=== PATIENT | female | born 1970 | race Caucasian/White ===

== ENCOUNTER → 2017-09-11 09:07 | Outpatient (CLI) | payer OTHER, SELFPAY ==
[2017-09-11 12:39] LABS: AST(SGOT) 11 U/L (15-37); Alanine Aminotransfer ALT/SGPT 20 U/L (13-56); Alkaline Phosphatase 104 U/L (45-117); Anion Gap 9 (5-15); BUN 20 mg/dL (7-18); BUN/Creat Ratio 26.1 RATIO (10-20); Calcium,Total 8.7 mg/dL (8.5-10.1); Chloride 105 mmol/L (98-107); Cholesterol 203 mg/dL (200); Creatinine, Serum 0.77 mg/dL (0.55-1.02); EST Glomerular Filtration Rate 87 mL/min (>60); Est Glom Filt Rate - Afr Amer 105 mL/min (>60); Globulin 3.9 g/dL (2.2-4.2); Glucose 98 mg/dL (74-106); High Density Lipoprotein 59 mg/dL; Potassium 4.1 mmol/L (3.5-5.1); Protein, Total 7.9 g/dL (6.4-8.2); Sodium Level 139 mmol/L (136-145); Thyroid Stim Hormone (TSH) 1.21 uIU/mL (0.358-3.74); Triglycerides 130 mg/dL; Very Low Density Lipoprotein 26 mg/dL (5-40)
== END ==
PROVIDERS: Family Provider Family Medicine; PCP Family Medicine; Visit Provider Family Medicine
DX: I10 Essential (primary) hypertension (principal)
CPT/HCPCS: 36415; 80053; 80061; 84443

== ENCOUNTER 2017-10-19 08:12 | Emergency (ER) | payer OTHER, SELFPAY ==
[2017-10-19 08:13] VITALS: BP 158/93; PULSE 131; RESP 17; TEMP 36.6; O2SAT 100; BMI 36.6
--- NOTE | 2017-10-19 08:22 | CT_ITS ---
STUDY: CT ABDOMEN AND PELVIS WITH CONTRAST REASON FOR EXAM: Female, 46 years old. Dark red blood in stool with nausea and diarrhea for 2 days. RADIATION DOSAGE (If Supplied By Facility): CTDIvol = ( 16.75 ) mGy, DLP = ( 1351.69 ) mGycm TECHNIQUE: Transaxial images were obtained from the dome of the diaphragm to the symphysis pubis without oral contrast. 100 ml of Isovue 300 contrast was administered. Sagittal and coronal images were reconstructed. Individualized dose optimization techniques were used for this CT. COMPARISON: Prior comparison studies are not available for review at this time. FINDINGS: There is mild bilateral basilar dependent atelectasis. The visualized portions of the heart are within normal limits. Normal liver. There is non-visualization of the gallbladder, which may be secondary to either contraction or a prior cholecystectomy. Normal spleen. Normal pancreas. Normal bilateral adrenal glands. Normal right kidney. Normal left kidney. Normal visualized stomach. There is no evidence for dilated bowel, ascites or pneumoperitoneum. Small bowel has a grossly normal appearance. There is apparent thickening of the hager of the descending colon possibly related to acute or chronic inflammation. There is also some narrowing and possible thickening of the hager of the mid transverse colon. The appendix is visualized and appears normal. Normal abdominal aorta. Normal inferior vena cava. Normal retroperitoneum. Normal urinary bladder. Normal visualized uterus. There is a small umbilical hernia containing fat. Normal osseous structures. CT/Abdomen/Pelvis W IV Cont ONLY IMPRESSION: Nonspecific thickening of the hager of the descending colon and mid transverse colon. This may be the result of acute or chronic inflammation. Electronically Signed: Jazmin Sanchez MD at 10:26 EDT , Service support ,
--- NOTE | 2017-10-19 08:23 | ED.VISSUMM ---
- ER Visit Summary Date of Service: 10/19/17 Chief Complaint: Nausea, bloody diarrhea History of Present Illness: The patient is a 46 F presents to the emergency department with one episode of bloody diarrhea this morning. Patient states that she has had symptoms of gastroenteritis over the past 2 days. States she has had some mild nausea and minimal abdominal cramping. 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 She states that today, when she woke, she the urge that she had to move her bowels. She states she moved her bowels and there was a lot of dark blood with it. She has had some cramping, but no significant pain. She states that she got lightheaded and then she passed out. She states she has never passed out like this before. She denies any chest pain. The patient is on a baby aspirin, but takes no other anticoagulants. She has no history of Crohn's disease. She has no history of ulcerative colitis. She denies any other systemic symptoms. Physical Examination: Vital signs reviewed General: Well-nourished, well-developed Head: Normocephalic, atraumatic Eyes: Pupils equal and reactive, extraocular muscles intact Neck, supple, no lymphadenopathy Heart: Regular rate and rhythm Respiratory: No distress, clear bilaterally Abdomen: Soft, nontender, nondistended, no peritoneal signs, bowel sounds are hyperactive Back: Nontender Extremities: Nontender, no edema, no cords Skin: Normal color no rash Neuro: Alert and oriented, no focal or lateralizing deficits Test Results: [] Emergency Department Course and Treatment: The patient has symptoms that are concerning for GI bleed. She has a benign abdomen, but given the diarrhea, I did want to rule out acute intra-abdominal process. IV was established. Patient was given fluids and Zofran. She had no further pain. I did obtain a CT of the abdomen and pelvis. Her hemoglobin is 10.5 which is about 1 g less than her baseline. Her BUN is also elevated at 40. I am concerned that she may have an upper GI bleed given these. Her CT is read as questionable mild colitis, but on my review it really does not look impressive. I do not feel that this fully represents the cause of her bleeding. The patient was covered with Cipro and Flagyl due to concern for colitis on CT. She was actually evaluated by Dr. Faulkner in the emergency department. The plan was for admission and likely endoscopy in 48 hours, however the patient had another episode of bleeding. With this, I do feel that she is going require a higher level of care and likely urgent to emergent GI intervention. The patient was discussed with Dr. Sanchez at [facility] and was accepted to the intensive care unit. She is started on Protonix drip already. She will be transferred [facility] for further diagnosis and treatment of suspected upper GI bleed. Treatment Plan: [] Disposition: Transfer Impression: 1. Upper GI bleed 2. Syncope 3. Infectious colitis This note was generated with [employer] dictation software. It may contain incorrect words, spelling, and punctuation that were not noted in review of the chart prior to signing ED Disposition - Plan for ED Patient: Chief Complaint: GI Bleed Referrals: Alexey Christina MD [Primary Care Provider] -
[2017-10-19] MEDS: Ondansetron 4 MG/2 ML Vial IV (08:41)
[2017-10-19] MEDS: 0.9% Normal Saline 1,000 ML 1000 ML IV (08:41)
[2017-10-19 08:42] LABS: Absolute Lymphocyte Count 3.42 X10^3/ul (0.83-4.51); Absolute Neutrophil Count 6.2 X10^3/uL (2.0-7.7); Basophil# 0.04 X10^3/uL; Basophil% 0.4 % (0-1); Eosinophil# 0.23 X10^3/uL; Eosinophils% 2.2 % (0-5); Hematocrit 32.3 % (37-47); Hemoglobin 10.5 g/dl (12.0-15.0); Lymphocyte # 3.42 X10^3/ul (4.0); Lymphocyte % 32.3 % (19-41); Mean Corp Hgb Conc 32.5 g/gl (32-36); Mean Corpuscular Volume 95.3 fL (81-99); Mean Platelet Vol. 9.8 fl (6.2-12.0); Monocyte# 0.62 X10^3/uL; Monocyte% 5.9 % (0-10); Neutrophil # 6.24 X10^3/uL (2.7-7.7); Neutrophil % 58.9 % (47-70); POSITIVE COUNT NO; POSITIVE DIFFERENTIAL NO; POSITIVE MORPHOLOGY NO; Platelet Count 443 K/mm3 (150-450); RBC Distribution Width CV 12.9 % (11.6-14.6); RBC Distribution Width SD 42.9 fl (35.1-43.9); Red Blood Count 3.39 M/mm3 (4.2-5.4); White Blood Count 10.6 K/mm3 (4.4-11.0)
[2017-10-19 08:57] LABS: AST(SGOT) 13 U/L (15-37); Alanine Aminotransfer ALT/SGPT 18 U/L (13-56); Albumin, Serum 3.6 g/dL (3.2-5.0); Alkaline Phosphatase 88 U/L (45-117); Anion Gap 10 (5-15); BUN 40 mg/dL (7-18); BUN/Creat Ratio 47.2 RATIO (10-20); Calcium,Total 8.9 mg/dL (8.5-10.1); Chloride 109 mmol/L (98-107); Creatinine, Serum 0.85 mg/dL (0.55-1.02); EST Glomerular Filtration Rate 77 mL/min (>60); Est Glom Filt Rate - Afr Amer 93 mL/min (>60); Estimated Creatinine Clearance 88.27 ml/min; Globulin 3.5 g/dL (2.2-4.2); Glucose 152 mg/dL (74-106); Potassium 4.1 mmol/L (3.5-5.1); Protein, Total 7.1 g/dL (6.4-8.2); Sodium Level 140 mmol/L (136-145)
[2017-10-19 09:12] LABS: Pregnancy, Serum, hCG Quali. NEGATIVE Negative (0-9 Nonpreg)
--- NOTE | 2017-10-19 09:53 | ED.RN ---
[facility] 2.[address] CALLED FROM THE LAB. DR ALTAMIRANO AWARE
[2017-10-19 09:57] VITALS: BP 134/98; BP 147/100; BP 170/95; PULSE 109; PULSE 110; PULSE 124
--- NOTE | 2017-10-19 09:59 | NURSING ---
DR SERA KAY
[2017-10-19 10:03] LABS: Bacteria 0 SEEN /hpf (None Seen); Mucous, Urine 0 SEEN /hpf (<or=2+)
[2017-10-19 10:07] LABS: Color, Urine Straw (Yellow); Glucose, Dipstick Normal (Normal); Ketone-Dipstick Negative (Negative); Leukocyte Esterase-Dipstick Negative /ul (Negative); Nitrite-Dipstick Negative (Negative); Occult Blood-Urine 25 /ul (Negative); Protein-Dipstick Negative (Negative); Urine Bilirubin Dipstick Negative (Negative); Urine Clarity Sl. Cloudy (Clear); Urine Urobilinogen Normal (Normal)
[2017-10-19 10:14] LABS: Red Blood Cells-Urine 0-5 SEEN /hpf (0-5); Squamous Epithelial Cells - UA 0-5 SEEN /hpf (5-10); White Blood Cells 0-5 SEEN /hpf (0-5)
[2017-10-19 10:44] VITALS: BP 156/80; PULSE 115; RESP 16; O2SAT 100
--- NOTE | 2017-10-19 10:44 | NURSING ---
DR ZAMORA IN ER
--- NOTE | 2017-10-19 10:52 | PCM.CONS.GEN ---
Problem List (1) GI bleed Status: Acute Qualifiers: GI bleed type/associated pathology: unspecified gastrointestinal hemorrhage type Qualified Code(s): K92.2 - Gastrointestinal hemorrhage, unspecified Reason for Consult Date of Consultation: 10/19/17 Reason for Consultation: GI bleed History of Present Illness: The patient is a 46 year old F who reports that for the last few days she has been having upset stomach. She says yesterday she had a bout of diarrhea with blood. She reports today she has had 2 bouts of diarrhea that were mostly blood. She is not having any abdominal pain at this time just upset stomach. She reports has not vomited any blood. She has never had a GI bleed in the past. She also had a syncopal episode with this. 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 Medical History Past Medical History (Chronic Problems): Chronic Problems HTN (hypertension) (Chronic) Lumbar stenosis (Chronic) History of pulmonary embolism (Chronic) Allergies codeine Allergy (Verified 10/19/17 08:13) Rash Home Medications: Ambulatory Orders Medication Instructions Recorded Aspirin [Aspirin, Baby] 81 mg PO DAILY@0800 08/27/15 Gabapentin [Neurontin] 400 mg PO TIDCM 08/27/15 Metoprolol(XL)Succ [Toprol Xl 100 mg PO QHS 08/27/15 (Beta Faiza)] Olmesartan/Hydrochlorothiazide 1 tab PO DAILY 08/27/15 [Benicar Hct 40-25 MG Tablet] Meloxicam [Mobic] 15 mg PO DAILY 01/17/16 Clonazepam [Klonopin] 0.5 mg PO Q8H PRN PRN 05/07/17 Dicyclomine HCl [Bentyl] 20 mg PO TIDAC PRN 05/07/17 Escitalopram Oxalate [Lexapro] 20 mg PO DAILY 05/07/17 buPROPion XL [Wellbutrin Xl] 150 mg PO DAILY 05/07/17 Surgical History: cholecystectomy, - - 1.5 years ago cerivial fusion at [facility] Smoking Status: Never smoker - *Family History Maternal History Items: - - cervical, breast, thyroid skin cancer Paternal History Items: - - father with cabg Review of Systems Constitutional: Denies: Chills, Fever HEENT: Denies: Difficulty Swallowing Cardiovascular: Denies: Chest Pain Respiratory: Denies: Cough, Shortness of Breath Gastrointestinal: Reports: Diarrhea, Hematochezia. Denies: Abdominal Pain, Vomiting Genitourinary: Denies: Dysuria Musculoskeletal: Denies: Joint Tenderness Skin: Denies: Dryness Neurological: Denies: Blurred vision Patient Problems: Active and Suspected Problems GI bleed (Acute) - Physical Exam General: Alert, Oriented x3, Cooperative, No apparent distress HEENT: Atraumatic, PERRLA, EOMI Oral: Dry Mucosa Neck: Supple Lungs: Normal air movement Cardiovascular: Tachycardic Abdomen: Soft, Non Tender, Non-Distended Extremities: No clubbing Musculoskeletal: No Muscle Wasting Neurological: Cranial nerves II-XII grossly intact Psych/Mental Status: Normal Affect, Appropriate Vital Signs Temp Pulse Resp BP Pulse Ox 97.9 F 115 H 16 156/80 H 100 10/19/17 08:13 10/19/17 10:44 10/19/17 10:44 10/19/17 10:44 10/19/17 10:44 Oxygen Flow Rate (L/min) 4 Oxygen Delivery Method Nasal Cannula Weight: 248 lb 0.321 oz Body Mass Index (BMI) 36.6 Laboratory Tests Past 24 Hrs 10/19/17 10/19/17 10/19/17 08:30 08:30 08:30 WBC 10.6 RBC 3.39 L Hgb 10.5 L Hct 32.3 L MCV 95.3 MCH 31.0 MCHC 32.5 RDW 12.9 RDW Differential 42.9 Plt Count 443 MPV 9.8 Immature Gran % (Auto) 0.300 Neut % (Auto) 58.9 Lymph % (Auto) 32.3 [place] % (Auto) 5.9 Eos % (Auto) 2.2 Baso % (Auto) 0.4 Absolute Neuts (auto) 6.2 Absolute Lymphs (auto) 3.42 Total Counted Not Reportable Sodium 140 Potassium 4.1 Chloride 109 H Carbon Dioxide 21.0 Anion Gap 10 BUN 40 H Creatinine 0.85 Estim Creat Clear Calc 88.27 Est GFR (MDRD) Af Amer 93 Est GFR (MDRD) Non-Af 77 BUN/Creatinine Ratio 47.2 H Glucose 152 H Lactic Acid Calcium 8.9 Total Bilirubin 0.40 AST 13 L ALT 18 Alkaline Phosphatase 88 Total Protein 7.1 Albumin 3.6 Globulin 3.5 Albumin/Globulin Ratio 1.0 Serum , Qual NEGATIVE Urine Color Urine Clarity Urine pH Ur Specific [place] Urine Protein Urine Glucose (UA) Urine Ketones Urine Occult Blood Urine Nitrite Urine Bilirubin Urine Urobilinogen Ur Leukocyte Esterase Urine RBC Urine WBC Ur Squamous Epith Cells Urine Bacteria Urine Mucus Blood Type Antibody Screen 10/19/17 10/19/17 10/19/17 08:30 09:20 09:53 WBC RBC Hgb Hct MCV MCH MCHC RDW RDW Differential Plt Count MPV Immature Gran % (Auto) Neut % (Auto) Lymph % (Auto) [place] % (Auto) Eos % (Auto) Baso % (Auto) Absolute Neuts (auto) Absolute Lymphs (auto) Total Counted Sodium Potassium Chloride Carbon Dioxide Anion Gap BUN Creatinine Estim Creat Clear Calc Est GFR (MDRD) Af Amer Est GFR (MDRD) Non-Af BUN/Creatinine Ratio Glucose Lactic Acid 2.0 Calcium Total Bilirubin AST ALT Alkaline Phosphatase Total Protein Albumin Globulin Albumin/Globulin Ratio Serum , Qual Urine Color Straw Urine Clarity Sl. Cloudy Urine pH 7.0 Ur Specific [place] 1.010 Urine Protein Negative Urine Glucose (UA) Normal Urine Ketones Negative Urine Occult Blood 25 H Urine Nitrite Negative Urine Bilirubin Negative Urine Urobilinogen Normal Ur Leukocyte Esterase Negative Urine RBC 0-5 SEEN Urine WBC 0-5 SEEN Ur Squamous Epith Cells 0-5 SEEN Urine Bacteria 0 SEEN Urine Mucus 0 SEEN Blood Type O POSITIVE Antibody Screen NEGATIVE Clinical Impression(s) from Imaging Studies Abdomen/Pelvis CT 10/19/17 08:22 IMPRESSION: Nonspecific thickening of the hager of the descending colon and mid transverse colon. This may be the result of acute or chronic inflammation. Electronically Signed: Jazmin Sanchez MD at 10:26 EDT , Service support , Assessment/Plan Active and Suspected Problems GI bleed (Acute) 46-year-old female with GI bleed 1. Patient reports she has been having bloody diarrhea. She says she is having no bloody vomiting. CT scan revealed some mild thickening of the transverse and descending colon. This is suggestive of colitis as being the cause of the bleeding. However she is on Mobic and aspirin chronically with no PPI coverage. 2. I recommend admission and that the patient be kept n.p.o. with just sips and chips and started on an IV PPI. 3. I will plan for EGD/colonoscopy on Saturday with a bowel prep on Saturday. 4. I explained endoscopy in detail to the patient. I explained the risks including but not limited to stroke or heart attack with anesthesia, perforation of the GI tract, bleeding, infection. I explained that any of these could necessitate further emergency surgery. The patient understands and all questions were answered sufficiently. The patient wishes to proceed with procedure. Pablo Faulkner MD Pager: [facility] [address] [place] [address], [address] [place] [address] Office:
--- NOTE | 2017-10-19 10:56 | CON.PCM_ITS ---
Problem List (1) GI bleed Status: Acute Qualifiers: GI bleed type/associated pathology: unspecified gastrointestinal hemorrhage type Qualified Code(s): K92.2 - Gastrointestinal hemorrhage, unspecified Reason for Consult Date of Consultation: 10/19/17 Reason for Consultation: GI bleed History of Present Illness: The patient is a 46 year old F who reports that for the last few days she has been having upset stomach. She says yesterday she had a bout of diarrhea with blood. She reports today she has had 2 bouts of diarrhea that were mostly blood. She is not having any abdominal pain at this time just upset stomach. She reports has not vomited any blood. She has never had a GI bleed in the past. She also had a syncopal episode with this. 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 Medical History Past Medical History (Chronic Problems): Chronic Problems HTN (hypertension) (Chronic) Lumbar stenosis (Chronic) History of pulmonary embolism (Chronic) Allergies codeine Allergy (Verified 10/19/17 08:13) Rash Home Medications: Ambulatory Orders Medication Instructions Recorded Aspirin [Aspirin, Baby] 81 mg PO DAILY@0800 08/27/15 Gabapentin [Neurontin] 400 mg PO TIDCM 08/27/15 Metoprolol(XL)Succ [Toprol Xl 100 mg PO QHS 08/27/15 (Beta Faiza)] Olmesartan/Hydrochlorothiazide 1 tab PO DAILY 08/27/15 [Benicar Hct 40-25 MG Tablet] Meloxicam [Mobic] 15 mg PO DAILY 01/17/16 Clonazepam [Klonopin] 0.5 mg PO Q8H PRN PRN 05/07/17 Dicyclomine HCl [Bentyl] 20 mg PO TIDAC PRN 05/07/17 Escitalopram Oxalate [Lexapro] 20 mg PO DAILY 05/07/17 buPROPion XL [Wellbutrin Xl] 150 mg PO DAILY 05/07/17 Surgical History: cholecystectomy, - - 1.5 years ago cerivial fusion at [facility] Smoking Status: Never smoker - *Family History Maternal History Items: - - cervical, breast, thyroid skin cancer Paternal History Items: - - father with cabg Review of Systems Constitutional: Denies: Chills, Fever HEENT: Denies: Difficulty Swallowing Cardiovascular: Denies: Chest Pain Respiratory: Denies: Cough, Shortness of Breath Gastrointestinal: Reports: Diarrhea, Hematochezia. Denies: Abdominal Pain, Vomiting Genitourinary: Denies: Dysuria Musculoskeletal: Denies: Joint Tenderness Skin: Denies: Dryness Neurological: Denies: Blurred vision Patient Problems: Active and Suspected Problems GI bleed (Acute) - Physical Exam General: Alert, Oriented x3, Cooperative, No apparent distress HEENT: Atraumatic, PERRLA, EOMI Oral: Dry Mucosa Neck: Supple Lungs: Normal air movement Cardiovascular: Tachycardic Abdomen: Soft, Non Tender, Non-Distended Extremities: No clubbing Musculoskeletal: No Muscle Wasting Neurological: Cranial nerves II-XII grossly intact Psych/Mental Status: Normal Affect, Appropriate Vital Signs Temp Pulse Resp BP Pulse Ox 97.9 F 115 H 16 156/80 H 100 10/19/17 08:13 10/19/17 10:44 10/19/17 10:44 10/19/17 10:44 10/19/17 10:44 Oxygen Flow Rate (L/min) 4 Oxygen Delivery Method Nasal Cannula Weight: 248 lb 0.321 oz Body Mass Index (BMI) 36.6 Laboratory Tests Past 24 Hrs 10/19/17 10/19/17 10/19/17 08:30 08:30 08:30 WBC 10.6 RBC 3.39 L Hgb 10.5 L Hct 32.3 L MCV 95.3 MCH 31.0 MCHC 32.5 RDW 12.9 RDW Differential 42.9 Plt Count 443 MPV 9.8 Immature Gran % (Auto) 0.300 Neut % (Auto) 58.9 Lymph % (Auto) 32.3 [place] % (Auto) 5.9 Eos % (Auto) 2.2 Baso % (Auto) 0.4 Absolute Neuts (auto) 6.2 Absolute Lymphs (auto) 3.42 Total Counted Not Reportable Sodium 140 Potassium 4.1 Chloride 109 H Carbon Dioxide 21.0 Anion Gap 10 BUN 40 H Creatinine 0.85 Estim Creat Clear Calc 88.27 Est GFR (MDRD) Af Amer 93 Est GFR (MDRD) Non-Af 77 BUN/Creatinine Ratio 47.2 H Glucose 152 H Lactic Acid Calcium 8.9 Total Bilirubin 0.40 AST 13 L ALT 18 Alkaline Phosphatase 88 Total Protein 7.1 Albumin 3.6 Globulin 3.5 Albumin/Globulin Ratio 1.0 Serum , Qual NEGATIVE Urine Color Urine Clarity Urine pH Ur Specific [place] Urine Protein Urine Glucose (UA) Urine Ketones Urine Occult Blood Urine Nitrite Urine Bilirubin Urine Urobilinogen Ur Leukocyte Esterase Urine RBC Urine WBC Ur Squamous Epith Cells Urine Bacteria Urine Mucus Blood Type Antibody Screen 10/19/17 10/19/17 10/19/17 08:30 09:20 09:53 WBC RBC Hgb Hct MCV MCH MCHC RDW RDW Differential Plt Count MPV Immature Gran % (Auto) Neut % (Auto) Lymph % (Auto) [place] % (Auto) Eos % (Auto) Baso % (Auto) Absolute Neuts (auto) Absolute Lymphs (auto) Total Counted Sodium Potassium Chloride Carbon Dioxide Anion Gap BUN Creatinine Estim Creat Clear Calc Est GFR (MDRD) Af Amer Est GFR (MDRD) Non-Af BUN/Creatinine Ratio Glucose Lactic Acid 2.0 Calcium Total Bilirubin AST ALT Alkaline Phosphatase Total Protein Albumin Globulin Albumin/Globulin Ratio Serum , Qual Urine Color Straw Urine Clarity Sl. Cloudy Urine pH 7.0 Ur Specific [place] 1.010 Urine Protein Negative Urine Glucose (UA) Normal Urine Ketones Negative Urine Occult Blood 25 H Urine Nitrite Negative Urine Bilirubin Negative Urine Urobilinogen Normal Ur Leukocyte Esterase Negative Urine RBC 0-5 SEEN Urine WBC 0-5 SEEN Ur Squamous Epith Cells 0-5 SEEN Urine Bacteria 0 SEEN Urine Mucus 0 SEEN Blood Type O POSITIVE Antibody Screen NEGATIVE Clinical Impression(s) from Imaging Studies Abdomen/Pelvis CT 10/19/17 08:22 IMPRESSION: Nonspecific thickening of the hager of the descending colon and mid transverse colon. This may be the result of acute or chronic inflammation. Electronically Signed: Jazmin Sanchez MD at 10:26 EDT , Service support , Assessment/Plan Active and Suspected Problems GI bleed (Acute) 46-year-old female with GI bleed 1. Patient reports she has been having bloody diarrhea. She says she is having no bloody vomiting. CT scan revealed some mild thickening of the transverse and descending colon. This is suggestive of colitis as being the cause of the bleeding. However she is on Mobic and aspirin chronically with no PPI coverage. 2. I recommend admission and that the patient be kept n.p.o. with just sips and chips and started on an IV PPI. 3. I will plan for EGD/colonoscopy on Saturday with a bowel prep on Saturday. 4. I explained endoscopy in detail to the patient. I explained the risks including but not limited to stroke or heart attack with anesthesia, perforation of the GI tract, bleeding, infection. I explained that any of these could necessitate further emergency surgery. The patient understands and all questions were answered sufficiently. The patient wishes to proceed with procedure. Pablo Faulkner MD Pager: [facility] [address] [place] [address], [address] [place] [address] Office:
[2017-10-19] MEDS: Ciprofloxacin 400 MG/200 ML BAG 200 MG IV (11:13)
--- NOTE | 2017-10-19 11:23 | NURSING ---
CALLED [facility] FOR TRANSFER.
--- NOTE | 2017-10-19 11:28 | NURSING ---
CALLING [facility] FOR DR ALTAMIRANO
--- NOTE | 2017-10-19 11:33 | NURSING ---
CALLED [facility] , TALKED TO UMESH
[2017-10-19] MEDS: Lactated Ringers 1,000 ML 999 ML IV (11:52)
[2017-10-19 12:04] LABS: International Normalized Ratio 1.1; Prothrombin Time (Protime)PT. 13.8 SECONDS (11.7-14.9)
[2017-10-19 12:05] LABS: Partial Thromboplast Time 31.4 Seconds (24.1-36.2)
[2017-10-19 13:14] VITALS: BP 156/103; BP 156/106; PULSE 111; RESP 16; O2SAT 100
[2017-10-19 13:23] LABS: Reflex Lactate? Y
== END 2017-10-19 13:36 | disposition short-term general hospital (02) ==
PROVIDERS: Emergency Provider Emergency Medicine; Family Provider Family Medicine; PCP Family Medicine
DX: K92.2 Gastrointestinal hemorrhage, unspecified (principal); R55 Syncope and collapse; A09 Infectious gastroenteritis and colitis, unspecified; I10 Essential (primary) hypertension; Z90.49 Acquired absence of other specified parts of digestive tract; Z79.82 Long term (current) use of aspirin; Z79.899 Other long term (current) drug therapy
CPT/HCPCS: 74177; 80053; 81001; 83605; 84703; 85025; 85610; 85730; 86850; 86900; 87506; 96361; 96365; 96366; 96368; 96374; 99285; J7030; J7120; Q9967; A4216; J0744; J2405

== ENCOUNTER → 2017-10-28 08:44 | Outpatient (CLI) | payer OTHER, SELFPAY ==
[2017-10-28 09:13] LABS: Absolute Lymphocyte Count 2.79 X10^3/ul (0.83-4.51); Absolute Neutrophil Count 7.1 X10^3/uL (2.0-7.7); Basophil# 0.03 X10^3/uL; Basophil% 0.3 % (0-1); Eosinophil# 0.22 X10^3/uL; Hematocrit 28.1 % (37-47); Hemoglobin 8.8 g/dl (12.0-15.0); Lymphocyte # 2.79 X10^3/ul (4.0); Lymphocyte % 25.2 % (19-41); Mean Corp Hgb Conc 31.3 g/gl (32-36); Mean Corpuscular Hgb 29.6 pg (27.0-32.0); Mean Corpuscular Volume 94.6 fL (81-99); Mean Platelet Vol. 9.5 fl (6.2-12.0); Monocyte# 0.92 X10^3/uL; Monocyte% 8.3 % (0-10); Neutrophil # 7.05 X10^3/uL (2.7-7.7); Neutrophil % 63.7 % (47-70); Platelet Count 455 K/mm3 (150-450); RBC Distribution Width CV 14.4 % (11.6-14.6); RBC Distribution Width SD 47.2 fl (35.1-43.9); Red Blood Count 2.97 M/mm3 (4.2-5.4); White Blood Count 11.1 K/mm3 (4.4-11.0)
[2017-10-28 09:14] LABS: POSITIVE COUNT NO; POSITIVE DIFFERENTIAL NO; POSITIVE MORPHOLOGY NO
== END ==
PROVIDERS: Family Provider Family Medicine; PCP Family Medicine
DX: K29.71 Gastritis, unspecified, with bleeding (principal); K26.4 Chronic or unspecified duodenal ulcer with hemorrhage
CPT/HCPCS: 36415; 85025

== ENCOUNTER → 2017-11-11 13:01 | Outpatient (CLI) | payer OTHER, SELFPAY ==
[2017-11-11 13:49] LABS: Hematocrit 31.6 % (37-47); Hemoglobin 9.6 g/dl (12.0-15.0); Mean Corp Hgb Conc 30.4 g/gl (32-36); Mean Corpuscular Hgb 26.4 pg (27.0-32.0); Mean Corpuscular Volume 86.8 fL (81-99); Mean Platelet Vol. 9.6 fl (6.2-12.0); Platelet Count 495 K/mm3 (150-450); RBC Distribution Width CV 14.8 % (11.6-14.6); Red Blood Count 3.64 M/mm3 (4.2-5.4)
[2017-11-11 13:53] LABS: Scan Indicated on CBC? Y/N NO
== END ==
PROVIDERS: Family Provider Family Medicine; PCP Family Medicine; Visit Provider Family Medicine
DX: K92.2 Gastrointestinal hemorrhage, unspecified (principal)
CPT/HCPCS: 36415; 85027

== ENCOUNTER → 2017-12-26 09:57 | Outpatient (CLI) | payer OTHER, SELFPAY ==
[2017-12-26 12:00] LABS: Hematocrit 32.3 % (37-47); Hemoglobin 9.4 g/dl (12.0-15.0); Mean Corp Hgb Conc 29.1 g/gl (32-36); Mean Corpuscular Volume 75.6 fL (81-99); Mean Platelet Vol. 10.1 fl (6.2-12.0); Platelet Count 483 K/mm3 (150-450); RBC Distribution Width CV 17.3 % (11.6-14.6); Red Blood Count 4.27 M/mm3 (4.2-5.4); White Blood Count 10.2 K/mm3 (4.4-11.0)
[2017-12-26 12:06] LABS: Scan Indicated on CBC? Y/N NO
[2017-12-26 12:22] LABS: Ferritin 4 ng/mL (8-252); Iron 22 ug/dL (50-170)
== END ==
PROVIDERS: Family Provider Family Medicine; PCP Family Medicine; Visit Provider Family Medicine
DX: D64.9 Anemia, unspecified (principal)
CPT/HCPCS: 36415; 82728; 83540; 85027

== ENCOUNTER → 2018-02-03 11:33 | Outpatient (CLI) | payer OTHER, SELFPAY ==
[2018-02-03 14:04] LABS: Hematocrit 33.4 % (37-47); Hemoglobin 9.5 g/dl (12.0-15.0); Immature Platelet Fraction 2.4 % (1.0-7.9); Mean Corp Hgb Conc 28.4 g/gl (32-36); Mean Corpuscular Hgb 20.3 pg (27.0-32.0); Mean Corpuscular Volume 71.5 fL (81-99); Mean Platelet Vol. 10.3 fl (6.2-12.0); Platelet Count 500 K/mm3 (150-450); RBC Distribution Width CV 17.4 % (11.6-14.6); RBC Distribution Width SD 44.9 fl (35.1-43.9); RET-HE 19.4 pg (30-35); Red Blood Count 4.67 M/mm3 (4.2-5.4); Reticulocyte Count 1.03 % (0.5-1.5); White Blood Count 10.4 K/mm3 (4.4-11.0)
[2018-02-03 14:08] LABS: Ferritin 5 ng/mL (8-252); Iron 25 ug/dL (50-170)
[2018-02-03 14:11] LABS: Scan Indicated on CBC? Y/N YES- FLAGS NOTED
== END ==
PROVIDERS: Family Provider Family Medicine; PCP Family Medicine; Visit Provider Family Medicine
DX: K92.2 Gastrointestinal hemorrhage, unspecified (principal)
CPT/HCPCS: 36415; 82728; 83540; 85027; 85045

== ENCOUNTER → 2018-03-13 16:33 | Outpatient (CLI) | payer OTHER, SELFPAY ==
[2018-03-13 17:59] LABS: Absolute Lymphocyte Count 4.07 X10^3/ul (0.83-4.51); Absolute Neutrophil Count 7.3 X10^3/uL (2.0-7.7); Basophil# 0.04 X10^3/uL; Basophil% 0.3 % (0-1); Differential Indicated SCAN CRITERIA MET; Eosinophil# 0.32 X10^3/uL; Eosinophils% 2.5 % (0-5); Hematocrit 31.4 % (37-47); Hemoglobin 9.2 g/dl (12.0-15.0); Immature Platelet Fraction 2.1 % (1.0-7.9); Lymphocyte # 4.07 X10^3/ul (4.0); Lymphocyte % 31.7 % (19-41); Mean Corp Hgb Conc 29.3 g/gl (32-36); Mean Corpuscular Hgb 20.5 pg (27.0-32.0); Mean Corpuscular Volume 69.9 fL (81-99); Mean Platelet Vol. 9.8 fl (6.2-12.0); Monocyte# 1.11 X10^3/uL; Monocyte% 8.7 % (0-10); Neutrophil # 7.25 X10^3/uL (2.7-7.7); Neutrophil % 56.6 % (47-70); POSITIVE COUNT NO; POSITIVE DIFFERENTIAL NO; POSITIVE MORPHOLOGY YES; Platelet Count 472 K/mm3 (150-450); RBC Distribution Width CV 18.5 % (11.6-14.6); RBC Distribution Width SD 47.2 fl (35.1-43.9); RET-HE 21.7 pg (30-35); Red Blood Count 4.49 M/mm3 (4.2-5.4); Reticulocyte Count 1.54 % (0.5-1.5); White Blood Count 12.8 K/mm3 (4.4-11.0)
[2018-03-13 18:10] LABS: Ferritin 6 ng/mL (8-252); Iron 19 ug/dL (50-170)
[2018-03-13 18:20] LABS: Differential Comment SCANNED; Microcytosis 1+
[2018-03-13 18:21] LABS: Crenated RBC RARE
== END ==
PROVIDERS: Family Provider Family Medicine; PCP Family Medicine; Visit Provider Family Medicine
DX: K92.2 Gastrointestinal hemorrhage, unspecified (principal)
CPT/HCPCS: 36415; 82728; 83540; 85025; 85045

== ENCOUNTER → 2018-04-15 14:22 | Outpatient (CLI) | payer OTHER, SELFPAY ==
[2018-04-15 14:40] VITALS: BP 131/81; PULSE 65; RESP 14; TEMP 37.3; O2SAT 96; BMI 33.5
== END ==
PROVIDERS: Family Provider Family Medicine; PCP Family Medicine; Referring Provider Family Medicine
DX: D50.9 Iron deficiency anemia, unspecified (principal); K92.2 Gastrointestinal hemorrhage, unspecified
CPT/HCPCS: 96365; J1756; J7050

== ENCOUNTER → 2018-04-17 14:54 | Outpatient (CLI) | payer OTHER, SELFPAY ==
[2018-04-17 15:24] VITALS: BP 124/69; PULSE 65; RESP 16; TEMP 36.7; BMI 34.0
== END ==
PROVIDERS: Family Provider Family Medicine; PCP Family Medicine; Referring Provider Family Medicine; Visit Provider Family Medicine
DX: D50.9 Iron deficiency anemia, unspecified (principal); K92.2 Gastrointestinal hemorrhage, unspecified
CPT/HCPCS: 96365; J1756; J7050; A4216

== ENCOUNTER → 2018-04-21 14:31 | Outpatient (CLI) | payer OTHER, SELFPAY ==
[2018-04-21 14:43] VITALS: BP 138/70; PULSE 64; RESP 16; TEMP 36.8; O2SAT 97; BMI 34.0
== END ==
PROVIDERS: Family Provider Family Medicine; PCP Family Medicine; Referring Provider Family Medicine; Visit Provider Family Medicine
DX: D50.9 Iron deficiency anemia, unspecified (principal); K92.2 Gastrointestinal hemorrhage, unspecified
CPT/HCPCS: 96365; J1756; J7050; A4216

== ENCOUNTER → 2018-04-23 14:30 | Outpatient (CLI) | payer OTHER, SELFPAY ==
[2018-04-23 14:45] VITALS: BP 130/67; PULSE 56; RESP 18; TEMP 36.3; O2SAT 95; BMI 34.0
== END ==
PROVIDERS: Family Provider Family Medicine; PCP Family Medicine; Referring Provider Family Medicine; Visit Provider Family Medicine
DX: D50.9 Iron deficiency anemia, unspecified (principal); K92.2 Gastrointestinal hemorrhage, unspecified
CPT/HCPCS: 96365; J1756; J7050; A4216

== ENCOUNTER → 2018-04-25 07:57 | Outpatient (CLI) | payer OTHER, SELFPAY ==
[2018-04-25 08:26] VITALS: BP 139/79; PULSE 72; RESP 16; TEMP 36.2; O2SAT 99
== END ==
PROVIDERS: Family Provider Family Medicine; PCP Family Medicine; Referring Provider Family Medicine; Visit Provider Family Medicine
DX: D50.9 Iron deficiency anemia, unspecified (principal); K92.2 Gastrointestinal hemorrhage, unspecified
CPT/HCPCS: 96365; J1756; J7040; A4216

== ENCOUNTER → 2018-07-03 10:21 | Outpatient (CLI) | payer OTHER, SELFPAY ==
[2018-04-23 14:45] VITALS: BMI 34.0
[2018-07-03 12:15] LABS: Hematocrit 41.8 % (37-47); Hemoglobin 12.9 g/dl (12.0-15.0); Immature Platelet Fraction 2.5 % (1.0-7.9); Mean Corp Hgb Conc 30.9 g/gl (32-36); Mean Corpuscular Hgb 25.3 pg (27.0-32.0); Mean Corpuscular Volume 82.1 fL (81-99); Mean Platelet Vol. 9.4 fl (6.2-12.0); Platelet Count 379 K/mm3 (150-450); RBC Distribution Width CV 19.2 % (11.6-14.6); RET-HE 29.1 pg (30-35); Red Blood Count 5.09 M/mm3 (4.2-5.4); Reticulocyte Count 0.68 % (0.5-1.5); White Blood Count 11.4 K/mm3 (4.4-11.0)
[2018-07-03 12:21] LABS: Scan Indicated on CBC? Y/N NO
[2018-07-03 12:32] LABS: BUN 15 mg/dL (7-18); Creatinine, Serum 0.81 mg/dL (0.55-1.02); Glucose 96 mg/dL (74-106)
[2018-07-03 12:33] LABS: ALB/GLOB Ratio 0.9 RATIO (0.9-2.4); AST(SGOT) 11 U/L (15-37); Alanine Aminotransfer ALT/SGPT 23 U/L (13-56); Albumin, Serum 3.8 g/dL (3.2-5.0); Alkaline Phosphatase 110 U/L (45-117); Anion Gap 11 (5-15); BUN/Creat Ratio 18.6 RATIO (10-20); Calcium,Total 8.9 mg/dL (8.5-10.1); Chloride 104 mmol/L (98-107); Cholesterol 170 mg/dL (200); EST Glomerular Filtration Rate 81 mL/min (>60); Est Glom Filt Rate - Afr Amer 99 mL/min (>60); Ferritin 45 ng/mL (8-252); Globulin 4.2 g/dL (2.2-4.2); High Density Lipoprotein 69 mg/dL; Iron 56 ug/dL (50-170); Potassium 4.7 mmol/L (3.5-5.1); Sodium Level 141 mmol/L (136-145); Triglycerides 87 mg/dL; Very Low Density Lipoprotein 17 mg/dL (5-40)
== END ==
PROVIDERS: Family Provider Family Medicine; PCP Family Medicine; Referring Provider Family Medicine; Visit Provider Family Medicine
DX: D64.9 Anemia, unspecified (principal); I10 Essential (primary) hypertension
CPT/HCPCS: 36415; 80053; 80061; 82728; 83540; 85027; 85045

== ENCOUNTER 2018-08-20 17:30 | Outpatient (RCR) | payer OTHER, SELFPAY ==
--- NOTE | 2018-06-25 17:10 | HP.PTEVAL_ITS ---
Patient's Visit Information JAYLEN FOSTER is a 47 year old F referred to Physical Therapy by Alexey Christina MD with a diagnosis of CERVCIAL DDD. Date of Evaluation: 06/25/18 Physical Therapist: Carlee Cisse PT, Cert MDT - Visit Plan Frequency: 2-3x /Week Duration: 4-6 Weeks Plan: POSTURE CORRECTION/STRENGTHENING, INSTRUCTION IN APPROPRIATE BODY MECHANICS AND ACTIVITY MODIFICATIONS. ROSE UE ROM, STRETCHING AND STRENGTHENING. HEP INSTRUCTION. CERVICAL TX. 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 Disability: NO. Present symptoms: ORSE NECK, UPPER BACK, LOW BACK AND HIP PAIN. ROSE UE SX'S. RIGHT SHOULDER BLADE PAIN RADIATING DOWN TO ELBOW. RIGHT FOREARM, HAND AND FINGER NUMBNESS. LEFT STABBING PAIN FROM SHOULDER BLADE INTO SHOULDER AND UPPER ARM. GENERAL NASTY ACHE THE REST OF THE WAY DOWN HER ARM TO HER HAND. Present since: ABOUT 6 OR 7 YEARS AGO TO SOME DEGREE WITH WORSENING OVER THE LAST YEAR. Pain Scale: Worst - 7/10 Least - 2/10. Currently: 09/07. PATIENT REPORTS SHE FEELS LIKE SHE IS GETTING WORSE BECAUSE SHE CAN'T TAKE ANY ANTI-INLAMMATORIES. Commenced as a result of: 4 BULGING DISCS IN NECK FOR NO APPARENT REASON. Symptoms at onset: NECK PAIN. Worse: STANDING, LIFTING, PUSHING, PULLIING. WALKING, SITTING, CERTAIN SHOES, DOING THE DISHES, FOLDING THE CLOTHERS, BENDING OVER A TOBY DESK FOR PROLONGED TIME. Better: LYING DOWN FLAT, HEATING PAD, TYLONOL, GABAPENTIN. Disturbed sleep: YES. Previous history/Previous treatment: NECK SURGERY 2013 A[address] - DR. LISA DÍAZ. PHYSICAL THERAPY BEFORE AND AFTER SURGERY. PATIENT REPORTS SHE DID AWSOME AFTER REHABING FROM SURGERY UNTIL ABOUT MID 2015. NO PAIN MGMT OR INJECTIONS. Dizziness: NO. Tinnitis: NO. Nausea: NO. Shortness of Breath: NO. Difficulty Swollowing: NO. Gait: NORMAL BUT HURTS FROM LOW BACK INTO HIPS WHEN SHE WALKS. Accidents: NO. NO FALLS. Unexplained weight loss: NO. Imaging: NONE RECENT. PMH/Recent major surgery: RECENT HISTORY OF 3 BLEEDING ULCERS SEPTEMBER 2017 BELIEVED TO BE FROM ADVIL AND MALOXACAM. UNSUCCESSFUL RIGHT CTR ABOUT 2 YEARS AGO. ALSO HAD LEFT CTR - NE. PLOF (Prior Level of Function): PATIENT REPORTS SHE WAS ABLE TO MANAGE HER PAIN BETTER ABOUT 6 MONTHS AGO AND DO THINGS AT HER JOB LIKE BENDING OVER A STUDENTS DESK. SHE ALSO WAS ABLE TO TOLERATE STANDING BETTER TO ACCOMPLISH MORE ADL'S AT HOME 6 MONTHS AGO. - Objective Sitting Posture/Standing Posture: POOR. FORWARD HEAD AND ROUNDED SHOULDERS. NO TORTICOLLIS. Active Correction of posture: NE. Other Observations: INDEP GAIT INTO PT. Motor deficit: ROSE UE'S AND LE'S 5/5. PATIENT DENIES INCREASED PAIN WITH TESTING. RIGHT HANDED WITH RIGHT PLASTIC WELDER OF 65 LBS AND LEFT 35 LBS. Sensory deficit: ROSE UE LIGHT TOUCH SENSATION IS INTACT AND SYMMETRICAL. RIGHT INDEX AND THUMB FEELS NUMB AND TINGLY THOUGH. ROM deficit: Reflexes: 2/3 ROSE UE'S. Dural Signs: POSITIVE ROSE UE'S. Cervical Mvmt Loss: Flex: MIN. Pro: NIL. Ext: MOD. Ret: MOD - INCREASES LEFT SHOULDER AND UPPER THORACIC PAIN. RSB: MOD. LSB: MOD. R Rot: MOD. L Rot: MOD. Postural strength: POOR. Palpation: NO ACUTE PAIN WITH LIGHT PALPATION OF CERVICAL OR THORACIC REGIONS. OTHER: PATIENT WITH DECREASED RIGHT HAND NUMBNESS AND LEFT FORARM SX'S WITH MANUAL SUPINE TRACTION TESTING TODAY. - Goals Goal 1:: DECREASE C/O NECK AND HEAD PAIN. Goal Time Frame: 4-6 Weeks Goal 2:: IMPROVE LIFTING, READING, SLEEP, DRIVING AND RECREATIONAL FUNCTION. Goal Time Frame: 4-6 Weeks Goal 3:: INSTRUCT IN PROPHYLAXIS Goal Time Frame: 4-6 Weeks - Rehabilitation Potential Rehabilitation Potential: Fair - Anticipated Interventions Patient/Client Instruction: Educate patient on: Condition, Plan of Care, Risk Factors, Benefits of Fitness Program For the Purpose of:: To improve self management Therapeutic Exercise to Include: Strength training, Body mechanics, Postural training, Flexibilty training, Active ROM, Scapular Strength/Stabilization For the Purpose of:: To decrease pain, To increase ROM, To improve muscle performance and motor function, To increase tolerance to activity/condition/position, To improve ability of physical actions for home/community/work/leisure TENS: Yes Thermo therapy (hot pack): Yes Intermittent cervical traction: Yes - START MANUALLY For the Purpose of:: To decrease pain, To decrease swelling/inflammation, To increase ROM, To improve nutrient delivery to tissue Thank you for the opportunity to evaluate your patient. For Medicare and Medicare HMO plans, please review the plan of care and approve it. It will need to be FAXED BACK to us at [phone] for Medicare purposes. For Medicare only, by signing this I certify the plan of care. Please let me know if there are questions or concerns regarding this plan of care. Physician Signature: Date:
--- NOTE | 2018-08-20 17:53 | HP.PTDCSUM ---
HP - PT D/C Summary It has been my pleasure to treat JAYLEN FOSTER under orders from Alexey Astudillo MD, for the diagnosis of CERVCIAL DDD for a total of 12 visit(s). Discharge Date: Please see the following information for a summary of their discharge status. - Subjective Subjective: PATIENT REPORTS INCREASED SYMPTOMS SINCE STOPPING PT TX. SAW DR. LISA JOHANSEN PA SATURDAY. X-RAY SHOWED INCREASED C3 C4 DEGENERATIONG. MRI PENDING SEPTEMBER 01 2018. FOLLOW UP WITH DR. ASTUDILLO PENDING IN 3 WEEKS. DID NOT FEEL MUCH BENEFIT FROM HOME TRACTION UNIT PT UNIT BUT HOME UNIT DEFINATELY HELPED. PATIENT REPORTS HER SX'S HAVE BEEN RETURNING SINCE STOPPING PT BUT NOT BAD SHE WAS BEFORE STARTING THIS EPISODE OF CARE. - Pain BILAT NECK Pain Intensity (Out of 10): 2 - Objective Objective/Function: OVER-ALL PATIENT REPORTS LESS PAIN THAN BEFORE THIS EPISODE OF CARE BUT SHE STILL HAS SIGNIFICANT SYMPTOMS AND THERE IS NO SIGNIFICANT CHANGE WITH TESTING COMPARED TO INITIAL EVAL. Motor deficit: ROSE UE'S AND LE'S 5/5. PATIENT DENIES INCREASED PAIN WITH TESTING. 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 Sensory deficit: ROSE UE LIGHT TOUCH SENSATION IS INTACT AND SYMMETRICAL. RIGHT RADIAL HAND, INDEX AND THUMB FEELS NUMB AND TINGLY THOUGH. ROM deficit: ROSE UE'S WFL. Dural Signs: POSITIVE ROSE UE'S. Cervical Mvmt Loss: Flex: MIN. Pro: NIL. Ext: MOD. Ret: MOD. RSB: MOD. LSB: MOD. R Rot: MOD. L Rot: MOD. Postural strength: POOR. Palpation: NO ACUTE PAIN WITH LIGHT PALPATION OF CERVICAL OR THORACIC REGIONS. - Goals Goal 1:: DECREASE C/O NECK AND HEAD PAIN. Goal Progress: Not Progressing Goal 2:: IMPROVE LIFTING, READING, SLEEP, DRIVING AND RECREATIONAL FUNCTION. Goal Progress: Not Progressing Goal 3:: INSTRUCT IN PROPHYLAXIS Goal Progress: Not Progressing - Plan Plan: D/C TO FOLLOW UP WITH DR. ASTUDILLO AND DR. LISA DÍAZ. - D/C Information If there are questions or concerns regarding this patient's physical therapy, please feel free to call me at [phone]. Thank you for the referral of this patient. Sincerely, Carlee Cisse, PT, Cert MDT
== END 2018-08-20 19:00 | disposition home or self-care (01) ==
LOC: PT 17:30
PROVIDERS: Family Provider Family Medicine; PCP Family Medicine; Referring Provider Family Medicine; Visit Provider Family Medicine
DX: M50.30 Other cervical disc degeneration, unspecified cervical region (principal)
CPT/HCPCS: 97012; 97014; 97110; 97140; 97162; 97530; G0283

== ENCOUNTER → 2018-09-11 16:47 | Outpatient (CLI) | payer OTHER, SELFPAY ==
[2018-04-23 14:45] VITALS: BMI 34.0
[2018-09-11 17:47] LABS: Absolute Lymphocyte Count 4.03 X10^3/ul (0.83-4.51); Absolute Neutrophil Count 6.3 X10^3/uL (2.0-7.7); Basophil# 0.04 X10^3/uL; Basophil% 0.3 % (0-1); Eosinophil# 0.37 X10^3/uL; Eosinophils% 3.1 % (0-5); Hematocrit 39.4 % (37-47); Hemoglobin 12.4 g/dl (12.0-15.0); Lymphocyte # 4.03 X10^3/ul (4.0); Lymphocyte % 34.2 % (19-41); Mean Corp Hgb Conc 31.5 g/gl (32-36); Mean Corpuscular Hgb 27.8 pg (27.0-32.0); Mean Corpuscular Volume 88.3 fL (81-99); Mean Platelet Vol. 9.9 fl (6.2-12.0); Monocyte# 1.01 X10^3/uL; Monocyte% 8.6 % (0-10); Neutrophil % 53.5 % (47-70); Platelet Count 408 K/mm3 (150-450); RBC Distribution Width CV 14.1 % (11.6-14.6); RBC Distribution Width SD 45.4 fl (35.1-43.9); Red Blood Count 4.46 M/mm3 (4.2-5.4); White Blood Count 11.8 K/mm3 (4.4-11.0)
[2018-09-11 18:01] LABS: POSITIVE COUNT NO; POSITIVE DIFFERENTIAL NO; POSITIVE MORPHOLOGY NO
[2018-09-11 18:24] LABS: Ferritin 38 ng/mL (8-252); Iron 46 ug/dL (50-170)
== END ==
PROVIDERS: Family Provider Family Medicine; PCP Family Medicine; Referring Provider Family Medicine; Visit Provider Family Medicine
DX: D64.9 Anemia, unspecified (principal)
CPT/HCPCS: 36415; 82728; 83540; 85025

== ENCOUNTER 2019-03-20 16:00 | Outpatient (RCR) | payer OTHER, SELFPAY ==
--- NOTE | 2018-12-16 11:02 | HP.PTEVAL_ITS ---
Patient's Visit Information JAYLEN FOSTER is a 47 year old F referred to Physical Therapy by CHEN Hillman with a diagnosis of S/P CERV SPINE FUSION. Date of Evaluation: 12/16/18 Physical Therapist: Carlee Cisse PT, Cert MDT - Visit Plan Frequency: 2-3x /Week Duration: 4-6 Weeks Plan: *S/P CERVICAL FUSION C34 NOV 10 2018*. HARD NECK COLLAR FULL UNTIL 11/23/18 THEN SOFT COLLAR WELL TREATMENT OFFSIDER. POSTURE CORRECTION/STRENGTHENING, INSTRUCTION IN APPROPRIATE BODY MECHANICS AND ACTIVITY MODIFICATIONS. START WITH CERVICAL ISOMETRICS X 2-3 WEEKS THEN PROGRESS ROM SLOWLY TOLERATED. ROSE UE ROM, STRETCHING AND STRENGTHENING. HEP INSTRUCTION. - Subjective Findings: *S/P CERVICAL FUSION C3-C4 NOV 10 2018* (HISTORY OF ACDF C456 DECEMBER 2014). 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 Disability: NO. Present symptoms: ROSE NECK MU SCLE SORENESS. NO ROSE UE NUMBNESS OR TINGLING. Present since: NEAR 100% RECOVERY AFTER FIRST ACDF IN 2014 THEN IN APPRX NOVEMBER OF 2017 (ONE YEAR AGO) THE NECK ACHING, BURNING, LEFT UE NUMBNESS STARTED TO OCCUR/RE-OCCUR. Pain Scale: Worst - 3/10 Least - 0/10. Currently: 0/10. Commenced as a result of: NO APPARENT REASON. Symptoms at onset: THIS EPISODE NECK AND LEFT UE. Worse: PROLONGED STANDING AND SITTING. Better: LYING DOWN OR RECLINING. Disturbed sleep: NO. Previous history/Previous treatment: ACDF 2014 AND PHYSICAL THERAPY. NO INJECTIONS. VERY REMOTE CHIROPRACTIC. Dizziness: NO. Tinnitis: NO. Nausea: NO. Shortness of Breath: NO. Difficulty Swollowing: NO. Gait: NORMAL. Accidents: NO. Unexplained weight loss: NO. Imaging: X-RAY POST SURGERY October AND EVERYTHING LOOKED GOOD PER PATIENT REPORT. PMH/Recent major surgery: UNREMARKABLE EXCEPT LOW BACK PAIN FOR YEARS. PLOF (Prior Level of Function): WELL TREATMENT OFFSIDER TEACHING. UNLIMITED ACTIVTIY. OTHER: CURRENTLY 5 WKS POST OP. NO LIFTING > 10 LBS. WELL TREATMENT OFFSIDER IN DAY NECK BRACE UNTIL MIDDLE OF NEXT WEEK THEN SOFT CALLAR WELL TREATMENT OFFSIDER FOR ANOTHER 10 DAYS. SOFT COLLAR AT NIGHT UNTIL SECOND WEEK IN DECEMBER THEN CAN WEAN OUT. *NOT ALLOWED TO START THERAPY UNTIL CANDICE 26TH BECAUSE IN HARD COLLAR WELL TREATMENT OFFSIDER UNTIL THEN* - Objective *MODIFIED EVALUATION WITH COLLAR ON*. Sitting Posture/Standing Posture: POOR. SLOUCHED. ROUNDED SHOULDERS. Active Correction of posture: BETTER. Other Observations: INDEP GAIT AND TRANSFERS. IN HARD NECK BRACE WELL TREATMENT OFFSIDER. 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 ROSE ELBOW, FOREARM, WRIST AND HAND FULL ACTIVE ROM. Sensory deficit: NO. ROSE UE LIGHT TOUCH SENSATION IS INTACT AND SYMMETRICAL. ROM deficit: RIGHT SHOULDER ELEVATION 125 DEG. LEFT SHOULDER ELEVATION 135 DEG. Reflexes: RIGHT UE DTR'S 1/2, LEFT 2/2. Dural Signs: NEGATIVE. Cervical Mvmt Loss: NT. Postural strength: POOR. Palpation: NO ACUTE TENDERNESS WITH LIGHT PALPATION OF ROSE SHOULDERS OR SHOULDER BLADE REGIONS. VERY TIGHT TRAP MUSCLES. - Goals Goal 1:: DECREASE C/O NECK PAIN Goal Time Frame: 4-6 Weeks Goal 2:: IMPROVE PERSONAL CARE, LIFTING, WORK, DRIVING AND RECREATIONAL FUNCTION Goal Time Frame: 4-6 Weeks Goal 3:: INSTRUCT IN PROPHYLAXIS Goal Time Frame: 4-6 Weeks - Rehabilitation Potential Rehabilitation Potential: Fair - Anticipated Interventions Patient/Client Instruction: Educate patient on: Condition, Plan of Care, Risk Factors, Benefits of Fitness Program For the Purpose of:: To improve self management Therapeutic Exercise to Include: Strength training, Body mechanics, Postural training, Flexibilty training, Active ROM, Scapular Strength/Stabilization For the Purpose of:: To decrease pain, To increase ROM, To improve muscle performance and motor function, To increase tolerance to activity/condition/position, To improve ability of physical actions for home/community/work/leisure Manual Therapy Techniques to Include: Soft tissue mobilization For the Purpose of:: To decrease pain, To increase ROM, To improve nutrient delivery to tissue Cryotherapy (ice pack, ice massage): Yes Thermo therapy (hot pack): Yes For the Purpose of:: To decrease pain, To decrease swelling/inflammation, To improve nutrient delivery to tissue Thank you for the opportunity to evaluate your patient. For Medicare and Medicare HMO plans, please review the plan of care and approve it. It will need to be FAXED BACK to us at [phone] for Medicare purposes. For Medicare only, by signing this I certify the plan of care. Please let me know if there are questions or concerns regarding this plan of care. Physician Signature: Date:
--- NOTE | 2019-01-30 10:53 | HP.PTREVAL ---
Jessica Patel, ENVELOPE CUTTER-C, It has been my pleasure to treat JAYLEN FOSTER over the last 11 visits for S/P CERV SPINE FUSION. Please see the progress note below for an update on the physical therapy plan of care! Subjective: PATIENT REPORTS SHE IS BETTER. THE PAIN AND NUMBESS ARE BETTER. THE BURNING TOO. PATIENT REPORTS SHE CAN LIVE A NORMAL LIFE WITHOUT BEING IN PAIN NOW. PLANS TO GO BACK TO WORK 02/16/19. FEELS READY TO GO BACK TO WORK IN TERMS OF HER NECK AND UE SX'S. NECK STILL FEELS SOMEWHAT WEAK AND TIGHT. PATIENT REPORTS THE SURGEON SAW HER LAST WEEK AND X-RAYS LOOKED GOOD. FOLLOW UP END OF MAR 2019 FOR ANOTHER X-RAY. STILL ON 10 LB LIFTING LIMIT UNTIL FEB 09 2019 (3 MONTH PO). NO OTHER RESTRICTIONS. Objective/Function: PATIENT IS MAKING GOOD PROGRESS TOWARD ALL PT GOALS BUT SHE STILL HAS NECK AND POSTURAL WEAKNESS AND TIGHTNESS. PATIENT WOULD BENEFIT FROM [facility]UTHER PT FOR MANUAL THERAPY TO HELP INCREASE ROM AND EXERCISE PROGRESSION TO HELP INCREASE FLEXABILITY AND STRENGTH. 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 ROSE UE'S 5/5 EXCEPT SHOULDERS 4/5. ROM deficit: RIGHT SHOULDER ELEVATION 160 DEG. LEFT SHOULDER ELEVATION 170 DEG. Dural Signs: NEGATIVE. Cervical Mvmt Loss: FLEX - MIN. PRO - NIL. EXT - MOD. RET - MOD. RIGHT SB - MOD. LEFT SB - CONY. RIGHT ROT - MOD. LEFT ROT - MOD. Postural strength: POOR TO FAIR. Palpation: VERY TIGHT TRAP MUSCLES RIGHT > LEFT. Plan Plan: CONTINUE PT DECREASING TO 2 TIMES A WEEK AND DISCHARGING INDEP EX'S TO HEP WHILE SEEING PATIENT FOR MANUAL THERAPY AND HEP PROGRESSION. SHE STILL HAS A 10 LB LIFTING LIMIT UNTIL 02/16/19. *S/P CERVICAL FUSION C34 NOV 10 2018*. POSTURE CORRECTION/STRENGTHENING, INSTRUCTION IN APPROPRIATE BODY MECHANICS AND ACTIVITY MODIFICATIONS. START WITH CERVICAL ISOMETRICS X 2-3 WEEKS THEN PROGRESS ROM SLOWLY TOLERATED. ROSE UE ROM, STRETCHING AND STRENGTHENING. HEP INSTRUCTION. Goals Goal 1:: DECREASE C/O NECK PAIN Goal Time Frame: 4-6 Weeks Goal Progress: Progressing Goal 2:: IMPROVE PERSONAL CARE, LIFTING, WORK, DRIVING AND RECREATIONAL FUNCTION Goal Time Frame: 4-6 Weeks Goal Progress: Progressing Goal 3:: INSTRUCT IN PROPHYLAXIS Goal Time Frame: 4-6 Weeks Goal Progress: Progressing Anticipated Interventions Patient/Client Instruction: Educate patient on: Condition, Plan of Care, Risk Factors, Benefits of Fitness Program For the Purpose of:: To improve self management Therapeutic Exercise to Include: Strength training, Body mechanics, Postural training, Flexibilty training, Active ROM, Scapular Strength/Stabilization For the Purpose of:: To decrease pain, To increase ROM, To improve muscle performance and motor function, To increase tolerance to activity/condition/position, To improve ability of physical actions for home/community/work/leisure Manual Therapy Techniques to Include: Soft tissue mobilization For the Purpose of:: To decrease pain, To increase ROM, To improve nutrient delivery to tissue Cryotherapy (ice pack, ice massage): Yes Thermo therapy (hot pack): Yes For the Purpose of:: To decrease pain, To decrease swelling/inflammation, To improve nutrient delivery to tissue Please do not hesitate to contact me at [phone] by phone or if you have questions or concerns regarding this new plan of care! Sincerely, Carlee Cisse, PT, Cert MDT
--- NOTE | 2019-03-20 16:29 | HP.PTDCSUM_ITS ---
HP - PT D/C Summary It has been my pleasure to treat JAYLEN FOSTER under orders from Jessica Patel, ALICEC, for the diagnosis of S/P CERV SPINE FUSION for a total of 20 visit(s). Discharge Date: Please see the following information for a summary of their discharge status. - Subjective Subjective: PATIENT REPORTS SHE IS DOING GOOD. GETS STIFF WITH STRESS BUT OTHERWISE PRETTY SYMPTOM FREE. ONLY HAVING STIFFNESS IN NECK OR BURNING BETWEEN SHOULDER BLADES BUT DOESN'T USUALLY LAST MORE THAN A DAY. HAS BEEN ON NEUROTIN 4.5 YEARS AND IS STILL ON IT. - Overall Improvement % Improvement: 99 - Objective Objective/Function: ALL GOALS MET. PATIENT IS INDEP WITH A HEP. 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 ROSE UE'S 5/5. ROM deficit: NO. FULL ROSE SHOULDER ELEVATION NOW. Dural Signs: NEGATIVE. Cervical Mvmt Loss: FLEX - VERY MINIMAL. PRO - NIL. EXT - MOD. RET - MOD. RIGHT SB - MOD. LEFT SB - CONY. RIGHT ROT - MOD. LEFT ROT - MOD. Postural strength: FAIR. Palpation: VERY TIGHT TRAP MUSCLES RIGHT > LEFT. - Goals Goal 1:: DECREASE C/O NECK PAIN Goal Progress: Goal Met Goal 2:: IMPROVE PERSONAL CARE, LIFTING, WORK, DRIVING AND RECREATIONAL FUNCTION Goal Progress: Goal Met Goal 3:: INSTRUCT IN PROPHYLAXIS Goal Progress: Goal Met - Plan Plan: D/C. PATIENT AGREEABLE. - D/C Information If there are questions or concerns regarding this patient's physical therapy, please feel free to call me at [phone]. Thank you for the referral of this patient. Sincerely, Carlee Cisse, PT, Cert MDT
== END 2019-03-20 19:00 | disposition home or self-care (01) ==
LOC: PT 16:00
PROVIDERS: Family Provider Family Medicine; PCP Family Medicine; Referring Provider Nurse Practitioner; Visit Provider Nurse Practitioner
DX: Z98.1 Arthrodesis status (principal)
CPT/HCPCS: 97110; 97140; 97162; 97530

== ENCOUNTER 2021-03-29 09:22 | Day surgery (SDC) | payer OTHER, SELFPAY ==
[2021-03-29] VITALS (7 sets, daily range): BP systolic 113–147; BP diastolic 81–93; PULSE 73–84; RESP 16–18; TEMP 36.4–37; O2SAT 96–100; BMI 38.6
[2021-03-29] MEDS: Lactated Ringers 1,000 ML 100 ML IV (09:55)
[2021-03-29 09:56] LABS: Internal QC Validated? YES +Cl - CLEAR BKGD; Pregnancy, Urine Negative Negative
--- NOTE | 2021-03-29 10:30 | EGD_PTH ---
PATIENT: JAYLEN FOSTER LOC: EN U#:[id number] AGE/SX: 50/F ROOM: RE03/29/[address]: Dr. Stanislav Sanders DO : 1970 BED: DIS: 03/29/2021 SPEC #: [id number] RECD: 03/29/21 11:32 STATUS: BHARTI JEANNE #: [id number] TYLER: 03/29/21 10:[address]: Stanislav Sanders DEPT: SURGICAL PATHOLOGY RECD BY: Keith Adams ENTERED: 03/29/21 12:24 SP TYPE: EGD BIOPSY SANDHYA DR: Dr. Ike Christina MD Tissues: A - Duodenum, NOS B - Esophagus, NOS Procedures: Special Stain Group II Surgery Specimen Level IV Alcian Blue/PAS (control) HEADER [place] [place] DIAGNOSIS: GERD, abdominal pain, anemia, GI bleed TISSUE SUBMITTED: A ? Duodenum biopsy, B ? Distal esophagus biopsy MICROSCOPIC DIAGNOSIS A. Duodenum, biopsy: Fragments of small intestinal mucosa with focal mild congestion and hemorrhage. B. Distal esophagus, biopsy: Fragments of gastroesophageal mucosa with moderate chronic inflammation and mild acute inflammation. Intestinal metaplasia (goblet cell metaplasia) not identified. See comment. SJ:janie 03/30/2021 COMMENT B. Alcian blue/PAS stain with matched control is used in the evaluation of the specimen. MICROSCOPIC DESCRIPTION Slides are reviewed. GROSS DESCRIPTION A - Received in fixative is one container labeled with the patient's name and designated duodenal biopsy. The specimen consists of multiple irregular fragments of light cooper soft tissue that in aggregate measure 0.5 x 0.5 x 0.1 cm. The specimen is totally submitted in one cassette. B - Received in fixative is one container labeled with the patient's name and designated distal esophagus. The specimen consists of two irregular fragments of light cooper soft tissue that in aggregate measure 0.5 x 0.5 x 0.1 cm. The specimen is totally submitted in one cassette. / AM:janie 03/29/21 TC:3 CPT: 52810 x2, 34344
--- NOTE | 2021-03-29 10:55 | PCM.HP.BLA ---
History and Physical Date of Admission: 03/29/21 [facility] Chief Complaint: venofer Details: JAYLEN FOSTER, is a 50 F who presents to the office today for the evaluation of abdominal pain despite being on 40 mg of omeprazole twice a day. She has a history of a severe upper GI bleed due to peptic ulcer disease thought to be from NSAIDs. She underwent emergent endoscopy requiring intervention. At that time she was taken off of NSAIDs and placed on Tylenol. She was taken a lot of NSAIDs secondary to cervical spine stenosis. She has had 2 neck surgeries. She still suffers from a lot of neck pain and headaches. She also has a history of a spontaneous pulmonary embolism which was treated with anticoagulation and is currently on aspirin therapy. She does not know her H. pylori status. Her hemoglobin has improved since being off of NSAIDs , receiving iron transfusions and being treated with antisecretory therapy. She does have some mild fatigue. She says she was worked up for rheumatoid arthritis because of her cervical spine disease. She says that work-up was negative. She also had a work-up to see if she had a hypercoagulable disorder and that was negative. Now that she is on twice a day PPI therapy she does not have any reflux disease. She did have some heartburn before but that has resolved. However she still gets abdominal pain. ROS ENT ENT: Positive for nasal congestion Gastro GI: Positive for nausea/dyspepsia Musc Musculoskeletal: Positive for joint pain, back pain, stiffness, tingling and Arthritis Neuro Neurology: Positive for tingling Psych Psychiatric: Positive for anxiety, Positive for depression and Positive for obsessions/compulsions Endo Endocrine: Positive for increased thirst/drinking Quality Reporting Tobacco Screening ([facility] 138) Smoking Status: Never smoker Assessment and Plan Assessment and Plan (1) Gastroesophageal reflux disease: Plan - Dr. [place] Friend, DO: Continue omeprazole 40 mg twice daily for now until she gets an upper endoscopy. (2) Abdominal pain: Status: Acute Plan - Dr. [place] Friend, DO: I will evaluate her upper GI tract to see if there is any acute or chronic abnormalities that would lead to her having abdominal pain. I explained to her the goal would be to get her off of PPI therapy twice a day (3) Anemia: Status: Acute Plan - Dr. [place] Friend, DO: She should get an ESR, CRP, LDH, celiac profile and we will evaluate her small bowel when she undergoes upper endoscopy (4) GI bleed: Status: Acute Qualifiers: GI bleed type/associated pathology: unspecified gastrointestinal hemorrhage type Qualified Code(s): K92.2 - Gastrointestinal hemorrhage, unspecified Plan - Dr. [place] Friend, DO: She is not having any signs of GI bleeding at this time Coding Level of Care Code Off vis,new,level 4 Diagnoses Gastroesophageal reflux disease K21.9 Abdominal pain R10.9 Anemia D64.9 GI bleed K92.2 GI bleed type/associated pathology: unspecified gastrointestinal hemorrhage type This is an updated H&P from a previous consultation. Nothing is changed since the patient was seen in the office.
--- NOTE | 2021-03-29 11:20 | OP.EGD_ITS ---
Patient Name: Quentin Elizalde Procedure Date: 03/29/2021 10:39 AM Date of : 1970 Age: 50 Procedure: Upper GI endoscopy Indications: Epigastric abdominal pain Providers: Stanislav Sanders DO Medicines: Propofol per Anesthesia Patient Profile: This is a 50 year old female. Refer to note in patient chart for documentation of history and physical. Patient has symptoms of acute epigastric abdominal pain. Complications: No immediate complications. Procedure: Pre-Anesthesia Assessment: - Prior to the procedure, a History and Physical was performed, and patient medications and allergies were reviewed. The patient is competent. The risks and benefits of the procedure and the sedation options and risks were discussed with the patient. All questions were answered and informed consent was obtained. Patient identification and proposed procedure were verified by the physician in the pre-procedure area. Mental Status Examination: alert and oriented. Airway Examination: normal oropharyngeal airway and neck mobility. Respiratory Examination: clear to auscultation. CV Examination: normal. Prophylactic Antibiotics: The patient does not require prophylactic antibiotics. Prior Anticoagulants: The patient has taken no previous anticoagulant or antiplatelet agents. ASA Grade Assessment: II - A patient with mild systemic disease. After reviewing the risks and benefits, the patient was deemed in satisfactory condition to undergo the procedure. The anesthesia plan was to use moderate sedation / analgesia (conscious sedation). Immediately prior to administration of medications, the patient was re-assessed for adequacy to receive sedatives. The heart rate, respiratory rate, oxygen saturations, blood pressure, adequacy of pulmonary ventilation, and response to care were monitored throughout the procedure. The physical status of the patient was re-assessed after the procedure. After obtaining informed consent, the endoscope was passed under direct vision. Throughout the procedure, the patient's blood pressure, pulse, and oxygen saturations were monitored continuously. The gastroscope was introduced through the mouth, and advanced to the second part of duodenum. The upper GI endoscopy was accomplished without difficulty. The patient tolerated the procedure well. Scope In: 11:02:22 AM Scope Out: 11:08:05 AM Total Procedure Duration Time 0 hours 5 minutes 43 seconds Findings: LA Grade A (one or more mucosal breaks less than 5 mm, not extending between tops of 2 mucosal folds) esophagitis with no bleeding was found. Biopsies were taken with a cold forceps for histology. Verification of patient identification for the specimen was done. Estimated blood loss was minimal. A small hiatal hernia was present. The exam was otherwise without abnormality. Patchy mild inflammation characterized by congestion (edema) was found in the first portion of the duodenum. Biopsies were taken with a cold forceps for histology. Verification of patient identification for the specimen was done. Estimated blood loss was minimal. One non-bleeding cratered duodenal ulcer with no stigmata of bleeding was found in the first portion of the duodenum. This was biopsied with a cold forceps for histology. Impression: - LA Grade A reflux esophagitis. Biopsied. - Small hiatal hernia. - The examination was otherwise normal. - Duodenitis. Biopsied. - One non-bleeding duodenal ulcer with no stigmata of bleeding. Biopsied. - LA Grade A reflux esophagitis. Biopsied. - Small sliding hiatal hernia. - Normal stomach. - High likelihood of duodenitis. Biopsy is contraindicated. - One non-obstructing non-bleeding duodenal ulcer with no stigmata of bleeding. Stress induced etiology. There is no evidence of perforation. Biopsied. Recommendation: - Await pathology results. - Repeat upper endoscopy in 1 year for surveillance based on pathology results. - Return to GI office in 2 weeks. - Continue present medications. Procedure Code(s): --- Professional --- 94783, Esophagogastroduodenoscopy, flexible, transoral; with biopsy, single or multiple CPT copyright 2017 [employer]. All rights reserved. The codes documented in this report are preliminary and upon mail truck driver review may be revised to meet current compliance requirements. Stanislav Sanders DO 03/29/2021 11:19:30 AM This report has been signed electronically. Number of Addenda: 1 Note Initiated On: 03/29/2021 10:39 AM Addendum Number: 1 Addendum Date: 03/01/2022 4:12:07 PM MAC was used instead of moderate sedation for this patient. Stanislav Sanders DO 03/01/2022 4:12:17 PM This report has been signed electronically.
--- NOTE | 2021-03-29 11:20 | OP.CCLET_ITS ---
03/01/2022 Alexey Christina [address] [place] [address] Re : Upper GI endoscopy procedure for Quentin Samuelaidan Dear Dr. Christina This procedure was performed on Monday, March 29, 2021. My impressions and recommendations are as follows: Impressions : - LA Grade A reflux esophagitis. Biopsied. - Small hiatal hernia. - The examination was otherwise normal. - Duodenitis. Biopsied. - One non-bleeding duodenal ulcer with no stigmata of bleeding. Biopsied. - LA Grade A reflux esophagitis. Biopsied. - Small sliding hiatal hernia. - Normal stomach. - High likelihood of duodenitis. Biopsy is contraindicated. - One non-obstructing non-bleeding duodenal ulcer with no stigmata of bleeding. Stress induced etiology. There is no evidence of perforation. Biopsied. Recommendations : - Await pathology results. - Repeat upper endoscopy in 1 year for surveillance based on pathology results. - Return to GI office in 2 weeks. - Continue present medications. My findings are described in the full procedure note, which is enclosed. If I can be of further assistance, please feel free to contact me at . Sincerely, Stanislav Sanders, 03/29/2021 11:19:30 AM This report has been signed electronically.
== END 2021-03-29 12:06 | disposition home or self-care (01) ==
LOC: EN 09:23 → AC 09:24
PROVIDERS: Anesthesiology; PCP Family Medicine; Referring Provider Family Medicine; Visit Provider Internal Medicine Gastroenterology
PROC: 0DJ08ZZ Inspection of Upper Intestinal Tract, Via Natural or Artificial Opening Endoscopic (ICD-10-PCS; CPT 43235; principal; 2021-03-29 10:25)
DX: K26.9 Duodenal ulcer, unspecified as acute or chronic, without hemorrhage or perforation (principal); K21.00 Gastro-esophageal reflux disease with esophagitis, without bleeding; K29.80 Duodenitis without bleeding; K44.9 Diaphragmatic hernia without obstruction or gangrene; D64.9 Anemia, unspecified; I10 Essential (primary) hypertension; F32.9 Major depressive disorder, single episode, unspecified; F41.9 Anxiety disorder, unspecified; G89.29 Other chronic pain; M19.90 Unspecified osteoarthritis, unspecified site; Z87.11 Personal history of peptic ulcer disease; Z87.19 Personal history of other diseases of the digestive system; Z86.718 Personal history of other venous thrombosis and embolism; Z86.711 Personal history of pulmonary embolism; Z79.82 Long term (current) use of aspirin
CPT/HCPCS: 43239; 81025; 88305; 88313; J7120; J2405

== ENCOUNTER → 2021-04-19 | Outpatient (CLI) | payer OTHER, SELFPAY | END | disposition home or self-care (01) | LOC: LABSPEC 04-20 06:32 | PROVIDERS: PCP Family Medicine; Referring Provider Family Medicine; Visit Provider Family Medicine | DX: N39.0 Urinary tract infection, site not specified (principal) | CPT/HCPCS: 87077; 87086; 87088; 87186 ==

== ENCOUNTER 2021-09-14 07:32 | Outpatient (CLI) | payer OTHER, SELFPAY ==
[2021-09-14 10:11] LABS: ALB/GLOB Ratio 0.9 RATIO (0.9-2.4); AST(SGOT) 14 U/L (15-37); Alanine Aminotransfer ALT/SGPT 21 U/L (13-56); Albumin, Serum 3.6 g/dL (3.2-5.0); Alkaline Phosphatase 114 U/L (45-117); Anion Gap 5 (5-15); BUN 18 mg/dL (7-18); BUN/Creat Ratio 21.7 RATIO (10-20); Calcium,Total 9.1 mg/dL (8.5-10.1); Chloride 107 mmol/L (98-107); Creatinine, Serum 0.83 mg/dL (0.55-1.02); EST Glomerular Filtration Rate 78 mL/min (>60); Est Glom Filt Rate - Afr Amer 94 mL/min (>60); Globulin 3.8 g/dL (2.2-4.2); Glucose 122 mg/dL (74-106); Potassium 4.1 mmol/L (3.5-5.1); Protein, Total 7.4 g/dL (6.4-8.2); Sodium Level 138 mmol/L (136-145)
[2021-09-14 10:36] LABS: D-Dimer Quantitative (DVT/PE) < 0.27 FEU/ug/m (0.27-0.49); Fibrinogen 387 mg/dl (203-444)
== END 2021-09-14 23:59 | disposition home or self-care (01) ==
LOC: MTLAB 07:33
PROVIDERS: PCP Family Medicine; Referring Provider Nurse Practitioner Family; Visit Provider Nurse Practitioner Family
DX: R60.0 Localized edema (principal)
CPT/HCPCS: 36415; 80053; 85379; 85384

== ENCOUNTER 2022-12-24 12:00 | Outpatient (RCR) | payer OTHER, SELFPAY ==
--- NOTE | 2022-11-09 16:00 | HP.PTEVAL_ITS ---
Patient's Visit Information JAYLEN FOSTER is a 51 year old F referred to Physical Therapy by Dr. Alexey Christina MD with a diagnosis of CERVICAL DDD AND CHRONIC NECK PAIN. Date of Evaluation: 11/09/22 Physical Therapist: Carlee Cisse PT, Cert MDT - Visit Plan Frequency: 2x /Week Duration: 4-6 Weeks Plan: CONSIDER TRACTION IF OK'D BY SURGEON. TRACTION HAS HELPED SHIMON IN THE PAST BUT NONE SINCE 2ND SURGERY. POSTURE CORRECTION/STRENGTHENING, INSTRUCTION IN APPROPRIATE BODY MECHANICS AND ACTIVITY MODIFICATIONS. GENTLE NECK STRETCHING. ROSE SHLD STRENGTHENING WITH HEP INSTRUCTION. 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 DAUGHTER LIVES WITH HER AND WILL BE HELPING WITH CHILDCARE (1 YEAR OLD) THIS SUMMER WHILE NOT TEACHING. ALSO HELPS WITH CHILDCARE NOW. Disability: NO. Present symptoms: SHARP NECK PAIN FROM TOP OF NECK TO BETWEEN SHLD BLADES. PAIN SPREADS ACROSS SHOULDER BLADES AND DOWN RIGHT ARM TO ELBOW. INTERMITTENT R HAND NUMBNESS AND TINGLING. INTERMITTENT R SHLD CRAMPING WITH THINGS LIKE IRONING HAIR AND PULLING HAIR UP IN A ponytail. Present since: STARTED TO FLARE UP FORM NORMAL SX'S THAT SHE LIVES WITH ABOUT 7 MONTHS AGO. Pain Scale: Worst - 10/10 Least - 2-3/10. Currently: 2-3/10. Commenced as a result of: NO APPARENT REASON. Worse: STRESS, BENDING DOWN WITH KIDS AT SCHOOL, WORKING OUTSIDE. Better: HEATING PADS, ICY HOT PADS. Disturbed sleep: SOMETIMES. Previous history/Previous treatment: PHYSICAL THERAPY, THEN SURGERY 8 YEARS AGO. PHYSICAL THERPAY AGAIN AND THEN NEXT SURGERY 4 YEARS AGO. PT AFTER SX FOR A MONTH OR SO AND HAS BEEN MANAGING SX'S INDEP'LY SINCE WITH NEUROTIN FOR THE TINGLING. Dizziness: NO. Tinnitis: NO. Nausea: NO. Shortness of Breath: NO. Difficulty Swollowing: NO. Gait: NORMAL. Accidents: NO. Unexplained weight loss: NO. Imaging: NONE RECENT. PMH/Recent major surgery: ANXIETY, DEPRESSION, STOMACH ULCERS. - Objective Sitting Posture/Standing Posture: POOR. FH. RSH'S. Active Correction of posture: BETTER. Other Observations: INDEP GAIT AND TRANSFERS. MOST PLEASANT AND COOPERATIVE TO WORK WITH. Sensory deficit: ROSE UE LIGHT TOUCH SENSATION GROSSLY INTACT AND SYMMETRICAL. ROM deficit: ROSE UE'S WFL. 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 ROSE UE STRENGTH GROSSLY 5/5 WITH MMT'ING EXCEPT SHLDS: R 4-/5, L 4/5. Dural Signs: POSITIVE RIGHT UE. Cervical Mvmt Loss: Flex: MIN. Pro: NIL. Ext: MOD. Ret: CONY. RSB: MOD. LSB: CONY. R Rot: MOD. L Rot: MOD. PATIENT C/O INCRASED NECK PAIN WITH L SB AND L ROTATION TESTING. STATES TESTING MAKES HER REALIZE HOW TIGHT HER NECK IS. Postural strength: POOR. Palpation: NO ACUTE UPPER THORACIC OR CERVICAL TENDERNESS BUT INCREASED M. TONE ROSE PARASPINALS AND UT'S. TREATMENT: NEUROMUSCULAR REEDUCATION - RETRAINING OF MVMT AND POSTURE FOR SITTING AND STANDING ACTIVITIES (WORK, CHILDCARE AND HOUSEWORK). - Balance/Special Test Scores Oswestry Neck Score: 10 - Goals Goal 1:: DECREASE C/O NECK PAIN AND R UE SX'S. Goal Time Frame: 4-6 Weeks Goal 2:: IMPROVE LIFTING, READING, SLEEP, WORK, AND RECREATIONAL FUNCTION Goal Time Frame: 4-6 Weeks Goal 3:: INSTRUCT IN PROPHYLAXIS. Goal Time Frame: 4-6 Weeks - Anticipated Interventions Patient/Client Instruction: Educate patient on: Condition, Plan of Care, Risk Factors For the Purpose of:: To improve self management Therapeutic Exercise to Include: Strength training, Body mechanics, Postural training, Flexibilty training, Neuromotor development, Scapular Strength/Stabilization For the Purpose of:: To decrease pain, To increase ROM, To improve muscle performance and motor function, To increase tolerance to activity/condition/position, To improve ability of physical actions for home/community/work/leisure Comment: CONSIDER TRACTION IF OK'D BY SURGEON. For the Purpose of:: To decrease pain, To increase ROM Thank you for the opportunity to evaluate your patient. For Medicare and Medicare HMO plans, please review the plan of care and approve it. It will need to be FAXED BACK to us at [phone] for Medicare purposes. For Medicare only, by signing this I certify the plan of care. Please let me know if there are questions or concerns regarding this plan of care. Physician Signature: Date:
--- NOTE | 2022-12-24 12:17 | HP.PTDCSUM_ITS ---
It has been my pleasure to treat JAYLEN FOSTER referred by Dr. Alexey Christina MD, with the diagnosis of CERVICAL DDD AND CHRONIC NECK PAIN for a total of 9 visit(s). Discharge Date: 12/24/22 Please see the following information for a summary of their discharge status. Subjective: THE SHARP PAINS ARE GONE AND I AM BACK TO MY NORMAL ACHE. NO LONGER HAVING UE SX'S. Neck Pain Intensity (Out of 10): 1 % Improvement: 100 Objective/Function: PATIENT WAS SEEN TODAY FOR RE-ASSESSMENT OF PROGRESS TOWARD THE SET PT GOALS AND THE NEED FOR FURTHER PHYSICAL THERAPY VS READINESS FOR DISCHARGE. ALL GOALS HAVE BEEN MET AND PATIENT IS APPROPRIATE FOR DISCHARGE. SHE IS INDEP WITH A HEP AND SHE IS AGREEABLE TO D/C. 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 ROSE UE STRENGTH GROSSLY 5/5 WITH MMT'ING. Dural Signs: NEGATIVE ROSE UES'. Cervical Mvmt Loss: Flex: NIL. Pro: NIL. Ext: MOD. Ret: MOD. RSB: MIN. LSB: MOD. R Rot: MIN. L Rot: MIN. PATIENT DENIES PAIN WITH CERVICAL ROM TESTING ALL PLANES TODAY. Goal 1:: DECREASE C/O NECK PAIN AND R UE SX'S. Goal Progress: Goal Met Goal 2:: IMPROVE LIFTING, READING, SLEEP, WORK, AND RECREATIONAL FUNCTION Goal Progress: Goal Met Goal 3:: INSTRUCT IN PROPHYLAXIS. Goal Progress: Goal Met Plan: D/C If there are questions or concerns regarding this patient's physical therapy, please feel free to call me at [phone]. Thank you for the referral of this patient. Sincerely, Carlee Cisse, PT, Cert MDT Balance/Gait/Functional tests - Balance/Special Test Scores Oswestry Neck Score: 3
== END 2022-12-24 14:19 | disposition home or self-care (01) ==
LOC: PT 12:00
PROVIDERS: PCP Family Medicine; Referring Provider Family Medicine; Visit Provider Family Medicine
DX: M50.30 Other cervical disc degeneration, unspecified cervical region (principal)
CPT/HCPCS: 97110; 97112; 97140; 97162; 97164

== ENCOUNTER 2022-12-27 10:31 | Day surgery (SDC) | payer OTHER, SELFPAY ==
[2022-12-27] MEDS: Lactated Ringers 1,000 ML 15 ML IV (10:55)
[2022-12-27 10:56] VITALS: BP 153/91; PULSE 79; RESP 17; TEMP 36.1; O2SAT 94; BMI 38.4
--- NOTE | 2022-12-27 10:56 | PCM.HP.STD ---
[facility] - General General Date of Admission: 12/27/22 Date of Service: 01/02/23 Chief Complaint: Screening colonoscopy [facility] Narrative JAYLEN FOSTER, is a 52 F who presents today for screening colonoscopy. She does not have any abdominal pain. She denies any cramping. She does not have any chest pain or shortness of breath. She does have a pulmonary embolism, peptic ulcer disease, anemia, GI bleed. At this time she denies any problems. [facility] Medical History Alcohol use Anemia Anxiety Arthritis Back pain Chronic headaches Depression Gallstones Gastric reflux History of blood transfusion History of edema History of pulmonary embolism History of stomach ulcers History of stress test History of ulceration Hx of blood clots Hypertension Non-smoker Seasonal allergies Wears contact lenses Home Medications gabapentin 400 mg capsule 400 mg PO TIDCM 08/27/15 [History Last Taken 08/27/15 08:00 400 mg] metoprolol succinate 100 mg tablet,extended release 24 hr 100 mg PO QHS 08/27/15 [History Last Taken 12/26/22] bupropion HCl 150 mg 24 hr tablet, extended release 150 mg PO DAILY 05/07/17 [History Last Taken Unknown] escitalopram oxalate 20 mg tablet 20 mg PO DAILY 05/07/17 [History Last Taken Unknown] acetaminophen 500 mg tablet (Tylenol Extra Strength) 500 mg PO Q6H PRN Pain 03/20/21 [History Last Taken Unknown] amlodipine 10 mg tablet 10 mg PO DAILY 03/20/21 [History Last Taken 12/26/22] aspirin 81 mg chewable tablet 81 mg PO DAILY 03/20/21 [History Last Taken 12/25/22] omeprazole 40 mg capsule,delayed release 40 mg PO DAILY #30 caps 05/24/21 [Rx Last Taken Unknown] Allergy/AdvReac Type Severity Reaction Status Date / Time morphine Allergy Severe emesis/hive Verified 12/27/22 10:40 s codeine Allergy Rash Verified 12/27/22 10:40 Surgical History H/O spinal fusion History of cholecystectomy History of esophagogastroduodenoscopy (EGD) History of hysteroscopy Hx of tonsillectomy Social History (Updated 03/20/21 @ 14:20 by Maria G Alarcon) Smoking Status: Never smoker alcohol intake: current alcohol intake frequency: holidays/special occasions only ROS Review of Systems ROS Unobtainable: other Constitutional Constitutional: Denies fatigue, fever(s), poor appetite, weight gain or weight loss ENT HEENT: Denies mouth lesions Cardiovascular Cardiovascular: Denies abdominal bloating, abdominal edema or abdominal pain Respiratory/Chest Respiratory/Chest: Denies change in mental status, change in phlegm color, chest congestion or chest tightness Gastrointestinal Gastrointestinal: Denies belching, bloating, change in bowel habits, change in stool character, chewing difficulty, coffee ground emesis, constipation, cramping, diarrhea, dyspepsia, dysphagia, early satiety, excessive flatus, fecal incontinence, heartburn, hematemesis, hematochezia, hemorrhoids, loose stools, melena, nausea, odynophagia, rectal bleeding, tenesmus, vomiting or weight changes Genitourinary Genitourinary: Denies abdominal discomfort, burning urination or itching Musculoskeletal Musculoskeletal: Reports as per HPI; Denies muscle weakness or myalgias Integumentary Integumentary: Denies jaundice Neurologic Neurologic: Denies lack of coordination or weakness Psychiatric Psychiatric: Denies confusion, depression, memory loss, mood swings, paranoia or suicidal ideation Endocrine Endocrinology: Denies systems reviewed and no addt'l complaints, except as documented Hematologic/Lymphatic Hematologic/Lymphatic: Denies anemia, easy bleeding, easy bruising or lymphadenopathy Allergic/Immunologic Allergic/Immunologic: Denies systems reviewed and no addt'l complaints, except as documented Physical Exam Const alert General Appearance: cooperative Orientation / Consciousness: oriented to person HEENT hearing grossly normal bilaterally Head and Scalp: normal to inspection Face and Sinus: face symmetric Nose: external nose normal Mouth: oral and palatal mucosa normal Eyes conjunctivae normal General Eye: normal appearance of both eyes Neck full ROM General: normal visual inspection Lymph Lymphatic: no lymphadenopathy noted Chest inspection of chest normal and palpation of chest normal Chest: symmetrical chest wall rise Resp normal respiratory effort Effort and Inspection: able to speak in complete sentences Cardio regular rate GI non-distended Percussion: normal to percussion Rectal Exam: deferred Neuro Speech: speech normal Gait (Neuro): normal gait Assessment & Plan Assessment/Plan (1) Screen for colon cancer: PLAN: She was explained alternatives, risk, benefits including not withstanding bleeding, infection, sepsis, perforation, need for emergent or . She will have an ASA of 2.
--- NOTE | 2022-12-27 11:30 | COL_PTH ---
PATIENT: JAYLEN FOSTER LOC: EN U#:[id number] AGE/SX: 52/F ROOM: RE12/27/[address]: Dr. Stanislav Sanders DO : 1970 BED: DIS: 12/27/2022 SPEC #: [id number] RECD: 12/27/22 12:09 STATUS: BHARTI RENicolás #: [id number] TYLER: 12/27/22 11:[address]: Stanislav Sanders DEPT: SURGICAL PATHOLOGY RECD BY: Little Bagley ENTERED: 12/27/22 12:39 SP TYPE: COLON OTHR DR: Dr. Ike Christina MD Tissues: Colon, NOS Procedures: Surgery Specimen Level IV HEADER OPERATION: Colonoscopy (MAC), biopsy PRE-OP DIAGNOSIS: Screening TISSUE SUBMITTED: Biopsy polyp ascending colon MICROSCOPIC DIAGNOSIS Ascending colon polyp, biopsy: Tubular adenoma. AM:janie 12/28/2022 MICROSCOPIC DESCRIPTION Slides are reviewed. GROSS DESCRIPTION Received in fixative is one container labeled with the patient's name and designated polyp ascending colon biopsy. The specimen consists of one irregular fragment of light cooper soft tissue that measures 0.4 x 0.4 x 0.1 cm. The specimen is totally submitted in one cassette. / SJ:janie 12/27/2022 TC:5 CPT: 45981
[2022-12-27 12:00] VITALS: BP 111/72; BP 153/91; PULSE 72; RESP 16; TEMP 36.6; O2SAT 96
--- NOTE | 2022-12-27 12:03 | OP.COLON_ITS ---
Patient Name: Quentin Elizalde Procedure Date: 12/27/2022 11:33 AM Date of : 1970 Age: 52 Procedure: Colonoscopy Indications: Screening for colorectal malignant neoplasm Providers: Stanislav Sanders DO Medicines: Monitored Anesthesia Care Patient Profile: This is a 52 year old female. Refer to note in patient chart for documentation of history and physical. Last Colonoscopy: date unknown. Unable to locate last colonoscopy report. Complications: No immediate complications. Procedure: Pre-Anesthesia Assessment: - Prior to the procedure, a History and Physical was performed, and patient medications and allergies were reviewed. The patient is competent. The risks and benefits of the procedure and the sedation options and risks were discussed with the patient. All questions were answered and informed consent was obtained. Patient identification and proposed procedure were verified by the physician in the pre-procedure area. Mental Status Examination: alert and oriented. Airway Examination: normal oropharyngeal airway and neck mobility. Respiratory Examination: clear to auscultation. CV Examination: normal. Prophylactic Antibiotics: The patient does not require prophylactic antibiotics. Prior Anticoagulants: The patient has taken no previous anticoagulant or antiplatelet agents. ASA Grade Assessment: II - A patient with mild systemic disease. After reviewing the risks and benefits, the patient was deemed in satisfactory condition to undergo the procedure. The anesthesia plan was to use monitored anesthesia care (MAC). Immediately prior to administration of medications, the patient was re-assessed for adequacy to receive sedatives. The heart rate, respiratory rate, oxygen saturations, blood pressure, adequacy of pulmonary ventilation, and response to care were monitored throughout the procedure. The physical status of the patient was re-assessed after the procedure. After I obtained informed consent, the scope was passed under direct vision. Throughout the procedure, the patient's blood pressure, pulse, and oxygen saturations were monitored continuously. The was introduced through the anus and advanced to the cecum, identified by appendiceal orifice and ileocecal valve. The colonoscopy was performed without difficulty. The patient tolerated the procedure well. The quality of the bowel preparation was adequate. Scope In: 11:42:53 AM Scope Withdrawal Time 0 hours 11 minutes 43 seconds Scope Out: 11:56:12 AM Total Procedure Duration Time 0 hours 13 minutes 19 seconds Findings: The perianal and digital rectal examinations were normal. Non-bleeding internal hemorrhoids were found during retroflexion. The hemorrhoids were Grade II (internal hemorrhoids that prolapse but reduce spontaneously). A 5 mm polyp was found in the ascending colon. The polyp was sessile. The polyp was removed with a cold snare. Resection and retrieval were complete. Verification of patient identification for the specimen was done. Estimated blood loss was minimal. A few small-mouthed diverticula were found in the sigmoid colon. The exam was otherwise without abnormality on direct and retroflexion views. Impression: - Non-bleeding internal hemorrhoids. - One 5 mm polyp in the ascending colon, removed with a cold snare. Resected and retrieved. - Diverticulosis in the sigmoid colon. - The examination was otherwise normal on direct and retroflexion views. Recommendation: - Discharge patient to home. - Resume previous diet. - Continue present medications. - Await pathology results. - Repeat colonoscopy in 5 years for surveillance. Procedure Code(s): --- Professional --- 79379, Colonoscopy, flexible; with removal of tumor(s), polyp(s), or other lesion(s) by snare technique CPT copyright 2017 [employer]. All rights reserved. The codes documented in this report are preliminary and upon mobile designer review may be revised to meet current compliance requirements. Stanislav Sanders DO 12/27/2022 12:03:08 PM This report has been signed electronically. Number of Addenda: 0 Note Initiated On: 12/27/2022 11:33 AM
--- NOTE | 2022-12-27 12:04 | OP.CCLET_ITS ---
12/27/2022 Alexey Christina [address] [place] [address] Re : Colonoscopy procedure for Quentin Elizalde Dear Dr. Christina This procedure was performed on November. My impressions and recommendations are as follows: Impressions : - Non-bleeding internal hemorrhoids. - One 5 mm polyp in the ascending colon, removed with a cold snare. Resected and retrieved. - Diverticulosis in the sigmoid colon. - The examination was otherwise normal on direct and retroflexion views. Recommendations : - Discharge patient to home. - Resume previous diet. - Continue present medications. - Await pathology results. - Repeat colonoscopy in 5 years for surveillance. My findings are described in the full procedure note, which is enclosed. If I can be of further assistance, please feel free to contact me at . Sincerely, Stanislav Sanders, 12/27/2022 12:03:08 PM This report has been signed electronically.
[2022-12-27 12:05] VITALS: BP 113/67; BP 153/91; PULSE 70; RESP 16; O2SAT 97
[2022-12-27 12:10] VITALS: BP 115/70; BP 153/91; PULSE 71; RESP 16; O2SAT 96
[2022-12-27 12:15] VITALS: BP 122/71; BP 153/91; PULSE 65; RESP 16; TEMP 36.2; O2SAT 97
[2022-12-27 12:29] VITALS: BP 153/91
== END 2022-12-27 12:31 | disposition home or self-care (01) ==
LOC: EN 10:37 → AC 10:37
PROVIDERS: PCP Family Medicine; Referring Provider Family Medicine; Visit Provider Internal Medicine Gastroenterology
PROC: 0DJD8ZZ Inspection of Lower Intestinal Tract, Via Natural or Artificial Opening Endoscopic (ICD-10-PCS; CPT 45378; principal; 2022-12-27 11:25)
DX: Z12.11 Encounter for screening for malignant neoplasm of colon (principal); Z79.82 Long term (current) use of aspirin; I10 Essential (primary) hypertension; K64.1 Second degree hemorrhoids; K57.30 Diverticulosis of large intestine without perforation or abscess without bleeding; D64.9 Anemia, unspecified; D12.2 Benign neoplasm of ascending colon; Z86.711 Personal history of pulmonary embolism
CPT/HCPCS: 45385; 88305; 88307; J7120; J2405

== ENCOUNTER 2023-03-17 00:56 | Emergency (ER) | payer OTHER, SELFPAY ==
[2023-03-17 00:57] VITALS: PULSE 102; RESP 18; TEMP 36.1; O2SAT 100; BMI 38.6
[2023-03-17 01:00] VITALS: BP 156/103
[2023-03-17] MEDS: HYDROmorphone 1 MG/ML Syringe IV (02:20)
[2023-03-17] MEDS: Ondansetron 4 MG/2 ML Vial IV (02:20)
[2023-03-17 02:22] LABS: Absolute Lymphocyte Count 2.71 X10^3/uL (0.83-4.51); Absolute Neutrophil Count 9.9 X10^3/uL (2.0-7.7); Basophil# 0.05 X10^3/uL; Basophil% 0.4 % (0-1); Eosinophils% 0.7 % (0-5); Hematocrit 41.5 % (37-47); Hemoglobin 13.8 g/dL (12.0-15.0); Lymphocyte # 2.71 X10^3/ul (0.83-4.51); Lymphocyte % 19.4 % (19-41); Mean Corp Hgb Conc 33.3 g/dL (32-36); Mean Corpuscular Hgb 29.7 pg (27.0-32.0); Mean Corpuscular Volume 89.4 fL (81-99); Monocyte# 1.19 X10^3/uL; Monocyte% 8.5 % (0-10); NRBC Flagged by Analyzer 0 % (0-5); Neutrophil # 9.85 X10^3/uL (2.7-7.7); Neutrophil % 70.5 % (47-70); Platelet Count 449 K/mm3 (150-450); RBC Distribution Width SD 42.8 fl (35.1-43.9); Red Blood Count 4.64 M/mm3 (4.2-5.4)
[2023-03-17 02:39] LABS: AST(SGOT) 17 U/L (15-37); Alanine Aminotransfer ALT/SGPT 22 U/L (13-56); Alkaline Phosphatase 109 U/L (45-117); Anion Gap 11 (5-15); BUN 17 mg/dL (7-18); BUN/Creat Ratio 19.7 RATIO (10-20); Bilirubin, Direct 0.16 mg/dL (0.00-0.30); Calcium,Total 9.7 mg/dL (8.5-10.1); Chloride 107 mmol/L (98-107); Creatinine, Serum 0.86 mg/dL (0.55-1.02); EST Glomerular Filtration Rate 74 mL/min (>60); Est Glom Filt Rate - Afr Amer 89 mL/min (>60); Estimated Creatinine Clearance 81.79 ml/min; Globulin 4.2 g/dL (2.2-4.2); Glucose 127 mg/dL (74-106); Lipase 17 U/L (13-75); Potassium 3.7 mmol/L (3.5-5.1); Protein, Total 8.2 g/dL (6.4-8.2); Sodium Level 137 mmol/L (136-145)
[2023-03-17] MEDS: 0.9% Normal Saline (1000mL) 1,000 ML 999 ML IV (02:47)
--- NOTE | 2023-03-17 03:10 | EX.ED.DYSGE1 ---
HPI History of Present Illness Chief Complaint: Nausea/Vomiting/Diarrhea Informant: patient Narrative Narrative: Patient is a 52-year-old female medical history of hypertension and lumbar stenosis. She states she has had 2 days of generalized abdominal discomfort with bouts of nausea vomiting diarrhea. 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 She denies any history of ulcer colitis Crohn's disease or IBS. She states that over the last 2 days symptoms seem to be progressing and secondary to this she comes in for evaluation. [facility] Medical History (Updated 03/18/23 @ 02:[address] Geoff Frank, ) Alcohol use Anemia Anxiety Arthritis Back pain Chronic headaches Depression Gallstones Gastric reflux History of blood transfusion History of edema History of pulmonary embolism History of stomach ulcers History of stress test History of ulceration Hx of blood clots Hypertension Non-smoker Seasonal allergies Wears contact lenses Home Medications gabapentin 400 mg capsule 400 mg PO TIDCM 08/27/15 [History Last Taken 08/27/15 08:00 400 mg] metoprolol succinate 100 mg tablet,extended release 24 hr 100 mg PO QHS 08/27/15 [History Last Taken 12/26/22] bupropion HCl 150 mg 24 hr tablet, extended release 150 mg PO DAILY 05/07/17 [History Last Taken Unknown] escitalopram oxalate 20 mg tablet 20 mg PO DAILY 05/07/17 [History Last Taken Unknown] acetaminophen 500 mg tablet (Tylenol Extra Strength) 500 mg PO Q6H PRN Pain 03/20/21 [History Last Taken Unknown] amlodipine 10 mg tablet 10 mg PO DAILY 03/20/21 [History Last Taken 12/26/22] aspirin 81 mg chewable tablet 81 mg PO DAILY 03/20/21 [History Last Taken 12/25/22] omeprazole 40 mg capsule,delayed release 40 mg PO DAILY #30 caps 05/24/21 [Rx Last Taken Unknown] diphenoxylate-atropine 2.5 mg-0.025 mg tablet (Lomotil) 1 tab PO 4X/DAY PRN PRN diarrhea 5 days #20 tabs 03/17/23 [Rx Last Taken Unknown] ondansetron 4 mg disintegrating tablet 4 mg PO TID PRN nausea and vomiting #21 tabs 03/17/23 [Rx Last Taken Unknown] oxycodone-acetaminophen 5 mg-325 mg tablet (Percocet) 1 tab PO Q6H PRN pain 3 days #12 tabs 03/17/23 [Rx Last Taken Unknown] Allergy/AdvReac Type Severity Reaction Status Date / Time morphine Allergy Severe emesis/hive Verified 03/17/23 00:59 s codeine Allergy Rash Verified 03/17/23 00:59 Surgical History H/O spinal fusion History of cholecystectomy History of esophagogastroduodenoscopy (EGD) History of hysteroscopy Hx of tonsillectomy Social History (Updated 03/20/21 @ 14:20 by Maria G Alarcon) Smoking Status: Never smoker alcohol intake: current alcohol intake frequency: holidays/special occasions only ROS ROS ED Constitutional Constitutional ED: Denies chills or fever(s) ENT ENT ED: Denies sore throat Cardiovascular Cardiovascular: Denies chest pain Respiratory/Chest Respiratory/Chest: Denies cough or dyspnea Gastrointestinal Gastrointestinal: Reports abdominal pain, diarrhea, nausea and vomiting Genitourinary Genitourinary ED: Denies dysuria Musculoskeletal Musculoskeletal: Reports myalgias Integumentary Denies rash Neurologic Neurologic: Denies headache(s) Hematologic/Lymphatic Hematologic/Lymphatic: Denies easy bleeding or easy bruising EXAM Physical Exam Const Vital Signs: 03/17/23 03:54 Pulse Rate 90 Pulse Ox 93 Positive well nourished, well developed and obese General Appearance ED: well developed Nutritional Appearance: obese HEENT Reports moist mucous membranes HEENT Narrative: No signs of infection noted in the posterior pharynx Eyes PERRL and EOMs intact bilaterally General Eye ED: Negative for scleral icterus Neck supple Neck Narrative: No nuchal rigidity or meningeal signs Resp normal respiratory effort and clear to auscultation bilaterally Cardio regular rate and regular rhythm Rate: other Other Details: Radial and carotid pulses are equal and symmetric GI non-distended GI Narrative: Abdomen is soft and nondistended with hyperactive bowel sounds. There is mild diffuse pain with palpation without voluntary guarding or rigidity. No pulsatile mass Auscultation: hyperactive bowel sounds Palpation: soft Back/Spine no CVA tenderness Extremity normal to inspection Neuro oriented x3 and CN's II-XII intact bilaterally Sensorium / Orientation: alert Motor Exam: strength 5/5 throughout Psych mental status grossly normal Skin no rashes or lesions noted General Skin Exam: Negative for jaundice MDM MDM MDM Narrative Medical decision making narrative: Patient presented to the ER hypertensive but otherwise with stable vitals. She reported 1 to 2 days of worsening abdominal symptoms of nausea vomiting diarrhea and generalized pain. Differential diagnosis is for biliary colic versus pancreatitis versus gastroenteritis versus intestinal obstruction versus colitis or diverticulitis. Basic blood work was obtained secondary to the patient's symptoms and differential. White count is elevated but chart review reveals that the white count is typically elevated for this patient. Otherwise there is no signs of acute kidney injury or pancreatitis or electrolyte derangement. After treatment in the ER the patient had resolution of her abdominal pain and no further bouts of vomiting. As she denied any recent antibiotic use travel outside the country or livestock exposure my concern for an infectious diarrhea is low and do not feel need for a stool sample at this time. Therefore as patient's work-up is negative and her symptoms have improved with treatment she can be discharged home with symptomatic care History & Record Review Discussion w/independent historian: Patient Lab Data Attestation: I reviewed the patient's lab results. Labs: Laboratory Results - last 24 hr 03/17/23 01:05 Sodium 137 Potassium 3.7 Chloride 107 Carbon Dioxide 19.0 L Anion Gap 11 BUN 17 Creatinine 0.86 Estim Creat Clear Calc 81.79 Est GFR (MDRD) Af Amer 89 Est GFR (MDRD) Non-Af 74 BUN/Creatinine Ratio 19.7 Glucose 127 H Calcium 9.7 Total Bilirubin 0.50 Direct Bilirubin 0.16 AST 17 ALT 22 Alkaline Phosphatase 109 Total Protein 8.2 Albumin 4.0 Globulin 4.2 Lipase 17 Discharge Plan Triage Chief Complaint: Nausea/Vomiting/Diarrhea ED Provider: Geoff Frank Dx/Rx/DC Orders Clinical Impression: Nausea vomiting and diarrhea, HTN (hypertension) Instructions: ED Gastroenteritis, Viral (Adult) Prescriptions: New ondansetron 4 mg tablet,disintegrating 4 mg PO TID PRN (Reason: nausea and vomiting) Qty: 21 0RF diphenoxylate-atropine [Lomotil] 2.5-0.025 mg tablet 1 tab PO 4X/DAY PRN PRN (Reason: diarrhea) 5 Days Qty: 20 0RF oxycodone-acetaminophen [Percocet] 5-325 mg tablet 1 tab PO Q6H PRN (Reason: pain) 3 Days Qty: 12 0RF No Action acetaminophen [Tylenol Extra Strength] 500 mg tablet 500 mg PO Q6H PRN (Reason: Pain) aspirin 81 mg tablet,chewable 81 mg PO DAILY amlodipine 10 mg tablet 10 mg PO DAILY metoprolol succinate 100 MG tablet 100 mg PO QHS gabapentin 400 MG capsule 400 mg PO TIDCM escitalopram oxalate 20 MG tablet 20 mg PO DAILY bupropion HCl 150 MG tablet extended release 24 hr 150 mg PO DAILY omeprazole 40 mg capsule,delayed release(DR/EC) 40 mg PO DAILY Qty: 30 1RF Primary Care Provider: Alexey Christina Referrals: Alexey Christina MD [Primary Care Provider] - Activity Restrictions/Additional Instructions: Your symptoms and exam is most consistent with a viral stomach infection which will typically last 3 to 7 days. Keep yourself well-hydrated and use the medications as directed to control symptoms. If you have any further concerns please return for repeat evaluation Disposition Disposition: Home, Self Care Discharge Date/Time: 03/17/23 03:55
[2023-03-17 03:54] VITALS: PULSE 90; O2SAT 93
== END 2023-03-17 03:55 | disposition home or self-care (01) ==
PROVIDERS: Emergency Provider Emergency Medicine; PCP Family Medicine; Visit Provider Emergency Medicine
DX: R11.2 Nausea with vomiting, unspecified (principal); R19.7 Diarrhea, unspecified; I10 Essential (primary) hypertension; Z79.899 Other long term (current) drug therapy; F41.9 Anxiety disorder, unspecified; F32.A Depression, unspecified; K21.9 Gastro-esophageal reflux disease without esophagitis; Z79.82 Long term (current) use of aspirin; Z90.49 Acquired absence of other specified parts of digestive tract
CPT/HCPCS: 80048; 80076; 83690; 85025; 96361; 96374; 96375; 99282; J7030; A4216; J2405

== ENCOUNTER 2023-04-05 19:41 | Emergency (ER) | payer OTHER, SELFPAY ==
[2023-04-05 19:43] VITALS: BP 160/103; PULSE 87; RESP 16; TEMP 36.9; O2SAT 97; BMI 37.5
--- NOTE | 2023-04-05 20:07 | EDS_ITS ---
HPI History of Present Illness Chief Complaint: Constipation Detail of Chief Complaint: Constipation and rash on right buttock Informant: patient Narrative Narrative: Patient presents with a rash on her right bottom that she states started yesterday. She thinks it might be shingles because her dad had shingles. Patient also has had been constipated for about 4 days. She did have some bowel movement yesterday and small amount the day. She states that a week ago she had some diarrhea and was taken medications to decrease her diarrhea. She denies abdominal pain. She has had no fever or vomiting. She took a stool softener yesterday. She is less concerned about the constipation and more concerned about the rash. [facility] Medical History (Updated 04/05/23 @ 20:[address] Blair Mckeon, ) Alcohol use Anemia Anxiety Arthritis Back pain Chronic headaches Depression Gallstones Gastric reflux History of blood transfusion History of edema History of pulmonary embolism History of stomach ulcers History of stress test History of ulceration Hx of blood clots Hypertension Non-smoker Seasonal allergies Wears contact lenses Home Medications gabapentin 400 mg capsule 400 mg PO TIDCM 08/27/15 [History Last Taken 08/27/15 08:00 400 mg] metoprolol succinate 100 mg tablet,extended release 24 hr 100 mg PO QHS 08/27/15 [History Last Taken 12/26/22] bupropion HCl 150 mg 24 hr tablet, extended release 150 mg PO DAILY 05/07/17 [History Last Taken Unknown] escitalopram oxalate 20 mg tablet 20 mg PO DAILY 05/07/17 [History Last Taken Unknown] acetaminophen 500 mg tablet (Tylenol Extra Strength) 500 mg PO Q6H PRN Pain 03/20/21 [History Last Taken Unknown] amlodipine 10 mg tablet 10 mg PO DAILY 03/20/21 [History Last Taken 12/26/22] aspirin 81 mg chewable tablet 81 mg PO DAILY 03/20/21 [History Last Taken 12/25/22] omeprazole 40 mg capsule,delayed release 40 mg PO DAILY #30 caps 05/24/21 [Rx Last Taken Unknown] diphenoxylate-atropine 2.5 mg-0.025 mg tablet (Lomotil) 1 tab PO 4X/DAY PRN PRN diarrhea 5 days #20 tabs 03/17/23 [Rx Last Taken Unknown] ondansetron 4 mg disintegrating tablet 4 mg PO TID PRN nausea and vomiting #21 tabs 03/17/23 [Rx Last Taken Unknown] oxycodone-acetaminophen 5 mg-325 mg tablet (Percocet) 1 tab PO Q6H PRN pain 3 days #12 tabs 03/17/23 [Rx Last Taken Unknown] famciclovir 500 mg tablet 500 mg PO Q8H 7 days #21 tabs 04/05/23 [Rx Last Taken Unknown] nystatin 100,000 unit/gram topical cream 1 applic topical BID #30 grams 04/05/23 [Rx Last Taken Unknown] prednisone 20 mg tablet 20 mg PO BID #10 tabs 04/05/23 [Rx Last Taken Unknown] Allergy/AdvReac Type Severity Reaction Status Date / Time morphine Allergy Severe emesis/hive Verified 04/05/23 19:42 s codeine Allergy Rash Verified 04/05/23 19:42 Surgical History H/O spinal fusion History of cholecystectomy History of esophagogastroduodenoscopy (EGD) History of hysteroscopy Hx of tonsillectomy Social History (Updated 03/20/21 @ 14:20 by Maria G Alarcon) Smoking Status: Never smoker alcohol intake: current alcohol intake frequency: holidays/special occasions only ROS ROS ED Review of Systems ROS Unobtainable: other Constitutional Constitutional ED: Reports lethargy; Denies chills, fever(s), sweats or weight loss Eyes Eyes: Denies blurry vision, change in vision or diplopia ENT ENT ED: Denies rhinorrhea or sore throat Cardiovascular Cardiovascular: Reports chest pain; Denies orthopnea or racing heartbeat Respiratory/Chest Respiratory/Chest: Denies cough, dyspnea, dyspnea on exertion, orthopnea or sputum Gastrointestinal Gastrointestinal: Reports constipation; Denies abdominal pain, diarrhea, nausea or vomiting Genitourinary Genitourinary ED: Denies dysuria, hematuria or urinary frequency Musculoskeletal Musculoskeletal: Denies arthralgias, back pain, myalgias or neck pain Integumentary Reports rash; Denies abscess or Abrasions Neurologic Neurologic: Denies headache(s) or weakness Psychiatric Psychiatric: Denies anxiety, depression or suicidal thoughts Endocrine Endocrinology: Denies polydipsia, polyphagia or polyuria Hematologic/Lymphatic Hematologic/Lymphatic: Denies easy bleeding, easy bruising or lymphadenopathy Allergic/Immunologic Allergic/Immunologic ED: Denies mouth swelling, tongue swelling or urticaria EXAM Physical Exam Const Vital Signs: 04/05/23 19:43 Temperature 98.5 F Temperature Source Temporal Pulse Rate 87 Respiratory Rate 16 Blood Pressure 160/103 H Blood Pressure Mean 122 Pulse Ox 97 Positive well nourished and well developed General Appearance ED: well developed and NAD HEENT Reports TM's clear and moist mucous membranes normocephalic and atraumatic; Negative for trauma or tenderness Tympanic Membrane ED: Yes TM's clear Eyes PERRL and EOMs intact bilaterally General Eye ED: Negative for pale conjunctiva or scleral icterus Neck no lymphadenopathy, supple and no JVD General: Negative for tenderness Chest Wall inspection of chest normal and palpation of chest normal Chest: Negative for tenderness Resp normal respiratory effort and clear to auscultation bilaterally Effort and Inspection: Negative for respiratory distress or pain with movement Auscultation: Negative for rhonchi, wheezes or diminished lung sounds Cardio regular rate, regular rhythm, S1 normal heart sound, S2 normal heart sound and no murmurs Peripheral Pulses: pulses 2+ throughout GI normal to inspection, nondistended, normoactive bowel sounds, soft to palpation, non-tender, non-distended and no masses GI Narrative: Digital rectal exam was performed and there was no evidence of impaction. Back/Spine no CVA tenderness and no thoracic nor lumbar tenderness Extremity normal to inspection General Extremety ED: Negative for edema General Extremity: Negative for edema Neuro oriented x3, CN's II-XII intact bilaterally, no sensory deficits noted and gait normal Sensorium / Orientation: awake, alert, oriented to person, oriented to place and oriented to time Motor Exam: strength 5/5 throughout and strength abnormal Psych mental status grossly normal Skin no wounds Skin Narrative: Rash noted to right buttock that appears to be somewhat vesicular starting at the anus and radiating towards the lateral aspect of the right buttock with small satellite lesions. Some small vesicles noted. It does appear to just slightly cross the midline to the left side of the anus. MDM MDM MDM Narrative Medical decision making narrative: Patient does not want any treatment for constipation as she states she will take some MiraLAX at home and this was a secondary complaint. Regarding her rash I suspect likely shingles although cannot rule out possibility of a yeast type infection neck and looks similar with satellite lesions. I will treat her with antiviral as well as prednisone and nystatin cream to the area. Patient advised to follow-up with her primary care physician within next 5 to 7 days. Discharge Plan Triage Chief Complaint: Constipation Other Complaint: Rash ED Provider: Blair Mckeon Dx/Rx/DC Orders Clinical Impression: Shingles, Constipation Instructions: ED Constipation (Adult), ED Shingles (Herpes Zoster) Prescriptions: New nystatin 100,000 unit/gram cream 1 applic topical BID Qty: 30 0RF prednisone 20 mg tablet 20 mg PO BID Qty: 10 0RF famciclovir 500 mg tablet 500 mg PO Q8H 7 Days Qty: 21 0RF No Action acetaminophen [Tylenol Extra Strength] 500 mg tablet 500 mg PO Q6H PRN (Reason: Pain) aspirin 81 mg tablet,chewable 81 mg PO DAILY amlodipine 10 mg tablet 10 mg PO DAILY metoprolol succinate 100 MG tablet 100 mg PO QHS gabapentin 400 MG capsule 400 mg PO TIDCM escitalopram oxalate 20 MG tablet 20 mg PO DAILY bupropion HCl 150 MG tablet extended release 24 hr 150 mg PO DAILY ondansetron 4 mg tablet,disintegrating 4 mg PO TID PRN (Reason: nausea and vomiting) Qty: 21 0RF diphenoxylate-atropine [Lomotil] 2.5-0.025 mg tablet 1 tab PO 4X/DAY PRN PRN (Reason: diarrhea) 5 Days Qty: 20 0RF oxycodone-acetaminophen [Percocet] 5-325 mg tablet 1 tab PO Q6H PRN (Reason: pain) 3 Days Qty: 12 0RF omeprazole 40 mg capsule,delayed release(DR/EC) 40 mg PO DAILY Qty: 30 1RF Primary Care Provider: Alexey Christina Referrals: Alexey Christina MD [Primary Care Provider] - 5-7 Days Disposition Disposition: Home, Self Care Discharge Date/Time: 04/05/23 20:34
== END 2023-04-05 20:34 | disposition home or self-care (01) ==
LOC: ED 20:19
PROVIDERS: Emergency Provider Emergency Medicine; PCP Family Medicine; Visit Provider Emergency Medicine
DX: B02.9 Zoster without complications (principal); I10 Essential (primary) hypertension; K59.00 Constipation, unspecified; F32.A Depression, unspecified; Z79.899 Other long term (current) drug therapy; F41.9 Anxiety disorder, unspecified; Z79.82 Long term (current) use of aspirin; Z90.49 Acquired absence of other specified parts of digestive tract
CPT/HCPCS: 99283

== ENCOUNTER 2023-09-02 12:07 | Emergency (ER) | payer OTHER, SELFPAY ==
[2023-09-02 12:09] VITALS: BP 146/90; PULSE 117; RESP 34; TEMP 36.4; O2SAT 98; BMI 39.9
[2023-09-02 13:00] LABS: Squamous Epithelial Cells - UA 0 SEEN /hpf (5-10)
[2023-09-02 13:02] LABS: Color, Urine Yellow (Yellow); Glucose, Dipstick Normal (Normal); Ketone-Dipstick 5 mg/dl (Negative); Leukocyte Esterase-Dipstick 25 /ul (Negative); Nitrite-Dipstick Positive (Negative); Occult Blood-Urine 10 /ul (Negative); Protein-Dipstick 30 mg/dl (Negative); Urine Bilirubin Dipstick Negative (Negative); Urine Clarity Sl. Cloudy (Clear); Urine Urobilinogen Normal (Normal)
[2023-09-02 13:10] LABS: Bacteria 3+ /hpf (None Seen); Mucous, Urine 1+ /hpf (<or=2+); Red Blood Cells-Urine 0-5 SEEN /hpf (0-5); White Blood Cells 0-5 SEEN /hpf (0-5)
[2023-09-02 13:13] LABS: Absolute Lymphocyte Count 1.62 X10^3/uL (0.83-4.51); Absolute Neutrophil Count 17.8 X10^3/uL (2.0-7.7); Basophil# 0.07 X10^3/uL; Basophil% 0.3 % (0-1); Eosinophil# 0.19 X10^3/uL; Eosinophils% 0.9 % (0-5); Hematocrit 47.2 % (37-47); Hemoglobin 15.2 g/dL (12.0-15.0); Lymphocyte # 1.62 X10^3/ul (0.83-4.51); Lymphocyte % 7.8 % (19-41); Mean Corp Hgb Conc 32.2 g/dL (32-36); Mean Corpuscular Hgb 28.5 pg (27.0-32.0); Mean Corpuscular Volume 88.6 fL (81-99); Mean Platelet Vol. 9.3 fl (6.2-12.0); Monocyte# 0.92 X10^3/uL; Monocyte% 4.4 % (0-10); NRBC Flagged by Analyzer 0 % (0-5); Neutrophil # 17.84 X10^3/uL (2.7-7.7); Platelet Count 524 K/mm3 (150-450); RBC Distribution Width CV 13.1 % (11.6-14.6); RBC Distribution Width SD 42.4 fl (35.1-43.9); Red Blood Count 5.33 M/mm3 (4.2-5.4); White Blood Count 20.8 K/mm3 (4.4-11.0)
[2023-09-02 13:27] LABS: AST(SGOT) 16 U/L (15-37); Alanine Aminotransfer ALT/SGPT 17 U/L (13-56); Albumin, Serum 4.4 g/dL (3.2-5.0); Alkaline Phosphatase 109 U/L (45-117); Anion Gap 8 (5-15); BUN 20 mg/dL (7-18); BUN/Creat Ratio 22.7 RATIO (10-20); Chloride 107 mmol/L (98-107); Creatinine, Serum 0.88 mg/dL (0.55-1.02); EST Glomerular Filtration Rate 72 mL/min (>60); Est Glom Filt Rate - Afr Amer 87 mL/min (>60); Globulin 4.4 g/dL (2.2-4.2); Glucose 146 mg/dL (74-106); Potassium 4.6 mmol/L (3.5-5.1); Protein, Total 8.8 g/dL (6.4-8.2); Sodium Level 134 mmol/L (136-145)
[2023-09-02] MEDS: 0.9% Normal Saline (1000mL) 1,000 ML 999 ML IV ×2 (13:33→14:57)
[2023-09-02] MEDS: Ondansetron 4 MG/2 ML Vial IV ×2 (13:33→14:57)
--- NOTE | 2023-09-02 13:41 | EX.ED.DYSGE1 ---
HPI <CINDY Blackman - Last Filed: 09/02/23 16:15> History of Present Illness Chief Complaint: Nausea/Vomiting Narrative Narrative: Patient presenting today due to nausea, vomiting, and diarrhea that started around 4 AM this morning. She reports that her daughter is currently sick with similar symptoms and she had to bring her in yesterday for IV fluids due to concerns for dehydration. She reports that her stomach feels sore from vomiting but is not necessarily painful. Previous abdominal surgeries include cholecystectomy. She denies any fevers, chills, hematemesis, melena, hematochezia, and urinary symptoms. [facility] <CINDY Blackman - Last Filed: 09/02/23 16:15> [facility] Medical History Alcohol use Anemia Anxiety Arthritis Back pain Chronic headaches Depression Gallstones Gastric reflux History of blood transfusion History of edema History of pulmonary embolism History of stomach ulcers History of stress test History of ulceration Hx of blood clots Hypertension Non-smoker Seasonal allergies Wears contact lenses Home Medications gabapentin 400 mg capsule 400 mg PO TIDCM 08/27/15 [History Last Taken 08/27/15 08:00 400 mg] metoprolol succinate 100 mg tablet,extended release 24 hr 100 mg PO QHS 08/27/15 [History Last Taken 12/26/22] bupropion HCl 150 mg 24 hr tablet, extended release 150 mg PO DAILY 05/07/17 [History Last Taken Unknown] escitalopram oxalate 20 mg tablet 20 mg PO DAILY 05/07/17 [History Last Taken Unknown] acetaminophen 500 mg tablet (Tylenol Extra Strength) 500 mg PO Q6H PRN Pain 03/20/21 [History Last Taken Unknown] amlodipine 10 mg tablet 10 mg PO DAILY 03/20/21 [History Last Taken 12/26/22] aspirin 81 mg chewable tablet 81 mg PO DAILY 03/20/21 [History Last Taken 12/25/22] omeprazole 40 mg capsule,delayed release 40 mg PO DAILY #30 caps 05/24/21 [Rx Last Taken Unknown] diphenoxylate-atropine 2.5 mg-0.025 mg tablet (Lomotil) 1 tab PO 4X/DAY PRN PRN diarrhea 5 days #20 tabs 03/17/23 [Rx Last Taken Unknown] ondansetron 4 mg disintegrating tablet 4 mg PO TID PRN nausea and vomiting #21 tabs 03/17/23 [Rx Last Taken Unknown] oxycodone-acetaminophen 5 mg-325 mg tablet (Percocet) 1 tab PO Q6H PRN pain 3 days #12 tabs 03/17/23 [Rx Last Taken Unknown] famciclovir 500 mg tablet 500 mg PO Q8H 7 days #21 tabs 04/05/23 [Rx Last Taken Unknown] nystatin 100,000 unit/gram topical cream 1 applic topical BID #30 grams 04/05/23 [Rx Last Taken Unknown] prednisone 20 mg tablet 20 mg PO BID #10 tabs 04/05/23 [Rx Last Taken Unknown] cephalexin 500 mg capsule 500 mg PO Q12 #14 CAPSULES 09/02/23 [Rx Last Taken Unknown] loperamide 2 mg capsule (Imodium A-D) 2 mg PO Q6H PRN loose stool 3 days #12 caps 09/02/23 [Rx Last Taken Unknown] ondansetron 4 mg disintegrating tablet 4 mg PO Q8H PRN PRN Nausea #10 tabs 09/02/23 [Rx Last Taken Unknown] Allergy/AdvReac Type Severity Reaction Status Date / Time morphine Allergy Severe emesis/hive Verified 09/02/23 12:09 s codeine Allergy Rash Verified 09/02/23 12:09 Surgical History H/O spinal fusion History of cholecystectomy History of esophagogastroduodenoscopy (EGD) History of hysteroscopy Hx of tonsillectomy Social History Smoking Status: Never smoker alcohol intake: current alcohol intake frequency: holidays/special occasions only ROS <CINDY Blackman - Last Filed: 09/02/23 16:15> ROS ED Constitutional Constitutional ED: Denies chills or fever(s) Cardiovascular Cardiovascular: Denies chest pain Respiratory/Chest Respiratory/Chest: Denies cough or dyspnea Gastrointestinal Gastrointestinal: Reports diarrhea, nausea and vomiting; Denies abdominal pain or constipation Genitourinary Genitourinary ED: Denies dysuria, hematuria or urinary urgency Musculoskeletal Musculoskeletal: Denies arthralgias or myalgias Integumentary Denies rash Neurologic Neurologic: Denies weakness EXAM <CINDY Blackman - Last Filed: 09/02/23 16:15> Physical Exam Const Vital Signs: 09/02/23 12:09 09/02/23 14:25 09/02/23 14:59 Temperature 97.6 F L Temperature Source Temporal Pulse Rate 117 H 105 H 96 Respiratory Rate 34 H 12 14 Blood Pressure 146/90 H 163/107 H 177/88 H Blood Pressure Mean 108 125 117 Pulse Ox 98 99 96 Oxygen Delivery Method Room Air Room Air Room Air 09/02/23 15:39 Temperature 98.7 F Temperature Source Pulse Rate 97 Respiratory Rate 14 Blood Pressure 177/88 H Blood Pressure Mean 117 Pulse Ox 99 Oxygen Delivery Method Positive well nourished, well developed and no apparent distress General Appearance ED: well developed HEENT Reports normocephalic and head/scalp atraumatic Mouth ED: Yes moist mucous membranes normal Eyes PERRL and EOMs intact bilaterally Neck full ROM and supple Chest Wall inspection of chest normal Resp normal respiratory effort and clear to auscultation bilaterally Cardio regular rate and regular rhythm GI soft to palpation, non-tender, non-distended and no masses Back/Spine normal ROM and normal to inspection Extremity normal to inspection and full ROM Neuro oriented x3, CN's II-XII intact bilaterally, moves all extremities, no focal motor deficits and no sensory deficits noted Sensorium / Orientation: awake and alert Psych mental status grossly normal and thought process normal Skin no rashes or lesions noted and no wounds <Dr. Hossein Bray DO - Last Filed: 09/02/23 15:33> Physical Exam Const Vital Signs: 09/02/23 12:09 09/02/23 14:25 09/02/23 14:59 Temperature 97.6 F L Temperature Source Temporal Pulse Rate 117 H 105 H 96 Respiratory Rate 34 H 12 14 Blood Pressure 146/90 H 163/107 H 177/88 H Blood Pressure Mean 108 125 117 Pulse Ox 98 99 96 Oxygen Delivery Method Room Air Room Air Room Air 09/02/23 15:39 Temperature 98.7 F Temperature Source Pulse Rate 97 Respiratory Rate 14 Blood Pressure 177/88 H Blood Pressure Mean 117 Pulse Ox 99 Oxygen Delivery Method MDM <CINDY Blackman - Last Filed: 09/02/23 16:15> MDM MDM Narrative Medical decision making narrative: Patient presenting due to nausea, vomiting, and diarrhea that started around 4 AM. Initially while in triage she was hyperventilating, therefore her vitals showed her to be tachycardic and tachypneic. On my examination patient is resting comfortably and is no longer hyperventilating, she is not short of breath or experiencing chest pain. She denies having abdominal pain, she reports that her abdomen just feels sore, she does not have any tenderness on examination. Daughter is currently sick with similar symptoms. I suspect that this is a gastroenteritis. Abdominal labs will be obtained and she will be given IV fluids and Zofran. UA shows possible UTI, culture will be obtained and she will be started on Keflex with first dose here. She will be given prescription for Zofran and Imodium and will be discharged home in stable condition. She tolerated p.o. fluids. She is comfortable with plan. I have personally performed a face to face assessment of the patient and have reviewed the NELIDA Note. I performed a substantive portion of the visit including all aspects of the following. My rg findings include: History is patient notes that her daughter started to have vomiting and diarrhea as well as another family member and then she developed vomiting during the night last night. She notes that she developed diarrhea here in the department. She notes no significant abdominal pain. No fevers. She believes that this is a viral illness. No blood in the stool. Triage is concerned the patient may have been hyperventilating Exam is patient has good skin turgor capillary refill. Heart rate is down to 96 and she is resting comfortably in the bed. The abdominal exam is very benign. Medical Decison Making blood work was obtained which shows a white count of 20.8. While this is significantly elevated her exam is otherwise benign. She is not having blood in her stool. Hemoglobin is 15.2. Otherwise the rest of her labs look pretty good with a lipase of 18 glucose 146 CO2 is 19. She received a total of 2 L of normal saline as well as Zofran. Urine concerning for possible infection we will send a culture. She has been tolerating ice chips. I think the patient most likely has a viral illness. She understands return instructions. I will write for Zofran and encourage oral hydration Lab Data Attestation: I reviewed the patient's lab results. Lab results narrative: WBC 20.8, H&H 15.2 and 47.2, platelet count 524, sodium 134, BUN 20 Labs: Laboratory Results - last 24 hr 09/02/23 09/02/23 12:55 13:00 WBC 20.8 H RBC 5.33 Hgb 15.2 H Hct 47.2 H MCV 88.6 MCH 28.5 MCHC 32.2 RDW Std Deviation 42.4 RDW Coeff of Rivas 13.1 Plt Count 524 H MPV 9.3 Immature Gran % (Auto) 0.600 Neut % (Auto) 86.0 H Lymph % (Auto) 7.8 L [place] % (Auto) 4.4 Eos % (Auto) 0.9 Baso % (Auto) 0.3 Absolute Neuts (auto) 17.8 H Absolute Lymphs (auto) 1.62 Nucleated RBC % 0 Sodium 134 L Potassium 4.6 Chloride 107 Carbon Dioxide 19.0 L Anion Gap 8 BUN 20 H Creatinine 0.88 Estim Creat Clear Calc 107.10 Est GFR (MDRD) Af Amer 87 Est GFR (MDRD) Non-Af 72 BUN/Creatinine Ratio 22.7 H Glucose 146 H Calcium 10.0 Total Bilirubin 0.50 AST 16 ALT 17 Alkaline Phosphatase 109 Total Protein 8.8 H Albumin 4.4 Globulin 4.4 H Albumin/Globulin Ratio 1.0 Lipase 18 Urine Color Yellow Urine Clarity Sl. Cloudy Urine pH 6.0 Ur Specific [place] 1.020 Urine Protein 30 H Urine Glucose (UA) Normal Urine Ketones 5 H Urine Occult Blood 10 H Urine Nitrite Positive H Urine Bilirubin Negative Urine Urobilinogen Normal Ur Leukocyte Esterase 25 H Urine RBC 0-5 SEEN Urine WBC 0-5 SEEN Ur Squamous Epith Cells 0 SEEN Urine Bacteria 3+ Urine Mucus 1+ <Dr. Hossein Bray, DO - Last Filed: 09/02/23 15:33> [facility] Narrative Medical decision making narrative: Patient presenting due to nausea, vomiting, and diarrhea that started around 4 AM. Initially while in triage she was hyperventilating, therefore her vitals showed her to be tachycardic and tachypneic. On my examination patient is resting comfortably and is no longer hyperventilating, she is not short of breath or experiencing chest pain. She denies having abdominal pain, she reports that her abdomen just feels sore, she does not have any tenderness on examination. Daughter is currently sick with similar symptoms. Abdominal labs will be obtained and she will be given IV fluids and Zofran. I have personally performed a face to face assessment of the patient and have reviewed the NELIDA Note. I performed a substantive portion of the visit including all aspects of the following. My rg findings include: History is patient notes that her daughter started to have vomiting and diarrhea as well as another family member and then she developed vomiting during the night last night. She notes that she developed diarrhea here in the department. She notes no significant abdominal pain. No fevers. She believes that this is a viral illness. No blood in the stool. Triage is concerned the patient may have been hyperventilating Exam is patient has good skin turgor capillary refill. Heart rate is down to 96 and she is resting comfortably in the bed. The abdominal exam is very benign. Medical Decison Making blood work was obtained which shows a white count of 20.8. While this is significantly elevated her exam is otherwise benign. She is not having blood in her stool. Hemoglobin is 15.2. Otherwise the rest of her labs look pretty good with a lipase of 18 glucose 146 CO2 is 19. She received a total of 2 L of normal saline as well as Zofran. Urine concerning for possible infection we will send a culture. She has been tolerating ice chips. I think the patient most likely has a viral illness. She understands return instructions. I will write for Zofran and encourage oral hydration Lab Data Labs: Laboratory Results - last 24 hr 09/02/23 09/02/23 12:55 13:00 WBC 20.8 H RBC 5.33 Hgb 15.2 H Hct 47.2 H MCV 88.6 MCH 28.5 MCHC 32.2 RDW Std Deviation 42.4 RDW Coeff of Rivas 13.1 Plt Count 524 H MPV 9.3 Immature Gran % (Auto) 0.600 Neut % (Auto) 86.0 H Lymph % (Auto) 7.8 L [place] % (Auto) 4.4 Eos % (Auto) 0.9 Baso % (Auto) 0.3 Absolute Neuts (auto) 17.8 H Absolute Lymphs (auto) 1.62 Nucleated RBC % 0 Sodium 134 L Potassium 4.6 Chloride 107 Carbon Dioxide 19.0 L Anion Gap 8 BUN 20 H Creatinine 0.88 Estim Creat Clear Calc 107.10 Est GFR (MDRD) Af Amer 87 Est GFR (MDRD) Non-Af 72 BUN/Creatinine Ratio 22.7 H Glucose 146 H Calcium 10.0 Total Bilirubin 0.50 AST 16 ALT 17 Alkaline Phosphatase 109 Total Protein 8.8 H Albumin 4.4 Globulin 4.4 H Albumin/Globulin Ratio 1.0 Lipase 18 Urine Color Yellow Urine Clarity Sl. Cloudy Urine pH 6.0 Ur Specific [place] 1.020 Urine Protein 30 H Urine Glucose (UA) Normal Urine Ketones 5 H Urine Occult Blood 10 H Urine Nitrite Positive H Urine Bilirubin Negative Urine Urobilinogen Normal Ur Leukocyte Esterase 25 H Urine RBC 0-5 SEEN Urine WBC 0-5 SEEN Ur Squamous Epith Cells 0 SEEN Urine Bacteria 3+ Urine Mucus 1+ Discharge Plan Triage Chief Complaint: Nausea/Vomiting ED Midlevel Provider: Pamela Gonzales ED Provider: Hossein Bray Dx/Rx/DC Orders Clinical Impression: Gastroenteritis, Leukocytosis, UTI (urinary tract infection) Instructions: Urinary Tract Infections in Women, ED Gastroenteritis, Noninfectious Prescriptions: New ondansetron 4 mg tablet,disintegrating 4 mg PO Q8H PRN PRN (Reason: Nausea) Qty: 10 0RF loperamide [Imodium A-D] 2 mg capsule 2 mg PO Q6H PRN (Reason: loose stool) 3 Days Qty: 12 0RF cephalexin 500 mg capsule 500 mg PO Q12 Qty: 14 0RF No Action acetaminophen [Tylenol Extra Strength] 500 mg tablet 500 mg PO Q6H PRN (Reason: Pain) aspirin 81 mg tablet,chewable 81 mg PO DAILY amlodipine 10 mg tablet 10 mg PO DAILY metoprolol succinate 100 MG tablet 100 mg PO QHS gabapentin 400 MG capsule 400 mg PO TIDCM escitalopram oxalate 20 MG tablet 20 mg PO DAILY bupropion HCl 150 MG tablet extended release 24 hr 150 mg PO DAILY ondansetron 4 mg tablet,disintegrating 4 mg PO TID PRN (Reason: nausea and vomiting) Qty: 21 0RF diphenoxylate-atropine [Lomotil] 2.5-0.025 mg tablet 1 tab PO 4X/DAY PRN PRN (Reason: diarrhea) 5 Days Qty: 20 0RF oxycodone-acetaminophen [Percocet] 5-325 mg tablet 1 tab PO Q6H PRN (Reason: pain) 3 Days Qty: 12 0RF nystatin 100,000 unit/gram cream 1 applic topical BID Qty: 30 0RF prednisone 20 mg tablet 20 mg PO BID Qty: 10 0RF famciclovir 500 mg tablet 500 mg PO Q8H 7 Days Qty: 21 0RF omeprazole 40 mg capsule,delayed release(DR/EC) 40 mg PO DAILY Qty: 30 1RF Primary Care Provider: Alexey Christina Referrals: Alexey Christina MD [Primary Care Provider] - 3-5 Days Activity Restrictions/Additional Instructions: Stay well-hydrated, return for any worsening of your symptoms. Follow-up with your PCP. Disposition Disposition: Home, Self Care Discharge Date/Time: 09/02/23 15:49
[2023-09-02 13:51] LABS: Lipase 18 U/L (13-75)
[2023-09-02 14:25] VITALS: BP 163/107; PULSE 105; RESP 12; O2SAT 99
[2023-09-02 14:59] VITALS: BP 177/88; PULSE 96; RESP 14; O2SAT 96
[2023-09-02 15:39] VITALS: BP 177/88; PULSE 97; RESP 14; TEMP 37.1; O2SAT 99
[2023-09-02] MEDS: Loperamide 2 MG Capsule 4 MG PO (15:43)
[2023-09-02] MEDS: Cephalexin 250 MG Capsule 500 MG PO (15:43)
--- OUTSIDE RECORDS SUMMARY | 2023-09-02 15:46 | XMS RPT_ITS | CCD ---
Author Name Unknown Address [id number] [place] [address] Organization [facility] Care Team Providers Care Ring Stamper Name Role Phone SAVANNAH SMITH Unavailable Unavailable ISIDRO BATRES Unavailable Unavailable JAYLYN JOHNSON Unavailable Unavailable SARAH NUÑEZ Unavailable Unavailable VILMA ASTUDILLO Unavailable Unavailabl e HLIVJAYLYN NAILS T Unavailable Unavailable ISIDRO BATRES Unavailable Unavailable AHMED, SHAMEEM MOHAMMED Unavailable Unavaila ble AHMED, SHAMEEM MOHAMMED Unavailable Unavaila ble AHMED, SHAMEEM MOHAMMED Unavailable Unavaila ble Allergies Allergy Classification Reported Allergen(s) Allergy Type Date of Onset Reaction(s) Facility (3 sources) codeine; Translations: [CODEINE] Drug Allergy 06-18-2005 [facility] Repository (3 sources) morphine; Translations: [MORPHINE] Drug Allergy 04-23-2011 [facility] Repository Problems Active Problems Problem Classification Problem Date Documented Date Episodic/Chronic Gastritis and duodenitis (1 source) Gastritis, unspecified, with bleeding; Translations: [Gastritis, unspecified, with bleeding] Onset: 10-19-2017 Episodic Noninfectious gastroenteritis (1 source) Noninfective gastroenteritis and colitis, unspecified; Translations: [Noninfective gastroenteritis and colitis, unspecified] Onset: 10-23-2017 Episodic Other circulatory disease (1 source) Orthostatic hypotension; Translations: [Orthostatic hypotension] Onset: 10-19-2017 Episodic Unclassified (1 source) Unknown / UNK(Unknown) Onset: 10-23-2017 Past or Other Problems Problem Classification Problem Date Documented Da te Episodic/Chronic Gastrointestinal hemorrhage (4 sources) Chronic or unspecified duodenal ulcer with hemorrhage; Translations: [Melena] Onset: 04-21-2018 Episodic Results Test Name Value Interpretation Reference Range Facil ity Encounters Encounter Date Encounter Type Care Provider Facility Start: 02-06-2018 Patient encounter SHAILESH DELUCA LIO [facility] Start: 12-26-2017 End: 12-26-2017 Patient encounter SHAILESH ORDAZ [facility] Start: 10-19-2017 End: 10-25-2017 Evaluation and management of inpatient SAVANNAH SMITH [facility] Payers Date Payer Category Payer Policy ID Unknown [id number] Summary Purpose Family History No Family History Records FoundNo Family History Records FoundNo Family History Records Found Advance Directives No Advanced Directives Records FoundNo Advanced Directives Records FoundNo Advanced Directives Records Found Additional Source Comments INFORMATION SOURCE (unrecogn ized section and content) DATE CREATED AUTHOR AUTHOR'S ORGANIZ ATION 12/19/2017 [facility] DATE CREATED AUTHOR AUTHOR'S ORGANIZ ATION 02/12/2018 [facility] FOR RECORDS PERTAINING TO PATIENTS WHO ARE OR HAVE BEEN ENROLLED IN A CHEMICAL DEPENDENCY/SUBSTANCEABUSE PROGRAM, SOME INFORMATION MAY BE OMITTED. This clinical summary was aggregated from multiple sources. Caution should be exercised in using it in the provision of clinical care. This summary normalizes information from multiple sources, and as a consequence, information in this document may materially change the coding, format and clinical context of patient data. In addition, data may be omitted in some cases. CLINICAL DECISIONS SHOULD BE BASED ON THE PRIMARY CLINICAL RECORDS. [facility]. provides no warranty or guarantee of the accuracy or completeness of information in this document.
== END 2023-09-02 15:49 | disposition home or self-care (01) ==
PROVIDERS: Physician Assistant; Emergency Provider Emergency Medicine; PCP Family Medicine; Visit Provider Emergency Medicine
DX: K52.9 Noninfective gastroenteritis and colitis, unspecified (principal); N39.0 Urinary tract infection, site not specified; D72.829 Elevated white blood cell count, unspecified; Z90.49 Acquired absence of other specified parts of digestive tract; I10 Essential (primary) hypertension; F32.A Depression, unspecified; Z79.899 Other long term (current) drug therapy; F41.9 Anxiety disorder, unspecified; Z79.82 Long term (current) use of aspirin; K21.9 Gastro-esophageal reflux disease without esophagitis
CPT/HCPCS: 80053; 81001; 83690; 85025; 87086; 96361; 96374; 96376; 99284; J7030; A4216; J2405

== ENCOUNTER 2024-09-06 14:06 | Emergency (ER) | payer OTHER, SELFPAY ==
[2024-09-06 14:06] VITALS: BP 171/110; BP 179/113; PULSE 106; RESP 14; RESP 16; TEMP 36.6; O2SAT 100; O2SAT 97; BMI 37.6
--- NOTE | 2024-09-06 14:31 | EX.ED.VIS.UR ---
HPI HPI - URI History of Present Illness Chief Complaint: Ear Problem Detail of Chief Complaint: Bleeding from right ear. Informant: patient Onset/Context/Timing Onset: Today Context: Gradual Onset Current Severity: Mild Maximum Severity: Mild Narrative Narrative: 53-year-old female using Q-tip in her right ear no asthma bleeding. She is on aspirin only. History of prior DVT and PE but no blood thinners otherwise. Denies any other ear trauma. Has not recently had ear pain or drainage. No sore throat or fever. Left ear is unremarkable. Prior similar symptoms: No Recent Illness/Hospitalization: No ROS ROS ED ROS Narrative Denies recent illness. Constitutional Constitutional ED: Denies chills or fever(s) Eyes Eyes: Denies blurry vision ENT ENT ED: Denies ear pain, rhinorrhea or sore throat Cardiovascular Cardiovascular: Denies chest pain Respiratory/Chest Respiratory/Chest: Denies cough Gastrointestinal Gastrointestinal: Denies abdominal pain Genitourinary Genitourinary ED: Denies dysuria Musculoskeletal Musculoskeletal: Denies arthralgias Integumentary Denies abscess Neurologic Neurologic: Denies headache(s) Psychiatric Psychiatric: Denies anxiety Endocrine Endocrinology: Denies cold intolerance Hematologic/Lymphatic Hematologic/Lymphatic: Denies easy bleeding, easy bruising or lymphadenopathy Allergic/Immunologic Allergic/Immunologic ED: Denies mouth swelling, tongue swelling or urticaria [facility] Medical History Cataract (lens) fragments in eye following cataract surgery History of pulmonary embolism Wears contact lenses Alcohol use Back pain History of ulceration Gastric reflux Non-smoker History of edema History of stress test Hypertension Depression Anxiety History of stomach ulcers Chronic headaches Gallstones Hx of blood clots Arthritis History of blood transfusion Anemia Seasonal allergies Home Medications ?Medication ?Instructions ?Recorded ?Last Taken ?Type metoprolol succinate 100 mg 100 mg PO QHS 08/27/15 12/26/22 History tablet,extended release 24 hr bupropion HCl 150 mg 24 hr tablet, 150 mg PO DAILY 05/07/17 Unknown History extended release escitalopram oxalate 20 mg tablet 20 mg PO DAILY 05/07/17 Unknown History acetaminophen 500 mg tablet 500 mg PO Q6H PRN Pain 03/20/21 Unknown History (Tylenol Extra Strength) amlodipine 10 mg tablet 10 mg PO DAILY 03/20/21 12/26/22 History aspirin 81 mg chewable tablet 81 mg PO DAILY 03/20/21 12/25/22 History omeprazole 40 mg capsule,delayed 40 mg PO DAILY #30 caps 05/24/21 Unknown Rx release diphenoxylate-atropine 2.5 1 tab PO 4X/DAY PRN PRN diarrhea 5 03/17/23 Unknown Rx mg-0.025 mg tablet (Lomotil) days #20 tabs loperamide 2 mg capsule (Imodium 2 mg PO Q6H PRN loose stool 3 days 09/02/23 Unknown Rx A-D) #12 caps gabapentin 600 mg tablet 600 mg PO TID 10/18/23 Unknown History Allergy/AdvReac Type Severity Reaction Status Date / Time morphine Allergy Severe emesis/hive Verified 09/06/24 14:07 s codeine Allergy Rash Verified 09/06/24 14:07 Surgical History History of hysteroscopy History of esophagogastroduodenoscopy (EGD) Hx of tonsillectomy History of cholecystectomy H/O spinal fusion Social History Smoking Status: Never smoker alcohol intake: current alcohol intake frequency: holidays/special occasions only substance use type: does not use caffeine: Yes Type: tea Number of servings: 2 EXAM Physical Exam Narrative Exam Narrative: Well-appearing 53-year-old female. Vital signs are stable afebrile. H EENT exam pupils round reactive light. Posterior pharynx normal. No erythema or exudate. No bleeding. Left TM and canal normal. Right TM is normal. Clear. No erythema. No perforation. About the middle of her right ear canal about 6:00 there is an abrasion with bright red blood. Currently no active bleeding. No otitis media nor externa. Neck nontender. No lymphadenopathy. No eustachian tube tenderness. Lungs clear. Heart regular rhythm no murmur. Abdomen soft. Otherwise exam normal. Const Vital Signs: 09/06/24 14:06 09/06/24 14:06 Temperature 98 F Temperature Source Temporal Pulse Rate 106 H 106 H Respiratory Rate 14 16 Blood Pressure 179/113 H 171/110 H Blood Pressure Mean 135 130 Pulse Ox 100 97 Oxygen Delivery Method Room Air Room Air Positive well nourished and well developed; Negative for cachectic or contractures General Appearance ED: well developed and NAD; Negative for cachectic, contractures, cyanotic, diaphoretic or pallor Nutritional Appearance: Negative for cachectic HEENT Reports moist mucous membranes HEENT Narrative: Right ear canal abrasion with bright red blood. No active bleeding. No clots. No otitis externa or media. normocephalic and atraumatic Throat: posterior oropharynx normal Eyes PERRL and EOMs intact bilaterally Neck no lymphadenopathy, supple and no meningeal signs General: Negative for anterior neck swelling or lymphadenopathy Resp normal respiratory effort and clear to auscultation bilaterally Effort and Inspection: Negative for retractions Auscultation: Negative for rales, rhonchi, wheezes or diminished lung sounds Cardio S1 normal heart sound, S2 normal heart sound and no murmurs Rate: regular rate Rhythm: regular rhythm GI non-tender, non-distended and no masses Inspection: Negative for abdominal distention Auscultation: normoactive bowel sounds Palpation: soft; Negative for tender or guarding Back/Spine no CVA tenderness and normal ROM General Back: Negative for CVA tenderness Cervical Spine: Negative for cervical spine tenderness Thoracic Spine / Upper Back: Negative for thoracic spinal tenderness Lumbar Spine / Lower Back: Negative for lumbar spinal tenderness Sacrum: Negative for tenderness Extremity normal to inspection and full ROM General Extremety ED: Negative for cyanosis or tenderness General Extremity: Negative for cyanosis Neuro oriented x3 and CN's II-XII intact bilaterally Sensorium / Orientation: alert, oriented to person and oriented to place; Negative for oriented to time, orientation impaired, lethargic or stuporous Motor Exam: strength 5/5 throughout Psych mental status grossly normal Attitude: No agitated Mood & Affect: Negative for depressed, anxious or tearful Skin General Skin Exam: Negative for jaundice or pallor Lesions: no lesions Rashes: no rashes MDM MDM MDM Narrative Medical decision making narrative: 53-year-old female has a small abrasion right ear canal. Small amount of blood. No infection. No otitis media nor externa. Should be discharged to home. Discharge Plan Triage Chief Complaint: Ear Problem ED Provider: Miguel A Jovel Dx/Rx/DC Orders Clinical Impression: Abrasion of right ear canal Instructions: ED Abrasion Prescriptions: No Action acetaminophen [Tylenol Extra Strength] 500 mg tablet 500 mg PO Q6H PRN (Reason: Pain) aspirin 81 mg tablet,chewable 81 mg PO DAILY amlodipine 10 mg tablet 10 mg PO DAILY gabapentin 600 mg tablet 600 mg PO TID metoprolol succinate 100 MG tablet 100 mg PO QHS escitalopram oxalate 20 MG tablet 20 mg PO DAILY bupropion HCl 150 MG tablet extended release 24 hr 150 mg PO DAILY diphenoxylate-atropine [Lomotil] 2.5-0.025 mg tablet 1 tab PO 4X/DAY PRN PRN (Reason: diarrhea) 5 Days Qty: 20 0RF loperamide [Imodium A-D] 2 mg capsule 2 mg PO Q6H PRN (Reason: loose stool) 3 Days Qty: 12 0RF omeprazole 40 mg capsule,delayed release(DR/EC) 40 mg PO DAILY Qty: 30 1RF Primary Care Provider: Ike Christina Referrals: Ike Christina MD [Primary Care Provider] - As Needed Activity Restrictions/Additional Instructions: It was small abrasion in your right ear canal. He may have intermittent bleeding. I would not use Q-tips right now because you want to scab deformed and stop the bleeding. Currently there is no signs of infection. Both the eardrum and ear canal look good. You could develop an ear canal infection if you do you will start having a lot of pain and swelling and we would need to put you on eardrops. Print Language: [place] Disposition Disposition: Home, Self Care
== END 2024-09-06 14:46 | disposition home or self-care (01) ==
LOC: ED 14:44
PROVIDERS: Emergency Provider Emergency Medicine; PCP Family Medicine; Visit Provider Emergency Medicine
DX: S00.411A Abrasion of right ear, initial encounter (principal); Z79.82 Long term (current) use of aspirin; I10 Essential (primary) hypertension; Z86.718 Personal history of other venous thrombosis and embolism; K21.9 Gastro-esophageal reflux disease without esophagitis; Z79.899 Other long term (current) drug therapy; F41.9 Anxiety disorder, unspecified; F32.A Depression, unspecified; Z90.49 Acquired absence of other specified parts of digestive tract
CPT/HCPCS: 99282

== ENCOUNTER → 2024-12-29 | Outpatient (CLI) | payer OTHER, SELFPAY ==
[2024-12-29 13:14] LABS: Color, Urine Yellow (Yellow); Glucose, Dipstick Normal (Normal); Ketone-Dipstick Negative (Negative); Leukocyte Esterase-Dipstick 500 /ul (Negative); Nitrite-Dipstick Negative (Negative); Occult Blood-Urine Negative /ul (Negative); Protein-Dipstick 15 mg/dl (Negative); Specific Gravity, Urine 1.010 (1.002-1.030); Urine Bilirubin Dipstick Negative (Negative)
[2024-12-29 13:24] LABS: Creatinine, Urine (random) 99.60 mg/dL (28.00-217.00); Microalbumin,Random Urine < 12.0 mg/L (NO RANGE EST.)
[2024-12-29 13:40] LABS: AST(SGOT) 15 U/L (<=31); Alanine Aminotransfer ALT/SGPT 12 U/L (<=34); Albumin, Serum 4.3 g/dL (3.5-5.0); Alkaline Phosphatase 100 U/L (35-104); Anion Gap 12 (5-15); BUN 20 mg/dL (4-19); BUN/Creat Ratio 25.7 RATIO (10-20); Calcium,Total 9.4 mg/dL (7.6-11.0); Carbon Dioxide 24.5 mmol/L (21.0-32.0); Chloride 103 mmol/L (98-108); Cholesterol 208 mg/dL (<=200); Globulin 3.2 g/dL (2.2-4.2); Glucose 105 mg/dL (70-99); Low Density Lipoprotein Calc. 120 mg/dL; Potassium 4.9 mmol/L (3.3-5.1); Triglycerides 86 mg/dL; Very Low Density Lipoprotein 17 mg/dL (5-40); cholesterol:hdl ratio screen 2.94
== END | disposition home or self-care (01) ==
LOC: MFPLAB 10:30
PROVIDERS: PCP Family Medicine; Referring Provider Family Medicine; Visit Provider Family Medicine
DX: Z00.00 Encounter for general adult medical examination without abnormal findings (principal); F41.9 Anxiety disorder, unspecified; I10 Essential (primary) hypertension
CPT/HCPCS: 36415; 80053; 80061; 81002; 82043; 82570

== ENCOUNTER → 2025-02-22 | Outpatient (CLI) | payer OTHER, SELFPAY ==
--- NOTE | 2025-02-22 15:18 | RAD_ITS ---
PROCEDURE: FOOT MIN 3 VIEWS 02/22/2025 REASON FOR EXAM: R 4TH MT AND TOE PAIN TECHNIQUE: FOOT MIN 3 VIEWS Laterality: Right COMPARISON: None. RAD/Foot min 3 Views IMPRESSION: A mildly displaced oblique intra-articular FRACTURE of the base of the right 4t h proximal phalanx is seen. No radiopaque foreign body is seen. Mild degenerative changes are seen of the 1st ray; no hallux valgus deformity i s noted. Mild degenerative changes are seen of the midfoot. Moderate inferior and posterior calcaneal spurring is seen. Normal contour of the Achilles tendon is seen in the lateral view. Reading Location: [place] [id number]
== END | disposition home or self-care (01) ==
LOC: MTRAD 15:15
PROVIDERS: PCP Family Medicine; Referring Provider Family Medicine; Visit Provider Family Medicine
DX: M79.671 Pain in right foot (principal)
CPT/HCPCS: 73630

== ENCOUNTER 2025-06-21 23:38 | Emergency (ER) | payer OTHER, SELFPAY ==
[2025-06-21 23:38] VITALS: BP 196/115; PULSE 93; RESP 19; TEMP 36.6; O2SAT 100; BMI 37.5
[2025-06-22] MEDS: 0.9% Normal Saline (1000mL) 1,000 ML 999 ML IV (00:30)
[2025-06-22 00:31] LABS: Hematocrit 41.9 % (37-47); Hemoglobin 13.3 g/dL (12.0-15.0); Immature Granulocytes Count 0.070 X10^3/uL (0.0-0.0); Mean Corp Hgb Conc 31.7 g/dL (32-36); Mean Corpuscular Volume 87.3 fL (81-99); Mean Platelet Vol. 9.6 fl (6.2-12.0); NRBC Flagged by Analyzer 0 % (0-5); Platelet Count 424 K/mm3 (150-450); RBC Distribution Width CV 13.1 % (11.6-14.6); RBC Distribution Width SD 41.6 fl (35.1-43.9); Red Blood Count 4.80 M/mm3 (4.2-5.4); White Blood Count 14.1 K/mm3 (4.4-11.0)
--- OUTSIDE RECORDS SUMMARY | 2025-06-22 00:38 | XMS RPT_ITS | CCD ---
Author Organization [facility] CliniSyvt Care Team Providers Care Research Archaeologist Name Role Phone SAVANNAH SANCHEZ Unavailable Unavailable ISIDRO CABALLERO Unavailable Unavailable JAYLYN JOHNSON Unavailable Unavailable SARAH NUÑEZ Unavailable Unavailable VILMA CHRISTINA Unavailable Unavailleigh e JAYLYN JOHNSON Unavailable Unavailable ISIDRO CABALLERO Unavailable Unavailable Dr. Alexey Christina Primary Care Provider Dr. Alexey Christina Referring Provider FriendDr. [place] Attending Provider FriendDr. [place] Other Provider Vilma Christina MD Primary Care Provider Carri MEZA, Dr. Ramires Primary Care Provider Med MEZA, Dr. Grady Emergency Provider Med MEZA, Dr. Grady Attending Provider [phone] Dr. Vilma Christina MD Attending Provider [phone] Carri MEZA, Dr. Ramires Referring Provider [phone] ISIDRO BOJORQUEZ Referring Unavailable VILMA CHRISTINA Primary Care UnavailPABLO Lopez Attending Unavailable PABLO KINGSLEY Referring Unavailable VILMA CHRISTINA Primary Care UnavailPABLO Lopez Referring Unavailable VILMA CHRISTINA Primary Care UnavailISIDRO Zendejas Referring Unavailable VILMA CHRISTINA Primary Care Unavailleigh Christina MD, Dr. Ramires Primary Care Provider Vilma Christina Referring Unavailable Vilma Christina Attending Unavailable Vilma Christina Primary Care Unavailable Vilma Christina Referring Unavailable Vilma Christina Attending Unavailable Vilma Christina Primary Care Unavailable Vilma Christina Primary Care Unavailable Miguel A Jovel Attending Unavailable Vilma Christina Primary Care Unavailable Wandy Walter Attending Unavailable Vilma Christina Referring Unavailable Hardik Cortes MD Unavailable NONE, NONE Unavailable Unavailable Vilma Christina MD Unavailable Allergies Allergy Classification Reported Allergen(s) Allergy Type Date of Onset Reaction(s) Facility (20 sources) codeine; Translations: [CODEINE] Drug Allergy 06-18-2005 Vomiting [facility] Repository (20 sources) morphine; Translations: [MORPHINE] Drug Allergy 04-23-2011 Vomiting [facility] Repository (2 sources) Codeine Drug Allergy 11-04-2013 [facility] (2 sources) PLANT POLLENS Allergy to substance (disorder) 11-09-2019 [facility] Medications Current Medications Medication Drug Class(es) Dates Sig (Normalized) Sig (Original) acetaminophen 500 mg oral tablet (20 sources) Start: 03-20-2021 take 1 tablet by mouth every six hours as needed for pain Acetaminophen (Tylenol Extra Strength) 500 mg tablet Active 500 mg PO EVERY 6 HOURS as needed for Pain March 20, 2021 12:00am Start: 04-27-2014 take 2 tablets by mo uth once daily Tylenol (acetaminophen) 325 mg tablet 2 tablet by mouth once a day active Ro Carl LPN [facility] acetaminophen (T YLENOL EX STR ARTHRITIS PAIN ORAL) Take by mouth. Active acetaminophen (T YLENOL EX STR ARTHRITIS PAIN ORAL) Take by mouth. 0 Active [id number] 200 actuat albuterol 0.09 mg/actuat metered dose inhaler (2 sources) beta2-Adrenergic Agonist albuter ol sulfate 90 mcg/actuation HFA aerosol inhaler Inhale 1 once a day active Toshia Parsons [facility] amLODIPine 10 mg oral tablet (20 sources) Dihydropyridine Calcium Channel Jamshid Start: 03-20-2021 amLODIPine (NORVASC) 10 mg tablet 10/29/2023 Active Start: 08-28-2015 End: 01-17-2016 take 1 tablet by mouth once daily in the morning Amlodipine 5 MG tablet Discontinued 5 mg PO DAILY 30 0 August 28, 2015 1:00am January 17, 2016 5:20pm Take this medication in the morning. aspirin 81 mg chewable tablet (19 sources) Platelet Aggregation Inhibitor, Nonsteroidal Anti-inflammatory Drug Start: 08-27-2015 aspirin 81 mg chewable tablet DAILY@0800 08/27/2015 Active ASPIRIN LOW DOSE (ASPIRIN) 81 MG TBEC (2 sources) Start: 08-18-2018 take 1 tablet by mouth once daily aspirin 81 mg tablet,delayed release (DR/EC) 1 tablet by mouth once a day active [facility] atropine sulfate 0.025 mg / diphenoxylate hydrochloride 2.5 mg oral tablet (4 sources) Anticholinergic, Cholinergic Muscarinic Antagonist, Antidiarrheal Start: 03-17-2023 Diphenoxylate-At ropine (Lomotil) 2.5-0.025 mg tablet Active 1 {tbl} PO 4 TIMES DAILY NEEDED as needed for diarrhea 5 March 17, 2023 3:11am Nausea, vomiting, and diarrhea Nausea with vomiting, unspecified Diarrhea, unspecified 24 hr buPROPion hydrochloride 300 mg extended release oral tablet (20 sources) Aminoketone Start: 05-07-2017 take 1 tablet by mouth once daily Bupropion Hcl 150 MG tablet extended release 24 hr Active 150 mg PO DAILY May 07, 2017 1:00am Start: 06-08-2011 take 1 tablet by brenda once daily Wellbutrin XL (bupropion hcl) 300 mg tablet extended release 24 hr 1 tablet by mouth once a day active [facility] celecoxib 200 mg oral capsule (11 sources) Nonsteroidal Anti-inflammatory Drug Start: 10-29-2023 celecoxib (CELEBREX) 200 mg capsule 10/29/2023 Active clonazePAM 0.5 mg oral tablet (11 sources) Benzodiazepine take 1 tablet by mouth every eight hours as needed clonazePAM (KLONOPIN) 0.5 mg tablet Take 0.5 mg by mouth three times a day as needed for anxiety. Active escitalopram 20 mg oral tablet (20 sources) Serotonin Reuptake Inhibitor Start: 05-07-2017 take 1 tablet by mouth once daily Lexapro (escitalopram oxalate) 20 mg tablet 1 tablet by mouth once a day active Ro Carl LINA [facility] ferrous sulfate 324 mg delayed release oral tablet (11 sources) Start: 12-30-2017 take 324 mg by mouth three times daily ferrous sulfate EC 324 mg (65 mg iron) TbEC Take 324 mg by mouth three times daily. 0 12/30/2017 Active gabapentin 600 mg oral tablet (20 sources) Anti-epileptic Agent Start: 10-18-2023 take 1 tablet by mouth three times daily Gabapentin 600 mg tablet Active 600 mg PO THREE TIMES A DAY October 18, 2023 12:00am Start: 08-27-2015 End: 10-18-2023 gabapentin (NEURONTIN) 400 m g capsule 3 TIMES DAILY WITH MEALS 08/27/2015 Active loperamide hydrochloride 2 mg oral capsule (4 sources) Opioid Agonist Start: 09-02-2023 take 1 capsule by mouth every six hours as needed Loperamide (Imodium A-D) 2 mg capsule Active 2 mg PO EVERY 6 HOURS as needed for loose stool 12 3 0 September 02, 2023 1:00am 24 hr metoprolol succinate 100 mg extended release oral tablet (20 sources) beta-Adrenergic Jamshid Start: 11-04-2013 take 1 tablet by mouth at bedtime Metoprolol Succinate 100 MG tablet Active 100 mg PO AT BEDTIME August 27, 2015 1:00am omeprazole 40 mg delayed release oral capsule (20 sources) Proton Pump Inhibitor Start: 05-24-2021 take 1 capsule by mouth once daily Omeprazole 40 mg capsule,delayed release(DR/EC) Active 40 mg PO DAILY 30 07May 24, 2021 1:00am Start: 03-20-2021 End: 05-24-2021 take 1 capsule by mouth twice daily Omeprazole 40 mg capsule,delayed release(DR/EC) Discontinued 40 mg PO TWICE A DAY March 20, 2021 12:00am May 24, 2021 10:15am omeprazole 40 mg 40 mg 1 as needed active Toshia Parsons [facility] [facility] Completed/Discontinued Medications Medication Drug Class(es) Dates Sig (Normalized) Sig (Original) acetaminophen 325 mg / oxyCODONE hydrochloride 5 mg oral tablet (4 sources) Opioid Agonist Start: 03-17-2023 End: 10-18-2023 Oxycodone-Acetamin ophen (Percocet) 5-325 mg tablet Discontinued 1 {tbl} PO EVERY 6 HOURS as needed for pain 12 3 0 March 17, 2023 October 18, 2023 3:42pm Nonspecific abdominal pain Unspecified abdominal pain amoxicillin 875 mg / clavulanate 125 mg oral tablet (7 sources) Penicillin-class Antibacterial Start: 11-27-2021 End: 12-07-2021 Amoxicillin-Pot Clavulanate 875-125 mg tablet Discontinued 1 {tbl} PO Q12H 20 10 0 November 27, 2021 12:00am December 06, 2021 12:00am December 07, 2021 12:03am Acute sinusitis, unspecified Start: 11-27-2021 End: 12-07-2021 take 1 tablet by mouth every twelve hours Amoxicillin-Pot Clavulanate Discontinued 1 TABLET PO Q12H 20 10 November 26, 2021 11:00pm December 06, 2021 11:03pm cephalexin 500 mg oral capsule (4 sources) Cephalosporin Antibacterial Start: 09-02-2023 End: 10-18-2023 take 1 capsule by mouth every twelve hours Cephalexin 500 mg capsule Discontinued 500 mg PO EVERY 12 HOURS 14 September 02, 2023 1:00am October 18, 2023 3:40pm dicyclomine hydrochloride 10 mg oral capsule (8 sources) Anticholinergic Start: 01-17-2016 End: 05-07-2017 take 2 capsules by mouth three times daily before mealtime Dicyclomine 10 MG capsule Discontinued 20 mg PO THREE TIMES DAILY BEFORE MEALS January 17, 2016 12:00am May 07, 2017 4:34am Start: 01-17-2016 End: 05-07-2017 take 20 mg by mouth three times daily before mealtime Dicyclomine Discontinued 20 MG PO THREE TIMES DAILY BEFORE MEALS January 16, 2016 11:00pm May 07, 2017 3:34am famciclovir 500 mg oral tablet (4 sources) Herpes Simplex Virus Nucleoside Analog DNA Polymerase Inhibitor Start: 04-05-2023 End: 10-18-2023 take 1 tablet by mouth every eight hours Famciclovir 500 mg tablet Discontinued 500 mg PO Q8H 21 7 0 April 05, 2023 12:00am October 18, 2023 3:41pm nystatin [id number] unt/ml topical cream (4 sources) Polyene Antifungal Start: 04-05-2023 End: 10-18-2023 Nystatin 100,000 unit/gram cream Discontinued 1 NMA TOPICAL TWICE A DAY April 05, 2023 12:00am October 18, 2023 3:41pm Start: 04-05-2023 Nystatin Activ e 1 APPLIC TOPICAL TWICE A DAY April 04, 2023 11:00pm ondansetron 4 mg disintegrating oral tablet (8 sources) Serotonin-3 Receptor Antagonist Start: 09-02-2023 End: 10-18-2023 take 1 tablet by mouth every eight hours as needed for nausea Ondansetron 4 mg tablet,disintegrating Discontinued 4 mg PO EVERY 8 HOURS NEEDED as needed for Nausea September 02, 2023 1:00am October 18, 2023 3:42pm Start: 03-17-2023 End: 10-18-2023 take 1 tablet by mouth three times daily as needed for nausea and vomiting Ondansetron 4 mg tablet,disintegrating Discontinued 4 mg PO THREE TIMES A DAY as needed for nausea and vomiting March 17, 2023 3:11am October 18, 2023 3:41pm pantoprazole 40 mg delayed release oral tablet (19 sources) Proton Pump Inhibitor Start: 04-15-2018 End: 03-20-2021 take 1 tablet by mouth once daily Pantoprazole 40 MG tablet Discontinued 40 mg PO DAILY April 15, 2018 12:00am March 20, 2021 2:23pm Start: 10-25-2017 take 1 tablet by brenda twice daily before mealtime pantoprazole DR (PROTONIX) 40 mg tablet Take 1 tablet by mouth twice daily before meals (0600/1600). 60 tablet 10/25/2017 Active predniSONE 20 mg oral tablet (4 sources) Start: 04-05-2023 End: 10-18-2023 take 1 tablet by mouth twice daily Prednisone 20 mg tablet Discontinued 20 mg PO TWICE A DAY April 05, 2023 12:00am October 18, 2023 3:42pm sucralfate 100 mg/ml oral suspension (20 sources) Aluminum Complex Start: 05-24-2021 End: 06-23-2021 take 1 mL by mouth three times daily Sucralfate 100 mg/mL suspension Discontinued 10 mL PO THREE TIMES A DAY 900 30 0 May 24, 2021 10:15am June 22, 2021 1:00am June 23, 2021 1:01am Start: 03-29-2021 End: 05-24-2021 take 1 mL by mouth twice daily Sucralfate 100 mg/mL ledesma spension Discontinued 10 mL PO TWICE A DAY 420 0 March 29, 2021 12:00am May 24, 2021 10:16am Start: 12-30-2017 take 1 tablet by brenda th four times daily sucralfate (CARAFATE) 1 gram tablet Take 1 g by mouth four times daily. 0 12/30/2017 Active Problems Active Problems Problem Classification Problem Date Documented Da te Episodic/Chronic Abdominal pain (8 sources) Abdominal pain; Translations: [Unspecified abdominal pain] 03-20-2021 Episodic Deficiency and other anemia (8 sources) Anemia; Translations: [Anemia, unspecified] 03-20-2021 Episodic Diseases of white blood cells (4 sources) Leukocytosis; Translations: [Elevated white blood cell count, unspecified] 09-02-2023 Chronic Essential hypertension (8 sources) Hypertensive disorder; Translations: [Essential (primary) hypertension] 10-19-2017 Chronic Gastritis and duodenitis (1 source) Gastritis, unspecified, with bleeding; Translations: [Gastritis, unspecified, with bleeding] Onset: 10-19-2017 Episodic Joint disorders and dislocations; trauma-related (3 sources) Chondromalacia patellae, right knee; Translations: [Chondromalacia of patella] Onset: 03-09-2025 03-09-2025 Chronic Nausea and vomiting (4 sources) Nausea, vomiting and diarrhea; Translations: [Nausea with vomiting, unspecified] 03-25-2023 Episodic Nonspecific chest pain (16 sources) Chest pain; Translations: [Chest pain, unspecified] 10-19-2017 Episodic Osteoarthritis (3 sources) Osteoarthritis of right knee joint; Translations: [Unilateral primary osteoarthritis, right knee] Onset: 03-09-2025 03-09-2025 Chronic Other circulatory disease (1 source) Orthostatic hypotension; Translations: [Orthostatic hypotension] Onset: 10-19-2017 Episodic Other congenital anomalies (2 sources) Spinal stenosis of lumbar region; Translations: [Other congenital malformations of spine, not associated with scoliosis] Onset: 03-31-2015 03-31-2015 Chronic Other connective tissue disease (1 source) Pain in right foot; Translations: [Pain in right foot] Onset: 02-25-2025 Episodic Other gastrointestinal disorders (4 sources) Constipation; Translations: [Constipation, unspecified] 04-13-2023 Episodic Other gastrointestinal disorders (3 sources) H/O: gastric ulcer; Translations: [Personal history of other diseases of the digestive system] Onset: 03-09-2025 03-09-2025 Episodic Other nutritional; endocrine; and metabolic disorders (11 sources) Obese class II; Translations: [Obesity, unspecified] Onset: 10-25-2017 10-25-2017 Chronic Other screening for suspected conditions (not mental disorders or infectious disease) (20 sources) Patient encounter status; Translations: [Encounter for screening for malignant neoplasm of colon] Onset: 01-13-2025 10-23-2022 Episodic Other upper respiratory infections (7 sources) Acute sinusitis; Translations: [Acute sinusitis, unspecified] 11-27-2021 Episodic Pulmonary heart disease (8 sources) H/O: pulmonary embolus; Translations: [Personal history of pulmonary embolism] 10-19-2017 Episodic Spondylosis; intervertebral disc disorders; other back problems (2 sources) Displacement of cervical intervertebral disc without myelopathy; Translations: [Other cervical disc displacement, high cervical region] Onset: 09-23-2018 09-23-2018 Chronic Unclassified (1 source) Unknown / UNK(Unknown) Onset: 10-23-2017 Unclassified (1 source) Patient encounter status 12-02-2024 Urinary tract infections (4 sources) Urinary tract infectious disease; Translations: [Urinary tract infection, site not specified] 09-02-2023 Episodic Viral infection (4 sources) Herpes zoster; Translations: [Zoster without complications] 04-13-2023 Episodic Past or Other Problems Problem Classification Problem Date Documented Da te Episodic/Chronic Gastrointestinal hemorrhage (20 sources) Chronic or unspecified duodenal ulcer with hemorrhage; Translations: [Melena] Onset: 10-19-2017 10-19-2017 Episodic Noninfectious gastroenteritis (16 sources) Noninfective gastroenteritis and colitis, unspecified; Translations: [Gastroenteritis] Onset: 10-19-2017 09-02-2023 Episodic Other connective tissue disease (2 sources) Muscle weakness of upper limb; Translations: [Other symptoms and signs involving the musculoskeletal system] Onset: 08-18-2018 08-18-2018 Episodic Other connective tissue disease (2 sources) H/O: arthrodesis; Translations: [Arthrodesis status] Onset: 03-31-2015 03-31-2015 Episodic Spondylosis; intervertebral disc disorders; other back problems (20 sources) Spinal stenosis of lumbar region; Translations: [Spinal stenosis, lumbar region without neurogenic claudication] Onset: 03-31-2015 10-19-2017 Episodic Superficial injury; contusion (4 sources) Abrasion of right ear, initial encounter; Translations: [Abrasion of right ear canal] Onset: 09-17-2024 09-06-2024 Episodic Results Test Name Value Interpretation Reference Range Facility Relevant diagnostic tests/la boratory data Narrativeon 03-25-2025 Fall risk assessment no [facility] [facility] Work Phone: MEDS REVIEW Documentation of cur rent medications (procedure) [employer] Work Phone: MEDS REVIEWD Medications reviewed without changes [employer] [facility] Work Phone: Relevant diagnostic tests/la boratory data Narrativeon 03-09-2025 Fall risk assessment no [facility] Work Phone: MEDS REVIEW Done [employer] Work Phone: MEDS REVIEWD Medications reviewed without changes [employer] [facility] Work Phone: Foot min 3 Viewson 5 Foot min 3 Views [facility] Imaging Services [address] [place] [id number] Foot min 3 Views MR#: [id number] Acct: [id number] Name: JAYLEN ELIZALDE Rep #: [id number] : 1970 F 54 From: Markell Leung PCP: Dr. Vilma Christina MD Status: REG CLI Study: Foot min 3 Views Date of Exam: 02/22/25 Exam# [id number] Ordering Dr: Vilma Christina PROCEDURE: FOOT MIN 3 VIEWS 02/22/2025 REASON FOR EXAM: R 4TH MT AND TOE PAIN TECHNIQUE: FOOT MIN 3 VIEWS Laterality: Right COMPARISON: None. RAD/Foot min 3 Views IMPRESSION: A mildly displaced oblique intra-articular FRACTURE of the base of the right 4th proximal phalanx is seen. No radiopaque foreign body is seen. Mild degenerative changes are seen of the 1st ray; no hallux valgus deformity is noted. Mild degenerative changes are seen of the midfoot. Moderate inferior and posterior calcaneal spurring is seen. Normal contour of the Achilles tendon is seen in the lateral view. Reading Location: [place] [address] CC: Dr. Vilma Christina MD Sheet Cutting Operator: Signed Normal [facility] DBT Breast - bilateral diagn ostic for implanton 01-13-2025 IMPRESSION: Finding 1: Cyst in the left breast is benign. Return to annual screening mammogram is recommended. Annual mammogram will be due in 11 months. Finding 2: The 1 cm asymmetry in the inferior right breast is probably benign. Follow-up with diagnostic mammogram is recommended in 6 months. The asymmetry on the right is just deep to the skin and is possibly a cluster of blood vessels. BI-RADS Category 3: Probably Benign RISK: Based on the [facility] risk assessment model, this patient has a 21.6% lifetime risk of developing breast cancer. However, this is only an estimate based on available history provided on the patient's questionnaire. Because patients with a lifetime risk of 20% or greater may benefit from additional supplemental screening, we encourage a full breast clinical evaluation and comprehensive breast cancer risk assessment to guide further decision making. For more information regarding the management of patients at high risk for developing breast cancer, providers should refer to the following [facility] Care Path: Increased Risk for Breast Cancer Care Path v.5. Additionally, a referral to the [facility] is also appropriate. Interpreting Radiologist: Gurmeet Beltran M.D. Electronically signed on: 01/13/2025 Sheet Cutting Operator: JAYDA Transcribe Date/Time: Jan 13 2025 2:32P Dictated by: GURMEET BELTRAN MD This examination was interpreted and the report reviewed and electronically signed by: GURMEET BELTRAN MD on Jan 13 2025 3:46PM [facility] DIVISION OF RADIOLOGY * * *Final Report* * * DATE OF EXAM: Jan 13 2025 3:20PM [facility] 0627 - [facility] ESTRELLA ROSE / PROCEDURE REASON: Abnormal mammogram * * * * Physician Interpretation * * * * RESULT: [facility] [address] [place] [address] #[id number] - [facility] ESTRELLA ROSE #[id number] - [facility] #[id number] - [facility] RT HISTORY: 54 year-old patient presents for diagnostic evaluation. Patient is asymptomatic in both breasts. Patient states no personal history of breast cancer. The patient has a family history of breast and ovarian cancer. COMPARISON STUDIES: The present examination has been compared to prior imaging studies dated 01/03/2015 (mammogram), 12/05/2023 (mammogram) and 12/09/2024 (mammogram). MAMMOGRAM TECHNIQUE: The study was acquired using full field digital technology and interpreted from soft copy. Digital Breast Tomosynthesis (DBT) images were obtained and used to assist in the interpretation of this examination. MAMMOGRAM FINDINGS: The breasts are heterogeneously dense, which may obscure small masses. Finding 1: There is an equal dense focal asymmetry measuring 0.4 cm with circumscribed margins in the left breast. Finding 2: There is an asymmetry measuring 1 cm in the inferior right breast. ULTRASOUND TECHNIQUE: Targeted ultrasound of the indicated area was performed. Wang scale images were saved. ULTRASOUND FINDINGS: Finding 1: Ultrasound demonstrates an oval cyst measuring 0.5 cm in the left breast. Internal echotexture is anechoic. Color flow imaging demonstrates vascularity is not present. Finding 2: There are a few prominent blood vessels but no definite mass. DIVISION OF RADIOLOGY Provider, [facility] - 01/13/2025 * * *Final Report* * * DATE OF EXAM: Jan 13 2025 3:20PM [facility] 0627 - [facility] ESTRELLA ROSE / PROCEDURE REASON: Abnormal mammogram * * * * Physician Interpretation * * * * RESULT: [facility] [address] [place] [address] #[id number] - [facility] CAROLYN ROSE #[id number] - [facility] #[id number] - [facility] RT HISTORY: 54 year-old patient presents for diagnostic evaluation. Patient is asymptomatic in both breasts. Patient states no personal history of breast cancer. The patient has a family history of breast and ovarian cancer. COMPARISON STUDIES: The present examination has been compared to prior imaging studies dated 01/03/2015 (mammogram), 12/05/2023 (mammogram) and 12/09/2024 (mammogram). MAMMOGRAM TECHNIQUE: The study was acquired using full field digital technology and interpreted from soft copy. Digital Breast Tomosynthesis (DBT) images were obtained and used to assist in the interpretation of this examination. MAMMOGRAM FINDINGS: The breasts are heterogeneously dense, which may obscure small masses. Finding 1: There is an equal dense focal asymmetry measuring 0.4 cm with circumscribed margins in the left breast. Finding 2: There is an asymmetry measuring 1 cm in the inferior right breast. ULTRASOUND TECHNIQUE: Targeted ultrasound of the indicated area was performed. Wang scale images were saved. ULTRASOUND FINDINGS: Finding 1: Ultrasound demonstrates an oval cyst measuring 0.5 cm in the left breast. Internal echotexture is anechoic. Color flow imaging demonstrates vascularity is not present. Finding 2: There are a few prominent blood vessels but no definite mass. IMPRESSION IMPRESSION: Finding 1: Cyst in the left breast is benign. Return to annual screening mammogram is recommended. Annual mammogram will be due in 11 months. Finding 2: The 1 cm asymmetry in the inferior right breast is probably benign. Follow-up with diagnostic mammogram is recommended in 6 months. The asymmetry on the right is just deep to the skin and is possibly a cluster of blood vessels. BI-RADS Category 3: Probably Benign RISK: Based on the [facility] risk assessment model, this patient has a 21.6% lifetime risk of developing breast cancer. However, this is only an estimate based on available history provided on the patient's questionnaire. Because patients with a lifetime risk of 20% or greater may benefit from additional supplemental screening, we encourage a full breast clinical evaluation and comprehensive breast cancer risk assessment to guide further decision making. For more information regarding the management of patients at high risk for developing breast cancer, providers should refer to the following [facility] Care Path: Increased Risk for Breast Cancer Care Path v.5. Additionally, a referral to the [facility] is also appropriate. Interpreting Radiologist: Gurmeet Beltran M.D. Electronically signed on: 01/13/2025 Sheet Cutting Operator: JAYDA Transcrimiriam Date/Time: Jan 13 2025 2:32P Dictated by: GURMEET BELTRAN MD This examination was interpreted and the report reviewed and electronically signed by: GURMEET BELTRAN MD on Jan 13 2025 3:46PM EST [facility] CHERELLE DIAG W ESTRELLA BILon 2024 [facility] DIAG W ESTRELLA ROSE * * *Final Report* * * DATE OF EXAM: Jan 13 2025 3:20PM [id number] - [facility] DIAG W ESTRELLA ROSE / PROCEDURE REASON: Abnormal mammogram * * * * Physician Interpretation * * * * RESULT: [place] [address] #[id number] - [facility] DIAG W ESTRELLA ROSE #[id number] - [facility] US BREAST LTD LT #[id number] - [facility] US BREAST LTD RT HISTORY: 54 year-old patient presents for diagnostic evaluation. Patient is asymptomatic in both breasts. Patient states no personal history of breast cancer. The patient has a family history of breast and ovarian cancer. COMPARISON STUDIES: The present examination has been compared to prior imaging studies dated 01/03/2015 (mammogram), 12/05/2023 (mammogram) and 12/09/2024 (mammogram). MAMMOGRAM TECHNIQUE: The study was acquired using full field digital technology and interpreted from soft copy. Digital Breast Tomosynthesis (DBT) images were obtained and used to assist in the interpretation of this examination. MAMMOGRAM FINDINGS: The breasts are heterogeneously dense, which may obscure small masses. Finding 1: There is an equal dense focal asymmetry measuring 0.4 cm with circumscribed margins in the left breast. Finding 2: There is an asymmetry measuring 1 cm in the inferior right breast. ULTRASOUND TECHNIQUE: Targeted ultrasound of the indicated area was performed. Wang scale images were saved. ULTRASOUND FINDINGS: Finding 1: Ultrasound demonstrates an oval cyst measuring 0.5 cm in the left breast. Internal echotexture is anechoic. Color flow imaging demonstrates vascularity is not present. Finding 2: There are a few prominent blood vessels but no definite mass. IMPRESSION: Finding 1: Cyst in the left breast is benign. Return to annual screening mammogram is recommended. Annual mammogram will be due in 11 months. Finding 2: The 1 cm asymmetry in the inferior right breast is probably benign. Follow-up with diagnostic mammogram is recommended in 6 months. The asymmetry on the right is just deep to the skin and is possibly a cluster of blood vessels. BI-RADS Category 3: Probably Benign RISK: Based on the [facility] risk assessment model, this patient has a 21.6% lifetime risk of developing breast cancer. However, this is only an estimate based on available history provided on the patient's questionnaire. Because patients with a lifetime risk of 20% or greater may benefit from additional supplemental screening, we encourage a full breast clinical evaluation and comprehensive breast cancer risk assessment to guide further decision making. For more information regarding the management of patients at high risk for developing breast cancer, providers should refer to the following [facility] Care Path: Increased Risk for Breast Cancer Care Path v.5. Additionally, a referral to the [facility] is also appropriate. Interpreting Radiologist: Gurmeet Beltran M.D. Electronically signed on: 01/13/2025 Sheet Cutting Operator: JAYDA Transcrimiriam Date/Time: Jan 13 2025 2:32P Dictated by: GURMEET BELTRAN MD This examination was interpreted and the report reviewed and electronically signed by: GURMEET BELTRAN MD on Jan 13 2025 3:46PM EST [id number] Normal [facility] US BREAST LTD LTon 01-13 [facility] US BREAST LTD LT * * *Final Report* * * DATE OF EXAM: Jan 13 2025 3:39PM [facility]U 0593 - [facility] US BREAST LTD LT / PROCEDURE REASON: Abnormal mammogram * * * * Physician Interpretation * * * * [place] [address] #[id number] - [facility] DIAG W ESTRELLA ROSE #[id number] - [facility] US BREAST LTD LT #[id number] - [facility] US BREAST LTD RT HISTORY: 54 year-old patient presents for diagnostic evaluation. Patient is asymptomatic in both breasts. Patient states no personal history of breast cancer. The patient has a family history of breast and ovarian cancer. COMPARISON STUDIES: The present examination has been compared to prior imaging studies dated 01/03/2015 (mammogram), 12/05/2023 (mammogram) and 12/09/2024 (mammogram). MAMMOGRAM TECHNIQUE: The study was acquired using full field digital technology and interpreted from soft copy. Digital Breast Tomosynthesis (DBT) images were obtained and used to assist in the interpretation of this examination. MAMMOGRAM FINDINGS: The breasts are heterogeneously dense, which may obscure small masses. Finding 1: There is an equal dense focal asymmetry measuring 0.4 cm with circumscribed margins in the left breast. Finding 2: There is an asymmetry measuring 1 cm in the inferior right breast. ULTRASOUND TECHNIQUE: Targeted ultrasound of the indicated area was performed. Wang scale images were saved. ULTRASOUND FINDINGS: Finding 1: Ultrasound demonstrates an oval cyst measuring 0.5 cm in the left breast. Internal echotexture is anechoic. Color flow imaging demonstrates vascularity is not present. Finding 2: There are a few prominent blood vessels but no definite mass. IMPRESSION: Finding 1: Cyst in the left breast is benign. Return to annual screening mammogram is recommended. Annual mammogram will be due in 11 months. Finding 2: The 1 cm asymmetry in the inferior right breast is probably benign. Follow-up with diagnostic mammogram is recommended in 6 months. The asymmetry on the right is just deep to the skin and is possibly a cluster of blood vessels. BI-RADS Category 3: Probably Benign RISK: Based on the [facility] risk assessment model, this patient has a 21.6% lifetime risk of developing breast cancer. However, this is only an estimate based on available history provided on the patient's questionnaire. Because patients with a lifetime risk of 20% or greater may benefit from additional supplemental screening, we encourage a full breast clinical evaluation and comprehensive breast cancer risk assessment to guide further decision making. For more information regarding the management of patients at high risk for developing breast cancer, providers should refer to the following [facility] Care Path: Increased Risk for Breast Cancer Care Path v.5. Additionally, a referral to the [facility] is also appropriate. Interpreting Radiologist: Gurmeet Beltran M.D. Electronically signed on: 01/13/2025 Sheet Cutting Operator: JAYDA Transcribe Date/Time: Jan 13 2025 3:34P Dictated by : GURMEET BELTRAN MD This examination was interpreted and the report reviewed and electronically signed by: GURMEET BELTRAN MD on Jan 13 2025 3:46PM EST [id number] Normal [facility] US BREAST LTD RTon 01-13 [facility] US BREAST LTD RT * * *Final Report* * * DATE OF EXAM: Jan 13 2025 3:34PM [facility]U 0594 - [facility] US BREAST LTD RT / PROCEDURE REASON: Abnormal mammogram * * * * Physician Interpretation * * * * [place] [address] #[id number] - [facility] DIAG W ESTRELLA ROSE #[id number] - [facility] US BREAST LTD LT #[id number] - [facility] US BREAST LTD RT HISTORY: 54 year-old patient presents for diagnostic evaluation. Patient is asymptomatic in both breasts. Patient states no personal history of breast cancer. The patient has a family history of breast and ovarian cancer. COMPARISON STUDIES: The present examination has been compared to prior imaging studies dated 01/03/2015 (mammogram), 12/05/2023 (mammogram) and 12/09/2024 (mammogram). MAMMOGRAM TECHNIQUE: The study was acquired using full field digital technology and interpreted from soft copy. Digital Breast Tomosynthesis (DBT) images were obtained and used to assist in the interpretation of this examination. MAMMOGRAM FINDINGS: The breasts are heterogeneously dense, which may obscure small masses. Finding 1: There is an equal dense focal asymmetry measuring 0.4 cm with circumscribed margins in the left breast. Finding 2: There is an asymmetry measuring 1 cm in the inferior right breast. ULTRASOUND TECHNIQUE: Targeted ultrasound of the indicated area was performed. Wang scale images were saved. ULTRASOUND FINDINGS: Finding 1: Ultrasound demonstrates an oval cyst measuring 0.5 cm in the left breast. Internal echotexture is anechoic. Color flow imaging demonstrates vascularity is not present. Finding 2: There are a few prominent blood vessels but no definite mass. IMPRESSION: Finding 1: Cyst in the left breast is benign. Return to annual screening mammogram is recommended. Annual mammogram will be due in 11 months. Finding 2: The 1 cm asymmetry in the inferior right breast is probably benign. Follow-up with diagnostic mammogram is recommended in 6 months. The asymmetry on the right is just deep to the skin and is possibly a cluster of blood vessels. BI-RADS Category 3: Probably Benign RISK: Based on the [facility] risk assessment model, this patient has a 21.6% lifetime risk of developing breast cancer. However, this is only an estimate based on available history provided on the patient's questionnaire. Because patients with a lifetime risk of 20% or greater may benefit from additional supplemental screening, we encourage a full breast clinical evaluation and comprehensive breast cancer risk assessment to guide further decision making. For more information regarding the management of patients at high risk for developing breast cancer, providers should refer to the following [facility] Care Path: Increased Risk for Breast Cancer Care Path v.5. Additionally, a referral to the [facility] is also appropriate. Interpreting Radiologist: Gurmeet Beltran M.D. Electronically signed on: 01/13/2025 Sheet Cutting Operator: JAYDA Transcribe Date/Time: Jan 13 2025 3:23P Dictated by : GURMEET BELTRAN MD This examination was interpreted and the report reviewed and electronically signed by: GURMEET BELTRAN MD on Jan 13 2025 3:46PM EST [id number] Normal [facility] No Panel InformationOrdered By: [facility] Provider on 01-13-2025 [facility] No Panel Informationon 01-13 Radiology Study observation (narrative) [facility] US Breast - left limitedon 0 01-13-2025 IMPRESSION: Finding 1: Cyst in the left breast is benign. Return to annual screening mammogram is recommended. Annual mammogram will be due in 11 months. Finding 2: The 1 cm asymmetry in the inferior right breast is probably benign. Follow-up with diagnostic mammogram is recommended in 6 months. The asymmetry on the right is just deep to the skin and is possibly a cluster of blood vessels. BI-RADS Category 3: Probably Benign RISK: Based on the [facility] risk assessment model, this patient has a 21.6% lifetime risk of developing breast cancer. However, this is only an estimate based on available history provided on the patient's questionnaire. Because patients with a lifetime risk of 20% or greater may benefit from additional supplemental screening, we encourage a full breast clinical evaluation and comprehensive breast cancer risk assessment to guide further decision making. For more information regarding the management of patients at high risk for developing breast cancer, providers should refer to the following [facility] Care Path: Increased Risk for Breast Cancer Care Path v.5. Additionally, a referral to the [facility] is also appropriate. Interpreting Radiologist: Gurmeet Beltran M.D. Electronically signed on: 01/13/2025 Sheet Cutting Operator: JAYDA Transcrimiriam Date/Time: Jan 13 2025 3:34P Dictated by : GURMEET BELTRAN MD This examination was interpreted and the report reviewed and electronically signed by: GURMEET BELTRAN MD on Jan 13 2025 3:46PM [facility] DIVISION OF RADIOLOGY * * *Final Report* * * DATE OF EXAM: Jan 13 2025 3:39PM [facility] 0593 - [facility] [employer] BREAST LTD LT / PROCEDURE REASON: Abnormal mammogram * * * * Physician Interpretation * * * * [place] [address] #[id number] - [facility] ROSE #[id number] - [facility] [employer] BREAST LTD LT #[id number] - [facility] [employer] BREAST LTD RT HISTORY: 54 year-old patient presents for diagnostic evaluation. Patient is asymptomatic in both breasts. Patient states no personal history of breast cancer. The patient has a family history of breast and ovarian cancer. COMPARISON STUDIES: The present examination has been compared to prior imaging studies dated 01/03/2015 (mammogram), 12/05/2023 (mammogram) and 12/09/2024 (mammogram). MAMMOGRAM TECHNIQUE: The study was acquired using full field digital technology and interpreted from soft copy. Digital Breast Tomosynthesis (DBT) images were obtained and used to assist in the interpretation of this examination. MAMMOGRAM FINDINGS: The breasts are heterogeneously dense, which may obscure small masses. Finding 1: There is an equal dense focal asymmetry measuring 0.4 cm with circumscribed margins in the left breast. Finding 2: There is an asymmetry measuring 1 cm in the inferior right breast. ULTRASOUND TECHNIQUE: Targeted ultrasound of the indicated area was performed. Wang scale images were saved. ULTRASOUND FINDINGS: Finding 1: Ultrasound demonstrates an oval cyst measuring 0.5 cm in the left breast. Internal echotexture is anechoic. Color flow imaging demonstrates vascularity is not present. Finding 2: There are a few prominent blood vessels but no definite mass. DIVISION OF RADIOLOGY Provider, Liat Turner - 01/13/2025 * * *Final Report* * * DATE OF EXAM: Jan 13 2025 3:39PM [facility] 0593 - [facility] [employer] BREAST LTD LT / PROCEDURE REASON: Abnormal mammogram * * * * Physician Interpretation * * * * [place] [address] #[id number] - [facility] #[id number] - [facility] [employer] BREAST LTD LT #[id number] - [facility] [employer] BREAST LTD RT HISTORY: 54 year-old patient presents for diagnostic evaluation. Patient is asymptomatic in both breasts. Patient states no personal history of breast cancer. The patient has a family history of breast and ovarian cancer. COMPARISON STUDIES: The present examination has been compared to prior imaging studies dated 01/03/2015 (mammogram), 12/05/2023 (mammogram) and 12/09/2024 (mammogram). MAMMOGRAM TECHNIQUE: The study was acquired using full field digital technology and interpreted from soft copy. Digital Breast Tomosynthesis (DBT) images were obtained and used to assist in the interpretation of this examination. MAMMOGRAM FINDINGS: The breasts are heterogeneously dense, which may obscure small masses. Finding 1: There is an equal dense focal asymmetry measuring 0.4 cm with circumscribed margins in the left breast. Finding 2: There is an asymmetry measuring 1 cm in the inferior right breast. ULTRASOUND TECHNIQUE: Targeted ultrasound of the indicated area was performed. Wang scale images were saved. ULTRASOUND FINDINGS: Finding 1: Ultrasound demonstrates an oval cyst measuring 0.5 cm in the left breast. Internal echotexture is anechoic. Color flow imaging demonstrates vascularity is not present. Finding 2: There are a few prominent blood vessels but no definite mass. IMPRESSION IMPRESSION: Finding 1: Cyst in the left breast is benign. Return to annual screening mammogram is recommended. Annual mammogram will be due in 11 months. Finding 2: The 1 cm asymmetry in the inferior right breast is probably benign. Follow-up with diagnostic mammogram is recommended in 6 months. The asymmetry on the right is just deep to the skin and is possibly a cluster of blood vessels. BI-RADS Category 3: Probably Benign RISK: Based on the [employer] [facility] risk assessment model, this patient has a 21.6% lifetime risk of developing breast cancer. However, this is only an estimate based on available history provided on the patient's questionnaire. Because patients with a lifetime risk of 20% or greater may benefit from additional supplemental screening, we encourage a full breast clinical evaluation and comprehensive breast cancer risk assessment to guide further decision making. For more information regarding the management of patients at high risk for developing breast cancer, providers should refer to the following [facility] Care Path: Increased Risk for Breast Cancer Care Path v.5. Additionally, a referral to the [facility] is also appropriate. Interpreting Radiologist: Gurmeet Beltran M.D. Electronically signed on: 01/13/2025 Sheet Cutting Operator: JAYDA Transcribe Date/Time: Jan 13 2025 3:34P Dictated by : GURMEET BELTRAN MD This examination was interpreted and the report reviewed and electronically signed by: GURMEET BELTRAN MD on Jan 13 2025 3:46PM EST [facility] US Breast - right limitedon 01-13-2025 IMPRESSION: Finding 1: Cyst in the left breast is benign. Return to annual screening mammogram is recommended. Annual mammogram will be due in 11 months. Finding 2: The 1 cm asymmetry in the inferior right breast is probably benign. Follow-up with diagnostic mammogram is recommended in 6 months. The asymmetry on the right is just deep to the skin and is possibly a cluster of blood vessels. BI-RADS Category 3: Probably Benign RISK: Based on the [employer] risk assessment model, this patient has a 21.6% lifetime risk of developing breast cancer. However, this is only an estimate based on available history provided on the patient's questionnaire. Because patients with a lifetime risk of 20% or greater may benefit from additional supplemental screening, we encourage a full breast clinical evaluation and comprehensive breast cancer risk assessment to guide further decision making. For more information regarding the management of patients at high risk for developing breast cancer, providers should refer to the following [facility] Care Path: Increased Risk for Breast Cancer Care Path v.5. Additionally, a referral to the [facility] is also appropriate. Interpreting Radiologist: Gurmeet Beltran M.D. Electronically signed on: 01/13/2025 Sheet Cutting Operator: JAYDA Transcribe Date/Time: Jan 13 2025 3:23P Dictated by : GURMEET BELTRAN MD This examination was interpreted and the report reviewed and electronically signed by: GURMEET BELTRAN MD on Jan 13 2025 3:46PM [facility] DIVISION OF RADIOLOGY * * *Final Report* * * DATE OF EXAM: Jan 13 2025 3:34PM [facility] 0594 - [facility] [employer] BREAST LTD RT / PROCEDURE REASON: Abnormal mammogram * * * * Physician Interpretation * * * * [place] [address] #[id number] - [facility] DIAG W ESTRELLA ROSE #[id number] - [facility] [employer] BREAST LTD LT #[id number] - [facility] [employer] BREAST LTD RT HISTORY: 54 year-old patient presents for diagnostic evaluation. Patient is asymptomatic in both breasts. Patient states no personal history of breast cancer. The patient has a family history of breast and ovarian cancer. COMPARISON STUDIES: The present examination has been compared to prior imaging studies dated 01/03/2015 (mammogram), 12/05/2023 (mammogram) and 12/09/2024 (mammogram). MAMMOGRAM TECHNIQUE: The study was acquired using full field digital technology and interpreted from soft copy. Digital Breast Tomosynthesis (DBT) images were obtained and used to assist in the interpretation of this examination. MAMMOGRAM FINDINGS: The breasts are heterogeneously dense, which may obscure small masses. Finding 1: There is an equal dense focal asymmetry measuring 0.4 cm with circumscribed margins in the left breast. Finding 2: There is an asymmetry measuring 1 cm in the inferior right breast. ULTRASOUND TECHNIQUE: Targeted ultrasound of the indicated area was performed. Wang scale images were saved. ULTRASOUND FINDINGS: Finding 1: Ultrasound demonstrates an oval cyst measuring 0.5 cm in the left breast. Internal echotexture is anechoic. Color flow imaging demonstrates vascularity is not present. Finding 2: There are a few prominent blood vessels but no definite mass. DIVISION OF RADIOLOGY Provider, Liat Chen [facility] - 01/13/2025 * * *Final Report* * * DATE OF EXAM: Jan 13 2025 3:34PM [facility] 0594 - [facility] US BREAST LTD RT / PROCEDURE REASON: Abnormal mammogram * * * * Physician Interpretation * * * * [place] [address] #[id number] - [facility] #[id number] - [facility] US BREAST LTD LT #[id number] - [facility] [employer] BREAST LTD RT HISTORY: 54 year-old patient presents for diagnostic evaluation. Patient is asymptomatic in both breasts. Patient states no personal history of breast cancer. The patient has a family history of breast and ovarian cancer. COMPARISON STUDIES: The present examination has been compared to prior imaging studies dated 01/03/2015 (mammogram), 12/05/2023 (mammogram) and 12/09/2024 (mammogram). MAMMOGRAM TECHNIQUE: The study was acquired using full field digital technology and interpreted from soft copy. Digital Breast Tomosynthesis (DBT) images were obtained and used to assist in the interpretation of this examination. MAMMOGRAM FINDINGS: The breasts are heterogeneously dense, which may obscure small masses. Finding 1: There is an equal dense focal asymmetry measuring 0.4 cm with circumscribed margins in the left breast. Finding 2: There is an asymmetry measuring 1 cm in the inferior right breast. ULTRASOUND TECHNIQUE: Targeted ultrasound of the indicated area was performed. Wang scale images were saved. ULTRASOUND FINDINGS: Finding 1: Ultrasound demonstrates an oval cyst measuring 0.5 cm in the left breast. Internal echotexture is anechoic. Color flow imaging demonstrates vascularity is not present. Finding 2: There are a few prominent blood vessels but no definite mass. IMPRESSION IMPRESSION: Finding 1: Cyst in the left breast is benign. Return to annual screening mammogram is recommended. Annual mammogram will be due in 11 months. Finding 2: The 1 cm asymmetry in the inferior right breast is probably benign. Follow-up with diagnostic mammogram is recommended in 6 months. The asymmetry on the right is just deep to the skin and is possibly a cluster of blood vessels. BI-RADS Category 3: Probably Benign RISK: Based on the [facility] risk assessment model, this patient has a 21.6% lifetime risk of developing breast cancer. However, this is only an estimate based on available history provided on the patient's questionnaire. Because patients with a lifetime risk of 20% or greater may benefit from additional supplemental screening, we encourage a full breast clinical evaluation and comprehensive breast cancer risk assessment to guide further decision making. For more information regarding the management of patients at high risk for developing breast cancer, providers should refer to the following [facility] Care Path: Increased Risk for Breast Cancer Care Path v.5. Additionally, a referral to the [facility] [facility] is also appropriate. Interpreting Radiologist: Gurmeet Beltran M.D. Electronically signed on: 01/13/2025 Sheet Cutting Operator: JAYDA Transcribe Date/Time: Jan 13 2025 3:23P Dictated by : GURMEET BELTRAN MD This examination was interpreted and the report reviewed and electronically signed by: GURMEET BELTRAN MD on Jan 13 2025 3:46PM [facility] Anion gap in Serum or Plasma Ordered By: Vilma Christina on 12-29-2024 Anion gap [Moles/Vol] 12 mmol/L 5-15 [facility] BUN/creatinine ratioOrdered By: Vilma Christina on 12-29-2024 Urea nitrogen/Creatinine [Mass ratio] 25.7 mg/mg High 10-20 [facility] Bilirubin Test strip Ql (U)O rdered By: Vilma Christina on 12-29-2024 Bilirubin Ql (U) Negative Negative [facility] Bilirubin, totalOrdered By: Vilma Christina on 12-29-2024 Bilirubin [Mass/Vol] 0.30 mg/dL 0.00-1.30 [facility] Calculated very low density lipoprotein (VLDL) cholesterol measurementOrdered By: Vilma Christina on 12-29-2024 Calculated very low density lipoprotein (VLDL) cholesterol measurement 17 mg/dL 5-40 [facility] Carbon dioxide, total [Moles /volume] in Central venous bloodOrdered By: Vilma Christina on 12-29-2024 CO2 [Moles/Vol] 24.5 mmol/L 21.0-32.0 [facility] Chloride assayOrdered By: Pierre Christina on 12-29-2024 Chloride [Moles/Vol] 103 mmol/L 98-108 [facility] Comprehensive Metabolic Prof ilon 12-29-2024 Albumin [Mass/Vol] 4.3 g/dL Normal 3.5-5.0 [facility] Comment on above: Performed By: #### L 500.4100, L4, L500.4050, L502.0250 #### [facility] [address] [place], [address] Albumin/Globulin [Mass ratio] 1.3 {ratio} Normal 0.9-2.4 [facility] Comment on above: Performed By: #### L 500.4100, L4, L500.4050, L502.0250 #### [facility] [address] [place], [address] ALK PHOS 100 U/L Normal 35-104 [facility] Comment on above: Performed By: #### L 500.4100, L4, L500.4050, L502.0250 #### [facility] [address] [place], [address] ALT [Catalytic activity/Vol] 12 U/L Normal <=34 [facility] Comment on above: Performed By: #### L 500.4100, L4, L500.4050, L502.0250 #### [facility] [address] [place], [address] AST [Catalytic activity/Vol] 15 U/L Normal <=31 [facility] Comment on above: Performed By: #### L 500.4100, L4, L500.4050, L502.0250 #### [facility] [address] [place], [address] Bilirubin [Mass/Vol] 0.30 mg/dL Normal 0.00-1.30 [facility] Comment on above: Performed By: #### L 500.4100, L4, L500.4050, L502.0250 #### [facility] [address] [place], [address] BUN/CRE 25.7 RATIO High 10-20 [facility] Comment on above: Performed By: #### L 500.4100, L4, L500.4050, L502.0250 #### [facility] [address] [place], [address] Calcium [Mass/Vol] 9.4 mg/dL Normal 7.6-11.0 [facility] Comment on above: Performed By: #### L 500.4100, L4, L500.4050, L502.0250 #### [facility] [address] [place], [address] Chloride [Moles/Vol] 103 mmol/L Normal 98-108 [facility] Comment on above: Performed By: #### L 500.4100, L4, L500.4050, L502.0250 #### [facility] [address] [place], [address] CO2 [Moles/Vol] 24.5 mmol/L Normal 21.0-32.0 [facility] Comment on above: Performed By: #### L 500.410, , L500.4050, L502.0250 #### [facility] [address] [place], [address] Creatinine [Mass/Vol] 0.76 mg/dL Normal 0.70-1.20 [facility] Comment on above: Performed By: #### L 500.4100, L400, L500.4050, L502.0250 #### [facility] [address] [place], [address] GAP 12 Normal 5-15 [facility] Comment on above: Performed By: #### L 500.4100, L4, L500.4050, L502.0250 #### [facility] [address] [place], [address] GFR/1.73 sq M.predicted among non-blacks MDRD (S/P/Bld) [Vol rate/Area] 94 mL/min/{1.73_m2} Normal >60 [facility] Comment on above: Result Comment: mL/m in/1.73m2 CKD-EPI Creatinine Equation (2020) Performed By: #### L 500.4100, L4, L500.4050, L502.0250 #### [facility] [address] [place], [address] Globulin (S) [Mass/Vol] 3.2 g/dL Normal 2.2-4.2 [facility] Comment on above: Performed By: #### L 500.410, , L500.4050, L502.0250 #### [facility] [address] [place], [address] Glucose [Mass/Vol] 105 mg/dL High 70-99 [facility] Comment on above: Performed By: #### L 500.4100, L4, L500.4050, L502.0250 #### [facility] [address] [place], [address] Potassium [Moles/Vol] 4.9 mmol/L Normal 3.3-5.1 [facility] Comment on above: Performed By: #### L 500.4100, L4, L500.4050, L502.0250 #### [facility] [address] [place], [address] Sodium [Moles/Vol] 140 mmol/L Normal 133-145 [facility] Comment on above: Performed By: #### L 500.4100, L4, L500.4050, L502.0250 #### [facility] [address] [place], [address] T PROT 7.6 g/dL Normal 5.9-8.4 [facility] Comment on above: Performed By: #### L 500.4100, L4, L500.4050, L502.0250 #### [facility] [address] [place], [address] Urea nitrogen [Mass/Vol] 20 mg/dL High 4-19 [facility] Comment on above: Performed By: #### L 500.4100, L4, L500.4050, L502.0250 #### [facility] [address] [place], [address] Glomerular filtration rate ( GFR) estimation/1.73 sq m using serum, plasma, or whole bOrdered By: Vilma Christina on 12-29-2024 GFR/1.73 sq M.predicted among non-blacks MDRD (S/P/Bld) [Vol rate/Area] 94 mL/min/{1.73_m2} >60 [facility] Comment on above: mL/min/1.73m2 CKD-EP I Creatinine Equation (2020) Ketones Test strip Ql (U)Ord ered By: Vilma Christina on 12-29-2024 Ketones Ql (U) Negative Negative [facility] LDL calc ser/plasOrdered By: Vilma Christina on 12-29-2024 Cholesterol in LDL [Mass/Vol] 120 mg/dL [facility] Comment on above: Mwilhzfgrs=207-215 m g/dL & Higher Gokj=318 mg/dL or greater Laboratory - Chemistry and C hemistry - challengeOrdered By: Vilma Christina on 12-29-2024 AST [Catalytic activity/Vol] 15 U/L <32 [facility] Lipid Profileon 12-29-2024 CHOL:HDL 2.94 Normal [facility] Comment on above: Performed By: #### L 500.4100, L4, L500.4050, L502.0250 #### [facility] [address] [place], [address] Cholesterol [Mass/Vol] 208 mg/dL High <=200 [facility] Comment on above: Result Comment: Chol esterol level, Desirable <200 mg/dL Borderline high cholesterol 200-239 mg/dL High cholesterol >=240 mg/dL Recommendations of the NCEP Adult Treatment Panel for the following risk-cutoff thresholds for the [place] population. Performed By: #### L 500.410, , L500.4050, L502.0250 #### [facility] [address] [place], [address] Cholesterol in HDL [Mass/Vol] 71 mg/dL Normal [facility] Comment on above: Result Comment: Desiree onal Cholesterol Education Program (NCEP) guidelines: <40 mg/dL: Low HDL-cholesterol (major risk factor for CHD) >= 60 mg/dL: High HDL-cholesterol (negative risk factor for CHD) HDL-cholesterol is affected by a number of factors, e.g. smoking, exercise, hormones, sex and age. Performed By: #### L 500.4099, , L500.4050, L502.0250 #### [facility] [address] [place], [address] Cholesterol in LDL [Mass/Vol] 120 mg/dL Normal [facility] Comment on above: Result Comment: Bord rfsflg=345-507 mg/dL Higher Shnk=802 mg/dL or greater Performed By: #### L 500.4100, L4, L500.4050, L502.0250 #### [facility] [address] [place], [address] Cholesterol in VLDL [Mass/Vol] 17 mg/dL Normal 5-40 [facility] Comment on above: Performed By: #### L 500.4100, L4, L500.4050, L502.0250 #### [facility] [address] [place], [address] Triglyceride [Mass/Vol] 86 mg/dL Normal [facility] Comment on above: Result Comment: The drugs N-Acetylcysteine and Metamizole may falsely depress this assay. Normal range: <150 mg/dL Borderline High: 150-199 mg/dL High: 200-499 mg/dL Very High: >500 mg/dL Performed By: #### L 500.4100, L400.2010, L500.4050, L502.0250 #### [facility] [address] [place], [address] Microalb:Creat Ratio,Random URon 12-29-2024 Creatinine [Mass/Vol] 99.60 mg/dL Normal 28.00- 217. 00 [facility] Comment on above: Performed By: #### L 500.4100, L400.2010, L500.4050, L502.0250 #### [facility] [address] [place], [address] MALB:CREAT UNABLE TO CALCULATE Normal [facility] Comment on above: Performed By: #### L 500.4100, L400.2010, L500.4050, L502.0250 #### [facility] [address] [place], [address] MICROALBUMIN,UR < 12.0 Normal NO RANGE EST. [facility] Comment on above: Performed By: #### L 500.4100, L400.2010, L500.4050, L502.0250 #### [facility] [address] [place], [address] Microalbumin/creat ratio urO rdered By: Vilma Christina on 12-29-2024 Urine microalbumin/creatini ne ratio measurement UNABLE TO CALCULATE mg/g CRE [facility] Nitrite Test strip Ql (U)Ord ered By: Vilma Christina on 12-29-2024 Nitrite Ql (U) Negative Negative [facility] Potassium measurement (mass/ volume)Ordered By: Vilma Christina on 12-29-2024 Potassium (Unsp spec) [Mass/Vol] 4.9 mmol/L 3.3-5.1 [facility] Protein Test strip Ql (U)Ord ered By: Vilma Christina on 12-29-2024 Protein Ql (U) 15 mg/dl High Negative [facility] Random urine creatinine philip urement (mass/volume)Ordered By: Vilma Christina on 12-29-2024 Creatinine Unsp time (U) [Mass/Vol] 99.60 mg/dL 28.00-217. 00 [facility] Screening total cholesterol/ high density lipoprotein (HDL) cholesterol ratioOrdered By: Vilma Christina on 12-29-2024 Cholesterol.total/Cho lesterol in HDL [Mass ratio] 2.94 {ratio} [facility] Serum creatinine measurement (mass/volume)Ordered By: Vilma Christina on 12-29-2024 Creatinine [Mass/Vol] 0.76 mg/dL 0.70-1.20 [facility] Serum globulin measurementOr dered By: Vilma Christina on 12-29-2024 Globulin (S) [Mass/Vol] 3.2 g/dL 2.2-4.2 [facility] Serum glucose measurement (m ass/volume)Ordered By: Vilma Christina on 12-29-2024 Glucose [Mass/Vol] 105 mg/dL High 70-99 [facility] Serum or plasma alanine jones otransferase (ALT) measurementOrdered By: Vilma Christina on 12-29-2024 ALT [Catalytic activity/Vol] 12 U/L <35 [facility] Serum or plasma albumin philip urement (mass/volume)Ordered By: Vilma Christina on 12-29-2024 Albumin [Mass/Vol] 4.3 g/dL 3.5-5.0 [facility] Serum or plasma albumin/glob ulin mass ratioOrdered By: Vilma Christina on 12-29-2024 Albumin/Globulin [Mass ratio] 1.3 {ratio} 0.9-2.4 [facility] Serum or plasma alkaline lis sphatase measurementOrdered By: Vilma Christina on 12-29-2024 ALP [Catalytic activity/Vol] 100 U/L 35-104 [facility] Serum or plasma calcium philip urement (mass/volume)Ordered By: Vilma Christina on 12-29-2024 Calcium [Mass/Vol] 9.4 mg/dL 7.6-11.0 [facility] Serum or plasma cholesterol in HDL measurement (mass/volume)Ordered By: Vilma Christina on 12-29-2024 Cholesterol in HDL [Mass/Vol] 71 mg/dL >40 [facility] Comment on above: National Cholesterol Education Program (NCEP) guidelines:<40 mg/dL: Low HDL-cholesterol (major risk factor for CHD)>= 60 mg/dL: High HDL-cholesterol (negative risk factor for CHD)HDL-cholesterol is affected by a number of factors, e.g. smoking, exercise, hormones, sex and age. Serum or plasma cholesterol measurement (mass/volume)Ordered By: Vilma Christina on 12-29-2024 Cholesterol [Mass/Vol] 208 mg/dL High <201 [facility] Comment on above: Cholesterol level, D esirable <200 mg/dLBorderline high cholesterol 200-239 mg/dLHigh cholesterol >=240 mg/dLRecommendations of the NCEP Adult Treatment Panel for the following risk-cutoff thresholds for the [place] population. Serum or plasma urea nitroge n measurement (mass/volume)Ordered By: Vilma Christina on 12-29-2024 Urea nitrogen [Mass/Vol] 20 mg/dL High 4-19 [facility] Sodium levelOrdered By: Myles Christina on 12-29-2024 Sodium [Moles/Vol] 140 mmol/L 133-145 [facility] Total proteinOrdered By: Di Christina on 12-29-2024 Protein [Mass/Vol] 7.6 g/dL 5.9-8.4 [facility] Triglycerides measurementOrd ered By: Vilma Christina on 12-29-2024 Triglyceride [Mass/Vol] 86 mg/dL <199 [facility] Comment on above: The drugs N-Acetylcy steine and Metamizole may falsely depress this assay. Normal range: <150 mg/dLBorderline High: 150-199 mg/dLHigh: 200-499 mg/dLVery High: >500 mg/dL Urinalysis, Routine (Dipstic k)on 12-29-2024 BILIRUBIN URINE Negative Normal Negative [facility] Comment on above: Order Comment: Urine , Random Performed By: #### L 500.4100, L400.2010, L500.4050, L502.0250 #### [facility] [address] [place], [address] Clarity (U) Sl. Cloudy Normal Clear [facility] Comment on above: Order Comment: Urine , Random Performed By: #### L 500.4100, L400.2010, L500.4050, L502.0250 #### [facility] [address] [place], [address] Color (U) Yellow Normal Yellow [facility] Comment on above: Order Comment: Urine , Random Performed By: #### L 500.4100, L400.2010, L500.4050, L502.0250 #### [facility] [address] [place], [address] GLUCOSE, UR Normal Normal Normal [facility] Comment on above: Order Comment: Urine , Random Performed By: #### L 500.4100, L400.2010, L500.4050, L502.0250 #### [facility] [address] [place], [address] KETONE UR Negative Normal Negative [facility] Comment on above: Order Comment: Urine , Random Performed By: #### L 500.4100, L400.2010, L500.4050, L502.0250 #### [facility] [address] [place], [address] LEUK ESTERASE 500 /ul Abnormal Negative [facility] Comment on above: Order Comment: Urine , Random Performed By: #### L 500.4100, L400.2010, L500.4050, L502.0250 #### [facility] [address] [place], [address] Nitrite Ql (U) Negative Normal Negative [facility] Comment on above: Order Comment: Urine , Random Performed By: #### L 500.4100, L4.2010, L500.4050, L502.0250 #### [facility] [address] [place], [address] OCCULT BLOOD-UR Negative Normal Negative [facility] Comment on above: Order Comment: Urine , Random Performed By: #### L 500.4100, L4.2010, L500.4050, L502.0250 #### [facility] [address] [place], [address] pH UR 7.0 Normal 5.0 - 8.0 [facility] Comment on above: Order Comment: Urine , Random Performed By: #### L 500.4100, L4, L500.4050, L502.0250 #### [facility] [address] [place], [address] PROT DIPSTX 15 mg/dl Abnormal Negative [facility] Comment on above: Order Comment: Urine , Random Performed By: #### L 500.4100, L4, L500.4050, L502.0250 #### [facility] [address] [place], [address] SP.GR. DIPSTX 1.010 Normal 1.002-1.03 0 [facility] Comment on above: Order Comment: Urine , Random Performed By: #### L 500.4100, L400.2010, L500.4050, L502.0250 #### [facility] [address] [place], [address] UROBILI Normal Normal Normal [facility] Comment on above: Order Comment: Urine , Random Performed By: #### L 500.4100, L400, L500.4050, L502.0250 #### [facility] [address] [place], [address] Urine albumin measurement [employer] detection limit of 20 mg/L or less (mass/volume)Ordered By: Vilma Christina on 12-29-2024 Albumin DL <= 20 mg/L (U) [Mass/Vol] < 12.0 mg/L NO RANGE EST. [facility] Urine clarityOrdered By: Di Christina on 12-29-2024 Clarity (U) Sl. Cloudy Clear [facility] Urine color determinationOrd ered By: Vilma Christina on 12-29-2024 Color (U) Yellow Yellow [facility] Urine glucose detectionOrder ed By: Vilma Christina on 12-29-2024 Glucose Ql (U) Normal mg/dl Normal [facility] Urine leukocyte esterase det ection by dipstickOrdered By: Vilma Christina on 12-29-2024 Leukocyte esterase Test strip Ql (U) 500 /ul High Negative [facility] Urine pHOrdered By: Mariangel Christina on 12-29-2024 pH (U) 7.0 [pH] 5.0 - 8.0 [facility] Urine specific gravity measu rementOrdered By: Vilma Christina on 12-29-2024 Specific gravity (U) [Rel density] 1.010 1.002-1.03 0 [facility] Urine urobilinogen measureme ntOrdered By: Vilma Christina on 12-29-2024 Urobilinogen Ql (U) Normal mg/dl Normal [facility] Telephone (RADMN) JAYLEN ELIZALDE ([id number]) 1970 F Date Time Provider Department 12/25/24 CHAPIS STEPHEN During your visit today, we recorded the following information about you: Allergies As of Date: 12/25/2024 Noted Allergy Reaction CODEINE 06/18/2005 11 - Vomiting MORPHINE 04/23/2011 11 - Vomiting Date Reviewed: 12/02/2024 Reviewed by: Candy Medellin LPN - Fully Assessed Reason for Visit: Mammogram Result Call Back [[id number]] Prescriptions as of 12/25/2024 - celecoxib (CELEBREX) 200 mg capsule - amLODIPine (NORVASC) 10 mg tablet - acetaminophen (TYLENOL EX STR ARTHRITIS PAIN ORAL) Take by mouth. - omeprazole (PRILOSEC) 40 mg capsule Take 40 mg by mouth once daily. - sucralfate (CARAFATE) 1 gram tablet Take 1 g by mouth four times daily. - gabapentin (NEURONTIN) 400 mg capsule 3 TIMES DAILY WITH MEALS - ferrous sulfate EC 324 mg (65 mg iron) TbEC Take 324 mg by mouth three times daily. - escitalopram oxalate (LEXAPRO) 20 mg tablet DAILY - aspirin 81 mg chewable tablet DAILY@0800 - pantoprazole DR (PROTONIX) 40 mg tablet Take 1 tablet by mouth twice daily before meals (0600/1600). - metoprolol succinate ER (TOPROL XL) 100 mg Tb24 Take 100 mg by mouth once daily. - clonazePAM (KLONOPIN) 0.5 mg tablet Take 0.5 mg by mouth three times a day as needed for anxiety. - buPROPion XL (WELLBUTRIN XL) 300 mg ORAL 24 hr tablet Take 300 mg by mouth once daily. Meds Comments as of 06/07/2011: Bupropion has been increased to 300mg daily. Problem List As Of Date 12/25/2024 Noted Resolved GI bleed [K92.2] 10/19/2017 Melena [K92.1] 10/19/2017 Colitis [K52.9] 10/19/2017 Hematochezia [K92.1] 10/19/2017 Obesity, Class II, BMI 35-39.9 E66.9 [E66.812] 10/25/2017 Encounter Status:Closed by YON GILLILAND on 12/25/24 [facility] Stacie 12-23-2024 [facility] Telephone (RADMN) JOSEPHJAYLEN Arauz ([id number]) 1970 F Date Time Provider Department 12/23/24 CHAPIS STEPHEN During your visit today, we recorded the following information about you: Allergies As of Date: 12/23/2024 Noted Allergy Reaction CODEINE 06/18/2005 11 - Vomiting MORPHINE 04/23/2011 11 - Vomiting Date Reviewed: 12/02/2024 Reviewed by: Candy Medellin LPN - Fully Assessed Reason for Visit: Mammogram Result Call Back [[id number]] Prescriptions as of 12/23/2024 - celecoxib (CELEBREX) 200 mg capsule - amLODIPine (NORVASC) 10 mg tablet - acetaminophen (TYLENOL EX STR ARTHRITIS PAIN ORAL) Take by mouth. - omeprazole (PRILOSEC) 40 mg capsule Take 40 mg by mouth once daily. - sucralfate (CARAFATE) 1 gram tablet Take 1 g by mouth four times daily. - gabapentin (NEURONTIN) 400 mg capsule 3 TIMES DAILY WITH MEALS - ferrous sulfate EC 324 mg (65 mg iron) TbEC Take 324 mg by mouth three times daily. - escitalopram oxalate (LEXAPRO) 20 mg tablet DAILY - aspirin 81 mg chewable tablet DAILY@0800 - pantoprazole DR (PROTONIX) 40 mg tablet Take 1 tablet by mouth twice daily before meals (0600/1600). - metoprolol succinate ER (TOPROL XL) 100 mg Tb24 Take 100 mg by mouth once daily. - clonazePAM (KLONOPIN) 0.5 mg tablet Take 0.5 mg by mouth three times a day as needed for anxiety. - buPROPion XL (WELLBUTRIN XL) 300 mg ORAL 24 hr tablet Take 300 mg by mouth once daily. Meds Comments as of 06/07/2011: Bupropion has been increased to 300mg daily. Problem List As Of Date 12/23/2024 Noted Resolved GI bleed [K92.2] 10/19/2017 Melena [K92.1] 10/19/2017 Colitis [K52.9] 10/19/2017 Hematochezia [K92.1] 10/19/2017 Obesity, Class II, BMI 35-39.9 E66.9 [E66.812] 10/25/2017 Encounter Status:Closed by YOMAIRA CIFUENTESYON on 12/23/24 Normal [facility] CHERELLE SCREENING W TOMOon 12-09 CHERELLE SCREENING W ESTRELLA * * *Final Report* * * DATE OF EXAM: Dec 09 2024 2:33PM [id number] - CHERELLE SCREENING W ESTRELLA / PROCEDURE REASON: Encounter for gynecological examination (general) (routine) without abnormal fin * * * * Physician Interpretation * * * * RESULT: [place] [address] #[id number] - CHERELLE SCREENING W ESTRELLA HISTORY: 53 year-old patient presents for screening. Patient is asymptomatic in both breasts. Patient states no personal history of breast cancer. The patient has a family history of breast and ovarian cancer. COMPARISON STUDIES: The present examination has been compared to prior imaging studies dated 01/03/2015 (mammogram) and 12/05/2023 (mammogram). MAMMOGRAM TECHNIQUE: The study was acquired using full field digital technology and interpreted from soft copy. Digital Breast Tomosynthesis (DBT) images were obtained and used to assist in the interpretation of this examination. MAMMOGRAM FINDINGS: The breasts are heterogeneously dense, which may obscure small masses. Finding 1: There is an asymmetry in the medial right breast, middle depth. This is best visualized on tomosynthesis CC view slice # 5. Finding 2: There is a focal asymmetry in the lower outer quadrant of the left breast, posterior depth. This is best visualized on tomosynthesis CC view slice # 6 and MLO view slice # 9. IMPRESSION: Finding 1: The asymmetry in the medial right breast, middle depth requires additional evaluation. Diagnostic mammogram with possible ultrasound is recommended. Finding 2: The focal asymmetry in the lower outer quadrant of the left breast, posterior depth requires additional evaluation. Diagnostic mammogram with possible ultrasound is recommended. BI-RADS Category 0: Incomplete: Needs Additional Imaging Evaluation RISK: [facility] model, this patient has a 22.0% lifetime risk of developing breast cancer. However, this is only an estimate based on available history provided on the patient's questionnaire. Because patients with a lifetime risk of 20% or greater may benefit from additional supplemental screening, we encourage a full breast clinical evaluation and comprehensive breast cancer risk assessment to guide further decision making. For more information regarding the management of patients at high risk for developing breast cancer, providers should refer to the following [facility] Care Path: Increased Risk for Breast Cancer Care Path v.5. Additionally, a referral to the [facility] is also appropriate. REF#[id number]. Interpreting Radiologist: Chapis Stephen M.D. Electronically signed on: 12/10/2024 Sheet Cutting Operator: JAYDA Transcribe Date/Time: Dec 09 2024 2:11P Dictated by: CHAPIS STEPHEN MD This examination was interpreted and the report reviewed and electronically signed by: CHAPIS STEPHEN MD on Dec 10 2024 9:42AM EST [id number] Normal [facility] CNOVon 12-02-2024 CNOV Office Visit (OBGYWM ) JAYLEN ELIZALDE ([id number]) 1970 F Date Time Provider Department 12/02/24 10:50 AM PABLO KINGSLEY OBGYWM During your visit today, we recorded the following information about you: Blood pressure Weight Height 148/92 114.3 kg 1.746 m Pablo Kingsley MD 12/02/2024 12:06 PM Signed Jaylen is a 53 year old who presents for an annual gynecologic exam without complaints. Postmenopausal: had ablation HRT use: No. OB History Gravida2 Para2 Term0 Preterm0 AB0 Living2 SAB0 IAB0 Ectopic0 Multiple0 Live Births0 Mail Manager History LMP: 04/26/2011, Ablation Age at Menarche: Age at First : Age at Menopause: Mail Manager History Comments: Sexual Activity: Yes; Male Contraception: No contraception data on record PAST MEDICAL HISTORY Diagnosis Date Essential hypertension, benign GI bleed H/O degenerative disc disease Hematochezia Peptic ulcer disease Pulmonary embolism (HCC) 07/2009 pt reports 3 emboli Pulmonary embolism (HCC) S/P endometrial ablation PAST SURGICAL HISTORY Procedure Laterality Date ADENOIDECTOMY PRIMARY Adenoidectomy CARPAL TUNNEL 11/29/2014 CERVICAL/THORACIC ORTHOSIS/OANDP 01/25/2014 cervical fusion 4,5,6 EGD 10/21/2017 EXTRACTION, ERUPTED TOOTH OR EXPOSED ROOT (ELEVATION AND/OR FORCEPS REMOVAL) WISDOM TEETH LAPAROSCOPY SURG CHOLECYSTOENETEROSTOMY 2004 POST-CATARACT LASER SURGERY Bilateral TONSILLECTOMY PRIMARY/SECONDARY Tonsillectomy FAMILY HISTORY Problem Relation Age of Onset Cancer Mother THYROID AND BREAST Hypertension Father Diabetes Father Coronary Artery Disease Maternal Grandfather Stroke Maternal Grandfather SOCIAL HISTORY Social History Tobacco Use Smoking status: Never Passive exposure: Never Smokeless tobacco: Never Vaping Use Vaping status: Never Used Substance Use Topics Alcohol use: Yes Comment: SOCIALLY- once per month Drug use: No REVIEW OF SYSTEMS Abdomen: No abdominal pain, nausea, vomiting, diarrhea, or constipation. No bloating, early satiety, indigestion, or increased flatulence. Bladder: No dysuria, gross hematuria, urinary frequency, urinary urgency, or incontinence Breast: No breast lumps, nipple d/c, overlying skin changes, redness or skin retraction Allergies and current medication updated:Yes SENSITIVE EXAM: The sensitive examination was discussed with the Patient or Patient's Authorized Movie Producer. As applicable, any other physician, advance practice provider, medical student, or other health professional student that will be observing or involved in the sensitive examination for educational or training purposes was discussed with the Patient or Authorized Movie Producer. The Patient or Authorized Movie Producer has agreed to proceed with the sensitive examination. (Sensitive examination includes inspection and/or palpation of the breasts, pelvis, prostate and anorectal regions). EXAM: BP 148/92 Ht 5' 8.75 (1.75m) Wt 252 lb (114.3kg) LMP 04/26/2011 BMI 37.50 kg/(m2). GENERAL: pleasant, female in no apparent distress HEENT: Normocephalic, atraumatic, mucus membranes moist, and no lesions NECK: Supple, full range of motion, no adenopathy, and thyroid normal DERMATOLOGY: Normal, without lesions, non-icteric, and non-hirsute BREAST: soft, non-tender, symmetric, no dominant mass, normal nipple-areolar complex, no lymphadenopathy, no nipple discharge, and rightside slightly larger as always CHEST: Normal inspiratory effort ABDOMEN: soft, non-tender, and no masses PELVIC: external genitalia normal, normal Bartholin's glands, urethra, Ester's glands, no vulvar lesions, no cervical lesions, good vaginal support, physiologic discharge present, normal appearing perineal body and perianal region BIMANUAL: uterus normal size, shape and consistency, no adnexal masses, and non-tender RECTOVAGINAL: rectovaginal exam negative for any masses or nodularity. NEURO: alert and oriented x3,exam grossly non-focal EXTREMITIES: normal ASSESSMENT/PLAN: 1) Health maintenance: Mammogram due December 2024 2) Follow up one year or sooner as needed Pablo Kingsley MD Referring Provider: PABLO KINGSLEY [[id number]] Allergies As of Date: 12/02/2024 Noted Allergy Reaction CODEINE 06/18/2005 11 - Vomiting MORPHINE 04/23/2011 11 - Vomiting Date Reviewed: 12/02/2024 Reviewed by: Candy Medellin LPN - Fully Assessed Reason for Visit: Well Woman [[id number]] Primary Visit Diagnosis:Encounter for gynecological examination (general) (routine) without abnormal findings [Z01.419] Order(s):CHERELLE SCREENING W ESTRELLA [[id number]] Order #: [id number] FUTURE Prescriptions as of 12/02/2024 - celecoxib (CELEBREX) 200 mg capsule - amLODIPine (NORVASC) 10 mg tablet - acetaminophen (TYLENOL EX STR ARTHRITIS PAIN ORAL) Take by mouth. - omeprazole (GIORGIO (more content not included)... Normal [facility] Emergency Department Summary on 09-06-2024 Emergency Department Summary [facility] Medical Records Department [address] [place] [address] Emergency Department Summary 09/06/24 MR#: [id number] Acct: [id number] Name: JAYLEN ELIZALDE Rep #: [id number] : 1970 53 From: Miguel A Jovel MD PCP: Dr. Vilma Christina MD Status:PRE ER Location: ED HPI HPI - URI History of Present Illness Chief Complaint: Ear Problem Detail of Chief Complaint: Bleeding from right ear. Informant: patient Onset/Context/Timing Onset: Today Context: Gradual Onset Current Severity: Mild Maximum Severity: Mild Narrative Narrative: 53-year-old female using Q-tip in her right ear no asthma bleeding. She is on aspirin only. History of prior DVT and PE but no blood thinners otherwise. Denies any other ear trauma. Has not recently had ear pain or drainage. No sore throat or fever. Left ear is unremarkable. Prior similar symptoms: No Recent Illness/Hospitalization: No ROS ROS ED ROS Narrative Denies recent illness. Constitutional Constitutional ED: Denies chills or fever(s) Eyes Eyes: Denies blurry vision ENT ENT ED: Denies ear pain, rhinorrhea or sore throat Cardiovascular Cardiovascular: Denies chest pain Respiratory/Chest Respiratory/Chest: Denies cough Gastrointestinal Gastrointestinal: Denies abdominal pain Genitourinary Genitourinary ED: Denies dysuria Musculoskeletal Musculoskeletal: Denies arthralgias Integumentary Denies abscess Neurologic Neurologic: Denies headache(s) Psychiatric Psychiatric: Denies anxiety Endocrine Endocrinology: Denies cold intolerance Hematologic/Lymphatic Hematologic/Lymphatic: Denies easy bleeding, easy bruising or lymphadenopathy Allergic/Immunologic Allergic/Immunologic ED: Denies mouth swelling, tongue swelling or urticaria [facility] Medical History Cataract (lens) fragments in eye following cataract surgery History of pulmonary embolism Wears contact lenses Alcohol use Back pain History of ulceration Gastric reflux Non-smoker History of edema History of stress test Hypertension Depression Anxiety History of stomach ulcers Chronic headaches Gallstones Hx of blood clots Arthritis History of blood transfusion Anemia Seasonal allergies Home Medications ???Medication ???Instructions ???Recorded ???Last Taken ???Type metoprolol succinate 100 mg 100 mg PO QHS 08/27/15 12/26/22 Hi story tablet,extended release 24 hr bupropion HCl 150 mg 24 hr tablet, 150 mg PO DAILY 05/07/17 Unknown History extended release escitalopram oxalate 20 mg tablet 20 mg PO DAILY 05/07/17 Unknown H istory acetaminophen 500 mg tablet 500 mg PO Q6H PRN Pain 03/20/21 Un known History (Tylenol Extra Strength) amlodipine 10 mg tablet 10 mg PO DAILY 03/20/21 12/26/22 H istory aspirin 81 mg chewable tablet 81 mg PO DAILY 03/20/21 12/25/22 H istory omeprazole 40 mg capsule,delayed 40 mg PO DAILY #30 caps 05/24/21 U nknown Rx release diphenoxylate-atropine 2.5 1 tab PO 4X/DAY PRN PRN diarrhea 5 03/17/23 Unknown Rx mg-0.025 mg tablet (Lomotil) days #20 tabs loperamide 2 mg capsule (Imodium 2 mg PO Q6H PRN loose stool 3 days 09/02/23 Unknown Rx A-D) #12 caps gabapentin 600 mg tablet 600 mg PO TID 10/18/23 Unknown His tory Allergy/AdvReac Type Severity Reaction Status Date / Time morphine Allergy Severe emesis/hive Verified 09/06/24 14:07 s codeine Allergy Rash Verified 09/06/24 14:07 Surgical History History of hysteroscopy History of esophagogastroduodenoscopy (EGD) Hx of tonsillectomy History of cholecystectomy H/O spinal fusion Social History Smoking Status: Never smoker alcohol intake: current alcohol intake frequency: holidays/special occasions only substance use type: does not use caffeine: Yes Type: tea Number of servings: 2 EXAM Physical Exam Narrative Exam Narrative: Well-appearing 53-year-old female. Vital signs are stable afebrile. H EENT exam pupils round reactive light. Posterior pharynx normal. No erythema or exudate. No bleeding. Left TM and canal normal. Right TM is normal. Clear. No erythema. No perforation. About the middle of her right ear canal about 6:00 there is an abrasion with bright red blood. Currently no active bleeding. No otitis media nor externa. Neck nontender. No lymphadenopathy. No eustachian tube tenderness. Lungs clear. Heart regular rhythm no murmur. Abdomen soft. Otherwise exam normal. Const Vital Signs: 09/06/24 14:06 09/06/24 14:06 Temperature 98 F Temperature Source Temporal Pulse Rate 106 H 106 H Respiratory Rate 14 16 Blood Pressure 179/113 H 171/110 H Blood Pressure Mean 135 1 (more content not included)... Normal [facility] Absolute lymphocyte countOrd ered By: ED PROVIDER on 09-02-2023 Lymphocytes Auto (Unsp spec) [#/Vol] 1.62 10*3/uL 0.83-4.51 [facility] Automated lymphocyte count a s percentage of total leukocytesOrdered By: ED PROVIDER on 09-02-2023 Lymphocytes/100 WBC Auto (Unsp spec) 7.8 % 19-41 [facility] Basophil percentageOrdered B y: ED PROVIDER on 09-02-2023 Basophils/100 WBC (Bld) 0.3 % 0-1 [facility] Bilirubin [Mass/Vol] 0.50 mg/dL 0.20-1.00 [facility] Comment on above: For patients on eltr ombopag therapy, use of Dimension Wrens TBIL is not recommended. Chloride [Moles/Vol] 107 mmol/L 98-107 [facility] Eosinophils/100 WBC (Bld) 0.9 % 0-5 [facility] Glucose [Mass/Vol] 146 mg/dL 74-106 [facility] Comment on above: Fasting Glucose resu lt greater than or equal to 126 mg/dL suggests DIABETES MELLITUS per A.D.A. criteria. Hemoglobin (Bld) [Mass/Vol] 15.2 g/dL 12.0-15.0 [facility] Monocytes/100 WBC (Bld) 4.4 % 0-10 [facility] Neutrophils (Bld) [#/Vol] 17.8 10*3/uL 2.0-7.7 [facility] Neutrophils/100 WBC (Bld) 86.0 % 47-70 [facility] Potassium [Moles/Vol] 4.6 mmol/L 3.5-5.1 [facility] Comment on above: Slight Hemolysis, Re sult may be falsely increased. Protein [Mass/Vol] 8.8 g/dL 6.4-8.2 [facility] Sodium [Moles/Vol] 134 mmol/L 136-145 [facility] WBC (Bld) [#/Vol] 20.8 10*3/uL 4.4-11.[address] [facility] Basophil percentage 0-5 SEEN /hpf 0-5 [facility] Bilirubin Test strip Ql (U)O rdered By: ED PROVIDER on 09-02-2023 Bilirubin Ql (U) Negative Negative [facility] Determination of erythrocyte mean corpuscular volume (MCV)Ordered By: ED PROVIDER on 09-02-2023 MCV (RBC) [Entitic vol] 88.6 fL 81-99 [facility] Erythrocyte distribution wid th ratioOrdered By: ED PROVIDER on 09-02-2023 Erythrocyte distribution width (RBC) [Ratio] 13.1 % 11.6-14.6 [facility] Erythrocyte distribution wid th standard deviationOrdered By: ED PROVIDER on 09-02-2023 Erythrocyte distribution width (RBC) [Entitic vol] 42.4 fL 35.1-43.9 [facility] Hematocrit Auto (Bld) [Volum e fraction]Ordered By: ED PROVIDER on 09-02-2023 Hematocrit (Bld) [Volume fraction] 47.2 % 37-47 [facility] Immature granulocytes/100 WB C Auto (Bld)Ordered By: ED PROVIDER on 09-02-2023 Immature granulocytes/100 WBC (Bld) 0.600 % 0.0-0.9 [facility] Comment on above: IG% - Immature Granu locytes (promyelocytes, myelocytes and metamyelocytes) > 1% indicates that a LEFT SHIFT is Present. Ketones Test strip Ql (U)Ord ered By: ED PROVIDER on 09-02-2023 Ketones Ql (U) 5 mg/dl Negative [facility] Laboratory - Chemistry and C hemistry - challengeOrdered By: ED PROVIDER on 09-02-2023 Albumin/Globulin [Mass ratio] 1.0 {ratio} 0.9-2.4 [facility] ALP [Catalytic activity/Vol] 109 U/L 45-117 [facility] ALT [Catalytic activity/Vol] 17 U/L 13-56 [facility] CO2 [Moles/Vol] 19.0 mmol/L 21.0-32.0 [facility] Globulin (S) [Mass/Vol] 4.4 g/dL 2.2-4.2 [facility] Urea nitrogen/Creatinine [Mass ratio] 22.7 mg/mg 10-20 [facility] Laboratory - Chemistry and C hemistry - challengeOrdered By: Pamela Gonzales on 09-02-2023 Lipase [Catalytic activity/Vol] 18 U/L 13-75 [facility] Comment on above: Please note:LIPASE r evised reference range effective 22. New Lipase methodology. Expected to produce lower values than the previous assay method. NEW Reference Range: 13 - 75 U/L Laboratory - Hematology and Cell countsOrdered By: ED PROVIDER on 09-02-2023 MCH (RBC) [Entitic mass] 28.5 pg 27.0-32.0 [facility] MCHC (RBC) [Mass/Vol] 32.2 g/dL 32-36 [facility] Nucleated RBC/100 WBC (Bld) [Ratio] 0 % 0-5 [facility] Platelet mean volume (Bld) [Entitic vol] 9.3 fL 6.2-12.0 [facility] Platelets (Bld) [#/Vol] 524 10*3/uL 150-450 [facility] Mucus LM Ql (Urine sed)Order ed By: ED PROVIDER on 09-02-2023 Mucus Ql (Urine sed) 1+ /hpf [facility] Nitrite Test strip Ql (U)Ord ered By: ED PROVIDER on 09-02-2023 Nitrite Ql (U) Positive Negative [facility] No Panel InformationOrdered By: ED PROVIDER on 09-02-2023 Estimated Creatinine Clearance Calc 107.10 ml/min [facility] Estimated GFR (MDRD) Amer 87 mL/min >60 [facility] Comment on above: GFR Calc Estimated GFR (MDRD) Non-Af Amer 72 mL/min >60 [facility] Comment on above: Non- GFR Calc Urine RBC 0-5 SEEN /hpf 0-5 [facility] Protein Test strip Ql (U)Ord ered By: ED PROVIDER on 09-02-2023 Protein Ql (U) 30 mg/dl Negative [facility] RBC Auto (Bld) [#/Vol]Ordere d By: ED PROVIDER on 09-02-2023 RBC (Bld) [#/Vol] 5.33 10*6/uL 4.2-5.4 [facility] Serum or plasma calcium philip urement (mass/volume)Ordered By: ED PROVIDER on 09-02-2023 Calcium [Mass/Vol] 10.0 mg/dL 8.5-10.1 [facility] Serum or plasma creatinine m easurement (mass/volume)Ordered By: ED PROVIDER on 09-02-2023 Creatinine [Mass/Vol] 0.88 mg/dL 0.55-1.02 [facility] Comment on above: The validity of the calculated GFR & GFRAA in patients over 70 years has not been determined. Clinical correlation is essential. Serum or plasma urea nitroge n measurement (mass/volume)Ordered By: ED PROVIDER on 09-02-2023 Urea nitrogen [Mass/Vol] 20 mg/dL 7-18 [facility] Squamous epithelial cells de tection in urine sediment by light microscopyOrdered By: ED PROVIDER on 09-02-2023 Epithelial cells.squamous LM Ql (Urine sed) 0 SEEN /hpf 5-10 [facility] Thin prep Papanicolaou smear with manual screeningOrdered By: ED PROVIDER on 09-02-2023 Thin prep Papanicolaou smear with manual screening 4.4 g/dL 3.2-5.0 [facility] Thin prep Papanicolaou smear with manual screening 16 U/L 15-37 [facility] Comment on above: Slight Hemolysis, Re sult may be falsely increased. Thin prep Papanicolaou smear with manual screening 8 5-15 [facility] Urine blood detectionOrdered By: ED PROVIDER on 09-02-2023 RBC Ql (U) 10 /ul Negative [facility] Urine clarityOrdered By: ED PROVIDER on 09-02-2023 Clarity (U) Sl. Cloudy Clear [facility] Urine color determinationOrd ered By: ED PROVIDER on 09-02-2023 Color (U) Yellow Yellow [facility] Urine glucose detectionOrder ed By: ED PROVIDER on 09-02-2023 Glucose Ql (U) Normal mg/dl Normal [facility] Urine leukocyte esterase det ection by dipstickOrdered By: ED PROVIDER on 09-02-2023 Leukocyte esterase Test strip Ql (U) 25 /ul Negative [facility] Urine pHOrdered By: ED PROVI CHRISTINA on 09-02-2023 pH (U) 6.0 [pH] 5.0 - 8.0 [facility] Urine sediment bacteria coun t by microscopy (number/high power field)Ordered By: ED PROVIDER on 09-02-2023 Bacteria LM.HPF (Urine sed) [#/Area] 3 /[HPF] None Seen [facility] Urine specific gravity measu rementOrdered By: ED PROVIDER on 09-02-2023 Specific gravity (U) [Rel density] 1.020 1.002-1.03 0 [facility] Urine urobilinogen measureme ntOrdered By: ED PROVIDER on 09-02-2023 Urobilinogen Ql (U) Normal mg/dl Normal [facility] Basophil percentageon 2021 Bilirubin [Mass/Vol] 0.40 mg/dL 0.20-1.00 [facility] Work Phone: Comment on above: For patients on eltr ombopag therapy, use of Dimension Wrens TBIL is not recommended. Chloride [Moles/Vol] 107 mmol/L 98-107 [facility] Work Phone: Glucose [Mass/Vol] 122 mg/dL 74-106 [facility] Work Phone: Comment on above: Fasting Glucose resu lt from 100 to 125 mg/dL suggests IMPAIRED HOMEOSTASIS per A.D.A. criteria. Potassium [Moles/Vol] 4.1 mmol/L 3.5-5.1 [facility] Work Phone: Protein [Mass/Vol] 7.4 g/dL 6.4-8.2 [facility] Work Phone: Sodium [Moles/Vol] 138 mmol/L 136-145 [facility] Work Phone: Laboratory - Chemistry and C hemistry - challengeon 09-14-2021 ALP [Catalytic activity/Vol] 114 U/L 45-117 [facility] Work Phone: ALT [Catalytic activity/Vol] 21 U/L 13-56 [facility] Work Phone: CO2 [Moles/Vol] 26.0 mmol/L 21.0-32.0 [facility] Work Phone: Globulin (S) [Mass/Vol] 3.8 g/dL 2.2-4.2 [facility] Work Phone: Urea nitrogen/Creatinine [Mass ratio] 21.7 mg/mg 10-20 [facility] Work Phone: No Panel Informationon 09-14 D-Dimer Quantitative (PE/DVT) < 0.27 FEU/ug/m 0.27-0.49 [facility] Work Phone: Comment on above: NORMAL D-Dimer level (<0.50) indicates no DVT or PE. Estimated GFR (MDRD) Amer 94 mL/min >60 [facility] Work Phone: Comment on above: GFR Calc Estimated GFR (MDRD) Non-Af Amer 78 mL/min >60 [facility] Work Phone: Comment on above: Non- GFR Calc Fibrinogen 387 mg/dl 203-444 [facility] Work Phone: Serum or plasma albumin philip urement (mass/volume)on 09-14-2021 Albumin [Mass/Vol] 3.6 g/dL 3.2-5.0 [facility] Work Phone: Serum or plasma albumin/glob ulin mass ratioon 09-14-2021 Albumin/Globulin [Mass ratio] 0.9 {ratio} 0.9-2.4 [facility] Work Phone: Serum or plasma calcium philip urement (mass/volume)on 09-14-2021 Calcium [Mass/Vol] 9.1 mg/dL 8.5-10.1 [facility] Work Phone: Serum or plasma creatinine m easurement (mass/volume)on 09-14-2021 Creatinine [Mass/Vol] 0.83 mg/dL 0.55-1.02 [facility] Work Phone: Comment on above: The validity of the calculated GFR & GFRAA in patients over 70 years has not been determined. Clinical correlation is essential. Serum or plasma urea nitroge n measurement (mass/volume)on 09-14-2021 Urea nitrogen [Mass/Vol] 18 mg/dL 7- [facility] Work Phone: Thin prep Papanicolaou smear with manual screeningon 09-14-2021 Thin prep Papanicolaou smear with manual screening 14 U/L 15-37 [facility] Work Phone: Thin prep Papanicolaou smear with manual screening 5 5-15 [facility] Work Phone: H. pylori IgG Abon 8 H. pylori IgG Ab SEE BELOW Normal [facility] Comment on above: Result Comment: H. p ylori IgG, Qual Negative NEGATH. pylori IgG antibodies were not detected in the sample. Negativeresults by this test do not preclude recent primary infection.H pylori Ab, IgG 0.4 U/mLU/mL are interpreted as follows:Negative specimens <0.9Indeterminate specimens >=0.9 to <1.1Positive specimens >=1.1Results were obtained with the IMMULITE 2000 H.pylori IgG EIA. Resultsobtained from other manufacturers' assay methods may not be usedinterchangeably.Performing Laboratory:[facility] [id number] [place] [address] Performed By: #### G FR ####[address] [address] Basic Panelon 10-25-2017 Creatinine 0.73 mg/dL Normal 0.51-0.95 [facility] Comment on above: Performed By: #### G FR ####[facility] [place], [place] [address] Urea nitrogen 15 mg/dL Normal 01-15 [facility] Comment on above: Performed By: #### G FR ####[facility] [place], [place] [address] Glucose mass conc 104 mg/dL High 70-99 [facility] Comment on above: Performed By: #### G FR ####[facility] [place], [place] [address] Anion gap 10 mmol/L Normal 8-16 [facility] Comment on above: Performed By: #### G FR ####[facility] [place] [address] Calcium 8.5 mg/dL Normal 8.5-10.1 [facility] Comment on above: Performed By: #### G FR ####[facility] [place] [address] CO2 26 mmol/L Normal 21-32 [facility] Comment on above: Performed By: #### G FR ####[facility] [place] [address] Chloride 107 mmol/L Normal 98-107 [facility] Comment on above: Performed By: #### G FR ####[facility] [place] [address] Potassium molar conc 3.5 mmol/L Normal 3.5-5.1 [facility] Comment on above: Performed By: #### G FR ####[facility] [place] [address] Sodium 139 mmol/L Normal 136-145 [facility] Comment on above: Performed By: #### G FR ####[place] [address] Tracey 10-25-2017 CNDS HNO ID: [id number] thor: Amara (Scientific Photographer) Juan Diegoervice: Critical CareAuthor Type: Nurse SpecialistType: Discharge SummariesFiled: 10/29/2017 2:37 PMNote Text: At testation signed by Cruzito Anton at 10/30/2017 8:14 AMDischarge summary to be done by Dania Torrez CNP. Thank you. DIS CHARGE SUMMARYPATIENT NAME: Jaylen Elizalde ADMISSION DATE: 10/19/2017MRN: [id number] DISCHARGE DATE: 10/25/17ATTENDING PHYSICIAN: Cruzito CULPEASON FOR HOSPITALIZATION: GI BleedDIAGNOSIS: Active Problems: GI bleed Melena Colitis Hematochezia Obesity, Class II, BMI 35-39.9 E66.9Resolved Problems: * No resolved hospital problems. * Duodenal UlcerOPERATIONS DURING HOSPITALIZATION: NonePROCEDURES DURING HOSPITALIZATION: EGDHOSPITAL COURSE: Found to have bleeding duodenal cgczs-udveoqbkxYQD-crxxdx treated. Received IV PPI then transitioned to po BID. Hgbstabilized. No further bleeding. Discharged to home in stable condition.No notes on filePHYSICAL EXAM PERFORMED:HEENT:Oral Mucosa: Moist mucous membranes Feeding Tube: NoEyes: PERRLA Neck: Unremarkable; No adenopathy or JVDCardiovascular: Regular rhythmRespiratory: Clear to auscultationNo Data RecordedAbdomen: Soft, Nontender and Positive bowel soundsExtremities: Edema- No Peripheral Pulses- Present all extremitiesCapillary Refill- less than 3 secondsSkin: Abnormalities- NoNeurologic: Awake, oriented, Alert, Follows commands and Moving allextremitiesTransitions of Care Critical Issues:LAB MONITORING NEEDED: Hgb 4-5 days post dischargeLABS AND PROCEDURES PENDING AT DISCHARGE: HgbCONSULTING TEAMS DURING HOSPITALIZATION: GastroenterologyPATIENT CONDITION AT DISCHARGE: StableDISCHARGE DISPOSITION: Home/Self CareINFORMATION PROVIDED TO PATIENT: (To pull info documented from the Experticity Orderset Complete O/S First): Return to ED if further bleedingnausea or abdominal painDISCHARGE MEDICATION:Discharge Medication List as of 10/25/2017 10:46 AMSTART taking these medicationspantoprazole DR (PROTONIX) 40 mg tabletTake 1 tablet by mouth twice daily before meals (0600/1600).Print RX, Disp-60 tablet, R-0, Long-termCONTINUE these medications which have NOT CHANGEDmetoprolol succinate ER (TOPROL XL) 100 mg Fg58Nxlm 100 mg by mouth once daily.Historical MedclonazePAM (KLONOPIN) 0.5 mg tabletTake 0.5 mg by mouth three times daily as needed for Anxiety.Historical Med, Long-termbuPROPion XL (WELLBUTRIN XL) 300 mg ORAL 24 hr tabletTake 300 mg by mouth once daily.Med Update, R-0STOP taking these medicationsibuprofen (ADVIL) 200 mg tabletComments:Reason for Stopping:aspirin/acetaminophe n/caffeine (EXCEDRIN MIGRAINE ORAL)Comments:Reason for Stopping:aspirin 81 mg chewable tabletComments:Reason for Stopping:gabapentin (NEURONTIN) 400 mg capsuleComments:Reason for Stopping:Olmesartan-Hydrochlo rothiazide (BENICAR HCT) 40-25 mg per tabletComments:Reason for Stopping:meloxicam (MOBIC) 15 mg tabletComments:Reason for Stopping:FUTURE APPOINTMENTS:Follow Up with PCP: Vilma Christina minTIME OF CARE (Use first blank if not applicable): TIME OF CARE: DischargeManagement: I personally spent greater than 30 minutes involved in thedischarge management of this patient.SIGNATURE: Amara Torrez APRN.TITLE I PARAPROFESSIONAL PATIENT NAME: Jaylen MoralesTE: October 29, 2017 : 1:57 PM PAGER/CONTACT #: [phone] Normal [facility] Hcton 10-25-2017 Hematocrit (HCT) 27.1 % Low 34.1-44.9 [facility] Comment on above: Performed By: #### G FR ####[place] [address] Hemogram/Diffon 10-25-2017 Abs Immature Grans 0.19 thou/cmm High 0.00-0.05 [facility] Comment on above: Performed By: #### G FR ####[place] [address] Abs. Baso 0.03 thou/cmm Normal 0.01-0.08 [facility] Comment on above: Performed By: #### G FR ####[place] [address] Abs. [place] 1.17 thou/cmm High 0.27-0.70 [facility] Comment on above: Performed By: #### G FR ####[facility] [place] [address] Abs. Neut 9.06 thou/cmm High 1.56-6.13 [facility] Comment on above: Performed By: #### G FR ####[facility] [place], [place] [address] Basophils/100 WBC Auto (Bld) 0.2 % Normal [facility] Comment on above: Performed By: #### G FR ####[address] [address] Eosinophils 0.28 thou/cmm Normal 0.00-0.31 [facility] Comment on above: Performed By: #### G FR ####[place] [address] Eosinophils/100 leukocytes 2.1 % Normal [facility] Comment on above: Performed By: #### G FR ####[place] [address] Erythrocyte distribution width Auto Ratio (RBC) 15.0 % High 11.7-14.4 [facility] Comment on above: Performed By: #### G FR ####[place] [address] Erythrocytes (RBC) 2.76 mil/cmm Low 3.93-5.22 [facility] Comment on above: Performed By: #### G FR ####[place] [address] Hematocrit (HCT) 25.8 % Low 34.1-44.9 [facility] Comment on above: Performed By: #### G FR ####[place] [address] Hemoglobin mass conc (Bld) 8.3 g/dL Low 11.2-15.7 [facility] Comment on above: Performed By: #### G FR ####[place] [address] Immature Grans 1.40 % Normal [facility] Comment on above: Performed By: #### G FR ####[facility] [place], [place] [address] Lymphocytes 2.58 thou/cmm Normal 1.18-3.74 [facility] Comment on above: Performed By: #### G FR ####[facility] [place], [place] [address] Lymphocytes/100 leukocytes 19.4 % Normal [facility] Comment on above: Performed By: #### G FR ####[facility] [place], [place] [address] MCH 30.1 pg Normal 25.6-32.2 [facility] Comment on above: Performed By: #### G FR ####[address] [address] MCHC mass conc (RBC) 32.2 % Normal 31.6-34.8 [facility] Comment on above: Performed By: #### G FR ####[address] [address] MCV 93.5 fL Normal 79.4-94.8 [facility] Comment on above: Performed By: #### G FR ####[address] [address] Monocytes/100 leukocytes 8.8 % Normal [facility] Comment on above: Performed By: #### G FR ####[address] [address] Nucleated erythrocytes 0.07 thou/cmm High 0.00-0.01 [facility] Comment on above: Performed By: #### G FR ####[address] [address] Nucleated RBC % 0.5 % High 0.0-0.2 [facility] Comment on above: Performed By: #### G FR ####[address] [address] Platelet mean volume (PMV) 9.8 fL Normal 9.4-12.3 [facility] Comment on above: Performed By: #### G FR ####[address], [place] [address] Platelets 322 thou/cmm Normal 182-369 [facility] Comment on above: Performed By: #### G FR ####[facility] [place], [place] [address] RDW SD 50.1 fl High 36.4-46.3 [facility] Comment on above: Performed By: #### G FR ####[facility] [place], [place] [address] Seg Neutrophil 68.1 % Normal [facility] Comment on above: Performed By: #### G FR ####[address] [address] WBC (Leukocytes) 13.31 thou/cmm High 3.98-10.04 [facility] Comment on above: Performed By: #### G FR ####[address] [address] Hgbon 10-25-2017 Hemoglobin mass conc (Bld) 8.9 g/dL Low 11.2-15.7 [facility] Comment on above: Performed By: #### G FR ####[address] [address] MDRD GFRon 10-25-2017 eGFR (non-black) mL/min/{1.73_m2} Normal >60mL/m in/ 1.73m2 [facility] Comment on above: Result Comment: If t he patient is , multiply the result by 1.210. Performed By: #### G FR ####[address] [address] PROGRESSon 10-25-2017 PROGRESS HNO ID: [id number] thor: Cruzito Selby DecoyService: Critical CareAuthor Type: PhysicianType: Progress NotesFiled: 10/25/2017 10:01 AMNote Text:MICU - PROGRESS NOTESERVICE DATE: 10/25/2017SERVICE TIME: 9:54 AMAdmission Date: 10/19/2017AGE: 46 year oldLOS: 6 daysSubjective Feels well. No stools this AM. No N/V. Tolerating PO diet.REASON FOR ICU ADMISSION: GI Bleeding and Hemorrhagic ShockObjectiveVITAL SIGNS (last 24hrs min/max):Temp Av.7 ?C (98 ?F) Min: 36.4 ?C (97.5 ?F) Max: 37.1 ?C (98.8 ?F)Pulse Av.7 Min: 67 Max: 97No Data RecordedCuff BP Min: 105/55 Max: 141/79Pain Score: 0/10Vital signs reviewed.BP 130/74 Pulse 76 Temp (Src) 97.7 (Temporal Artery) Resp 20 Ht 5'9 (1.75m) Wt 267 lb 3.2 oz (121.2kg) SpO2 100% BMI 39.44 kg/(m2).Temp (24hrs), Av.7 ?C (98 ?F), Min:36.4 ?C (97.5 ?F), Max:37.1 ?C(98.8 ?F)NET FLUID BALANCEIntake/Output Summary (Last 24 hours) at 10/25/17 0954Last data filed at 10/25/17 0900 Gross per 24 hourIntake 698 mlOutput 2250 mlNet -1552 mlMEDICATIONSCurrent Facility-Administered Medications:pantoprazole DR 40 mg tab(s) (PROTONIX) 40 mg ORAL BID AC (0600/1600)metoprolol succinate ER 100 mg tab(s) (TOPROL XL) 100 mg ORAL DAILYbuPROPion XL 300 mg tab(s) (WELLBUTRIN XL) 300 mg ORAL DAILYclonazePAM 0.5 mg tab(s) (KlonoPIN) 0.5 mg ORAL BID PRNpotassium chloride 80-120 mEq oral liquid 80-120 mEq ORAL/FEEDING TUBE PRNLines, Drains, and Airways Line Peripheral 10/23/17 1713 Short Right Wrist 20 Gauge 1 dayPHYSICAL EXAM PERFORMED:HEENT:Oral Mucosa: Moist mucous membranes Feeding Tube: NoEyes: PERRLA Neck: Unremarkable; No adenopathy or JVDCardiovascular: Regular rhythmRespiratory: Clear to auscultationNo Data RecordedAbdomen: Soft, Nontender and Positive bowel soundsExtremities: Edema- No Peripheral Pulses- Present all extremitiesCapillary Refill- less than 3 secondsSkin: Abnormalities- NoNeurologic: Awake, oriented, Alert, Follows commands and Moving allextremitiesRespiratory/Sara sing Documentation:O2 Therapy: Room Air (10/25/17 0900)HEMODYNAMIC DATA:NUTRITION:Enteral Feeds: YesRegular dietDATA:Diagnostic tests reviewed for today's visit:Most recent labs and imaging results.LABS:Recent Labs 515WBC 13.31*RBC 2.76*HB 8.3*HCT 25.8*MCV 93.5PLT 322GLUC 104*BUN 15CREAT 0.73NA 139K 3.5CHLOR 107CO2 26CA 8.5ABG:Invalid input(s): [id number]: N/ACXR FINDINGS: N/AAssessment/PlanPROBLEMS: ACTIVE PROBLEM LISTGI BleedMelenaColitisHematochezi aObesity, Class II, BMI 35-39.9 E66.91. Severe blood loss anemia with Hgb 8.1-8.9 since transfusion PM of10/23.2. HTN--controlled.PLANS FOR TODAY:CRITICAL CARE PLAN:Will go ahead and plan discharge to home today and told her to call usback if problems over the weekend. She will call her Family MD on 10/28 toschedule Hgb recheck for Sat or . Told to avoid NSAIDS andsalicylates or any blood thinners for now. All questions answered.Resume anti-hypertensive meds as before.Protonix 40mg BID for next two weeks and then q day thereafter.This patient has a high probability of sudden, clinically significantdeterioration, which requires the highest level of physician preparednessto intervene urgently. I managed/supervised life or organ supportinginterventions that required frequent physician assessment. I devoted myfull attention to the direct care of this patient for the amount of timeindicated below. Time I spent with family or surrogate(s) is includedonly if the patient was incapable of providing the necessary informationor participating in medical decision making. Time devoted to teaching isnot included.Patient Updated YesFamily Updated NoDiscussed with Staff YesTime spent providing critical care services: 30 minutes excludingprocedures.SIGNATURE : Cruzito Anton MD PATIENT NAME: Jaylen Tolbert: October 25, 2017 : 9:54 AM PAGER/CONTACT #: [phone] Normal [facility] PROGRESS HNO ID: [id number] thor: Isidro Caseervice: [facility] MedicineAuthor Type: PhysicianType: Progress NotesFiled: 10/25/2017 9:52 AMNote Text:[facility] MEDICINEPROGRESS NOTESERVICE DATE: 10/25/2017SERVICE TIME: 9:49 AMHospital Medicine/Primary Attending: WANDA ValdiviaIGHT AND WEEKEND COVERAGE:After 7pm please page [phone] COMPLAINT: I feel goodSUBJECTIVE: Pt seen and examined. Feels good today. Had normal BMyesterday. Pt denies chest pain, shortness of breath, nausea, vomiting,or diarrhea.OBJECTIVE:PHYSICAL EXAM: BP 130/74 Pulse 76 Temp (Src) 97.7 (Temporal Artery) Resp 20 Ht 5' 9 (1.75m) Wt 267 lb 3.2 oz (121.2kg) SpO2 100% BMI39.44 kg/(m2).General - AANDOx3, NAD, CalmCV - RRR S1 S2, No M/R/GRESP - CTA B/L No wheezes, ronchi, ralesABD - soft, NT, ND +BSEXT - no gross joint deformity, no clubbing, cyanosis, edemaNEURO - CN II-XII grossly intact, no focal deficitsMEDICATIONS:Current hospital medications:pantoprazole DR 40 mg tab(s) (PROTONIX) 40 mg ORAL BID AC (0600/1600)metoprolol succinate ER 100 mg tab(s) (TOPROL XL) 100 mg ORAL DAILYbuPROPion XL 300 mg tab(s) (WELLBUTRIN XL) 300 mg ORAL DAILYclonazePAM 0.5 mg tab(s) (KlonoPIN) 0.5 mg ORAL BID PRNpotassium chloride 80-120 mEq oral liquid 80-120 mEq ORAL/FEEDING TUBE PRNDATA:Diagnostic tests reviewed for today's visit:CBC:Recent Labs [id number] 13.31*RBC 2.76*HB 8.3*HCT 25.8*PLT 322MCV 93.5MCH 30.1MPV 9.8RDW 15.0*Coags: No results for input(s): INR, APTT in the last 24 hours.Invalid input(s): PTBMP:Recent Labs 515NA 139K 3.5CHLOR 107CO2 26BUN 15CREAT 0.73GLUC 104*CMP:Recent Labs [id number] 139K 3.5CHLOR 107CO2 26BUN 15CREAT 0.73GLUC 104*CA 8.5ANION 10Cardiac Enzymes: No results for input(s): CK, MB, CKMB, TROPT in the last24 hours.Liver Function, Amylase, Lipase: No results for input(s): TPROT, ALB, ALT,AST, ALKPHOS, TBILI, AMYLASE, LIPASE, LACTATE in the last 24 hours.MG/PHOS: No results for input(s): MG, P in the last 24 hours.Renal Panel:Recent Labs [id number] 0.73BUN 15GLUC 104*CA 8.5CHLOR 107K 3.5CO2 26NA 139Heme: No results for input(s): RETICP, ABSRETIC, LD, BLANCA, FE, TIBC,TRANSFERSAT in the last 24 hours.No results found for: UALBCRAssessment/Plan1. UGI bleed - due to duodenal ulcers - no nsaids at discharge. Finishout PPI. Follow up with GI2. Acute blood loss anemia - s/p transfusions. Follow up with PCP in 1week3. HTN -stableSpoke with Dr. Anton. He will dictate discharge summary.VTE Prophylaxis: Pneumatic Compression DeviceDisposition: HomePlan of care discussed with: PatientSIGNATURE: Isidro Caballero DO PATIENT NAME: Jaylen Tolbert: October 25, 2017 : 9:49 AM PAGER/CONTACT #: [phone] Normal [facility] CONSULT PROGon 10-24-2017 CONSULT PROG HNO ID: [id number] thor: Hardik Bedoya: GastroenterologyAuthor Type: PhysicianType: Consult Progress NoteFiled: 10/24/2017 4:25 PMNote Text:GI CONSULT PROGRESS NOTESERVICE DATE: 10/24/2017SERVICE TIME: 4:19 PMCONSULTING SERVICE: GastroenterologySubjectiveINT ERVAL HISTORY: Pt is doing well as she had a brown stool today. Toladvancement of diet.MEDICATIONS:Current hospital medications:pantoprazole DR 40 mg tab(s) (PROTONIX) 40 mg ORAL BID AC (0600/1600)metoprolol succinate ER 100 mg tab(s) (TOPROL XL) 100 mg ORAL DAILYbuPROPion XL 300 mg tab(s) (WELLBUTRIN XL) 300 mg ORAL DAILYclonazePAM 0.5 mg tab(s) (KlonoPIN) 0.5 mg ORAL BID PRNmetoprolol 5 mg injection (LOPRESSOR) 5 mg INTRAVENOUS q 6 H PRNpotassium chloride 80-120 mEq oral liquid 80-120 mEq ORAL/FEEDING TUBE PRNpotassium chloride iv piggyback 20 mEq in sterile water 100 mL 20 mEqINTRAVENOUS PRNmagnesium sulfate in water 2 g in sterile water 50 ml 2 g INTRAVENOUS PRNsodium phosphate 45 mmol in NaCl 0.9% 250 mL 45 mmol INTRAVENOUS PRNcalcium gluconate 4 g in NaCl 0.9% 250 mL 4 g INTRAVENOUS PRNObjectivePHYSICAL EXAM:VITALS:BP 123/69 Pulse 75 Temp 37.1 ?C (98.8 ?F) Resp 22 Ht 175.3cm (5' 9) Wt 121.2 kg (267 lb 3.2 oz) SpO2 100% BMI 39.46 kg/t5SKUJVBO:DATA:Diagnostic tests reviewed for today's visit:Most recent labsImpression/Recommendation s1) UGI bleed 2ndary to duod ulcer s/p endo Tx. Hgb stable since Txyesterday. PPI changed to po bid.Pt was taking NSAIDS several ds of the week. Check H P serology. Ok toDC tomorrow if stable.SIGNATURE: Hardik Cao MD PATIENT NAME: Jaylen MoralesTE: October 24, 2017 : 4:19 PM PAGER/CONTACT #: Normal [facility] Hcton 10-24-2017 Hematocrit (HCT) 25.9 % Low 34.1-44.9 [facility] Comment on above: Performed By: #### T ROP ####[address] [address] Hematocrit (HCT) 23.3 % Low 34.1-44.9 [facility] Comment on above: Performed By: #### T ROP ####[facility] [place], [place] [address] Hgbon 10-24-2017 Hemoglobin mass conc (Bld) 8.1 g/dL Low 11.2-15.7 [facility] Comment on above: Performed By: #### T ROP ####[facility] [place], [place] [address] Hemoglobin mass conc (Bld) 7.7 g/dL Low 11.2-15.7 [facility] Comment on above: Performed By: #### T ROP ####[address] [address] PROGRESSon 10-24-2017 PROGRESS HNO ID: [id number] thor: Cruzito Selby DecoyService: Critical CareAuthor Type: PhysicianType: Progress NotesFiled: 10/24/2017 12:13 PMNote Text:MICU - PROGRESS NOTESERVICE DATE: 10/24/2017SERVICE TIME: 12:06 PMAdmission Date: 10/19/2017AGE: 46 year oldLOS: 5 daysSubjective Feels better. Had one brown BM this AM. No pain. Receivedone unit PRBCs last HS. Hgb 8.0>>>7.7 this AM.REASON FOR ICU ADMISSION: GI Bleeding, Hemorrhagic Shock and Blood lossanemia.ObjectiveVITAL SIGNS (last 24hrs min/max):Temp Av.8 ?C (98.2 ?F) Min: 36.4 ?C (97.5 ?F) Max: 37.1 ?C (98.8?F)Pulse Av.7 Min: 70 Max: 104No Data RecordedCuff BP Min: 104/61 Max: 158/106Pain Score: 0/10Vital signs reviewed.BP 133/80 Pulse 73 Temp (Src) 97.5 (Temporal Artery) Resp 21 Ht 5'9 (1.75m) Wt 267 lb 3.2 oz (121.2kg) SpO2 100% BMI 39.44 kg/(m2).Temp (24hrs), Av.8 ?C (98.2 ?F), Min:36.4 ?C (97.5 ?F), Max:37.1 ?C(98.8 ?F)NET FLUID BALANCEIntake/Output Summary (Last 24 hours) at 10/24/17 1206Last data filed at 10/24/17 1100 Gross per 24 hourIntake 2278 mlOutput 3400 mlNet -1122 mlMEDICATIONSCurrent Facility-Administered Medications:metoprolol succinate ER 100 mg tab(s) (TOPROL XL) 100 mg ORAL DAILYbuPROPion XL 300 mg tab(s) (WELLBUTRIN XL) 300 mg ORAL DAILYlactated ringers infusion 10 mL/hr INTRAVENOUS CONTINUOUSpantoprazole 40 mg injection (PROTONIX) 40 mg INTRAVENOUS q 12 HclonazePAM 0.5 mg tab(s) (KlonoPIN) 0.5 mg ORAL BID PRNmetoprolol 5 mg injection (LOPRESSOR) 5 mg INTRAVENOUS q 6 H PRNpotassium chloride 80-120 mEq oral liquid 80-120 mEq ORAL/FEEDING TUBE PRNpotassium chloride iv piggyback 20 mEq in sterile water 100 mL 20 mEqINTRAVENOUS PRNmagnesium sulfate in water 2 g in sterile water 50 ml 2 g INTRAVENOUS PRNsodium phosphate 45 mmol in NaCl 0.9% 250 mL 45 mmol INTRAVENOUS PRNcalcium gluconate 4 g in NaCl 0.9% 250 mL 4 g INTRAVENOUS PRNLines, Drains, and Airways Line Peripheral 10/23/17 1713 Short Right Wrist 20 Gauge less than 1 dayPHYSICAL EXAM PERFORMED:HEENT:Oral Mucosa: Moist mucous membranes Feeding Tube: NoEyes: PERRLA Neck: Unremarkable; No adenopathy or JVDCardiovascular: Regular rhythmRespiratory: Clear to auscultationNo Data RecordedAbdomen: Soft, Nontender and Positive bowel soundsExtremities: Edema- No Peripheral Pulses- Present all extremitiesCapillary Refill- less than 3 secondsSkin: Abnormalities- NoNeurologic: Awake, oriented, Alert, Follows commands and Moving allextremitiesRespiratory/Sara sing Documentation:O2 Therapy: Room Air (10/24/17 0800)HEMODYNAMIC DATA:NUTRITION:Enteral Feeds: YesFull LiquidDATA:Diagnostic tests reviewed for today's visit:Most recent labs and imaging results.LABS:Recent Labs 10/23/1803HB 7.7* < > 6.7* < > 7.5*HCT 23.3* < > 20.0* < > 22.9*K -- -- 3.9 -- 3.4*MG -- -- -- -- 1.9< > = values in this interval not displayed.ABG:Invalid input(s): [id number]: N/ACXR FINDINGS: None today.Assessment/PlanPROBLEMS : ACTIVE PROBLEM LISTGI BleedMelenaColitisHematochezi a1. UGI bleeding secondary to multiple duodenal ulcers with visiblebleeding vessel identified at time of EGD2. Severe blood loss anemia s/p PRBCs last HS--slight drop aftertransfusion.3. HTN--better control with restarting Lopressor4. Tachycardia resolved.PLANS FOR TODAY:CRITICAL CARE PLAN:Transfusions as needed and continue BID ProtonixAwait further recs from GI service.Would like to transfer from ICU or discharge home when OK with GI service.This patient has a high probability of sudden, clinically significantdeterioration, which requires the highest level of physician preparednessto intervene urgently. I managed/supervised life or organ supportinginterventions that required frequent physician assessment. I devoted myfull attention to the direct care of this patient for the amount of timeindicated below. Time I spent with family or surrogate(s) is includedonly if the patient was incapable of providing the necessary informationor participating in medical decision making. Time devoted to teaching isnot included.Patient Updated YesFamily Updated NoDiscussed with Staff YesTime spent providing critical care services: 35 minutes excludingprocedures.SIGNATURE : Cruzito Anton MD PATIENT NAME: Jaylen Tolbert: October 24, 2017 : 12:06 PM PAGER/CONTACT #: [phone] [facility] CASE MANAGEMon 10-23-2017 CASE MANAGEM HNO ID: [id number] thor: Marko (Rn) Kevyn, RNService: Care ManagementAuthor Type: Registered NurseType: Care Mgt Progress NoteFiled: 10/23/2017 2:02 PMNote Text:Pt continues to have dark stools, now with hgb 6.8, await GIrecommendations. Pt is from home with spouse, no d/c needs identified.Will follow. Normal [facility] CONSULT PROGon 10-23-2017 CONSULT PROG HNO ID: [id number] thor: Hardik Bedoya: GastroenterologyAuthor Type: PhysicianType: Consult Progress NoteFiled: 10/23/2017 2:45 PMNote Text:GI CONSULT PROGRESS NOTESERVICE DATE: 10/23/2017SERVICE TIME: 2:40 PMCONSULTING SERVICE: GastroenterologySubjectiveINT ERVAL HISTORY: Pt had small dark green stool today, was maroonpreviously. No other complaints.MEDICATIONS:[facility] medications:metoprolol succinate ER 100 mg tab(s) (TOPROL XL) 100 mg ORAL DAILYbuPROPion XL 300 mg tab(s) (WELLBUTRIN XL) 300 mg ORAL DAILYlactated ringers infusion 10 mL/hr INTRAVENOUS CONTINUOUSpantoprazole 40 mg injection (PROTONIX) 40 mg INTRAVENOUS q 12 HclonazePAM 0.5 mg tab(s) (KlonoPIN) 0.5 mg ORAL BID PRNmetoprolol 5 mg injection (LOPRESSOR) 5 mg INTRAVENOUS q 6 H PRNpotassium chloride 80-120 mEq oral liquid 80-120 mEq ORAL/FEEDING TUBE PRNpotassium chloride iv piggyback 20 mEq in sterile water 100 mL 20 mEqINTRAVENOUS PRNmagnesium sulfate in water 2 g in sterile water 50 ml 2 g INTRAVENOUS PRNsodium phosphate 45 mmol in NaCl 0.9% 250 mL 45 mmol INTRAVENOUS PRNcalcium gluconate 4 g in NaCl 0.9% 250 mL 4 g INTRAVENOUS PRNObjectivePHYSICAL EXAM:VITALS:BP 150/95 Pulse 102 Temp 36.9 ?C (98.4 ?F) Resp 19 Ht 175.3cm (5' 9) Wt 121.2 kg (267 lb 3.2 oz) SpO2 100% BMI 39.46 kg/g4QPFVPBW: soft, NT, NDDATA:Diagnostic tests reviewed for today's visit:Most recent labsImpression/Recommendation s1) UGI bleed, doubt active again. Cont IV Protonix q12 hrs. Clears.Change H/H q8 hrs. Transfuse 1 unitWill follow, inc diet if stable overnightwill continue to f/u the patientSIGNATURE: Hardik Cao MD PATIENT NAME: Jaylen MoralesTE: October 23, 2017 : 2:40 PM PAGER/CONTACT #: Normal [facility] Hcton 10-23-2017 Hematocrit (HCT) 24.6 % Low 34.1-44.9 [facility] Comment on above: Performed By: #### T ROP ####[facility] [place] [address] Hematocrit (HCT) 20.7 % Low 34.1-44.9 [facility] Comment on above: Performed By: #### T ROP ####[address] [address] Hematocrit (HCT) 21.9 % Low 34.1-44.9 [facility] Comment on above: Performed By: #### P 14 ####[place] [address] Hematocrit (HCT) 21.3 % Low 34.1-44.9 [facility] Comment on above: Performed By: #### P 14 ####[address] [address] Hgbon 10-23-2017 Hemoglobin mass conc (Bld) 8.0 g/dL Low 11.2-15.7 [facility] Comment on above: Performed By: #### T ROP ####[place] [address] Hemoglobin mass conc (Bld) 6.8 g/dL Critically low 11.2-15.7 [facility] Comment on above: Performed By: #### T ROP ####[place] [address] Hemoglobin mass conc (Bld) 7.4 g/dL Low 11.2-15.7 [facility] Comment on above: Performed By: #### P 14 ####[place] [address] Hemoglobin mass conc (Bld) 6.8 g/dL Critically low 11.2-15.7 [facility] Comment on above: Performed By: #### P 14 ####[address], [place] [address] NUTRITIONon 10-23-2017 NUTRITION HNO ID: [id number] thor: Juan A (Student) Jacob StudentService: Nutrition TherapyAuthor Type: StudentType: NutritionFiled: 10/23/2017 3:13 PMNote Text: At testation signed by Deanne Booker) BEATRIZ Lilly at 10/23/2017 3:33 PMNUTRITION THERAPY: TEACHING DIETITIAN NOTE OF PERSONAL INVOLVEMENT OF CARE.I have reviewed and agree with the assessment as documented by the dieteticintern. I have discussed the case and management of the patient?s nutritiontherapy with the application development intern.SIGNATURE: Deanne Lilly RD, LDDATE: October 23, 2017TIME: 3:33 PM NUTRI TION THERAPY INITIAL ASSESSMENTSERVICE DATE: 10/23/2017SERVICE TIME: 13:45RECOMMENDED MALNUTRITION DIAGNOSIS: MILD PROTEIN-CALORIE MALNUTRITIONIn the context of Acute Illness or Injury based on:Insufficient Energy Intake: less than or equal to 50% for greater than orequal to 5 daysNUTRITION CARE PLAN:Problem, Etiology and Signs/Symptoms:Mild Protein-Calorie malnutrition related to sub-optimal energy intake asevidenced by patient reports eating less than 50% of estimated nutrientrequirements for > 7 daysIntervention:Recommend Soft GI-Diet initially, assess tolerance to whole foods.Ensure Clear TID to provide an additional 720 kcals AND 24 grams of proteindailyCoordination of Care:RNMonitor and Evaluation:Goal: Meet >75% of estimated needsMonitor fluid/electrolyte balanceMonitor labs, I/Os, vital signs, weightMonitor transition from liquid diet to whole foods to evaluate toleranceIf unable to meet nutrient needs through food alone, consider supplement.Discharge Nutrition Recommendations:To be determined Reaso n For Visit: NPO/Clear liquid for >3 daysPer HPI: Ms. Elizalde is a 46 year old female with PMH of PE in 2010 (notcurrently on AC), anxiety, spinal surgery with the placement of a eric forherniatead discs, spinal stenosis and DDD and HTN who presents as atransfer from [place] with the complaint of melena and maroon coloredstool since yesterday (10/19) AM. Pt is HDS with mild tachycardia. +NSAIDuse daily. CT AP at outlying facility shows nonspecific thickening ofwalls of descending colon and mid transverse colon which may be the resultof ?chronic inflammation. hgb 9.3-->7.7.Interval History: Multiple duodenal ulcers with visible bleeding vessel atEGD on 10/21. S/p epi injection, gold probe cautery and clips x 4 +Melenareported. Severe blood loss anemia--Hgb trending down again. Restingtachycardia. Generalized edema Subsided. Continue Clear liquids for now.Will advance if Hgb remains stable with no further signs of GI bleeding.Present Diet Order: Clear LiquidNutritional Intake Prior to Admission: <50% estimated energy need over thepast 1 week(s) Pt reports having a well balanced diet up until 10/16. Atthat point pt reports consuming less than 50% of estimated nutritionneeds, until she eventually was admitted.GI symptoms: anorexia and diarrhea pt reports melena, and maroon coloredstool. Last formed stool was 2 days ago. Pt reports blood dissipating, butstill present.Abdominal Exam: abdomen is nondistended and bowel sounds are hyperactiveIs the patient having any pain that is interfering with oral/enteralintake? NoACTIVE PROBLEM LISTGI BleedMelenaColitisHematochezi aPAST MEDICAL HISTORYDiagnosis Date- Essential hypertension, benign- NONE- Pulmonary embolism (HCC) 07/10 pt reports 3 emboliPAST SURGICAL HISTORYProcedure Laterality Date- CARPAL TUNNEL 11/29/2014- CERVICAL/THORACIC ORTHOSIS/OANDP 01/25/2014 cervical fusion 4,5,6- EXTRACTION ERUPTED TOOTH/EXR WISDOM TEETH- LAP CHOLECYSTOENTEROSTOMY 2004- 2010- REMOVAL ADENOIDS,PRIMARY,<12 Y/O Adenoidectomy- REMOVAL OF TONSILS,<12 Y/O TonsillectomyANTHROPOMETRICSH eight: 175.3 cm (5' 9)Admission Weight: 121.2 kg (267 lb 3.2 oz)Current Weight: 121.2 kg (267 lb 3.2 oz)Body mass index is 39.46 kg/(m2). class 2 obesityWeight has increased by 6.9 kg representing a 6.0% increase in 4 monthsLast Wt10/19/17 : 121.2 kg (267 lb 3.2 oz)06/12/11 : 114.3 kg (252 lb 0.1 oz)05/21/11 : 114.3 kg (252 lb)04/23/11 : 112.5 kg (248 lb)01/11/09 : 111 kg (244 lb 12.8 oz)08/04/07 : 111.1 kg (244 lb 14.4 oz)06/21/06 : 107.8 kg (237 lb 11.2 oz)06/19/05 : 110.6 kg (243 lb 14.4 oz)[place] Body Weight: 66kgResting Metabolic Rate: 1928Estimated kilocalorie needs: 1665-8470 kilocalories determined by 25-30kcal/kg IBWEstimated protein needs: 66-79 grams determined by 1.0-1.2 [place] weightEstimated fluid needs: 1700+ milliliters based on 1 mL/kgNUTRITION FOCUSED PHYSICAL EXAM:Subcutaneous Fat LossOrbital No fat lossTriceps No fat lossMid-axillary at the iliac crest No fat lossMuscle Loss Locations:Temporalis No muscle lossPectoralis No muscle lossDeltoids No muscle lossInterosseous No muscle lossLatissimus dorsi, trapezius No muscle lossQuadriceps Unable to determine due to habitusGastrocnemius Unable to determine due to habitusPotential micronutrient deficiency revealed in: No deficiency identifiedEdema: No, Generalized edema has subsided, consistent with pt report andnursing records.Ascites: NoAssessment of Functional Status: Functional capacity is unrelated tonutrition statusTemperature Max in 24 hours: Temp (24hrs), Av.8 ?C (98.2 ?F), Min:36.2?C (97.2 ?F), Max:37.2 ?C (99 ?F) BP 157/88 Pulse 102 Temp 36.9 ?C (98.4 ?F) Resp 19 Ht 175.3 cm(5' 9) Wt 121.2 kg (267 lb 3.2 oz) SpO2 100% BMI 39.46 kg/b7Aranmo Labs 10/23/1803GLUC -- -- -- -- -- -- 111*BUN -- -- -- -- -- -- 15CREAT -- -- -- -- -- -- 0.53NA -- -- -- -- -- -- 138K -- -- 3.9 -- 3.4* -- 3.3*CHLOR -- -- -- -- -- -- 109*CO2 -- -- -- -- -- -- 23HB 6.8* < > 6.7* < > 7.5* < > 7.9*HCT 20.7* < > 20.0* < > 22.9* < > 23.3*MG -- -- -- -- 1.9 -- --< > = values in this interval not displayed.Potential Signs of Inflammation: hyperglycemia and tachycardiaCurrent Facility-Administered Medications:metoprolol succinate ER 100 mg tab(s) (TOPROL XL) 100 mg ORAL DAILYbuPROPion XL 300 mg tab(s) (WELLBUTRIN XL) 300 mg ORAL DAILYlactated ringers infusion 10 mL/hr INTRAVENOUS CONTINUOUSpantoprazole 40 mg injection (PROTONIX) 40 mg INTRAVENOUS q 12 HclonazePAM 0.5 mg tab(s) (KlonoPIN) 0.5 mg ORAL BID PRNmetoprolol 5 mg injection (LOPRESSOR) 5 mg INTRAVENOUS q 6 H PRNpotassium chloride 80-120 mEq oral liquid 80-120 mEq ORAL/FEEDING TUBE PRNpotassium chloride iv piggyback 20 mEq in sterile water 100 mL 20 mEqINTRAVENOUS PRNmagnesium sulfate in water 2 g in sterile water 50 ml 2 g INTRAVENOUS PRNsodium phosphate 45 mmol in NaCl 0.9% 250 mL 45 mmol INTRAVENOUS PRNcalcium gluconate 4 g in NaCl 0.9% 250 mL 4 g INTRAVENOUS PRNIntake/Output 10/19/17 0700 - 10/20/17 0659 10/20/17 07 - 10/21/17 0659 700 - 10/22/17 0659 10/22/17 07 - 10/23/17 0659 10/23/17 0700 -10/24/17 0659 Intake (ml) 3200 7889 3693 2425 347 Output (ml) 2000 4578 2600 2600 1400 Net (ml) 1199 3311 1093 -175 -[phone] Billing Type: Initial Assess/15 min 4 unitsSIGNATURE: Juan A James, Student PATIENT NAME: Jaylen Tao TepeDATE: October 23, 2017 : 1:55 PM PAGER: [phone] [facility] PROGRESSon 10-23-2017 PROGRESS HNO ID: [id number] thor: Cruzito Selby DecoyService: Critical CareAuthor Type: PhysicianType: Progress NotesFiled: 10/24/2017 7:21 AMNote Text:MICU - PROGRESS NOTESERVICE DATE: 10/23/2017SERVICE TIME: 1:38 PMAdmission Date: 10/19/2017AGE: 46 year oldLOS: 4 daysSubjective No N/V but only on liquid diet. No pain. Passed dark stool x1 this AM.Hgb now 6.8gmREASON FOR ICU ADMISSION: GI Bleeding, Hemorrhagic shock and blood lossanemia.ObjectiveVITAL SIGNS (last 24hrs min/max):Temp Av.8 ?C (98.2 ?F) Min: 36.2 ?C (97.2 ?F) Max: 37.2 ?C (99 ?F)Pulse Av.8 Min: 80 Max: 118No Data RecordedCuff BP Min: 102/56 Max: 160/94Pain Score: 0/10Vital signs reviewed.BP 157/88 Pulse 102 Temp (Src) 98.4 (Tympanic) Resp 19 Ht 5' 9(1.75m) Wt 267 lb 3.2 oz (121.2kg) SpO2 100% BMI 39.44 kg/(m2).Temp (24hrs), Av.8 ?C (98.2 ?F), Min:36.2 ?C (97.2 ?F), Max:37.2 ?C(99 ?F)NET FLUID BALANCEIntake/Output Summary (Last 24 hours) at 10/23/17 1338Last data filed at 10/23/17 0800 Gross per 24 hourIntake 2212 mlOutput 2150 mlNet 62 mlMEDICATIONSCurrent Facility-Administered Medications:buPROPion XL 300 mg tab(s) (WELLBUTRIN XL) 300 mg ORAL DAILYlactated ringers infusion 50 mL/hr INTRAVENOUS CONTINUOUSpantoprazole 40 mg injection (PROTONIX) 40 mg INTRAVENOUS q 12 HclonazePAM 0.5 mg tab(s) (KlonoPIN) 0.5 mg ORAL BID PRNmetoprolol 5 mg injection (LOPRESSOR) 5 mg INTRAVENOUS q 6 H PRNpotassium chloride 80-120 mEq oral liquid 80-120 mEq ORAL/FEEDING TUBE PRNpotassium chloride iv piggyback 20 mEq in sterile water 100 mL 20 mEqINTRAVENOUS PRNmagnesium sulfate in water 2 g in sterile water 50 ml 2 g INTRAVENOUS PRNsodium phosphate 45 mmol in NaCl 0.9% 250 mL 45 mmol INTRAVENOUS PRNcalcium gluconate 4 g in NaCl 0.9% 250 mL 4 g INTRAVENOUS PRNLines, Drains, and Airways Line Peripheral 10/19/17 Admission to Hospital Short Left Forearm 22 Gauge 4days Peripheral 10/20/17 2100 Short Right Antecubital 20 Gauge 2 daysPHYSICAL EXAM PERFORMED:HEENT:Oral Mucosa: Moist mucous membranes Feeding Tube: NoEyes: PERRLA Neck: Unremarkable; No adenopathy or JVDCardiovascular: Regular tachycardiaRespiratory: Clear to auscultationNo Data RecordedAbdomen: Soft, Nontender and Positive bowel soundsExtremities: Edema- No Peripheral Pulses- Present all extremitiesCapillary Refill- less than 3 secondsSkin: Abnormalities- NoNeurologic: Awake, oriented, Alert, Follows commands and Moving allextremitiesRespiratory/Sara sing Documentation:O2 Therapy: Room Air (10/23/17 0400)HEMODYNAMIC DATA:NUTRITION:Enteral Feeds: YesClear liquidsDATA:Diagnostic tests reviewed for today's visit:Most recent labs and imaging results.LABS:Recent Labs 10/23/1803HB 6.8* < > 6.7* < > 7.5* < > 7.9*HCT 20.7* < > 20.0* < > 22.9* < > 23.3*GLUC -- -- -- -- -- -- 111*BUN -- -- -- -- -- -- 15CREAT -- -- -- -- -- -- 0.53NA -- -- -- -- -- -- 138K -- -- 3.9 -- 3.4* -- 3.3*CHLOR -- -- -- -- -- -- 109*CO2 -- -- -- -- -- -- 23CA -- -- -- -- -- -- 8.1*MG -- -- -- -- 1.9 -- --< > = values in this interval not displayed.ABG:Invalid input(s): [id number]: N/ACXR FINDINGS: N/AAssessment/PlanPROBLEMS: ACTIVE PROBLEM LISTGI BleedMelenaColitisHematochezi a1. Multiple duodenal ulcers with visible bleeding vessel at EGD on 10/21.+Melena reported.2. Severe blood loss anemia--Hgb trending down again.3. HTN4. Tachycardia--?r/t beta-jamshid withdrawal vs anemia?PLANS FOR TODAY:CRITICAL CARE PLAN:Await GI to re-evaluate with Hgb and stools reportedKVO IVFsRestart Lopressor from home dose. Also was on Benicar but will hold thisfor now.Hold on PRBCs for now.This patient has a high probability of sudden, clinically significantdeterioration, which requires the highest level of physician preparednessto intervene urgently. I managed/supervised life or organ supportinginterventions that required frequent physician assessment. I devoted myfull attention to the direct care of this patient for the amount of timeindicated below. Time I spent with family or surrogate(s) is includedonly if the patient was incapable of providing the necessary informationor participating in medical decision making. Time devoted to teaching isnot included.Patient Updated YesFamily Updated Yes-- wishes for GI attending to call him with anupdate when Jaylen is rounded on today by their service.Discussed with Staff YesTime spent providing critical care services: 35 minutes excludingprocedures.SIGNATURE : Cruzito Anton MD PATIENT NAME: Jaylen MoralesTE: October 23, 2017 : 1:38 PM PAGER/CONTACT #: [phone] [facility] RBC Productson 10-23-2017 Xmatch Unit 1 see below [facility] Comment on above: Result Comment: Comp atible Performed By: #### T ROP ####[place] [address] Type and Screenon 10-23-2017 ABO group O [facility] Comment on above: Performed By: #### T ROP ####[place] [address] Antibody Screen Negative [facility] Comment on above: Performed By: #### T ROP ####[place] [address] Comment See Below [facility] Comment on above: Result Comment: Scre en &/or Xmatch expires in 3 days at 12 midnight. Redrawpatient at that time. Performed By: #### T ROP ####[place] [address] RH Type Positive [facility] Comment on above: Performed By: #### T ROP ####[place] [address] CONSULT PROGon 10-22-2017 CONSULT PROG HNO ID: [id number] thor: Edie (Scientific Photographer) MiguelianService: GastroenterologyAuthor Type: Nurse SpecialistType: Consult Progress NoteFiled: 10/22/2017 4:21 PMNote Text:GI CONSULT PROGRESS NOTESERVICE DATE: 10/22/2017SERVICE TIME: 2:04 PMCONSULTING SERVICE: GastroenterologySubjectiveINT ERVAL HISTORY: EGD yesterday showed duodenal bulb ulcers with visiblebleeding vessel. Hgb improving. No signs of GI bleeding today. Startedclear liquidsMEDICATIONS:Current hospital medications:potassium chloride 80-120 mEq oral liquid 80-120 mEq ORAL/FEEDING TUBE PRNpotassium chloride iv piggyback 20 mEq in sterile water 100 mL 20 mEqINTRAVENOUS PRNmagnesium sulfate in water 2 g in sterile water 50 ml 2 g INTRAVENOUS PRNsodium phosphate 45 mmol in NaCl 0.9% 250 mL 45 mmol INTRAVENOUS PRNcalcium gluconate 4 g in NaCl 0.9% 250 mL 4 g INTRAVENOUS PRNpantoprazole 40 mg injection (PROTONIX) 40 mg INTRAVENOUS DAILY (6 AM)ciprofloxacin 400 mg in D5W 200 mL (CIPRO) 400 mg INTRAVENOUS q 12 HmetroNIDAZOLE 500 mg PREMIX piggyback (FLAGYL) 500 mg INTRAVENOUS q 8 Hlactated ringers infusion 100 mL/hr INTRAVENOUS CONTINUOUSObjectivePHYSICAL EXAM:VITALS:BP 97/80 Pulse 110 Temp 36.8 ?C (98.2 ?F) Resp 19 Ht 175.3cm (5' 9) Wt 121.2 kg (267 lb 3.2 oz) SpO2 100% BMI 39.46 kg/a3NYVJKKY: Soft, nondistended, nontender, bowel sounds present. No guarding,rebound or rigidity.GENERAL: Alert and oriented. No distressDATA:Diagnostic tests reviewed for today's visit:Most recent labs and imaging results.CBC, Coags, BMP, Mg, PhosRecent Labs 10/23/1803050 300 10/20/1815WBC -- -- -- -- -- -- -- 11.63* 11.03* 13.96* 15.52*HB 7.2* 6.7* 6.6* 7.5* < > 7.9* < > 7.9* 7.7* 8.0* 9.3*HCT 21.7* 20.0* 20.3* 22.9* < > 23.3* < > 26.0* 24.1* 24.3* 28.4*PLT -- -- -- -- -- -- -- 239 255 302 358INR -- -- -- -- -- -- -- -- -- -- 0.98APTT -- -- -- -- -- -- -- -- -- -- 23.0NA -- -- -- -- -- 138 -- -- -- -- 140K -- 3.9 -- 3.4* -- 3.3* -- -- -- -- 3.7CHLOR -- -- -- -- -- 109* -- -- -- -- 109*CO2 -- -- -- -- -- 23 -- -- -- -- 24BUN -- -- -- -- -- 15 -- -- -- -- 25*CREAT -- -- -- -- -- 0.53 -- -- -- -- 0.59GLUC -- -- -- -- -- 111* -- -- -- -- 101*CA -- -- -- -- -- 8.1* -- -- -- -- 8.6MG -- -- -- 1.9 -- -- -- -- -- -- --< > = values in this interval not displayed.CSF AND DilantinLiver Function, Amylase, AND LipaseRecent Labs TPROT 7.1ALB 3.7ALT 13AST 14ALKPHOS 72TBILI 0.3EGD - duodenal bulb ulcers (multiple) one with visible vessel and activebleeding. Epi injection and gold probe cautery used with 4 clips.Impression/Recommendati onsGI Bleed - Bleeding duodenal bulb ulcers found in EGD. S/p epi injection,gold probe cautery and clips x 4. Hgb improving. Had dark stool at 9 pmlast night, but none since. Did not require transfusion today - Monitor Hgb/Hct - transfuse as needed- Monitor BMs for bleeding- Continue Protonix IV twice daily- Avoid NSAIDS- Continue Clear liquids for now. Will advance if Hgb remains stable withno further signs of GI bleedingAcute anemia - likely secondary to GI bleed- See #1GI will continue to follow. Will consider discharge when Hgb is stablewith no further signs of GI bleeding.SIGNATURE: Edie Toledo APRN.TITLE I PARAPROFESSIONAL PATIENT NAME: Jaylen Tolbert: October 22, 2017 : 2:03 PM PAGER/CONTACT #: [phone] Normal [facility] Hcton 10-22-2017 Hematocrit (HCT) 21.8 % Low 34.1-44.9 [facility] Comment on above: Performed By: #### P 14 ####[address] [address] Hematocrit (HCT) 21.7 % Low 34.1-44.9 [facility] Comment on above: Performed By: #### P 14 ####[place] [address] Hematocrit (HCT) 20.0 % Critically low 34.1-44.9 [facility] Comment on above: Performed By: #### P 14 ####[place] [address] Hematocrit (HCT) 20.3 % Low 34.1-44.9 [facility] Comment on above: Performed By: #### P T ####[place] [address] Hgbon 10-22-2017 Hemoglobin mass conc (Bld) 7.2 g/dL Low 11.2-15.7 [facility] Comment on above: Performed By: #### P 14 ####[place] [address] Hemoglobin mass conc (Bld) 7.2 g/dL Low 11.2-15.7 [facility] Comment on above: Performed By: #### P 14 ####[facility] [place], [place] [address] Hemoglobin mass conc (Bld) 6.7 g/dL Critically low 11.2-15.7 [facility] Comment on above: Performed By: #### P T ####[facility] [place], [place] [address] Hemoglobin mass conc (Bld) 6.6 g/dL Critically low 11.2-15.7 [facility] Comment on above: Performed By: #### P T ####[address] [address] PROGRESSon 10-22-2017 PROGRESS HNO ID: [id number] thor: Cruzito Selby DecoyService: Critical CareAuthor Type: PhysicianType: Progress NotesFiled: 10/24/2017 7:22 AMNote Text:MICU - PROGRESS NOTESERVICE DATE: 10/22/2017SERVICE TIME: 4:29 PMAdmission Date: 10/19/2017AGE: 46 year oldLOS: 3 daysSubjective Feeling better. Wants to go home. Says she passed smallamounts of dark blood per rectum today/this AM. No nausea or vomiting.REASON FOR ICU ADMISSION: GI Bleeding and Hemorrhagic shockObjectiveVITAL SIGNS (last 24hrs min/max):Temp Av.4 ?C (97.5 ?F) Min: 36.2 ?C (97.2 ?F) Max: 36.8 ?C (98.2?F)Pulse Av Min: 86 Max: 113No Data RecordedCuff BP Min: 97/80 Max: 153/139Pain Score: 0/10Vital signs reviewed.BP 97/80 Pulse 110 Temp (Src) 98.1 (Tympanic) Resp 19 Ht 5' 9(1.75m) Wt 267 lb 3.2 oz (121.2kg) SpO2 100% BMI 39.44 kg/(m2).Temp (24hrs), Av.4 ?C (97.5 ?F), Min:36.2 ?C (97.2 ?F), Max:36.8 ?C(98.2 ?F)NET FLUID BALANCEIntake/Output Summary (Last 24 hours) at 10/22/17 1629Last data filed at 10/22/17 1400 Gross per 24 hourIntake 3506 mlOutput 3050 mlNet 456 mlMEDICATIONSCurrent Facility-Administered Medications:buPROPion XL 300 mg tab(s) (WELLBUTRIN XL) 300 mg ORAL DAILYlactated ringers infusion 50 mL/hr INTRAVENOUS CONTINUOUSpotassium chloride 80-120 mEq oral liquid 80-120 mEq ORAL/FEEDING TUBE PRNpotassium chloride iv piggyback 20 mEq in sterile water 100 mL 20 mEqINTRAVENOUS PRNmagnesium sulfate in water 2 g in sterile water 50 ml 2 g INTRAVENOUS PRNsodium phosphate 45 mmol in NaCl 0.9% 250 mL 45 mmol INTRAVENOUS PRNcalcium gluconate 4 g in NaCl 0.9% 250 mL 4 g INTRAVENOUS PRNciprofloxacin 400 mg in D5W 200 mL (CIPRO) 400 mg INTRAVENOUS q 12 HmetroNIDAZOLE 500 mg PREMIX piggyback (FLAGYL) 500 mg INTRAVENOUS q 8 HLines, Drains, and Airways Line Peripheral 10/19/17 Admission to Hospital Short Left Forearm 22 Gauge 3days Peripheral 10/20/17 2100 Short Right Antecubital 20 Gauge 1 dayPHYSICAL EXAM PERFORMED:HEENT:Oral Mucosa: Moist mucous membranes Feeding Tube: NoEyes: PERRLA Neck: Unremarkable; No adenopathy or JVDCardiovascular: Regular tachycardia--100s now.Respiratory: Clear to auscultationNo Data RecordedAbdomen: Soft, Nontender and Positive bowel soundsExtremities: Edema- No Peripheral Pulses- Present all extremitiesCapillary Refill- less than 3 secondsSkin: Abnormalities- NoNeurologic: Awake, oriented, Alert, Follows commands and Moving allextremitiesRespiratory/Sara sing Documentation:O2 Therapy: Room Air (10/21/17 1900)HEMODYNAMIC DATA:NUTRITION:Enteral Feeds: YesClear liquidsDATA:Diagnostic tests reviewed for today's visit:Most recent labs and imaging results.LABS:Recent Labs 10/23/18030TROPI -- -- -- -- -- -- -- -- -- -- 0.016WBC -- -- -- -- -- -- -- -- 11.63* < > 15.52*RBC -- -- -- -- -- -- -- -- 2.58* < > 3.06*HB 7.2* < > 6.7* < > 7.5* < > 7.9* < > 7.9* < > 9.3*HCT 21.8* < > 20.0* < > 22.9* < > 23.3* < > 26.0* < > 28.4*MCV -- -- -- -- -- -- -- -- 100.8* < > 92.8PLT -- -- -- -- -- -- -- -- 239 < > 358GLUC -- -- -- -- -- -- 111* -- -- -- 101*BUN -- -- -- -- -- -- 15 -- -- -- 25*CREAT -- -- -- -- -- -- 0.53 -- -- -- 0.59NA -- -- -- -- -- -- 138 -- -- -- 140K -- -- 3.9 -- 3.4* -- 3.3* -- -- -- 3.7CHLOR -- -- -- -- -- -- 109* -- -- -- 109*CO2 -- -- -- -- -- -- 23 -- -- -- 24TPROT -- -- -- -- -- -- -- -- -- -- 7.1ALB -- -- -- -- -- -- -- -- -- -- 3.7CA -- -- -- -- -- -- 8.1* -- -- -- 8.6ALKPHOS -- -- -- -- -- -- -- -- -- -- 72TBILI -- -- -- -- -- -- -- -- -- -- 0.3AST -- -- -- -- -- -- -- -- -- -- 14ALT -- -- -- -- -- -- -- -- -- -- 13PTSEC -- -- -- -- -- -- -- -- -- -- 10.4APTT -- -- -- -- -- -- -- -- -- -- 23.0INR -- -- -- -- -- -- -- -- -- -- 0.98MG -- -- -- -- 1.9 -- -- -- -- -- --< > = values in this interval not displayed.ABG:Invalid input(s): [id number]: N/ACXR FINDINGS: N/AAssessment/PlanPROBLEMS: ACTIVE PROBLEM LISTGI BleedMelenaColitisHematochezi a1. UGI bleeding secondary to multiple duodenal ulcers with activelybleeding vessel by EGD on 10/21.2. Melena continues3. Severe blood loss anemia--stable4. HTN5. Resting tachycardiaPLANS FOR TODAY:CRITICAL CARE PLAN:IV fluids, Transfusions as needed and high-dose PPI therapyWatch in ICU due to actively bleeding vessel and multiple duodenal ulcers.D/C ATBxCut back IVFs.Clear liquidsSerial Hgb checks.Situational BP control with PRN Lopressor.PRN Klonopin as taken at home for anxiety.This patient has a high probability of sudden, clinically significantdeterioration, which requires the highest level of physician preparednessto intervene urgently. I managed/supervised life or organ supportinginterventions that required frequent physician assessment. I devoted myfull attention to the direct care of this patient for the amount of timeindicated below. Time I spent with family or surrogate(s) is includedonly if the patient was incapable of providing the necessary informationor participating in medical decision making. Time devoted to teaching isnot included.Patient Updated YesFamily Updated NoDiscussed with Staff YesTime spent providing critical care services: 35 minutes excludingprocedures.SIGNATURE : Cruzito Anton MD PATIENT NAME: Jaylen Tolbert: October 22, 2017 : 4:29 PM PAGER/CONTACT #: [phone] Normal [facility] Potassium Bloodon 10-22-2017 Potassium molar conc 3.9 mmol/L Normal 3.5-5.1 [facility] Comment on above: Performed By: #### P 14 ####[place] [address] BRIEF OP NOTon 10-21-2017 BRIEF OP NOT HNO ID: [id number] thor: Rocky Thomase: GastroenterologyAuthor Type: PhysicianType: Brief Op NoteFiled: 10/21/2017 4:26 PMNote Text:BRIEF OPERATIVE / PROCEDURE NOTELOG ID: [id number]/PROCEDURE DATE: 10/21/2017INCISION/PROCEDURE START TIME:INCISION CLOSE/PROCEDURE END TIME:SURGEON(S)/PROCEDURALIST (S) AND SALES PRODUCT MANAGER(S):Surgeon(s) and Role: * Rocky Bauer - Young Additional StaffPROCEDURE(S): EGD +/- Dilatation and BiopsyANESTHESIA: Monitored Anesthesia CareFINDINGS: Duodenal bulb ulcers (multiple) one with visible vessel andactively bleeding, Epi 1:19290, 0.5 cc each injection 3.5 cc injected,gold probe cautery used cautery caused increased bleeding, 4 metal clipsto tissue, one clip got wasted not anchoring tissue (total 5 clips used)hemostasis achievedESTIMATED BLOOD LOSS: actively bleeding vesselSPECIMENS: * No specimens in log *COMPLICATIONS: NonePRE-OP/PRE-PROCEDURE DIAGNOSIS: UGI bleedingPOST-OP/POST-PROCEDUR E DIAGNOSIS: * No post-op diagnosis entered *SIGNATURE: Rocky Bauer MD PATIENT NAME: Jaylen Tolbert: October 21, 2017 : 4:22 PM PAGER/CONTACT #: Normal [facility] Basic Panelon 10-21-2017 Creatinine 0.53 mg/dL Normal 0.51-0.95 [facility] Comment on above: Performed By: #### A PTT ####[place] [address] Anion gap 9 mmol/L Normal 8-16 [facility] Comment on above: Performed By: #### A PTT ####[address], [place] [address] CO2 23 mmol/L Normal 21-32 [facility] Comment on above: Performed By: #### A PTT ####[facility] [place], [place] [address] Glucose mass conc 111 mg/dL High 70-99 [facility] Comment on above: Performed By: #### A PTT ####[facility] [place], [place] [address] Urea nitrogen 15 mg/dL Normal 7-18 [facility] Comment on above: Performed By: #### A PTT ####[facility] [place], [place] [address] Calcium 8.1 mg/dL Low 8.5-10.1 [facility] Comment on above: Performed By: #### A PTT ####[facility] [place], [place] [address] Chloride 109 mmol/L High 98-107 [facility] Comment on above: Performed By: #### A PTT ####[facility] [place], [place] [address] Potassium molar conc 3.3 mmol/L Low 3.5-5.1 [facility] Comment on above: Performed By: #### A PTT ####[facility] [place], [place] [address] Sodium 138 mmol/L Normal 136-145 [facility] Hospital Comment on above: Performed By: #### A PTT ####[place] [address] CASE MGT INIT ALEXANDERon 2017 CASE MGT INIT ALEXANDER HNO ID: [id number] thor: Lashon (Rn) LORRAINE Baughervice: (none)Author Type: Registered NurseType: Care Mgt Initial AssessmentFiled: 10/21/2017 5:26 PMNote Text:CARE MANAGEMENT: ASSESSMENT AND DISCHARGE PLANSERVICE DATE: 10/21/2017SERVICE TIME: 5:22 PMPRIMARY CARE PHYSICIAN:Vilma Christina, [facility] CENTERhone: [phone] STATUS: InpatientNeeds Prior to Discharge: NoneMEDICAL:Patient/Represent ative Stated Goals:To return home to life as it wasHealth Insurance: MMO [employer] PLUS.Health Issues Impacting Discharge Plan: NoneLast Admission Date: noneIs this Within the Past 30 days? NoAdvance Directive:Yes is hcpoaHealth Literacy:1. How often do you need to have someone help you when you readinstructions, pamphlets, or other written material from your doctor orpharmacy? Never - 12. How confident are you filling out medical forms by yourself? Extremely- 1If Patient scores > 3 on either question, the following interventions wereput into place:Patient did not score > 3FUNCTIONAL AND COGNITIVE/BEHAVIORALPRIOR TO ADMISSION:Baseline Mental Status: Alert AND Oriented, Person, Place , Time andSituationFunctional Status: IndependentDoes Patient Currently Receive Any Community Services or Home Care? NoneEquipment Prior to Admission: NoneHas the Patient Been in a Snf Facility in the Past 30 days? 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 YesPatient's transition needs and plan for meeting these needs: s/p egdfollow h/hDoes the patient have an acute stroke diagnosis, or has the patient had astroke during this admission? NoMedication Adherence:I am convinced of the importance of my prescription medication: Agreecompletely - 0I worry that my prescription medication will do more harm than good to meDisagree mostly - 0I feel financially burdened by my vrk-ny-blmrrm expenses for myprescription medication: Disagree mostly -0Patient is categorized as low risk < 2Are you interested in bedside delivery of your medications? NoFood Concerns:In the Last Month, Have You had Trouble Getting Food? No trouble gettingfoodDuring the Last Month, Have You Worried Whether Your Food Would Run OutBefore You Had Enough Money to Buy More? NoIs the Patient Psychosocially Complex? NoASSESSMENT AND PLAN:Medical Needs: NonePsychosocial Needs: NoneFREEDOM OF CHOICE EXPLAINED:N/APOTENTIAL TRANSITION PLANSHomeTransfer [facility] EMotional support given s/p egd. Husbandat bedside Pt plan [facility] no needs identifiedSIGNATURE: Lashon Baugh RN PATIENT NAME: Jaylen MoralesTE: October 21, 2017 : 5:22 PM PAGER/CONTACT #: [phone] Normal [facility] Hcton 10-21-2017 Hematocrit (HCT) 22.9 % Low 34.1-44.9 [facility] Comment on above: Performed By: #### P T ####[place] [address] Hematocrit (HCT) 23.1 % Low 34.1-44.9 [facility] Comment on above: Performed By: #### P T ####[place] [address] Hematocrit (HCT) 23.3 % Low 34.1-44.9 [facility] Comment on above: Performed By: #### A PTT ####[place] [address] Hematocrit (HCT) 21.5 % Low 34.1-44.9 [facility] Comment on above: Performed By: #### A PTT ####[place] [address] Hgbon 10-21-2017 Hemoglobin mass conc (Bld) 7.5 g/dL Low 11.2-15.7 [facility] Comment on above: Performed By: #### P T ####[place] [address] Hemoglobin mass conc (Bld) 7.7 g/dL Low 11.2-15.7 [facility] Comment on above: Performed By: #### P T ####[place] [address] Hemoglobin mass conc (Bld) 7.9 g/dL Low 11.2-15.7 [facility] Comment on above: Performed By: #### A PTT ####[facility] [place], [place] [address] Hemoglobin mass conc (Bld) 6.9 g/dL Critically low 11.2-15.7 [facility] Comment on above: Performed By: #### A PTT ####[address] [address] MDRD GFRon 10-21-2017 eGFR (non-black) mL/min/{1.73_m2} Normal >60mL/m in/ 1.73m2 [facility] Comment on above: Result Comment: If t he patient is , multiply the result by 1.210. Performed By: #### P T ####[place] [id number] Magnesium Bloodon 10-21-2017 Magnesium 1.9 mg/dL Normal 1.6-2.6 [facility] Comment on above: Performed By: #### P T ####[place] [address] OPERATIVE NOon 10-21-2017 OPERATIVE NO HNO ID: [id number] thor: Rocky BauerService: GastroenterologyAuthor Type: PhysicianType: Operative ReportFiled: 10/22/2017 9:33 AMNote Text:[facility] - Operative ReportSURGEON: JUAN M OrtizATIBANDAR NAME: JAYLEN ELIZALDE GMRN: [id number] CSN: [id number] OF SURGERY: 10/21/2017DATE OF : 1970 SEX/AGE: F/46PATIENT TYPE: I HOSP SVC: ICU LOCATION: [id number] OF SURGERY: 10/21/2017SURGEON: Rocky Bauer MDNAME OF PROCEDURE: Esophagogastroduodenoscopy.IN DICATION: Upper GI bleeding.POSTPROCEDURE DIAGNOSES:1. Multiple duodenal ulcers at least three ulcers noted, one at thejunction of the bulb and descending duodenum had a actively bleeding visiblevessel. This was treated with epinephrine injection, gold probe cauterization, and application of four metal clips. Final hemostasis achieved.2. Hiatal hernia.3. Patulous gastroesophageal junction.PROCEDURE NOTE: An informed consent was obtained after discussing risks.Among risks discussed were not limited to perforation, bleeding, need forsurgery, worsening of the bleeding, and poor outcome. After moderatesedation, usedfentanyl 200 mcg intravenously in multiple divided doses, each dose was 50mcg at a time. Versed 8 mg in multiple divided doses, each dose was 1 mgat a time. Medications were given initially and during the procedure. AnEGD scope passed per oral route and advanced under direct visualizationto the descending duodenum. Following are the findings:1. Esophagus: GE junction was patulous. There was also a small hiatalhernia noted.2. Stomach: Old blood in the stomach was seen.3. Duodenal bulb and descending duodenum: There were at least threeulcers noted, more than 1 cm in size. There was one specific ulcer at thejunction of the bulb and descending duodenum with a large caliber bleedingvisible vessel. This vessel was harder to treat. The clips were not workingproperly because of the tissue could not be approximated secondary toulceration. At this time, 1 in 10,000 epinephrine, 0.5 mL each injection, total of3.5 mL during the procedure used. Gold probe cauterization was attempted,but once the coaptation pressure used and coagulation was applied uponwithdrawal of the catheter, worsening of the bleeding noted. At this time, clipswere applied, four clips into the tissue, one clip got wasted, hence totalof five clips used. After the application of the clips, good hemostasisnoted. Photo documentation done.ASSESSMENT:1. Multiple ulcers in the duodenum.2. Bleeding large caliber vessel in the ulcer at the junction of theduodenum and descending duodenum, treated with multiple modalities.3. Hiatal hernia.4. Patulous gastroesophageal junction.PLAN: To keep n.p.o. To monitor hemoglobin hematocrit. To continue IVProtonix.Rocky Bauer MDGastroenterologySMA:modlD: 10/21/2017 16:33:48T: 10/22/2017 02:55:09Job #: [id number] [facility] PLAN OF CAREon 10-21-2017 PLAN OF CARE HNO ID: [id number] thor: Danny Alfred (Bowl Sander)Service: PharmacyAuthor Type: PharmacistType: Plan of CareFiled: 10/21/2017 2:17 PMNote Text:MEDICATION HISTORYPatient Name:Brunilda GarciaN: [id number]: 1970Source of history:Patient: Reliability of source: no recent fill historyfor gabapentin/clonazepam/meloxic am but patient reported she was takingthem and Pharm[facility] records[facility] PharmacyMedication Nonadherence Identified: No barriers notedThe above information represents the best possible medication history: YesAdditional comments: Of note, I added excedrin and advil which could playa role in the current GI bleed. Patient has not filled Mobic since 03/2017.Will restart wellbutrin and lexapro when appropriate.Allergies:ALLERGI ESAllergen Reactions- Codeine Vomiting- Morphine VomitingPreferred Pharmacy: [facility] and [facility] ([facility])Current [employer] [employer] Medications:Prior to Admission medications as of 10/21/17 1410Medication Sig Last Dose Takingibuprofen (ADVIL) 200 mg tablet Take 200 mg by mouth once daily as neededfor Pain. Yesaspirin/acetaminophen/caff eine (EXCEDRIN MIGRAINE ORAL) Take 1 tablet bymouth once daily as needed. Yesaspirin 81 mg chewable tablet Take 81 mg by mouth once daily. Yesgabapentin (NEURONTIN) 400 mg capsule Take 400 mg by mouth three timesdaily. Yesmetoprolol succinate ER (TOPROL XL) 100 mg Tb24 Take 100 mg by mouth oncedaily. YesOlmesartan-Hydrochlorothia zide (BENICAR HCT) 40-25 mg per tablet Take 1tablet by mouth once daily. Yesmeloxicam (MOBIC) 15 mg tablet Take 15 mg by mouth once daily. YesclonazePAM (KLONOPIN) 0.5 mg tablet Take 0.5 mg by mouth three times dailyas needed for Anxiety. YesbuPROPion XL (WELLBUTRIN XL) 300 mg ORAL 24 hr tablet Take 300 mg by mouthonce daily. Purvi GUZMAN PHARMACISTApril 2017 2:12 PM [facility] PROGRESSon 10-21-2017 PROGRESS HNO ID: [id number] thor: Cruzitogianni Selby DecoyService: Critical CareAuthor Type: PhysicianType: Progress NotesFiled: 10/24/2017 7:23 AMNote Text:[facility] - PROGRESS NOTESERVICE DATE: 10/21/2017SERVICE TIME: 2:01 PMAdmission Date: 10/19/2017AGE: 46 year oldLOS: 2 daysSubjective Feeling better and wants to go home. Denies any vomiting ormelena/bright red blood per rectum. No dizziness.Admits to taking one baby ASA/day at home and 250mg Motrin/dayREASON FOR ICU ADMISSION: GI Bleeding, Hemorrhagic shock and blood lossanemia.ObjectiveVITAL SIGNS (last 24hrs min/max):Temp Av.6 ?C (97.9 ?F) Min: 36.2 ?C (97.2 ?F) Max: 37.1 ?C (98.8?F)Pulse Av.2 Min: 92 Max: 135No Data RecordedCuff BP Min: 110/68 Max: 144/90Pain Score: 0/10Vital signs reviewed.BP 143/80 Pulse 104 Temp (Src) 97.3 (Tympanic) Resp 20 Ht 5' 9(1.75m) Wt 267 lb 3.2 oz (121.2kg) SpO2 100% BMI 39.44 kg/(m2).Temp (24hrs), Av.6 ?C (97.9 ?F), Min:36.2 ?C (97.2 ?F), Max:37.1 ?C(98.8 ?F)NET FLUID BALANCEIntake/Output Summary (Last 24 hours) at 10/21/17 1401Last data filed at 10/21/17 1300 Gross per 24 hourIntake 7376 mlOutput 3128 mlNet 4248 mlMEDICATIONSCurrent Facility-Administered Medications:potassium chloride 80-120 mEq oral liquid 80-120 mEq ORAL/FEEDING TUBE PRNpotassium chloride iv piggyback 20 mEq in sterile water 100 mL 20 mEqINTRAVENOUS PRNmagnesium sulfate in water 2 g in sterile water 50 ml 2 g INTRAVENOUS PRNsodium phosphate 45 mmol in NaCl 0.9% 250 mL 45 mmol INTRAVENOUS PRNcalcium gluconate 4 g in NaCl 0.9% 250 mL 4 g INTRAVENOUS PRNpantoprazole 40 mg injection (PROTONIX) 40 mg INTRAVENOUS q 12 HRciprofloxacin 400 mg in D5W 200 mL (CIPRO) 400 mg INTRAVENOUS q 12 HmetroNIDAZOLE 500 mg PREMIX piggyback (FLAGYL) 500 mg INTRAVENOUS q 8 Hlactated ringers infusion 100 mL/hr INTRAVENOUS CONTINUOUSLines, Drains, and Airways Line Peripheral 10/19/17 Admission to Hospital Short Left Forearm 22 Gauge 2days Peripheral 10/20/17 2100 Short Right Antecubital 20 Gauge less than 1 dayPHYSICAL EXAM PERFORMED:HEENT:Oral Mucosa: Moist mucous membranes and pale. Feeding Tube: NoEyes: PERRLA Neck: Unremarkable; No adenopathy or JVDCardiovascular: Regular tachycardiaRespiratory: Clear to auscultationNo Data RecordedAbdomen: Soft, Nontender and Positive bowel soundsExtremities: Edema- No Peripheral Pulses- Present all extremitiesCapillary Refill- less than 3 secondsSkin: Abnormalities- NoNeurologic: Awake, oriented, Alert, Follows commands and Moving allextremitiesRespiratory/Sara sing Documentation:O2 Therapy: Room Air (10/21/17 1200)HEMODYNAMIC DATA:NUTRITION:Enteral Feeds: NoNPODATA:Diagnostic tests reviewed for today's visit:Most recent labs and imaging results.LABS:Recent Labs 10/22/1803TROPI -- -- -- -- -- 0.016WBC -- -- -- 11.63* < > 15.52*RBC -- -- -- 2.58* < > 3.06*HB 7.7* 7.9* < > 7.9* < > 9.3*HCT 23.1* 23.3* < > 26.0* < > 28.4*MCV -- -- -- 100.8* < > 92.8PLT -- -- -- 239 < > 358GLUC -- 111* -- -- -- 101*BUN -- 15 -- -- -- 25*CREAT -- 0.53 -- -- -- 0.59NA -- 138 -- -- -- 140K -- 3.3* -- -- -- 3.7CHLOR -- 109* -- -- -- 109*CO2 -- 23 -- -- -- 24TPROT -- -- -- -- -- 7.1ALB -- -- -- -- -- 3.7CA -- 8.1* -- -- -- 8.6ALKPHOS -- -- -- -- -- 72TBILI -- -- -- -- -- 0.3AST -- -- -- -- -- 14ALT -- -- -- -- -- 13PTSEC -- -- -- -- -- 10.4APTT -- -- -- -- -- 23.0INR -- -- -- -- -- 0.98< > = values in this interval not displayed.ABG:Invalid input(s): [id number]: N/ACXR FINDINGS: N/AOTHER IMAGING: N/AAssessment/PlanPROBLEMS: ACTIVE PROBLEM LISTGI BleedMelenaColitisHematochezi a1. Suspected UGI bleeding2. Severe anemia--had 2 units PRBCs overnight.3. Resting [id number]. HypokalemiaPLANS FOR TODAY:CRITICAL CARE PLAN:IV fluids and EGD today.Transfuse for Hgb <7gm or 7-8g with resting tachycardiaFollow up K at 6PM?Need to continue ATBx?This patient has a high probability of sudden, clinically significantdeterioration, which requires the highest level of physician preparednessto intervene urgently. I managed/supervised life or organ supportinginterventions that required frequent physician assessment. I devoted myfull attention to the direct care of this patient for the amount of timeindicated below. Time I spent with family or surrogate(s) is includedonly if the patient was incapable of providing the necessary informationor participating in medical decision making. Time devoted to teaching isnot included.Patient Updated YesFamily Updated YesDiscussed with Staff YesTime spent providing critical care services: 35 minutes excludingprocedures.SIGNATURE : Cruzito Anton MD PATIENT NAME: Jaylen Tolbert: October 21, 2017 : 2:01 PM PAGER/CONTACT #: [phone] Normal [facility] Potassium Bloodon 10-21-2017 Potassium molar conc 3.4 mmol/L Low 3.5-5.1 [facility] Comment on above: Performed By: #### P T ####[facility] [place], [place] [address] RBC Productson 10-21-2017 Xmatch Unit 1 see below Normal [facility] Comment on above: Result Comment: Comp atible Performed By: #### A PTT ####[address] [address] CONSULTon 10-20-2017 CONSULT HNO ID: [id number] thor: Henry Peña: GastroenterologyAuthor Type: PhysicianType: ConsultsFiled: 10/20/2017 1:28 PMNote Text:CONSULT: GASTROENTEROLOGY SERVICESERVICE DATE: 10/20/2017SERVICE TIME: 8:16 AMREASON FOR CONSULT: GIB, likely UGIBREQUESTING PHYSICIAN: Sylvia (resident)PRIMARY CARE PHYSICIAN: Vilma Christina [facility]. Tonio is a 46 year old female with PMH of PE in 2010 (not currently onAC), anxiety, spinal surgery with the placement of a eric for herniateaddiscs, spinal stenosis and DDD and HTN [place] the [place] red blood per rectum since yesterdayAM, started as dark/black and loose stools and then turned maroon like.When it first happened, she became lightheaded, got to her hands andknees, called out for her daughter and then passed out. She had about 6 or7 melanotic stools. The patient denies fevers, chills, abdominal pain, N/Vor a history of similar episodes. Pt is taking a variety of NSAIDs(usually 1-2 per day) for nerve damage and spinal stenosis along with DDD.Pt denies use of tobacco, illicit drugs and occasionally social alcoholuse. Last episode of melena was [address] AP at outlying facilityshows nonspecific thickening of hager of descending colon and midtransverse colon which may be the result of ?chronic inflammation. hgb9.3-->7.7. BUN 25. Never had EGD or colonoscopy.PAST MEDICAL HISTORYDiagnosis Date- Essential hypertension, benign- NONE- Pulmonary embolism (HCC) 07/10 pt reports 3 emboliPAST SURGICAL HISTORYProcedure Laterality Date- CARPAL TUNNEL 11/29/2014- CERVICAL/THORACIC ORTHOSIS/OANDP 01/25/2014 cervical fusion 4,5,6- EXTRACTION ERUPTED TOOTH/EXR WISDOM TEETH- LAP CHOLECYSTOENTEROSTOMY 2004- 2010- REMOVAL ADENOIDS,PRIMARY,<12 Y/O Adenoidectomy- REMOVAL OF TONSILS,<12 Y/O TonsillectomyFAMILY HISTORYProblem Relation Age of Onset- Cancer Mother THYROID AND BREAST- Coronary Artery Disease Maternal Grandfather- Stroke Maternal Grandfather- Hypertension Father- Diabetes FatherSocial HistorySubstance Use Topics- Smoking status: Never Smoker- Smokeless tobacco: Never Used- Alcohol use Yes Comment: SOCIALLY- once per monthPrescriptions Prior to Admission:aspirin 81 mg chewable tablet Take 81 mg by mouth once daily. Disp: Rfl:gabapentin (NEURONTIN) 400 mg capsule Take 400 mg by mouth three timesdaily. Disp: Rfl:metoprolol succinate ER (TOPROL XL) 100 mg Tb24 Take 100 mg by mouth oncedaily. Disp: Rfl:Olmesartan-Hydrochlorothi azide (BENICAR HCT) 40-25 mg per tablet Take 1tablet by mouth once daily. Disp: Rfl:meloxicam (MOBIC) 15 mg tablet Take 15 mg by mouth once daily. Disp: Rfl:clonazePAM (KLONOPIN) 0.5 mg tablet Take 0.5 mg by mouth three times dailyas needed for Anxiety. Disp: Rfl:escitalopram oxalate (LEXAPRO) 20 mg tablet Take 20 mg by mouth oncedaily. Disp: Rfl:buPROPion XL (WELLBUTRIN XL) 300 mg ORAL 24 hr tablet Take 150 mg by mouthonce daily. Disp: Rfl: 0dicyclomine (BENTYL) 10 mg ORAL capsule Take 20 mg by mouth before mealsand at bedtime. Disp: Rfl:olmesartan (BENICAR) 20 mg ORAL tablet Take 20 mg by mouth once daily.Disp: Rfl:citalopram (CELEXA) 40 mg ORAL tablet Take 40 mg by mouth once daily.Disp: Rfl:Current hospital medications:potassium chloride 80-120 mEq oral liquid 80-120 mEq ORAL/FEEDING TUBE PRNpotassium chloride iv piggyback 20 mEq in sterile water 100 mL 20 mEqINTRAVENOUS PRNmagnesium sulfate in water 2 g in sterile water 50 ml 2 g INTRAVENOUS PRNsodium phosphate 45 mmol in NaCl 0.9% 250 mL 45 mmol INTRAVENOUS PRNcalcium gluconate 4 g in NaCl 0.9% 250 mL 4 g INTRAVENOUS PRNpantoprazole 40 mg injection (PROTONIX) 40 mg INTRAVENOUS q 12 HR[START ON 10/22/2017] pantoprazole 40 mg injection (PROTONIX) 40 mgINTRAVENOUS DAILY (6 AM)ciprofloxacin 400 mg in D5W 200 mL (CIPRO) 400 mg INTRAVENOUS q 12 HmetroNIDAZOLE 500 mg PREMIX piggyback (FLAGYL) 500 mg INTRAVENOUS q 8 Hlactated ringers infusion 100 mL/hr INTRAVENOUS CONTINUOUSAllergies As of Date: 10/19/2017Jose De Jesus Noted ReactionCODEINE 06/18/2005 VomitingMORPHINE 04/23/2011 VomitingFully Assessed 10/19/2017COMPLETE REVIEW OF SYSTEMS:Negative except as mentioned in the HPIObjectivePHYSICAL EXAM:Physical Exam Performed:GENERAL: Alert, no distress, cooperativeLUNGS: Lungs clear to auscultation, Good diaphragmatic excursionCARDIAC: Normal S1 and S2; no rubs, murmurs, or gallopsABDOMEN: Abdomen soft, non-tender, BS normal, No masses or organomegalyEXTREMITIES: Extremities normal, no deformities, edema, clubbing or skindiscoloration. Good capillary refill., No ulcersBP 142/79 Pulse 104 Temp 99.1 Resp 6 Ht 5' 9 (1.75m) Wt 267 lb3.2 oz (121.2kg) SpO2 98% BMI 39.44 kg/(m2).DATA:Diagnostic tests reviewed for today's visit:Most recent labs and imaging results.CBC, Coags, BMP, Mg, PhosRecent Labs 10/19/18200WBC 11.03* 13.96* 15.52*HB 7.7* 8.0* 9.3*HCT 24.1* 24.3* 28.4*PLT 255 302 358INR -- -- 0.98APTT -- -- 23.0NA -- -- 140K -- -- 3.7CHLOR -- -- 109*CO2 -- -- 24BUN -- -- 25*CREAT -- -- 0.59GLUC -- -- 101*CA -- -- 8.6Liver Function, Amylase, AND LipaseRecent Labs [id number] 7.1ALB 3.7ALT 13AST 14ALKPHOS 72TBILI 0.3INRDate Value Ref Range Auweab8610/19/2017 0.98 FinalComment:Standard Therapy 2.0-3.0High Dose 2.5-3.5 Impression/R ecommendationsMsNato Elizalde is a 46 year old female with PMH of PE in 2010 (not currently onAC), anxiety, spinal surgery with the placement of a eric for herniateaddiscs, spinal stenosis and DDD and HTN [place] the [place] of [place]ena and maroon colored stool sinceyesterday AM. Pt is HDS with mild tachycardia. +NSA[facility]. [facility] shows nonspecific thickening of hager of descendingcolon and mid transverse colon which may be the result of ?chronicinflammation. hgb 9.3-->7.7.Melena/maroon colored stool-Most likely UGI bleeding related to PUD, erosive gastritis/duodenitis,etc. May have a component of colitis contributing.-Ensure two large bore IVs-Trend CBC and transfuse as needed, maintenance fluids, anti-emetics, CLDtoday-Protonix gtt-Avoid NSAIDs-Goal Hgb >7.0, INR ~1.5-1.8, Plt >50-Plan for EGD and colonoscopy tomorrow. NPO at midnight.SIGNATURE: Henry Goetz MD PATIENT NAME: Jaylen MoralesTE: October 20, 2017 : 8:16 AM Normal [facility] Hcton 10-20-2017 Hematocrit (HCT) 21.6 % Low 34.1-44.9 [facility] Comment on above: Performed By: #### A PTT ####[place] [address] Hemogramon 10-20-2017 Erythrocyte distribution width Auto Ratio (RBC) 12.8 % Normal 11.7-14.4 [facility] Comment on above: Performed By: #### C BC1 ####[place] [address] Erythrocytes (RBC) 2.58 mil/cmm Low 3.93-5.22 [facility] Comment on above: Performed By: #### C BC1 ####[place] [address] Hematocrit (HCT) 26.0 % Low 34.1-44.9 [facility] Comment on above: Performed By: #### C BC1 ####[place] [address] Hemoglobin mass conc (Bld) 7.9 g/dL Low 11.2-15.7 [facility] Comment on above: Performed By: #### C BC1 ####[place] [address] MCH 30.6 pg Normal 25.6-32.2 [facility] Comment on above: Performed By: #### C BC1 ####[place] [address] MCHC mass conc (RBC) 30.4 % Low 31.6-34.8 [facility] Comment on above: Performed By: #### C BC1 ####[place] [address] MCV 100.8 fL High 79.4-94.8 [facility] Comment on above: Performed By: #### C BC1 ####[place] [address] Platelet mean volume (PMV) 9.9 fL Normal 9.4-12.3 [facility] Comment on above: Performed By: #### C BC1 ####[place] [address] Platelets 239 thou/cmm Normal 182-369 [facility] Comment on above: Performed By: #### C BC1 ####[place] [address] RDW SD 47.0 fl High 36.4-46.3 [facility] Comment on above: Performed By: #### C BC1 ####[place] [address] WBC (Leukocytes) 11.63 thou/cmm High 3.98-10.04 [facility] Comment on above: Performed By: #### C BC1 ####[place] [address] Erythrocyte distribution width Auto Ratio (RBC) 13.0 % Normal 11.7-14.4 [facility] Comment on above: Performed By: #### C BC1 ####[place] [address] Erythrocytes (RBC) 2.51 mil/cmm Low 3.93-5.22 [facility] Comment on above: Performed By: #### C BC1 ####[place] [address] Hematocrit (HCT) 24.1 % Low 34.1-44.9 [facility] Comment on above: Performed By: #### C BC1 ####[place] [address] Hemoglobin mass conc (Bld) 7.7 g/dL Low 11.2-15.7 [facility] Comment on above: Performed By: #### C BC1 ####[place] [address] MCH 30.7 pg Normal 25.6-32.2 [facility] Comment on above: Performed By: #### C BC1 ####[place] [address] MCHC mass conc (RBC) 32.0 % Normal 31.6-34.8 [facility] Comment on above: Performed By: #### C BC1 ####[place] [address] MCV 96.0 fL High 79.4-94.8 [facility] Comment on above: Performed By: #### C BC1 ####[address], [place] [address] Platelet mean volume (PMV) 9.9 fL Normal 9.4-12.3 [facility] Comment on above: Performed By: #### C BC1 ####[facility] [place], [place] [address] Platelets 255 thou/cmm Normal 182-369 [facility] Comment on above: Performed By: #### C BC1 ####[facility] [place], [place] [address] RDW SD 44.8 fl Normal 36.4-46.3 [facility] Comment on above: Performed By: #### C BC1 ####[address] [address] WBC (Leukocytes) 11.03 thou/cmm High 3.98-10.04 [facility] Comment on above: Performed By: #### C BC1 ####[place] [id number] Hgbon 10-20-2017 Hemoglobin mass conc (Bld) 6.9 g/dL Critically low 11.2-15.7 [facility] Comment on above: Performed By: #### A PTT ####[place] [address] PROGRESSon 10-20-2017 PROGRESS HNO ID: [id number] thor: Le Ackerman: Critical CareAuthor Type: PhysicianType: Progress NotesFiled: 10/20/2017 1:56 PMNote Text:MICU PROGRESS NOTESERVICE DATE: 10/20/2017SERVICE TIME: 1330Admission Date: 10/19/2017SubjectiveF/U CRUZ RN reports passed bloody watery BM at 0800 about 600cc.She also reports pt gets tachy getting up to 150 b[facility] ROS:Denies CP, heaviness, SOB, palpatations.Denies abdominal pain.No nausea or vomiting.No leg pain or swelling.Not on control medication.Tolerating drinking Sprite.ObjectiveVITAL SIGNS (last 24hrs min/max):Temp Av.8 ?C (98.3 ?F) Min: 36.6 ?C (97.9 ?F) Max: 37.3 ?C (99.1?F)Pulse Av Min: 90 Max: 149No Data RecordedCuff BP Min: 101/83 Max: 175/99Pain Score: 1/10Vital signs reviewed. Relevant comments-NET FLUID BALANCEIntake/Output Summary (Last 24 hours) at 10/20/17 1337Last data filed at 10/20/17 1200 Gross per 24 hourIntake 3200 mlOutput 3951 mlNet -751 mlMEDICATIONSCurrent Facility-Administered Medications:polyethylene glycol 3350 255 g oral powder (MIRALAX, GLYCOLAX) 255 g ORALONCEpotassium chloride 80-120 mEq oral liquid 80-120 mEq ORAL/FEEDING TUBE PRNpotassium chloride iv piggyback 20 mEq in sterile water 100 mL 20 mEqINTRAVENOUS PRNmagnesium sulfate in water 2 g in sterile water 50 ml 2 g INTRAVENOUS PRNsodium phosphate 45 mmol in NaCl 0.9% 250 mL 45 mmol INTRAVENOUS PRNcalcium gluconate 4 g in NaCl 0.9% 250 mL 4 g INTRAVENOUS PRNpantoprazole 40 mg injection (PROTONIX) 40 mg INTRAVENOUS q 12 HRciprofloxacin 400 mg in D5W 200 mL (CIPRO) 400 mg INTRAVENOUS q 12 HmetroNIDAZOLE 500 mg PREMIX piggyback (FLAGYL) 500 mg INTRAVENOUS q 8 Hlactated ringers infusion 100 mL/hr INTRAVENOUS CONTINUOUSINDWELLING CATHETERS:Lines, Drains, and Airways Line Peripheral 10/19/17 Admission to Hospital Short Left Forearm 22 Gauge 1day Peripheral 10/19/17 Admission to Hospital Short Right Antecubital 20Gauge 1 dayPHYSICAL EXAM:General: 46yo WF, NAD.HEART: RRRLUNGS: CTAABD: Soft, NT, NDEXT: - c/c/e SCDs appliedNUTRITION: On CLDEnteral Feeds: NADATA:Diagnostic tests reviewed for today's visit:Most recent labs and imaging results.LABS: CBC, Coags, BMP, Mg, PhosRecent Labs 300 10/20/1815WBC 11.63* 11.03* 13.96* 15.52*HB 7.9* 7.7* 8.0* 9.3*HCT 26.0* 24.1* 24.3* 28.4*PLT 239 255 302 358INR -- -- -- 0.98APTT -- -- -- 23.0NA -- -- -- 140K -- -- -- 3.7CHLOR -- -- -- 109*CO2 -- -- -- 24BUN -- -- -- 25*CREAT -- -- -- 0.59GLUC -- -- -- 101*CA -- -- -- 8.6CULTURES: N/AAssessment/PlanPROBLEMS:# GIB# Acute blood loss anemia# BMI 39.46# Prior hx of unprovoked PE in 2010. (no longer on anticoagulation)# hx of Panic attacks# sinus tachycardiaPLANS FOR TODAY:Continue to Trend HANDH- Tentative EGD and colonoscopy tomorrow.- SCDs for DVT prophylaxis. Pt encouraged to try to move around as much aspossible.- Continue PPI IV BIDSIGNATURE: Le De Jesus MD PATIENT NAME: Jaylen Tolbert: October 20, 2017 : 1:37 PM PAGER/CONTACT #: [id number] STAFF PHYSICIAN NOTE OF PERSONAL INVOLVEMENT IN CARE.IMPRESSION:Critical Care Documentation: The patient has the following organ/systemimpairment(s): Acute blood loss/GIB, Sinus tachycardiaDiscussed with staff/ patient/ husbandThis patient has a high probability of sudden, clinically significantdeterioration, which requires the highest level of physician preparednessto intervene urgently. I managed/supervised life or organ supportinginterventions that required frequent physician assessment. I devoted myfull attention to the direct care of this patient for the amount of timeindicated below. Time I spent with family or surrogate(s) is includedonly if the patient was incapable of providing the necessary informationor participating in medical decision making. Time devoted to teaching isnot included.Time spent providing critical care services: 32 minutes excludingprocedures.SIGNATURE : ARETHA Jacob INSTITUTETIME of SERVICE: 1:54 PM [facility] RBC Productson 10-20-2017 Xmatch Unit 1 see below [facility] Comment on above: Result Comment: Comp atible Performed By: #### A PTT ####[facility] [place], [place] [address] Activated PTTon 10-19-2017 aPTT 23.0 s Normal 22.0-34.0 [facility] Comment on above: Performed By: #### A PTT ####[facility] [place], [place] [address] Comprehensive Panelon 2017 Alkaline phosphatase (ALP) 72 U/L Normal 46-116 [facility] Comment on above: Performed By: #### P 14 ####[address] [address] Bilirubin Ql (U) 0.3 mg/dL Normal 0.2-1.0 [facility] Comment on above: Performed By: #### P 14 ####[address] [address] Protein 7.1 g/dL Normal 6.4-8.2 [facility] Comment on above: Performed By: #### P 14 ####[address] [address] Alanine aminotransferase (ALT) 13 U/L Normal 12-78 [facility] Comment on above: Performed By: #### P 14 ####[address] [address] Aspartate aminotransferase (AST) 14 U/L Normal 9-37 [facility] Comment on above: Performed By: #### P 14 ####[address] [address] Creatinine 0.59 mg/dL Normal 0.51-0.95 [facility] Comment on above: Performed By: #### P 14 ####[address] [address] Albumin 3.7 g/dL Normal 3.4-5.0 [facility] Comment on above: Performed By: #### P 14 ####[address] [address] Anion gap 11 mmol/L Normal 8-16 [facility] Comment on above: Performed By: #### P 14 ####[address], [place] [address] CO2 24 mmol/L Normal 21-32 [facility] Comment on above: Performed By: #### P 14 ####[facility] [place], [place] [address] Glucose mass conc 101 mg/dL High 70-99 [facility] Comment on above: Performed By: #### P 14 ####[facility] [place], [place] [address] Urea nitrogen 25 mg/dL High 7-18 [facility] Comment on above: Performed By: #### P 14 ####[address] [address] Calcium 8.6 mg/dL Normal 8.5-10.1 [facility] Comment on above: Performed By: #### P 14 ####[address] [address] Chloride 109 mmol/L High 98-107 [facility] Comment on above: Performed By: #### P 14 ####[address] [address] Potassium molar conc 3.7 mmol/L Normal 3.5-5.1 [facility] Comment on above: Performed By: #### P 14 ####[address] [address] Sodium 140 mmol/L Normal 136-145 [facility] Comment on above: Performed By: #### P 14 ####[address] [address] HISTORY PHYSICALon 8 HISTORY PHYSICAL HNO ID: [id number] thor: Vianca (Wang) NevinerService: Critical CareAuthor Type: ResidentType: HANDPFiled: 10/19/2017 4:47 PMNote Text: At testation signed by Savannah Sanchez at 10/19/2017 5:08 PM (Updated)[facility] STAFF PHYSICIAN NOTE OF PERSONAL INVOLVEMENT IN CAREI have reviewed the documentation by the resident/ NELIDA and I personallyparticipated in the gr components. I have discussed the case and management ofthe patient's care. Patient seen and examined. The following comments revise orconfirm relevant rg components of the note.Alert. Nontoxic. sbp 155; hr 90; abd benign, no hematemesis. Good dP pulses,mild pallorData:Noted ct abd ?nonspecific colitisHB 10.5Inc bun like ugibNo anticoagNo hx PUD, colitis, DiverticIMPRESSION:Critical Care Documentation: The patient has the following organ/systemimpairment(s): Acute blood lossASS:1. Syncope due to blood loss but not hypotensive in squad or ER, she deniesvagal or chest or heart or palp issues2. Suspect UGIB with nsaid, asa3. Clinically doubt diverticulitis, nontender, wbc ok, but noted outside CTnonspecific4. Remote PE, obese, neg hypercoag study per pt, no recurrentMMPPLAN:1. Ppi, type/screen2. Dc atb if ok GI3. Ivf, HCT will fall4. EGD ?in am, not urgent tonight; paged GI service5. May need colonoscopy6 atb for tonight7. Leg psdsHold asa, nsaidAppropriate adjustments will be made based on available data and informationDiscussed with staff/ patient/ family x 2This patient has a high probability of sudden, clinically significantdeterioration, which requires the highest level of physician preparedness tointervene urgently. I managed/supervised life or organ supportinginterventions that required frequent physician assessment. I devoted my fullattention to the direct care of this patient for the amount of time indicatedbelow. Time I spent with family or surrogate(s) is included only if thepatient was incapable of providing the necessary information or participatingin medical decision making. 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 The patient arrived by squad.During transfer she received 1 L IVF, had protonix gtt running and Ciproand Flagyl IV. She then received another 1L in the ED. 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 The patient states she rested and had littleappetite the last few days. This morning, the patient woke up at 0730 withthe urge to defecate and reports a bowel movement with minimal stool butlarge volume of dark red blood. The patient states at that point shebecame lightheaded, got to her hands and knees, called out for [facility] and then passed out. The patient denies hitting her head orhaving any residual headache. The patient awoke on her own shortlytherafter and was able to get herself to her bed where she felt weak butless lightheaded. The patient states since this first episode of melena,that she has had about 6 or 7 melanotic stools ranging in color from darkred to light pink, but the patient denies any bright red blood. Thepatient denies CP, dyspnea, fevers, chills, abdominal pain, or a historyof this ever happening previously. Pt is taking NSAIDs for nerve damageand spinal stenosis along with DDD. The patient states she last took hermedications on Saturday as that was the last time she felt well enough totake them. Pt previously had a successful endometrial ablation to treatmenorrhagia secondary to the blood thinners she was on for the PEapproximately 7 years ago. Pt denies use of tobacco, illicit drugs andoccasionally social alcohol use.ObjectivePROBLEMS: There is no problem list on file for this patient.PAST MEDICAL HISTORYDiagnosis Date- Essential hypertension, benign- NONE- Pulmonary embolism (HCC) 07/10 pt reports 3 emboliPAST SURGICAL HISTORYProcedure Laterality Date- CARPAL TUNNEL 11/29/2014- CERVICAL/THORACIC ORTHOSIS/OANDP 01/25/2014 cervical fusion ,5,6- EXTRACTION ERUPTED TOOTH/EXR WISDOM TEETH- LAP CHOLECYSTOENTEROSTOMY 2004- 2010- REMOVAL ADENOIDS,PRIMARY,<12 Y/O Adenoidectomy- REMOVAL OF TONSILS,<12 Y/O TonsillectomySocial History Marital status: Spouse name: KAYLEN Years of education: 16 Number of children: 2Occupational 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 History Main Topics Smoking status: Never Smoker Smokeless status: Never Used Alcohol use: Yes Comment: SOCIALLY- once per month Drug use: No Sexual activity: Yes Partners with: MaleVITAL SIGNS (last 24hrs min/max):No Data RecordedPulse Av.8 Min: 107 Max: 136No Data RecordedCuff BP Min: 147/98 Max: 175/99Pain Score: 0/10Vital signs reviewed.BP 147/98 Pulse 109 Resp 19 SpO2 100%No data recorded.NET FLUID BALANCEIntake/Output Summary (Last 24 hours) at 10/19/17 1540Last data filed at 10/19/17 1400 Gross per 24 hourIntake 0 mlOutput 350 mlNet -350 mlMEDICATIONSNo current facility-administered medications for this encounter.Lines, Drains, and Airways Line Peripheral 10/19/17 Admission to Hospital Short Left Forearm 22 Gaugeless than 1 day Peripheral 10/19/17 Admission to Hospital Short Right Antecubital 20Gauge less than 1 dayPHYSICAL EXAM PERFORMED:General: Pt seen sitting up in bed, pleasant, awake, cooperativeHEENT: NTTP, atraumatic, normocephalicCardiovascular: Regular rhythm, tachycardic, no murmurRespiratory: Clear to auscultationAbdomen: Soft, Nontender, Positive bowel sounds and obeseExtremities: Edema- No, SCDs in placeNeurologic: Awake, oriented, Alert, Follows commands, Moving allextremities; strength and sensation intactRespiratory/Nursing Documentation:O2 Therapy: Room Air (10/19/17 1500)HEMODYNAMIC DATA: ReviewedNUTRITION:Enteral Feeds: NoNPODATA: Diagnostic tests reviewed for today's visit, films/specimens werepersonally reviewed by me:Most recent labs and imaging results.LABS:Assessment/PlanA cute GI bleed, likely upper GI bleed 2/2 chronic NSAID useRisk Factors include use of bASA and regular use of NSAIDs for DDDApprox 6-7 melanotic stools today; single 350 cc melanotic stool heresince transferGI c/s- appreciate recsNPOCBC nowMonitor CBC [id number] nowCont protonix gtt then once done transition to 40 BIDCont Flagyl and Cipro to cover poss diverticulitisHold NSAIDs, bASACoags pendingHgb at admission 10.5CT AP at outlying facility shows nonspecific thickening of hager ofdescending colon and mid transverse colon which may be the result ofchronic inflammationIsolated episode of syncopePoss vasovagal vs dehydrationPt hypertensive- last took antihypertensives 3 days agoPt currently asymptomaticTachycardiaLikely 2/2 hypovolemia and dehydrationCont to monitorPt asymptomaticH/o PEUnprovoked; not currently on anticoagulationPt had thrombophilia workup that was negativeAnxietyBuproprion and Celexa at homeObesitySCDsDietNPOMainten anceAnticoagulation contraindicated in setting of active GI bleedSCDsSIGNATURE: Vianca Corea DO PATIENT NAME: Jaylen MoralesTE: October 19, 2017 : 3:40 PM Normal [facility] HOSPon 10-19-2017 HOSP Patient:Jaylen Elizalde GMRN: Height:5' 9(1.753 m)Weight:267 lb 3.2 oz (121.2 kg)Outpatient Medications as of 10/21/17:ibuprofen (ADVIL) 200 mg tabletaspirin/acetaminophen/c affeine (EXCEDRIN MIGRAINE ORAL)aspirin 81 mg chewable tabletgabapentin (NEURONTIN) 400 mg capsulemetoprolol succinate ER (TOPROL XL) 100 mg Ad52Enajynwpad-Deonqotbhutkkp azide (BENICAR HCT) 40-25 mg per tabletmeloxicam (MOBIC) 15 mg tabletclonazePAM (KLONOPIN) 0.5 mg tabletbuPROPion XL (WELLBUTRIN XL) 300 mg ORAL 24 hr tabletAdmission/Clinic Administered Medications as of 10/21/17:potassium chloride 80-120 mEq oral liquidpotassium chloride iv piggyback 20 mEq in sterile water 100 mLmagnesium sulfate in water 2 g in sterile water 50 mlsodium phosphate 45 mmol in NaCl 0.9% 250 mLcalcium gluconate 4 g in NaCl 0.9% 250 mLpantoprazole 40 mg injection (PROTONIX)pantoprazole 40 mg injection (PROTONIX)ciprofloxacin 400 mg in D5W 200 mL (CIPRO)metroNIDAZOLE 500 mg PREMIX piggyback (FLAGYL)lactated ringers infusionProblem List:GI bleed [K92.2]Melena [K92.1]Colitis [K52.9]Hematochezia [K92.1]Allergies:CodeineMorph ineDate Verified: 10/21/17Lab ValuesLab Value Units Date High LowPOTA* 3.3 mEq/L 10/21/2017 5.1 3.5HEMA* 23.1 % 10/21/2017 44.9 34.1Progress Notes ():Vianca Corea DO 10/19/2017 4:47 PM Attested -Attestation signed by Savannah Sanchez at 10/19/2017 5:08 PM (Updated)[facility] STAFF PHYSICIAN NOTE OF PERSONAL INVOLVEMENT IN CAREI have reviewed the documentation by the resident/ NELIDA and I personallyparticipated in the rg components. I have discussed the case and management ofthe patient's care. Patient seen and examined. The following comments revise orconfirm relevant rg components of the note.Alert. Nontoxic. sbp 155; hr 90; abd benign, no hematemesis. Good dP pulses,mild pallorData:Noted ct abd ?nonspecific colitisHB 10.5Inc bun like ugibNo anticoagNo hx PUD, colitis, DiverticIMPRESSION:Critical Care Documentation: The patient has the following organ/systemimpairment(s): Acute blood lossASS:1. Syncope due to blood loss but not hypotensive in squad or ER, she deniesvagal or chest or heart or palp issues2. Suspect UGIB with nsaid, asa3. Clinically doubt diverticulitis, nontender, wbc ok, but noted outside CTnonspecific4. Remote PE, obese, neg hypercoag study per pt, no recurrentMMPPLAN:1. Ppi, type/screen2. Dc atb if ok GI3. Ivf, HCT will fall4. EGD ?in am, not urgent tonight; paged GI service5. May need colonoscopy6 atb for tonight7. Leg psdsHold asa, nsaidAppropriate adjustments will be made based on available data and informationDiscussed with staff/ patient/ family x 2This patient has a high probability of sudden, clinically significantdeterioration, which requires the highest level of physician preparedness tointervene urgently. I managed/supervised life or organ supportinginterventions that required frequent physician assessment. I devoted my fullattention to the direct care of this patient for the amount of time indicatedbelow. Time I spent with family or surrogate(s) is included only if thepatient was incapable of providing the necessary information or participatingin medical decision making. Time devoted to teaching is not included.Time spent providing critical care services: 30 minutes excluding procedures.SIGNATURE: ARETHA Benavidez INSTITUTETIME of SERVICE: 5:01 PM [facility] CARE HISTORY AND PHYSICALSERVICE DATE: 10/19/2017SERVICE TIME: 3:40 PMREASON FOR CONSULT: GI BleedingREQUESTING PHYSICIAN: Transfer from [place] ?ADMITTING PROVIDER: Savannah Salas DATE: 10/19/2017SERVICE TIME: 3:40 PMAdmission Date: 10/19/2017AGE: 46 year oldLOS: 0 daysSubjectiveThe patient is a 46 year old CF with a PMH of PE in 2010, anxiety, spinalsurgery with the placement of a eric for herniatead discs, spinal stenosis andDDD and HTN who presents as a transfer from [place] with the complaint of darkred blood per rectum since this AM. The patient arrived by squad. Duringtransfer she received 1 L IVF, had protonix gtt running and Cipro and Flagyl IV.She then received another 1L in the ED. 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 The patientstates she rested and had little appetite the last few days. This morning, thepatient woke up at 0730 with the urge to defecate and reports a bowel movementwith minimal stool but large volume of dark red blood. The patient states atthat point she became lightheaded, got to her hands and knees, called out forher daughter and then passed out. The patient denies hitting her head or havingany residual headache. The patient awoke on her own shortly therafter and wasable to get herself to her bed where she felt weak but less lightheaded. Thepatient states since this first episode of melena, that she has had about 6 or 7melanotic stools ranging in color from dark red to light pink, but the patientdenies any bright red blood. The patient denies CP, dyspnea, fevers, chills,abdominal pain, or a history of this ever happening previously. Pt is takingNSAIDs for nerve damage and spinal stenosis along with DDD. The patient statesshe last took her medications on Saturday as that was the last time she feltwell enough to take them. Pt previously had a successful endometrial ablation totreat menorrhagia secondary to the blood thinners she was on for the PEapproximately 7 years ago. Pt denies use of tobacco, illicit drugs andoccasionally social alcohol use.ObjectivePROBLEMS: There is no problem list on file for this patient.PAST MEDICAL HISTORYDiagnosis Date- Essential hypertension, benign- NONE- Pulmonary embolism (HCC) 07/10 pt reports 3 emboliPAST SURGICAL HISTORYProcedure Laterality Date- CARPAL TUNNEL 11/29/2014- CERVICAL/THORACIC ORTHOSIS/OANDP 01/25/2014 cervical fusion 4,5,6- EXTRACTION ERUPTED TOOTH/EXR WISDOM TEETH- LAP CHOLECYSTOENTEROSTOMY 2004- 2010- REMOVAL ADENOIDS,PRIMARY,<12 Y/O Adenoidectomy- REMOVAL OF TONSILS,<12 Y/O TonsillectomySocial History Marital status: Spouse name: KAYLEN Years of education: 16 Number of children: 2Occupational 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 History Main Topics Smoking status: Never Smoker Smokeless status: Never Used Alcohol use: Yes Comment: SOCIALLY- once per month Drug use: No Sexual activity: Yes Partners with: MaleVITAL SIGNS (last 24hrs min/max):No Data RecordedPulse Av.8 Min: 107 Max: 136No Data RecordedCuff BP Min: 147/98 Max: 175/99Pain Score: 0/10Vital signs reviewed.BP 147/98 Pulse 109 Resp 19 SpO2 100%No data recorded.NET FLUID BALANCEIntake/Output Summary (Last 24 hours) at 10/19/17 1540Last data filed at 10/19/17 1400 Gross per 24 hourIntake 0 mlOutput 350 mlNet -350 mlMEDICATIONSNo current facility-administered medications for this encounter.Lines, Drains, and Airways Line Peripheral 10/19/17 Admission to Hospital Short Left Forearm 22 Gauge less than1 day Peripheral 10/19/17 Admission to Hospital Short Right Antecubital 20 Gauge lessthan 1 dayPHYSICAL EXAM PERFORMED:General: Pt seen sitting up in bed, pleasant, awake, cooperativeHEENT: NTTP, atraumatic, normocephalicCardiovascular: Regular rhythm, tachycardic, no murmurRespiratory: Clear to auscultationAbdomen: Soft, Nontender, Positive bowel sounds and obeseExtremities: Edema- No, SCDs in placeNeurologic: Awake, oriented, Alert, Follows commands, Moving all extremities;strength and sensation intactRespiratory/Nursing Documentation:O2 Therapy: Room Air (10/19/17 1500)HEMODYNAMIC DATA: ReviewedNUTRITION:Enteral Feeds: NoNPODATA: Diagnostic tests reviewed for today's visit, films/specimens were personallyreviewed by me:Most recent labs and imaging results.LABS:Assessment/PlanA cute GI bleed, likely upper GI bleed 2/2 chronic NSAID useRisk Factors include use of bASA and regular use of NSAIDs for DDDApprox 6-7 melanotic stools today; single 350 cc melanotic stool here sincetransferGI c/s- appreciate recsNPOCBC nowMonitor CBC g2gULKTD nowCont protonix gtt then once done transition to 40 BIDCont Flagyl and Cipro to cover poss diverticulitisHold NSAIDs, bASACoags pendingHgb at admission 10.5CT AP at outlying facility shows nonspecific thickening of hager of descendingcolon and mid transverse colon which may be the result of chronic inflammationIsolated episode of syncopePoss vasovagal vs dehydrationPt hypertensive- last took antihypertensives 3 days agoPt currently asymptomaticTachycardiaLikely 2/2 hypovolemia and dehydrationCont to monitorPt asymptomaticH/o PEUnprovoked; not currently on anticoagulationPt had thrombophilia workup that was negativeAnxietyBuproprion and Celexa at homeObesitySCDsDietNPOMainten anceAnticoagulation contraindicated in setting of active GI bleedSCDsSIGNATURE: Vianca Corea DO PATIENT NAME: Jaylen MoralesTE: October 19, 2017 : 3:40 PM Remov ed attestation signed by Savannah Sanchez at 10/19/2017 5:05 PM (removedby Savannah Sanchez at 10/19/2017 5:08 PM)[facility] STAFF PHYSICIAN NOTE OF PERSONAL INVOLVEMENT IN CAREI have reviewed the documentation by the resident/ NELIDA and I personallyparticipated in the rg components. I have discussed the case and management ofthe patient's care. Patient seen and examined. The following comments revise orconfirm relevant rg components of the note.Data:Noted ct abd ?nonspecific colitisHB 10.5Inc bun like ugibNo anticoagNo hx PUD, colitis, DiverticIMPRESSION:Critical Care Documentation: The patient has the following organ/systemimpairment(s): Acute blood lossASS:1. Syncope due to blood loss but not hypotensive, she denies vagal or chest orheart or palp issues2. Suspect UGIB with nsaid, asa3. Clinically doubt diverticulitis, nontender, wbc ok, but noted outside CTnonspecific4. Remote PE, obese, neg hypercoag study per pt, no recurrentMMPPLAN:1. Ppi, type/screen2. Dc atb if ok GI3. Ivf, HCT will fall4. EGD ?in am, not urgent tonight; paged GI service5. May need colonoscopy6 atb for tonight7. Leg psdsHold asa, nsaidAppropriate adjustments will be made based on available data and informationDiscussed with staff/ patient/ family x 2This patient has a high probability of sudden, clinically significantdeterioration, which requires the highest level of physician preparedness tointervene urgently. I managed/supervised life or organ supportinginterventions that required frequent physician assessment. I devoted my fullattention to the direct care of this patient for the amount of time indicatedbelow. Time I spent with family or surrogate(s) is included only if thepatient was incapable of providing the necessary information or participatingin medical decision making. Time devoted to teaching is not included.Time spent providing critical care services: 30 minutes excluding procedures.SIGNATURE: SUNI BenavidezVALLEY [facility]BY[facility] INSTITUTETIME of SERVICE: 5:01 PM Henry Goetz MD 10/20/2017 1:28 PM SignedCONSULT: GASTROENTEROLOGY SERVICESERVICE DATE: 10/20/2017SERVICE TIME: 8:16 AMREASON FOR CONSULT: GIB, likely UGIBREQUESTING PHYSICIAN: Sylvia (resident)PRIMARY CARE PHYSICIAN: MDSubjectiveMs. Nusrat Tonio is a 46 year old female with PMH of PE in 2010 (not currently on AC),anxiety, spinal surgery with the placement of a eric for herniatead discs, spinalstenosis and DDD and HTN who presents as a transfer from [place] with thecomplaint of dark red blood per rectum since yesterday AM, started as dark/blackand loose stools and then turned maroon like. When it first happened, she becamelightheaded, got to her hands and knees, called out for her daughter and thenpassed out. She had about 6 or 7 melanotic stools. The patient denies fevers,chills, abdominal pain, N/V or a history of similar episodes. Pt is taking avariety of NSAIDs (usually 1-2 per day) for nerve damage and spinal stenosisalong with DDD. Pt denies use of tobacco, illicit drugs and occasionally socialalcohol use. Last episode of melena was [address] AP [facility] shows nonspecific thickening of hager of descending colon and midtransverse colon which may be the result of ?chronic inflammation. hgb9.3-->7.7. BUN 25. Never had EGD or colonoscopy.PAST MEDICAL HISTORYDiagnosis Date- Essential hypertension, benign- NONE- Pulmonary embolism (HCC) 07/10 pt reports 3 emboliPAST SURGICAL HISTORYProcedure Laterality Date- CARPAL TUNNEL 11/29/2014- CERVICAL/THORACIC ORTHOSIS/OANDP 01/25/2014 cervical fusion 4,5,6- EXTRACTION ERUPTED TOOTH/EXR WISDOM TEETH- LAP CHOLECYSTOENTEROSTOMY 2004- 2010- REMOVAL ADENOIDS,PRIMARY,<12 Y/O Adenoidectomy- REMOVAL OF TONSILS,<12 Y/O TonsillectomyFAMILY HISTORYProblem Relation Age of Onset- Cancer Mother THYROID AND BREAST- Coronary Artery Disease Maternal Grandfather- Stroke Maternal Grandfather- Hypertension Father- Diabetes FatherSocial HistorySubstance Use Topics- Smoking status: Never Smoker- Smokeless tobacco: Never Used- Alcohol use Yes Comment: SOCIALLY- once per monthPrescriptions Prior to Admission:aspirin 81 mg chewable tablet Take 81 mg by mouth once daily. Disp: Rfl:gabapentin (NEURONTIN) 400 mg capsule Take 400 mg by mouth three times daily.Disp: Rfl:metoprolol succinate ER (TOPROL XL) 100 mg Tb24 Take 100 mg by mouth once daily.Disp: Rfl:Olmesartan-Hydrochlorothi azide (BENICAR HCT) 40-25 mg per tablet Take 1 tabletby mouth once daily. Disp: Rfl:meloxicam (MOBIC) 15 mg tablet Take 15 mg by mouth once daily. Disp: Rfl:clonazePAM (KLONOPIN) 0.5 mg tablet Take 0.5 mg by mouth three times daily asneeded for Anxiety. Disp: Rfl:escitalopram oxalate (LEXAPRO) 20 mg tablet Take 20 mg by mouth once daily.Disp: Rfl:buPROPion XL (WELLBUTRIN XL) 300 mg ORAL 24 hr tablet Take 150 mg by mouth oncedaily. Disp: Rfl: 0dicyclomine (BENTYL) 10 mg ORAL capsule Take 20 mg by mouth before meals and atbedtime. Disp: Rfl:olmesartan (BENICAR) 20 mg ORAL tablet Take 20 mg by mouth once daily. Disp:Rfl:citalopram (CELEXA) 40 mg ORAL tablet Take 40 mg by mouth once daily. Disp:Rfl:Current hospital medications:potassium chloride 80-120 mEq oral liquid 80-120 mEq ORAL/FEEDING TUBE PRNpotassium chloride iv piggyback 20 mEq in sterile water 100 mL 20 mEqINTRAVENOUS PRNmagnesium sulfate in water 2 g in sterile water 50 ml 2 g INTRAVENOUS PRNsodium phosphate 45 mmol in NaCl 0.9% 250 mL 45 mmol INTRAVENOUS PRNcalcium gluconate 4 g in NaCl 0.9% 250 mL 4 g INTRAVENOUS PRNpantoprazole 40 mg injection (PROTONIX) 40 mg INTRAVENOUS q 12 HR[START ON 10/22/2017] pantoprazole 40 mg injection (PROTONIX) 40 mg INTRAVENOUSDAILY (6 AM)ciprofloxacin 400 mg in D5W 200 mL (CIPRO) 400 mg INTRAVENOUS q 12 HmetroNIDAZOLE 500 mg PREMIX piggyback (FLAGYL) 500 mg INTRAVENOUS q 8 Hlactated ringers infusion 100 mL/hr INTRAVENOUS CONTINUOUSAllergies As of Date: 10/19/2017Jose De Jesus Noted ReactionCODEINE 06/18/2005 VomitingMORPHINE 04/23/2011 VomitingFully Assessed 10/19/2017COMPLETE REVIEW OF SYSTEMS:Negative except as mentioned in the HPIObjectivePHYSICAL EXAM:Physical Exam Performed:GENERAL: Alert, no distress, cooperativeLUNGS: Lungs clear to auscultation, Good diaphragmatic excursionCARDIAC: Normal S1 and S2; no rubs, murmurs, or gallopsABDOMEN: Abdomen soft, non-tender, BS normal, No masses or organomegalyEXTREMITIES: Extremities normal, no deformities, edema, clubbing or skindiscoloration. Good capillary refill., No ulcersBP 142/79 Pulse 104 Temp 99.1 Resp 6 Ht 5' 9 (1.75m) Wt 267 lb 3.2 oz(121.2kg) SpO2 98% BMI 39.44 kg/(m2).DATA:Diagnostic tests reviewed for today's visit:Most recent labs and imaging results.CBC, Coags, BMP, Mg, PhosRecent Labs 10/19/1820WBC 11.03* 13.96* 15.52*HB 7.7* 8.0* 9.3*HCT 24.1* 24.3* 28.4*PLT 255 302 358INR -- -- 0.98APTT -- -- 23.0NA -- -- 140K -- -- 3.7CHLOR -- -- 109*CO2 -- -- 24BUN -- -- 25*CREAT -- -- 0.59GLUC -- -- 101*CA -- -- 8.6Liver Function, Amylase, AND LipaseRecent Labs TPROT 7.1ALB 3.7ALT 13AST 14ALKPHOS 72TBILI 0.3INRDate Value Ref Range Yewowp1810/19/2017 0.98 FinalComment:Standard Therapy 2.0-3.0High Dose 2.5-3.5 Impression/R ecommendationsMs. Tonio is a 46 year old female with PMH of PE in 2010 (not currently on AC),anxiety, spinal surgery with the placement of a eric for herniatead discs, spinalstenosis and DDD and HTN who presents as a transfer from [place] with thecomplaint of melena and maroon colored stool since yesterday AM. Pt is HDS withmild tachycardia. +NSAID use daily. CT AP at outlying facility shows nonspecificthickening of hager of descending colon and mid transverse colon which may bethe result of ?chronic inflammation. hgb 9.3-->7.7.Melena/maroon colored stool-Most likely UGI bleeding related to PUD, erosive gastritis/duodenitis, etc. Mayhave a component of colitis contributing.-Ensure two large bore IVs-Trend CBC and transfuse as needed, maintenance fluids, anti-emetics, CLD today-Protonix gtt-Avoid NSAIDs-Goal Hgb >7.0, INR ~1.5-1.8, Plt >50-Plan for EGD and colonoscopy tomorrow. NPO at midnight.SIGNATURE: Henry Goetz MD PATIENT NAME: Jaylen BakereDATE: October 20, 2017 : 8:16 GustavoLe De Jesus MD 10/20/2017 1:56 PM SignedMICU PROGRESS NOTESERVICE DATE: 10/20/2017SERVICE TIME: 1330Admission Date: 10/19/2017SubjectiveF/U CRUZ RN reports passed bloody watery BM at 0800 about 600cc.She also reports pt gets tachy getting up to 150 bpm [facility].On ROS:Denies CP, heaviness, SOB, palpatations.Denies abdominal pain.No nausea or vomiting.No leg pain or swelling.Not on control medication.Tolerating drinking Sprite.ObjectiveVITAL SIGNS (last 24hrs min/max):Temp Av.8 ?C (98.3 ?F) Min: 36.6 ?C (97.9 ?F) Max: 37.3 ?C (99.1 ?F)Pulse Av Min: 90 Max: 149No Data RecordedCuff BP Min: 101/83 Max: 175/99Pain Score: 1/10Vital signs reviewed. Relevant comments-NET FLUID BALANCEIntake/Output Summary (Last 24 hours) at 10/20/17 1337Last data filed at 04/22/18 1200 Gross per 24 hourIntake 3200 mlOutput 3951 mlNet -751 mlMEDICATIONSCurrent Facility-Administered Medications:polyethylene glycol 3350 255 g oral powder (MIRALAX, GLYCOLAX) 255 g ORAL ONCEpotassium chloride 80-120 mEq oral liquid 80-120 mEq ORAL/FEEDING TUBE PRNpotassium chloride iv piggyback 20 mEq in sterile water 100 mL 20 mEqINTRAVENOUS PRNmagnesium sulfate in water 2 g in sterile water 50 ml 2 g INTRAVENOUS PRNsodium phosphate 45 mmol in NaCl 0.9% 250 mL 45 mmol INTRAVENOUS PRNcalcium gluconate 4 g in NaCl 0.9% 250 mL 4 g INTRAVENOUS PRNpantoprazole 40 mg injection (PROTONIX) 40 mg INTRAVENOUS q 12 HRciprofloxacin 400 mg in D5W 200 mL (CIPRO) 400 mg INTRAVENOUS q 12 HmetroNIDAZOLE 500 mg PREMIX piggyback (FLAGYL) 500 mg INTRAVENOUS q 8 Hlactated ringers infusion 100 mL/hr INTRAVENOUS CONTINUOUSINDWELLING CATHETERS:Lines, Drains, and Airways Line Peripheral 10/19/17 Admission to Hospital Short Left Forearm 22 Gauge 1 day Peripheral 10/19/17 Admission to [facility] Short Right Antecubital 20 Gauge 1dayPHYSICAL EXAM:General: 46yo WF, NAD.HEART: RRRLUNGS: CTAABD: Soft, NT, NDEXT: - c/c/e SCDs appliedNUTRITION: On CLDEnteral Feeds: NADATA:Diagnostic tests reviewed for today's visit:Most recent labs and imaging results.LABS: CBC, Coags, BMP, Mg, PhosRecent Labs 0 300 10/20/1815WBC 11.63* 11.03* 13.96* 15.52*HB 7.9* 7.7* 8.0* 9.3*HCT 26.0* 24.1* 24.3* 28.4*PLT 239 255 302 358INR -- -- -- 0.98APTT -- -- -- 23.0NA -- -- -- 140K -- -- -- 3.7CHLOR -- -- -- 109*CO2 -- -- -- 24BUN -- -- -- 25*CREAT -- -- -- 0.59GLUC -- -- -- 101*CA -- -- -- 8.6CULTURES: N/AAssessment/PlanPROBLEMS:# GIB# Acute blood loss anemia# BMI 39.46# Prior hx of unprovoked PE in 2010. (no longer on anticoagulation)# hx of Panic attacks# sinus tachycardiaPLANS FOR TODAY:Continue to Trend HANDH- Tentative EGD and colonoscopy tomorrow.- SCDs for DVT prophylaxis. Pt encouraged to try to move around as much aspossible.- Continue PPI IV BIDSIGNATURE: Le De Jesus MD PATIENT NAME: Jaylen Tolbert: October 20, 2017 : 1:37 PM PAGER/CONTACT #: [phone] STAFF PHYSICIAN NOTE OF PERSONAL INVOLVEMENT IN CARE.IMPRESSION:Critical Care Documentation: The patient has the following organ/systemimpairment(s): Acute blood loss/GIB, Sinus tachycardiaDiscussed with staff/ patient/ husbandThis patient has a high probability of sudden, clinically significantdeterioration, which requires the highest level of physician preparedness tointervene urgently. I managed/supervised life or organ supporting interventionsthat required frequent physician assessment. I devoted my full attention to thedirect care of this patient for the amount of time indicated below. Time Ispent with family or surrogate(s) is included only if the patient was incapableof providing the necessary information or participating in medical decisionmaking. Time devoted to teaching is not included.Time spent providing critical care services: 32 minutes excluding procedures.SIGNATURE: SUNI JacobVALLEY PRESBYTER[facility] INSTITUTETIME of SERVICE: 1:54 PMCruzito Anton MD 10/21/2017 2:08 PM SignedMICU - PROGRESS NOTESERVICE DATE: 10/21/2017SERVICE TIME: 2:01 PMAdmission Date: 10/19/2017AGE: 46 year oldLOS: 2 daysSubjective Feeling better and wants to go home. Denies any vomiting ormelena/bright red blood per rectum. No dizziness.Admits to taking one baby ASA/day at home and 250mg Motrin/dayREASON FOR ICU ADMISSION: GI Bleeding, Shock and blood loss anemia.ObjectiveVITAL SIGNS (last 24hrs min/max):Temp Av.6 ?C (97.9 ?F) Min: 36.2 ?C (97.2 ?F) Max: 37.1 ?C (98.8 ?F)Pulse Av.2 Min: 92 Max: 135No Data RecordedCuff BP Min: 110/68 Max: 144/90Pain Score: 0/10Vital signs reviewed.BP 143/80 Pulse 104 Temp (Src) 97.3 (Tympanic) Resp 20 Ht 5' 9 (1.75m) Wt 267 lb 3.2 oz (121.2kg) SpO2 100% BMI 39.44 kg/(m2).Temp (24hrs), Av.6 ?C (97.9 ?F), Min:36.2 ?C (97.2 ?F), Max:37.1 ?C (98.8?F)NET FLUID BALANCEIntake/Output Summary (Last 24 hours) at 10/21/17 1401Last data filed at 10/21/17 1300 Gross per 24 hourIntake 7376 mlOutput 3128 mlNet 4248 mlMEDICATIONSCurrent Facility-Administered Medications:potassium chloride 80-120 mEq oral liquid 80-120 mEq ORAL/FEEDING TUBE PRNpotassium chloride iv piggyback 20 mEq in sterile water 100 mL 20 mEqINTRAVENOUS PRNmagnesium sulfate in water 2 g in sterile water 50 ml 2 g INTRAVENOUS PRNsodium phosphate 45 mmol in NaCl 0.9% 250 mL 45 mmol INTRAVENOUS PRNcalcium gluconate 4 g in NaCl 0.9% 250 mL 4 g INTRAVENOUS PRNpantoprazole 40 mg injection (PROTONIX) 40 mg INTRAVENOUS q 12 HRciprofloxacin 400 mg in D5W 200 mL (CIPRO) 400 mg INTRAVENOUS q 12 HmetroNIDAZOLE 500 mg PREMIX piggyback (FLAGYL) 500 mg INTRAVENOUS q 8 Hlactated ringers infusion 100 mL/hr INTRAVENOUS CONTINUOUSLines, Drains, and Airways Line Peripheral 10/19/17 Admission to Hospital Short Left Forearm 22 Gauge 2 days Peripheral 10/20/17 2100 Short Right Antecubital 20 Gauge less than 1 dayPHYSICAL EXAM PERFORMED:HEENT:Oral Mucosa: Moist mucous membranes and pale. Feeding Tube: NoEyes: PERRLA Neck: Unremarkable; No adenopathy or JVDCardiovascular: Regular tachycardiaRespiratory: Clear to auscultationNo Data RecordedAbdomen: Soft, Nontender and Positive bowel soundsExtremities: Edema- No Peripheral Pulses- Present all extremities CapillaryRefill- less than 3 secondsSkin: Abnormalities- NoNeurologic: Awake, oriented, Alert, Follows commands and Moving all extremitiesRespiratory/Nursin g Documentation:O2 Therapy: Room Air (10/21/17 1200)HEMODYNAMIC DATA:NUTRITION:Enteral Feeds: NoNPODATA:Diagnostic tests reviewed for today's visit:Most recent labs and imaging results.LABS:Recent Labs 10/22/1803TROPI -- -- -- -- -- 0.016WBC -- -- -- 11.63* < > 15.52*RBC -- -- -- 2.58* < > 3.06*HB 7.7* 7.9* < > 7.9* < > 9.3*HCT 23.1* 23.3* < > 26.0* < > 28.4*MCV -- -- -- 100.8* < > 92.8PLT -- -- -- 239 < > 358GLUC -- 111* -- -- -- 101*BUN -- 15 -- -- -- 25*CREAT -- 0.53 -- -- -- 0.59NA -- 138 -- -- -- 140K -- 3.3* -- -- -- 3.7CHLOR -- 109* -- -- -- 109*CO2 -- 23 -- -- -- 24TPROT -- -- -- -- -- 7.1ALB -- -- -- -- -- 3.7CA -- 8.1* -- -- -- 8.6ALKPHOS -- -- -- -- -- 72TBILI -- -- -- -- -- 0.3AST -- -- -- -- -- 14ALT -- -- -- -- -- 13PTSEC -- -- -- -- -- 10.4APTT -- -- -- -- -- 23.0INR -- -- -- -- -- 0.98< > = values in this interval not displayed.ABG:Invalid input(s): D3AYPRUIRRNGBTME: N/ACXR FINDINGS: N/AOTHER IMAGING: N/AAssessment/PlanPROBLEMS: ACTIVE PROBLEM LISTGI BleedMelenaColitisHematochezi a1. Suspected UGI bleeding2. Severe anemia--had 2 units PRBCs overnight.3. Resting [id number]. HypokalemiaPLANS FOR TODAY:CRITICAL CARE PLAN:IV fluids and EGD today.Transfuse for Hgb <7gm or 7-8g with resting tachycardiaFollow up K at 6PM?Need to continue ATBx?This patient has a high probability of sudden, clinically significantdeterioration, which requires the highest level of physician preparedness tointervene urgently. I managed/supervised life or organ supporting interventionsthat required frequent physician assessment. I devoted my full attention to thedirect care of this patient for the amount of time indicated below. Time Ispent with family or surrogate(s) is included only if the patient was incapableof providing the necessary information or participating in medical decisionmaking. Time devoted to teaching is not included.Patient Updated YesFamily Updated YesDiscussed with Staff YesTime spent providing critical care services: 35 minutes excluding procedures.SIGNATURE: Cruzito Anton MD PATIENT NAME: Jaylen MoralesTE: October 21, 2017 : 2:01 PM PAGER/CONTACT #: [phone] DIAZ 10/21/2017 2:17 PM SignedMEDICATION HISTORYPatient Name:Brunilda BakereMRN: [id number]: 1970Source of history:Patient: Reliability of source: no recent fill history forgabapentin/clonazepam/fong xicam but patient reported she was taking them andPharmacy records: [facility]Medication Nonadherence Identified: No barriers notedThe above information represents the best possible medication history: YesAdditional comments: Of note, I added excedrin and advil which could play a rolein the current GI bleed. Patient has not filled Mobic since 03/2017. Will restartwellbutrin and lexapro when appropriate.Allergies:ALLERGI ESAllergen Reactions- Codeine Vomiting- Morphine VomitingPreferred Pharmacy: [facility] [facility] and [place] ([address])Current [employer] Medications:Prior to Admission medications as of 10/21/17 1410Medication Sig Last Dose Takingibuprofen (ADVIL) 200 mg tablet Take 200 mg by mouth once daily as needed forPain. Yesaspirin/acetaminophen/caff eine (EXCEDRIN MIGRAINE ORAL) Take 1 tablet by mouthonce daily as needed. Yesaspirin 81 mg chewable tablet Take 81 mg by mouth once daily. Yesgabapentin (NEURONTIN) 400 mg capsule Take 400 mg by mouth three times daily.Yesmetoprolol succinate ER (TOPROL XL) 100 mg Tb24 Take 100 mg by mouth once daily.YesOlmesartan-Hydrochlo rothiazide (BENICAR HCT) 40-25 mg per tablet Take 1 tabletby mouth once daily. Yesmeloxicam (MOBIC) 15 mg tablet Take 15 mg by mouth once daily. YesclonazePAM (KLONOPIN) 0.5 mg tablet Take 0.5 mg by mouth three times daily asneeded for Anxiety. YesbuPROPion XL (WELLBUTRIN XL) 300 mg ORAL 24 hr tablet Take 300 mg by mouth oncedaily. Purvi GUZMAN PHARMACISTApril 2017 2:12 PM Normal [facility] Hemogramon 10-19-2017 Erythrocyte distribution width Auto Ratio (RBC) 13.1 % Normal 11.7-14.4 [facility] Comment on above: Performed By: #### C BC1 ####[address] [address] Erythrocytes (RBC) 2.61 mil/cmm Low 3.93-5.22 [facility] Comment on above: Performed By: #### C BC1 ####[facility] [place], [place] [address] Hematocrit (HCT) 24.3 % Low 34.1-44.9 [facility] Comment on above: Performed By: #### C BC1 ####[address] [address] Hemoglobin mass conc (Bld) 8.0 g/dL Low 11.2-15.7 [facility] Comment on above: Performed By: #### C BC1 ####[facility] [place], [place] [address] MCH 30.7 pg Normal 25.6-32.2 [facility] Comment on above: Performed By: #### C BC1 ####[facility] [place], [place] [address] MCHC mass conc (RBC) 32.9 % Normal 31.6-34.8 [facility] Comment on above: Performed By: #### C BC1 ####[address] [address] MCV 93.1 fL Normal 79.4-94.8 [facility] Comment on above: Performed By: #### C BC1 ####[address] [address] Platelet mean volume (PMV) 9.8 fL Normal 9.4-12.3 [facility] Comment on above: Performed By: #### C BC1 ####[address] [address] Platelets 302 thou/cmm Normal 182-369 [facility] Comment on above: Performed By: #### C BC1 ####[address] [address] RDW SD 44.0 fl Normal 36.4-46.3 [facility] Comment on above: Performed By: #### C BC1 ####[address] [address] WBC (Leukocytes) 13.96 thou/cmm High 3.98-10.04 [facility] Comment on above: Performed By: #### C BC1 ####[address] [address] Erythrocyte distribution width Auto Ratio (RBC) 13.0 % Normal 11.7-14.4 [facility] Comment on above: Performed By: #### C BC1 ####[address] [address] Erythrocytes (RBC) 3.06 mil/cmm Low 3.93-5.22 [facility] Comment on above: Performed By: #### C BC1 ####[facility] [place], [place] [address] Hematocrit (HCT) 28.4 % Low 34.1-44.9 [facility] Comment on above: Performed By: #### C BC1 ####[address] [address] Hemoglobin mass conc (Bld) 9.3 g/dL Low 11.2-15.7 [facility] Comment on above: Performed By: #### C BC1 ####[address] [address] MCH 30.4 pg Normal 25.6-32.2 [facility] Comment on above: Performed By: #### C BC1 ####[address] [address] MCHC mass conc (RBC) 32.7 % Normal 31.6-34.8 [facility] Comment on above: Performed By: #### C BC1 ####[address] [address] MCV 92.8 fL Normal 79.4-94.8 [facility] Comment on above: Performed By: #### C BC1 ####[address] [address] Platelet mean volume (PMV) 9.9 fL Normal 9.4-12.3 [facility] Comment on above: Performed By: #### C BC1 ####[address] [address] Platelets 358 thou/cmm Normal 182-369 [facility] Comment on above: Performed By: #### C BC1 ####[address] [address] RDW SD 43.8 fl Normal 36.4-46.3 [facility] Comment on above: Performed By: #### C BC1 ####[address] [address] WBC (Leukocytes) 15.52 thou/cmm High 3.98-10.04 [facility] Comment on above: Performed By: #### C BC1 ####[place] [address] MDRD GFRon 10-19-2017 eGFR (non-black) mL/min/{1.73_m2} Normal >60mL/m in/ 1.73m2 [facility] Comment on above: Result Comment: If t he patient is , multiply the result by 1.210. Performed By: #### G FR ####[place] [address] MRSA Screenon 10-19-2017 MRSA Screen Test performed at [facility] No MRSA detected. Normal [facility] Comment on above: Performed By: #### A PTT ####[place] [address] Protimeon 10-19-2017 INR Coag RelTime (PPP) 0.98 {INR} Normal [facility] Comment on above: Result Comment: Jonn dard Therapy 2.0-3.0High Dose 2.5-3.5 Performed By: #### P T ####[place] [address] Prothrombin time (PT) Coag time (PPP) 10.4 s Normal 9.3-11.9 [facility] Comment on above: Performed By: #### P T ####[place] [address] Troponin Ion 10-19-2017 Troponin I.cardiac mass conc 0.016 ng/mL Normal 0.015-0.04 5 [facility] Comment on above: Performed By: #### T ROP ####[place] [address] Type and Screenon 10-19-2017 ABO group O Normal [facility] Comment on above: Performed By: #### T &S ####[place] [address] Antibody Screen Negative Normal [facility] Comment on above: Performed By: #### T &S ####[place] [address] Comment See Below Normal [facility] Comment on above: Result Comment: Scre en &/or Xmatch expires in 3 days at 12 midnight. Redrawpatient at that time. Performed By: #### T &S ####[facility] [place] [address] RH Type Positive Normal [facility] Comment on above: Performed By: #### T &S ####[facility] [place] [address] Vital Signs Date Time Vital Sign Value Performing Clinician Elmai lity 03-25-2025 11:04-0400 Body height 175 cm Hardik Cortes MD Work Phone: [facility] 03-25-2025 11:04-0400 Body height 175.26 cm Hardik Cortes MD Work Phone: [facility] 03-25-2025 11:04-0400 Body mass index (BMI) [Ratio] 37.94 kg/m2 Hardik Cortes MD Work Phone: [facility] 03-25-2025 11:04-0400 Body weight 116 kg Hardik Cortes MD Work Phone: [facility] 03-25-2025 11:04-0400 Body weight 116.12 kg Hardik Cortes MD Work Phone: [facility] 03-25-2025 11:04-0400 BP SITE #1 Hardik Crotes MD Work Phone: [facility] 03-25-2025 11:04-0400 Diastolic blood pressure 89 mm[Hg] Hardik Cortes MD Work Phone: [facility] 03-25-2025 11:04-0400 Heart rate 72 /min Hardik Cortes MD Work Phone: [facility] 03-25-2025 11:04-0400 HGHTCHNVIS Hardik Cortes MD Work Phone: [facility] 03-25-2025 11:04-0400 Systolic blood pressure 131 mm[Hg] Hardik Cortes MD Work Phone: [facility] 03-25-2025 11:04-0400 VITALSDONE Hardik Cortes MD Work Phone: [facility] 03-09-2025 12:48-0400 Body height 175 cm Hardik Cortes MD Work Phone: [facility] 03-09-2025 12:48-0400 Body height 175.26 cm Hardik Cortes MD Work Phone: [facility] 03-09-2025 12:48-0400 Body mass index (BMI) [Ratio] 37.94 kg/m2 Hardik Cortes MD Work Phone: [facility] 03-09-2025 12:48-0400 Body weight 116 kg Hardik Cortes MD Work Phone: [facility] 03-09-2025 12:48-0400 Body weight 116.12 kg Hardik Cortes MD Work Phone: [facility] 03-09-2025 12:48-0400 BP SITE #1 Hardik Cortes MD Work Phone: [facility] 03-09-2025 12:48-0400 Diastolic blood pressure 65 mm[Hg] Hardik Cortes MD Work Phone: [facility] 03-09-2025 12:48-0400 Heart rate 73 /min Hardik Cortes MD Work Phone: [facility] 03-09-2025 12:48-0400 HGHTCHNVIS Hardik Cortes MD Work Phone: [facility] 03-09-2025 12:48-0400 Systolic blood pressure 130 mm[Hg] Hardik Cortes MD Work Phone: [facility] 03-09-2025 12:48-0400 VITALSDONE Hardik Cortes MD Work Phone: [facility] 12-02-2024 11:34-0400 Body height 174.6 cm Pablo Kingsley MD Work Phone: [facility] 12-02-2024 11:34-0400 Body mass index (BMI) [Ratio] 37.49 kg/m2 Pablo Kingsley MD Work Phone: [facility] 12-02-2024 11:34-0400 Body weight 114.31 kg Pablo Kingsley MD Work Phone: [facility] 12-02-2024 11:34-0400 Diastolic blood pressure 92 mm[Hg] Pablo Kingsley MD Work Phone: [facility] 12-02-2024 11:34-0400 Systolic blood pressure 148 mm[Hg] Pablo Kingsley MD Work Phone: [facility] 09-06-2024 14:06-0400 Body height 175.[address] Vilma Christina MD Work Phone: [facility] 09-06-2024 14:06-0400 Body mass index (BMI) [Ratio] 37.6 kg/m2 Dr. Vilma Christina MD Work Phone: [facility] 09-06-2024 14:06-0400 Body temperature 98 [degF] Dr. Vilma Christina MD Work Phone: [facility] 09-06-2024 14:06-0400 Body weight 115.[address] Vilma Christina MD Work Phone: [facility] 09-06-2024 14:06-0400 Diastolic blood pressure 110 mm[Hg] Dr. Vilma Christina MD Work Phone: [facility] 09-06-2024 14:06-0400 Heart rate 106 /min Dr. Vilma Christina MD Work Phone: [facility] 09-06-2024 14:06-0400 Respiratory rate 16 /min Dr. Vilma Christina MD Work Phone: [facility] 09-06-2024 14:06-0400 SaO2% (BldA) [Mass fraction] 97 % Dr. Vilma Christina MD Work Phone: [facility] 09-06-2024 14:06-0400 Systolic blood pressure 171 mm[Hg] Dr. Vilma Christina MD Work Phone: [facility] 12-02-2023 11:06-0400 Body height 172.7 cm Pablo Kingsley MD Work Phone: [facility] 12-02-2023 11:06-0400 Body mass index (BMI) [Ratio] 38.5 kg/m2 Pablo Kingsley MD Work Phone: [facility] 12-02-2023 11:06-0400 Body weight 114.85 kg Pablo Kingsley MD Work Phone: [facility] 12-02-2023 11:06-0400 Diastolic blood pressure 80 mm[Hg] Pablo Kingsley MD Work Phone: [facility] 12-02-2023 11:06-0400 Systolic blood pressure 138 mm[Hg] Pablo Kingsley MD Work Phone: [facility] 09-02-2023 15:39-0500 Body temperature 98.7 [degF] [facility] 09-02-2023 15:39-0500 Diastolic blood pressure 88 mm[Hg] [facility] 09-02-2023 15:39-0500 Heart rate 97 /min [facility] 09-02-2023 15:39-0500 Respiratory rate 14 /min [facility] 09-02-2023 15:39-0500 SaO2% (BldA) [Mass fraction] 99 % [facility] 09-02-2023 15:39-0500 Systolic blood pressure 177 mm[Hg] [facility] 09-02-2023 12:09-0500 Body height 175.26 cm [facility] 09-02-2023 12:09-0500 Body mass index (BMI) [Ratio] 39.9 kg/m2 [facility] 09-02-2023 12:09-0500 Body weight 122.46 kg [facility] 12-27-2022 12:15-0400 Body temperature 97.1 [degF] Dr. Alexey Christina Work Phone: [facility] 12-27-2022 12:15-0400 Diastolic blood pressure 71 mm[Hg] Dr. Alexey Christina Work Phone: [facility] 12-27-2022 12:15-0400 Heart rate 65 /min Dr. Alexey Christina Work Phone: [facility] 12-27-2022 12:15-0400 Respiratory rate 16 /min Dr. Alexey Christina Work Phone: [facility] 12-27-2022 12:15-0400 SaO2% (BldA) [Mass fraction] 97 % Dr. Alexey Christina Work Phone: [facility] 12-27-2022 12:15-0400 Systolic blood pressure 122 mm[Hg] Dr. Alexey Christina Work Phone: [facility] 12-27-2022 10:56-0400 Body height 175.[address] Alexey Christina Work Phone: [facility] 12-27-2022 10:56-0400 Body mass index (BMI) [Ratio] 38.4 kg/m2 Dr. Alexey Christina Work Phone: [facility] 12-27-2022 10:56-0400 Body weight [address] Alexey Christina Work Phone: [facility] Encounters Encounter Date Encounter Type Care Provider Facility Start: 03-25-2025 In-person encounter Hardik Cortes MD Work Phone: [facility] Work Phone: Start: 03-25-2025 Visit out of hours Hardik alex MD Work Phone: [facility] Work Phone: Start: 03-09-2025 Visit out of hours Hardik alex MD Work Phone: [facility] Work Phone: Start: 03-09-2025 In-person encounter Hardik Cortes MD Work Phone: [facility] Work Phone: Start: 02-22-2025 End: 02-22-[address] Vilma Christina MD Work Phone: -[facility] [place] Start: 02-22-2025 End: 02-22-[address] Vilma hCristina MD -[facility] [place] Work Phone: Start: 02-22-2025 End: 02-22-2025 ambulatory Vilma Christina Facility:[facility] Start: 01-13-2025 ambulatory ISIDRO Morocho ity:[facility] Start: 01-13-2025 End: 01-13-2025 Subsequent hospital visit by physician [facility] Comment on above: Abnormal mammogram [ R92.8] Start: 01-13-2025 End: 03-15-2025 Follow-up encounter Isidro Bojorquez MD Work Phone: OB/Gynecology Start: 12-31-2024 Encounter for genera l adult medical examination without abnormal findings Vilma Christina [facility] Start: 12-29-2024 End: 12-29-[address] Vilma Christina MD Work Phone: -Laboratory [facility] Start: 12-29-2024 End: 12-29-[address] Vilma Christina MD -Laboratory [place] [facility] Start: 12-29-2024 End: 12-29-2024 ambulatory Vilma Christina Facility:[facility] Start: 12-25-2024 End: 12-25-2024 Telephone encounter Chapis Stephen MD Work Phone: Mammography Comment on above: Mammogram Result Jason l Back Start: 12-23-2024 End: 12-23-2024 Telephone encounter Chapis Stephen MD Work Phone: Mammography Comment on above: Mammogram Result Jason l Back Start: 12-16-2024 End: 02-15-2025 Follow-up encounter Isidro Bojorquez MD Work Phone: OB/Gynecology Start: 12-09-2024 ambulatory PABLO KINGSLEY [facility] ity:[facility] Start: 12-09-2024 End: 12-09-2024 Patient encounter status Screen [facility] Start: 12-09-2024 End: 12-09-2024 Subsequent hospital visit by physician Screen Mammo [facility] Mammogram Comment on above: Encounter for gyneco logical examination (general) (routine) without abnormal findings [Z01.419] Start: 12-02-2024 End: 12-02-2024 Patient encounter procedure Pablo Kingsley MD Work Phone: OB/Gynecology Comment on above: Encounter for gyneco logical examination (general) (routine) without abnormal findings (Primary Dx) Start: 12-02-2024 End: 12-02-2024 Patient encounter status Pablo Kingsley MD Work Phone: [facility] Start: 12-02-2024 End: 12-02-2024 ambulatory PABLO KINGSLEY Facility:[facility] Start: 12-02-2024 Encounter for gynecological examination (general) (routine) without abnormal findings PABLO KINGSLEY [facility] Start: 09-06-2024 End: 09-06-2024 Emergency department patient visit Dr. Vilma Christina MD Work Phone: -Emergency Department Work Phone: Start: 06-11-2024 ambulatory Vilma Sanchez lity:[facility] Start: 12-06-2023 Documentation procedure Mammog talat Coordinator [facility] Department Start: 12-06-2023 Letter encounter Mammography Coordinator [facility] Department Start: 12-05-2023 End: 12-05-2023 Subsequent hospital visit by physician Screen Mammo [facility] Mammogram Comment on above: Encounter for screen ing mammogram for breast cancer [Z12.31] Start: 12-02-2023 End: 12-02-2023 Patient encounter procedure Pablo Kingsley MD Work Phone: OB/Gynecology Comment on above: Encounter for gyneco logical examination (general) (routine) without abnormal findings (Primary Dx); Screening for cervical cancer; Encounter for screening for human papillomavirus (HPV); Encounter for screening mammogram for breast cancer Start: 12-02-2023 End: 12-02-2023 Patient encounter status Pablo Kingsley MD Work Phone: [facility] Start: 09-02-2023 End: 09-02-2023 Emergency department patient visit [facility]-Emergency Department Work Phone: Start: 12-27-2022 Non-patient / Non-visit Dr. Pierre Christina Work Phone: [facility] Start: 12-27-2022 End: 12-27-2022 Admission to same day surgery center Dr. Alexey Christina Work Phone: [facility]-Endoscopy Work Phone: Start: 12-27-2022 End: 12-27-[address] Alexey Christina Work Phone: [facility] Work Phone: Start: 12-24-2022 End: 12-24-2022 ambulatory [facility] Work Phone: Start: 12-24-2022 End: 12-24-2022 Discharged Recurring [facility]-Physical Therapy Start: 09-14-2021 End: 09-14-2021 Patient encounter procedure [facility] Start: 10-19-2017 End: 10-25-2017 Evaluation and management of inpatient SAVANNAH SANCHEZ [facility] Procedures Date Procedure Procedure Detail Performing Clinician Start: 03-25-2025 Blood pressure withi n normal parameters - no follow-up required Hardik Cortes MD Work Phone: Start: 03-25-2025 BMI outside of aby l parameters - no follow-up plan/reason not given Hardik Cortes MD Work Phone: Start: 03-25-2025 Current tobacco non- user cad cap copd pv dm Hardik Cortes MD Work Phone: Start: 03-25-2025 Osteoarthritis sympt oms and functional status not assessed Hardik Cortes MD Work Phone: Start: 03-25-2025 Documentation of cur rent medications Hardik Cortes MD Work Phone: Start: 03-25-2025 Pain assessment docu mented as positive - follow-up documented Hardik Cortes MD Work Phone: Start: 03-25-2025 Arthrocentesis aspir &/inj major jt/bursa w/o us Hardik Cortes MD Work Phone: Start: 03-25-2025 Injection - betameth asone acetate 3 mg and betamethasone sodium phosphate 3 mg Hardik Cortes MD Work Phone: Start: 03-09-2025 Osteoarthritis symptoms&funcjal status asses Hardik Cortes MD Work Phone: Start: 03-09-2025 Blood pressure withi n normal parameters - no follow-up required Hardik Cortes MD Work Phone: Start: 03-09-2025 BMI outside of aby l parameters - no follow-up plan/reason not given Hardik Cortes MD Work Phone: Start: 03-09-2025 Current tobacco non- user cad cap copd pv dm Hardik Cortes MD Work Phone: Start: 03-09-2025 Documentation of cur rent medications Hardik Cortes MD Work Phone: Start: 03-09-2025 Pain assessment docu mented as positive - follow-up documented Hardik Cortes MD Work Phone: Start: 02-22-2025 X-ray of foot, three or more views Dr. Vilma Christina MD Work Phone: Start: 01-13-2025 End: 01-13-2025 Us breast uni real time with image limited Isidro Bojorquez MD Work Phone: Start: 01-13-2025 Digital breast tomosynthesis bilateral Isidro Bojorquez MD Work Phone: Start: 12-29-2024 Urnls dip stick/tabl et reagent auto microscopy Dr. Vilma Christina MD Work Phone: Start: 12-27-[address] Gómez Christina Work Phone: Plan of Treatment Date Care Activity Detail Author Start: 04-11-2032 Urine microalbumin profile DTaP,Tdap,Td Vaccine (2 - Td or Tdap) [facility] Start: 12-01-2028 Screening for malign ant neoplasm of cervix Cervical Cancer Screening [facility] Start: 01-13-2026 Screening for malign ant neoplasm of breast Mammogram Screening [facility] Start: 12-09-2025 Screening for malign ant neoplasm of breast Mammogram Screening [facility] Start: 12-06-2025 End: 12-06-2025 Patient encounter procedure 12/06/2025 8:50 AM EDT Office Visit OB/Gynecology [address] [place] [address] Pablo Kingsley MD [address] [place] [id number] Annual OB/Gynecology Comment on above: Annual Start: 07-20-2025 End: 07-20-2025 Patient encounter procedure Mammogram Comment on above: Right breast diag ma mm and us 6mn fu Start: 03-09-2025 Radiologic exam knee complete 4/more views [employer]. Work Phone: Start: 03-01-2025 Influenza vaccination C [facility] Start: 01-13-2025 End: 01-13-2025 Patient encounter procedure Mammogram Comment on above: Comp- BL CB- KS, CHERELLE DIAGNOSTIC LEFT CB PER CI US BREAST LTD LEFT C B PER CI Start: 12-09-2024 End: 12-09-2024 Patient encounter procedure 12/09/2024 2:20 PM EDT Appointment Mammogram [address] [place] [address] Encounter for gynecological examination (general) (routine) without abnormal findings [Z01.419] Mammogram Comment on above: Encounter for gyneco logical examination (general) (routine) without abnormal findings [Z01.419] Start: 12-04-2024 Screening for malign ant neoplasm of breast Mammogram Screening [facility] Start: 12-02-2024 End: 12-02-2024 Patient encounter procedure 12/02/2024 10:50 AM EDT Office Visit OB/Gynecology [address] [place] [address] Pablo Kingsley MD [address] [place] [address] Annual OB/Gynecology Comment on above: Annual Start: 09-06-2024 [facility] Start: 03-01-2024 Covid-19 Vaccine ( season) Covid-19 Vaccine ( season) [facility] Start: 03-01-2024 Influenza vaccination Influenz a Vaccine (Season Ended) [facility] Start: 12-05-2023 End: 12-05-2023 Patient encounter procedure 12/05/2023 11:10 AM EDT Appointment Mammogram [address] [place] [address] Encounter for screening mammogram for breast cancer [Z12.31] Mammogram Comment on above: Encounter for screen ing mammogram for breast cancer [Z12.31] Start: 09-02-2023 [facility] Start: 07-01-2023 Behavioral Health Screening Behavioral Health Screening [facility] Start: 03-01-2023 Covid-19 Vaccine () Covid-19 Vaccine () [facility] Start: 12-27-2022 Patient discharge [facility] Start: 2022 Pneumococcal Vaccine : 50+ (1 of 1 - PCV) Pneumococcal Vaccine: 50+ (1 of 1 - PCV) [facility] Start: 2022 Shingrix Vaccine (1 of 2) Shingrix Vaccine (1 of 2) [facility] Start: 10-25-2020 Diabetes Screening Diabetes Screenin g [facility] Start: 12-02-2019 Screening for malign ant neoplasm of cervix [facility] Start: 2017 Lipid panel Lipid Screening [facility] Start: 2017 Screening for malign ant neoplasm of colon [facility] Start: 01-04-2016 Screening for malign ant neoplasm of breast Mammogram Screening [facility] Start: 12-23-1991 Hepatitis B Vaccine (1 of 3 - 19+ 3-dose series) Hepatitis B Vaccine (1 of 3 - 19+ 3-dose series) [facility] Start: 1990 Anxiety Screening Anxiety Screening [facility] Start: 1990 Depression Screening Depression Scre ening [facility] Start: 1990 Hepatitis C screening Hepatitis C Sc [facility] Bacteria identified in Urine by Culture [facility] End: 01-01-2026 DBT Breast - bilateral screening CHERELLE SCREENING W ESTRELLA Radiology Routine Encounter for gynecological examination (general) (routine) without abnormal findings 1 Occurrences starting 12/02/2024 until 01/01/[address] [facility] Work Phone: Comment on above: 1 Occurrences starti ng 12/02/2024 until 01/01/2026 DBT Breast - bilater al screening CHERELLE SCREENING W ESTRELLA Radiology Routine Encounter for gynecological examination (general) (routine) without abnormal findings 12/09/2024 2:33 PM EDT [facility] Work Phone: End: 01-15-2026 MG Breast - right Diagnostic for implant CHERELLE DIAGNOSTIC RIGHT Radiology Routine Abnormal mammogram 1 Occurrences starting 12/16/2024 until 01/15/[address] [facility] Work Phone: Comment on above: 1 Occurrences starti ng 12/16/2024 until 01/15/2026 End: 02-12-2026 MG Breast - right Diagnostic for implant CHERELLE DIAGNOSTIC RIGHT Radiology Routine Abnormal mammogram 1 Occurrences starting 01/13/2025 until 02/12/[address] [facility] Work Phone: Comment on above: 1 Occurrences starti ng 01/13/2025 until 02/12/2026 End: 12-31-2024 MG Breast Screening CHERELLE SCREENING Radiology Routine Encounter for screening mammogram for breast cancer 1 Occurrences starting 12/02/2023 until 12/31/[address] [facility] Work Phone: Comment on above: 1 Occurrences starti ng 12/02/2023 until 12/31/2024 MG Breast Screening CHERELLE SCREENIN G Radiology Routine Encounter for screening mammogram for breast cancer 12/05/2023 12:36 PM EDT [facility] Work Phone: PAP TEST PAP TEST Lab Rou kenneth Encounter for gynecological examination (general) (routine) without abnormal findings Screening for cervical cancer Encounter for screening for human papillomavirus (HPV) 12/02/2023 11:41 AM EDT [facility] Patient Education [facility] Work Phone: Patient referral [facility] Work Phone: End: 02-12-2026 US Breast - right limited US BREAST LTD RIGHT Radiology Routine Abnormal mammogram 1 Occurrences starting 01/13/2025 until 02/12/2026 [facility] Comment on above: 1 Occurrences starti ng 01/13/2025 until 02/12/2026 Immunizations Immunization Date Immunization Notes Care Provider Fa [facility] 04-11-2022 influenza virus vaccine, unspecified formulation Pablo Kingsley MD Work Phone: [facility] 03-31-2015 Influenza virus vaccine [facility] Payers Date Payer Category Payer Self-pay [id number] 2019 Private Health Insurance MMO SU[employer] PPO [id number] 2019 Unknown MMO MMO [employer] PPO [id number] 2019-Present [phone] [address] [place] [address] PPO [id number] 2014 Unknown [id number] Unknown [id number] Unknown [id number] Unknown [id number] Unknown [id number] Social History Date Type Detail Facility Start: 04-12-2021 End: 09-02-2023 Tobacco smoking status NYIS Unknown if ever smoked [facility] Start: 1970 Sex Assigned At Female [facility] Start: 09-03-2015 None [facility] Start: 09-03-2015 Non-smoker [facility] Start: 12-02-2023 End: 09-06-2024 Tobacco smoking status NHIS Never smoked tobacco [facility] Start: 12-02-2023 Tobacco use and exposure Smokeless tobacco non-user [facility] Start: 12-02-2023 End: 12-02-2024 Alcohol intake Current drinker of alcohol (finding) [facility] Start: 10-19-2017 End: 12-02-2023 History of Social function [facility] Start: 12-02-2023 End: 03-25-2025 Tobacco use panel [facility] Start: 06-01-2012 Retired 07/30/2019 PHQ Score 0 [facility] Start: 06-08-2011 Alcohol Comment SOCIALLY- once per month [facility] Start: 1970 Sex Assigned At Not on file [facility] Start: 09-06-2024 Sex Female (finding) [facility] NEGATED: Highlighted row [facility] NEGATED: Highlighted rowStart: NINF History of tobacco use Passive smoker [facility] Goals Date Patient Goal Desired Activity /State Functional Status Date Assessment Result Facility 10-25-2017 Are you deaf, or do you have serious difficulty hearing No 10/25/2017 11:00 AM Latanya Matias APRN.CNP [facility] Work Phone: 10-25-2017 Are you blind, or do you have serious difficulty seeing, even when wearing glasses No 10/25/2017 11:00 AM Latanya Matias APRN.CNP No [facility] 10-25-2017 Do you have serious difficulty walking or climbing stairs No 10/25/2017 11:00 AM Latanya Matias APRN.ASHLEY No [facility] 10-25-2017 Do you have difficul ty dressing or bathing No 10/25/2017 11:00 AM Latanya Matias APRN.AHSLEY No [facility] 10-25-2017 Because of a physica l, mental, or emotional condition, do you have difficulty doing errands alone such as visiting a physician's office or shopping No 10/25/2017 11:00 AM Latanya Matias APRN.CNP No [facility] Mental Status Date Assessment Result Facility 12-27-2022 Cognitive function Voice/Name [facility] Work Phone: 10-25-2017 Because of a physica l, mental, or emotional condition, do you have serious difficulty concentrating, remembering, or making decisions No 10/25/2017 11:00 AM Latanya Matias APRN.ASHLEY No [facility] Clinical Notes 12-24-2022 to 02-22-2025 Jaja Anderson, RDMS - 01/13/2025 3:00 PM EDASIYABeto rico, Mammo Tech - 01/13/2025 2:30 PM EDWaleskaNan, Mammo Tech - 12/09/2024 2:20 PM Pablo Godinez MD - 12/02/2024 11:29 AM EDT Note Date & Type Note Facility 02-22-2025 Radiology Diagnostic study note [facility] Imaging Services [address] [place], [place] [address] Foot min 3 Views MR#: [id number] Acct: [id number] Name: JAYLEN ELIZALDE Rep #: [id number] : 1970 F 54 From: Flip Aparicio MD PCP: Dr. Vilma Christina MD Status: REG CLI Study:Foot min 3 Views Date of Exam: Exam# [id number] Ordering Dr: Frederic Christina MD PROCEDURE: FOOT MIN 3 VIEWS 02/22/2025 REASON FOR EXAM: R 4TH MT AND TOE PAIN TECHNIQUE: FOOT MIN 3 VIEWS Laterality: Right COMPARISON: None. RAD/Foot min 3 Views IMPRESSION: A mildly displaced oblique intra-articular FRACTURE of the base of the right 4thproximal phalanx is seen. No radiopaque foreign body is seen. Mild degenerative changes are seen of the 1st ray; no hallux valgus deformity isnoted. Mild degenerative changes are seen of the midfoot. Moderate inferior and posterior calcaneal spurring is seen. Normal contour of the Achilles tendon is seen in the lateral view. Reading Location: [place] [address] CC: Dr. Vilma Christina MD ~ Sheet Cutting Operator: Signed [facility] 01-13-2025 History of Present illness Narrative Radiology Service Progress Note PATIENT NAME: Jaylen Elizalde DATE OF SERVICE: January 13, 2025 TIME: 4:46 PM PATIENT IDENTITY VERIFICATION COMPLETED USING TWO (2) IDENTIFIERS: Name and Date of confirmed by patient verbally. FALL SCREENING: Has the patient had 2 falls in the last year or 1 fall with injury or currently using an Ambulatory Assistive Device (Walker, Cane, Wheelchair, Crutches, etc.)? No PATIENT GENDER DATA: Assigned female at . status: : No status: NO. PATIENT RELEVANT IMPLANT DATA REVIEWED: Not Applicable PATIENT PRESENTS WITH AN IMPLANTABLE OR ATTACHED FOAM RUBBER FABRICATOR: No RADIOLOGY DEPARTMENT: Ultrasound PERIPHERAL IV DATA: Not applicable SIGNED BY: Jaja Anderson RDMS January 13, 2025 4:46 PM documented in this encounter [facility] 01-13-2025 Note HNO ID: [id number] Author: JAJA ANDERSON RDMS Service: ? Author Type: Boring Mill Set Up Operator Type: Progress Notes Filed: 01/13/2025 16:46 Note Text: Radiology Service Progress Note PATIENT NAME: Jaylen Elizalde DATE OF SERVICE: January 13, 2025 TIME: 4:46 PM PATIENT IDENTITY VERIFICATION COMPLETED USING TWO (2) IDENTIFIERS: Name and Date of confirmed by patient verbally. FALL SCREENING: Has the patient had 2 falls in the last year or 1 fall with injury or currently using an Ambulatory Assistive Device (Walker, Cane, Wheelchair, Crutches, etc.)? No PATIENT GENDER DATA: Assigned female at . status: : No status: NO. PATIENT RELEVANT IMPLANT DATA REVIEWED: Not Applicable PATIENT PRESENTS WITH AN IMPLANTABLE OR ATTACHED FOAM RUBBER FABRICATOR: No RADIOLOGY DEPARTMENT: Ultrasound PERIPHERAL IV DATA: Not applicable SIGNED BY: Jaja Anderson RDMS January 13, 2025 4:46 PM [facility] 01-13-2025 History of Present illness Narrative Radiology Service Progress Note PATIENT NAME: Jaylen Elizalde DATE OF SERVICE: January 13, 2025 TIME: 3:55 PM PATIENT IDENTITY VERIFICATION COMPLETED USING TWO (2) IDENTIFIERS: Name and Date of confirmed by patient verbally. FALL SCREENING: Has the patient had 2 falls in the last year or 1 fall with injury or currently using an Ambulatory Assistive Device (Walker, Cane, Wheelchair, Crutches, etc.)? No PATIENT GENDER DATA: Assigned female at . status: : No status: NO. PATIENT RELEVANT IMPLANT DATA REVIEWED: Not Applicable PATIENT PRESENTS WITH AN IMPLANTABLE OR ATTACHED FOAM RUBBER FABRICATOR: No RADIOLOGY DEPARTMENT: Mammography PERIPHERAL IV DATA: Not applicable SIGNED BY: Ivonne Hernandez January 13, 2025 3:55 PM documented in this encounter [facility] 01-13-2025 Note HNO ID: [id number] Author: BETO FAJARDO Mammo Tech Service: ? Author Type: Technologist Type: Progress Notes Filed: 01/13/2025 15:55 Note Text: Radiology Service Progress Note PATIENT NAME: Jaylen Elizalde DATE OF SERVICE: January 13, 2025 TIME: 3:55 PM PATIENT IDENTITY VERIFICATION COMPLETED USING TWO (2) IDENTIFIERS: Name and Date of confirmed by patient verbally. FALL SCREENING: Has the patient had 2 falls in the last year or 1 fall with injury or currently using an Ambulatory Assistive Device (Walker, Cane, Wheelchair, Crutches, etc.)? No PATIENT GENDER DATA: Assigned female at . status: : No status: NO. PATIENT RELEVANT IMPLANT DATA REVIEWED: Not Applicable PATIENT PRESENTS WITH AN IMPLANTABLE OR ATTACHED FOAM RUBBER FABRICATOR: No RADIOLOGY DEPARTMENT: Mammography PERIPHERAL IV DATA: Not applicable SIGNED BY: Ivonne Hernandez January 13, 2025 3:55 PM [facility] 12-09-2024 History of Present illness Narrative Radiology Service Progress Note PATIENT NAME: Jaylen Elizalde DATE OF SERVICE: December 09, 2024 TIME: 2:38 PM PATIENT IDENTITY VERIFICATION COMPLETED USING TWO (2) IDENTIFIERS: Name and Date of confirmed by patient verbally. FALL SCREENING: Has the patient had 2 falls in the last year or 1 fall with injury or currently using an Ambulatory Assistive Device (Walker, Cane, Wheelchair, Crutches, etc.)? No PATIENT GENDER DATA: Assigned female at . status: : No status: NO. PATIENT RELEVANT IMPLANT DATA REVIEWED: Not Applicable PATIENT PRESENTS WITH AN IMPLANTABLE OR ATTACHED FOAM RUBBER FABRICATOR: No RADIOLOGY DEPARTMENT: Mammography PERIPHERAL IV DATA: Not applicable SIGNED BY: Ivonne Farrar December 09, 2024 2:38 PM documented in this encounter [facility] 12-09-2024 Note HNO ID: [id number] Author: NAN DEL ANGEL Mammo Tech Service: ? Author Type: Boring Mill Set Up Operator Type: Progress Notes Filed: 12/09/2024 14:38 Note Text: Radiology Service Progress Note PATIENT NAME: Jaylen Elizalde DATE OF SERVICE: December 09, 2024 TIME: 2:38 PM PATIENT IDENTITY VERIFICATION COMPLETED USING TWO (2) IDENTIFIERS: Name and Date of confirmed by patient verbally. FALL SCREENING: Has the patient had 2 falls in the last year or 1 fall with injury or currently using an Ambulatory Assistive Device (Walker, Cane, Wheelchair, Crutches, etc.)? No PATIENT GENDER DATA: Assigned female at . status: : No status: NO. PATIENT RELEVANT IMPLANT DATA REVIEWED: Not Applicable PATIENT PRESENTS WITH AN IMPLANTABLE OR ATTACHED FOAM RUBBER FABRICATOR: No RADIOLOGY DEPARTMENT: Mammography PERIPHERAL IV DATA: Not applicable SIGNED BY: Ivonne Farrar December 09, 2024 2:38 PM [facility] 12-02-2024 Note HNO ID: [id number] Author: PABLO KINGSLEY MD Service: ? Author Type: Physician Type: Progress Notes Filed: 12/02/2024 12:06 Note Text: Jaylen is a 53 year old who presents for an annual gynecologic exam without complaints. Postmenopausal: had ablation HRT use: No. OB History Gravida2 Para2 Term0 Preterm0 AB0 Living2 SAB0 IAB0 Ectopic0 Multiple0 Live Births0 Mail Manager History LMP: 04/26/2011, Ablation Age at Menarche: Age at First : Age at Menopause: Mail Manager History Comments: Sexual Activity: Yes; Male Contraception: No contraception data on record PAST MEDICAL HISTORY Diagnosis Date Essential hypertension, benign GI bleed H/O degenerative disc disease Hematochezia Peptic ulcer disease Pulmonary embolism (HCC) 07/2009 pt reports 3 emboli Pulmonary embolism (HCC) S/P endometrial ablation PAST SURGICAL HISTORY Procedure Laterality Date ADENOIDECTOMY PRIMARY Adenoidectomy CARPAL TUNNEL 11/29/2014 CERVICAL/THORACIC ORTHOSIS/OANDP 01/25/2014 cervical fusion 4,5,6 EGD 10/21/2017 EXTRACTION, ERUPTED TOOTH OR EXPOSED ROOT (ELEVATION AND/OR FORCEPS REMOVAL) WISDOM TEETH LAPAROSCOPY SURG CHOLECYSTOENETEROSTOMY 2004 POST-CATARACT LASER SURGERY Bilateral TONSILLECTOMY PRIMARY/SECONDARY Tonsillectomy FAMILY HISTORY Problem Relation Age of Onset Cancer Mother THYROID AND BREAST Hypertension Father Diabetes Father Coronary Artery Disease Maternal Grandfather Stroke Maternal Grandfather SOCIAL HISTORY Social History Tobacco Use Smoking status: Never Passive exposure: Never Smokeless tobacco: Never Vaping Use Vaping status: Never Used Substance Use Topics Alcohol use: Yes Comment: SOCIALLY- once per month Drug use: No REVIEW OF SYSTEMS Abdomen: No abdominal pain, nausea, vomiting, diarrhea, or constipation. No bloating, early satiety, indigestion, or increased flatulence. Bladder: No dysuria, gross hematuria, urinary frequency, urinary urgency, or incontinence Breast: No breast lumps, nipple d/c, overlying skin changes, redness or skin retraction Allergies and current medication updated:Yes SENSITIVE EXAM: The sensitive examination was discussed with the Patient or Patient's Authorized Movie Producer. As applicable, any other physician, advance practice provider, medical student, or other health professional student that will be observing or involved in the sensitive examination for educational or training purposes was discussed with the Patient or Authorized Movie Producer. The Patient or Authorized Movie Producer has agreed to proceed with the sensitive examination. (Sensitive examination includes inspection and/or palpation of the breasts, pelvis, prostate and anorectal regions). EXAM: BP 148/92 Ht 5' 8.75 (1.75m) Wt 252 lb (114.3kg) LMP 04/26/2011 BMI 37.50 kg/(m2). GENERAL: pleasant, female in no apparent distress HEENT: Normocephalic, atraumatic, mucus membranes moist, and no lesions NECK: Supple, full range of motion, no adenopathy, and thyroid normal DERMATOLOGY: Normal, without lesions, non-icteric, and non-hirsute BREAST: soft, non-tender, symmetric, no dominant mass, normal nipple-areolar complex, no lymphadenopathy, no nipple discharge, and rightside slightly larger as always CHEST: Normal inspiratory effort ABDOMEN: soft, non-tender, and no masses PELVIC: external genitalia normal, normal Bartholin's glands, urethra, Ester's glands, no vulvar lesions, no cervical lesions, good vaginal support, physiologic discharge present, normal appearing perineal body and perianal region BIMANUAL: uterus normal size, shape and consistency, no adnexal masses, and non-tender RECTOVAGINAL: rectovaginal exam negative for any masses or nodularity. NEURO: alert and oriented x3,exam grossly non-focal EXTREMITIES: normal ASSESSMENT/PLAN: 1) Health maintenance: Mammogram due December 2024 2) Follow up one year or sooner as needed Pablo Kingsley MD [facility] 12-02-2024 History of Present illness Narrative Jaylen is a 53 year old who presents for an annual gynecologic exam without complaints. Postmenopausal: had ablation HRT use: No. OB History Gravida2 Para2 Term0 Preterm0 AB0 Living2 SAB0 IAB0 Ectopic0 Multiple0 Live Births0 Mail Manager History LMP: 04/26/2011, Ablation Age at Menarche: Age at First : Age at Menopause: Mail Manager History Comments: Sexual Activity: Yes; Male Contraception: No contraception data on record PAST MEDICAL HISTORY Diagnosis Date Essential hypertension, benign GI bleed H/O degenerative disc disease Hematochezia Peptic ulcer disease Pulmonary embolism (HCC) 07/2009 pt reports 3 emboli Pulmonary embolism (HCC) S/P endometrial ablation PAST SURGICAL HISTORY Procedure Laterality Date ADENOIDECTOMY PRIMARY <AGE 14 Adenoidectomy CARPAL TUNNEL 11/29/2014 CERVICAL/THORACIC ORTHOSIS/O&P 01/25/2014 cervical fusion 4,5,6 EGD 10/21/2017 EXTRACTION, ERUPTED TOOTH OR EXPOSED ROOT (ELEVATION AND/OR FORCEPS REMOVAL) WISDOM TEETH LAPAROSCOPY SURG CHOLECYSTOENETEROSTOMY 2004 POST-CATARACT LASER SURGERY Bilateral TONSILLECTOMY PRIMARY/SECONDARY <AGE 14 Tonsillectomy FAMILY HISTORY Problem Relation Age of Onset Cancer Mother THYROID AND BREAST Hypertension Father Diabetes Father Coronary Artery Disease Maternal Grandfather Stroke Maternal Grandfather SOCIAL HISTORY Social History Tobacco Use Smoking status: Never Passive exposure: Never Smokeless tobacco: Never Vaping Use Vaping status: Never Used Substance Use Topics Alcohol use: Yes Comment: SOCIALLY- once per month Drug use: No REVIEW OF SYSTEMS Abdomen: No abdominal pain, nausea, vomiting, diarrhea, or constipation. No bloating, early satiety, indigestion, or increased flatulence. Bladder: No dysuria, gross hematuria, urinary frequency, urinary urgency, or incontinence Breast: No breast lumps, nipple d/c, overlying skin changes, redness or skin retraction Allergies and current medication updated:Yes SENSITIVE EXAM: The sensitive examination was discussed with the Patient or Patient's Authorized Movie Producer. As applicable, any other physician, advance practice provider, medical student, or other health professional student that will be observing or involved in the sensitive examination for educational or training purposes was discussed with the Patient or Authorized Movie Producer. The Patient or Authorized Movie Producer has agreed to proceed with the sensitive examination. (Sensitive examination includes inspection and/or palpation of the breasts, pelvis, prostate and anorectal regions). EXAM: BP 148/92 Ht 5' 8.75 (1.75m) Wt 252 lb (114.3kg) LMP 04/26/2011 BMI 37.50 kg/(m^2). GENERAL: pleasant, female in no apparent distress HEENT: Normocephalic, atraumatic, mucus membranes moist, and no lesions NECK: Supple, full range of motion, no adenopathy, and thyroid normal DERMATOLOGY: Normal, without lesions, non-icteric, and non-hirsute BREAST: soft, non-tender, symmetric, no dominant mass, normal nipple-areolar complex, no lymphadenopathy, no nipple discharge, and rightside slightly larger as always CHEST: Normal inspiratory effort ABDOMEN: soft, non-tender, and no masses PELVIC: external genitalia normal, normal Bartholin's glands, urethra, Ester's glands, no vulvar lesions, no cervical lesions, good vaginal support, physiologic discharge present, normal appearing perineal body and perianal region BIMANUAL: uterus normal size, shape and consistency, no adnexal masses, and non-tender RECTOVAGINAL: rectovaginal exam negative for any masses or nodularity. NEURO: alert and oriented x3,exam grossly non-focal EXTREMITIES: normal ASSESSMENT/PLAN: 1) Health maintenance: Mammogram due December 2024 2) Follow up one year or sooner as needed Pablo Kingsley MD documented in this encounter [facility] 09-06-2024 Discharge summary [facility] 09-06-2024 Discharge summary Note Date/Time September 06, 2024 2:35pm [facility] Medical Records Department [address] [place] [address] Emergency Department Summary 09/06/24 MR#: [id number] Acct: [id number] Name: JAYLEN ELIZALDE Rep #:[id number] : 1970 53 From: Miguel A Jovel MD PCP: Dr. iVlma Christina MD Status :PRE ER Location: ED HPI HPI - URI History of Present Illness Chief Complaint: Ear Problem Detail of Chief Complaint: Bleeding from right ear. Informant: patient Onset/Context/Timing Onset: Today Context: Gradual Onset Current Severity: Mild Maximum Severity: Mild Narrative Narrative: 53-year-old female using Q-tip in her right ear no asthma bleeding. She is on aspirin only. History of prior DVT and PE but no blood thinners otherwise. Denies any other ear trauma. Has not recently had ear pain or drainage. No sore throat or fever. Left ear is unremarkable. Prior similar symptoms: No Recent Illness/Hospitalization: No ROS ROS ED ROS Narrative Denies recent illness. Constitutional Constitutional ED: Denies chills or fever(s) Eyes Eyes: Denies blurry vision ENT ENT ED: Denies ear pain, rhinorrhea or sore throat Cardiovascular Cardiovascular: Denies chest pain Respiratory/Chest Respiratory/Chest: Denies cough Gastrointestinal Gastrointestinal: Denies abdominal pain Genitourinary Genitourinary ED: Denies dysuria Musculoskeletal Musculoskeletal: Denies arthralgias Integumentary Denies abscess Neurologic Neurologic: Denies headache(s) Psychiatric Psychiatric: Denies anxiety Endocrine Endocrinology: Denies cold intolerance Hematologic/Lymphatic Hematologic/Lymphatic: Denies easy bleeding, easy bruising or lymphadenopathy Allergic/Immunologic Allergic/Immunologic ED: Denies mouth swelling, tongue swelling or urticaria PFSH PFSH Medical History Cataract (lens) fragments in eye following cataract surgery History of pulmonary embolism Wears contact lenses Alcohol use Back pain History of ulceration Gastric reflux Non-smoker History of edema History of stress test Hypertension Depression Anxiety History of stomach ulcers Chronic headaches Gallstones Hx of blood clots Arthritis History of blood transfusion Anemia Seasonal allergies Home Medications ?Medication ?Instructions ?Recorded ?Last Taken ?Type metoprolol succinate 100 mg 100 mg PO QHS 08/27/15 History tablet,extended release 24 hr bupropion HCl 150 mg 24 hr tablet, 150 mg PO DAILY 01/14 Unknown History extended release escitalopram oxalate 20 mg tablet 20 mg PO DAILY 05/07 Unknown History acetaminophen 500 mg tablet 500 mg PO Q6H PRN Pain Unknown History (Tylenol Extra Strength) amlodipine 10 mg tablet 10 mg PO DAILY 03/20/2111/30 History aspirin 81 mg chewable tablet 81 mg PO DAILY 03/20/21 12/25/22 History omeprazole 40 mg capsule,delayed 40 mg PO DAILY #30 ca ps 05/24/21 Unknown Rx release diphenoxylate-atropine 2.5 1 tab PO 4X/DAY PRN PRN collette rrhea 5 03/17/23 Unknown Rx mg-0.025 mg tablet (Lomotil) days #20 tabs loperamide 2 mg capsule (Imodium 2 mg PO Q6H PRN loose stool 3 days 09/02/23 Unknown Rx A-D) #12 caps gabapentin 600 mg tablet 600 mg PO TID 10/18/23 Unkno wn History Allergy/AdvReac Type Severity Reaction Status Date / Time morphine Allergy Severe emesis/hive Verified 09/06/24 14:07 s codeine Allergy Rash Verified 09/06/24 14:07 Surgical History History of hysteroscopy History of esophagogastroduodenoscopy (EGD) Hx of tonsillectomy History of cholecystectomy H/O spinal fusion Social History Smoking Status: Never smoker alcohol intake: current alcohol intake frequency: holidays/special occasions only substance use type: does not use caffeine: Yes Type: tea Number of servings: 2 EXAM Physical Exam Narrative Exam Narrative: Well-appearing 53-year-old female. Vital signs are stable afebrile. H EENT exam pupils round reactive light. Posterior pharynx normal. No erythema or exudate. No bleeding. Left TM and canal normal. Right TM is normal. Clear. No erythema. No perforation. About the middle of her right ear canal about 6:00 there is an abrasion with bright red blood. Currently no active bleeding. No otitis media nor externa. Neck nontender. No lymphadenopathy. No eustachian tube tenderness. Lungs clear. Heart regular rhythm no murmur. Abdomen soft. Otherwise exam normal. Const Vital Signs: 09/06/24 14:06 09/06/24 14:06 Temperature 98 F Temperature Source Temporal Pulse Rate 106 H 106 H Respiratory Rate 14 16 Blood Pressure 179/113 H 171/110 H Blood Pressure Mean 135 130 Pulse Ox 100 97 Oxygen Delivery Method Room Air Room Air Positive well nourished and well developed; Negative for cachectic or contractures General Appearance ED: well developed and NAD; Negative for cachectic, contractures, cyanotic, diaphoretic or pallor Nutritional Appearance: Negative for cachectic HEENT Reports moist mucous membranes HEENT Narrative: Right ear canal abrasion with bright red blood. No active bleeding. No clots. No otitis externa or media. normocephalic and atraumatic Throat: posterior oropharynx normal Eyes PERRL and EOMs intact bilaterally Neck no lymphadenopathy, supple and no meningeal signs General: Negative for anterior neck swelling or lymphadenopathy Resp normal respiratory effort and clear to auscultation bilaterally Effort and Inspection: Negative for retractions Auscultation: Negative for rales, rhonchi, wheezes or diminished lung sounds Cardio S1 normal heart sound, S2 normal heart sound and no murmurs Rate: regular rate Rhythm: regular rhythm GI non-tender, non-distended and no masses Inspection: Negative for abdominal distention Auscultation: normoactive bowel sounds Palpation: soft; Negative for tender or guarding Back/Spine no CVA tenderness and normal ROM General Back: Negative for CVA tenderness Cervical Spine: Negative for cervical spine tenderness Thoracic Spine / Upper Back: Negative for thoracic spinal tenderness Lumbar Spine / Lower Back: Negative for lumbar spinal tenderness Sacrum: Negative for tenderness Extremity normal to inspection and full ROM General Extremety ED: Negative for cyanosis or tenderness General Extremity: Negative for cyanosis Neuro oriented x3 and CN's II-XII intact bilaterally Sensorium / Orientation: alert, oriented to person and oriented to place; Negative for oriented to time, orientation impaired, lethargic or stuporous Motor Exam: strength 5/5 throughout Psych mental status grossly normal Attitude: No agitated Mood & Affect: Negative for depressed, anxious or tearful Skin General Skin Exam: Negative for jaundice or pallor Lesions: no lesions Rashes: no rashes MDM MDM MDM Narrative Medical decision making narrative: 53-year-old female has a small abrasion right ear canal. Small amount of blood. No infection. No otitis media nor externa. Should be discharged to home. Discharge Plan Triage Chief Complaint: Ear Problem ED Provider: Miguel A Jovel Dx/Rx/DC Orders Clinical Impression: Abrasion of right ear canal Instructions: ED Abrasion Prescriptions: No Action acetaminophen [Tylenol Extra Strength] 500 mg tablet 500 mg PO Q6H PRN (Reason: Pain) aspirin 81 mg tablet,chewable 81 mg PO DAILY amlodipine 10 mg tablet 10 mg PO DAILY gabapentin 600 mg tablet 600 mg PO TID metoprolol succinate 100 MG tablet 100 mg PO QHS escitalopram oxalate 20 MG tablet 20 mg PO DAILY bupropion HCl 150 MG tablet extended release 24 hr 150 mg PO DAILY diphenoxylate-atropine [Lomotil] 2.5-0.025 mg tablet 1 tab PO 4X/DAY PRN PRN (Reason: diarrhea) 5 Days Qty: 20 0RF loperamide [Imodium A-D] 2 mg capsule 2 mg PO Q6H PRN (Reason: loose stool) 3 Days Qty: 12 0RF omeprazole 40 mg capsule,delayed release(DR/EC) 40 mg PO DAILY Qty: 30 1RF Primary Care Provider: Vilma Christina Referrals: Vilma Christina MD [Primary Care Provider] - As Needed Activity Restrictions/Additional Instructions: It was small abrasion in your right ear canal. He may have intermittent bleeding. I would not use Q-tips right now because you want to scab deformed and stop the bleeding. Currently there is no signs of infection. Both the eardrum and ear canal look good. You could develop an ear canal infection if you do you will start having a lot of pain and swelling and we would need to putyou on eardrops. Print Language: Khmer Disposition Disposition: Home, Self Care What to do if you have Problems For any increased pain, shortness of breath, bleeding, nausea or vomiting, chestpain, or any unexpected problems, contact your Primary Care Provider. Call [facility] ([phone]) or report to the closest Emergency Room. Call 911 if necessary. 09/06/24 1435 <Electronically signed by Miguel A Jovel MD> Cosigner Signature (if applicable): CC: Dr. Vilma Christina MD ~ Signed [facility] Work Phone: 1(143) 206-223606-07-2024 Note* Letter - Martin, Mammography - 12/06/2023 10:10 AM EDT December 06, 2023 PID: [id number] Jaylen Elizalde [address] [place] [address] Dear Ms. Elizalde, We are pleased to inform you that the results of your recent breast imaging exam on 12/05/2023 are normal. Your mammogram demonstrates that you have dense breast tissue, which could hide abnormalities. Dense breast tissue, in and of itself, is a relatively common condition. Therefore, this information is not provided to cause undue concern; rather, it is to raise your awareness and promote discussion with your health care provider regarding the presence of dense breast tissue in addition to other riskfactors. Early detection of cancer is very important. We also understand recommendations regarding breast cancer screening are controversial. Please discuss with your primary care provider which strategy is best for you and whether a mammogram is right for you. Your imaging studies and report will be kept on file at [facility] as part of your permanent medical record and are available for your continuing care. Thank you for allowing us to help in meeting your health care needs. Sincerely, Dr. Tariq Interpreting Radiologist [facility] (Normal over 40) [facility]06-07-2024 Miscellaneous Notes* Letter - Coordinator, Mammography - 12/06/2023 10:10 AM EDT December 06, 2023 PID: [id number] Jaylen Elizalde [address] [place] [address] Dear Ms. Elizalde, We are pleased to inform you that the results of your recent breast imaging exam on 12/05/2023 are normal. Your mammogram demonstrates that you have dense breast tissue, which could hide abnormalities. Dense breast tissue, in and of itself, is a relatively common condition. Therefore, this information is not provided to cause undue concern; rather, it is to raise your awareness and promote discussion with your health care provider regarding the presence of dense breast tissue in addition to other riskfactors. Early detection of cancer is very important. We also understand recommendations regarding breast cancer screening are controversial. Please discuss with your primary care provider which strategy is best for you and whether a mammogram is right for you. Your imaging studies and report will be kept on file at [facility] as part of your permanent medical record and are available for your continuing care. Thank you for allowing us to help in meeting your health care needs. Sincerely, Dr. Tariq Interpreting Radiologist [facility] (Normal over 40) [facility] History of Present illness Narrative* Nan Del Angel Mammo Tech - 12/05/2023 11:10 AM EDT Radiology Service Progress Note PATIENT NAME: Jaylen Elizalde DATE OF SERVICE: December 05, 2023 TIME: 11:05 AM PATIENT IDENTITY VERIFICATION COMPLETED USING TWO (2) IDENTIFIERS: Name and Date of confirmedby patient verbally. FALL SCREENING: Has the patient had 2 falls in the last year or 1 fall with injury or currently using an Ambulatory Assistive Device (Walker, Cane, Wheelchair, Crutches, etc.)? No PATIENT GENDER DATA: Female. status: : No status: NO. PATIENT RELEVANT IMPLANT DATA REVIEWED: Not Applicable PATIENT PRESENTS WITH AN IMPLANTABLE OR ATTACHED FOAM RUBBER FABRICATOR: No RADIOLOGY DEPARTMENT: Mammography PERIPHERAL IV DATA: Not applicable SIGNED BY: Ivonne Farrar December 05, 2023 11:05 AM [facility] History of Present illness Narrative* Pablo Kingsley MD - 12/02/2023 11:05 AM EDT Staking Press Operator offered: Patient accepts, visit chaperoned by Juju Walton LPN. Jaylen is a 52 year old who presents for an annual gynecologic exam without complaints. Menses: No menses post ablation Contraception: vasectomy HPV vaccine: Yes Last Pap: 12/20/2014 normal HPV: 12/03/2014 negative History of abnormal pap: No Last mammogram: ordered Sexually active: Yes Hot flashes: No Vaginal dryness: No OB History T0 L2 SAB0 IAB0 Ectopic0 Multiple0 Live Births0 Mail Manager History LMP: 04/26/2011, Ablation Age at Menarche: Age at First : Age at Menopause: Mail Manager History Comments: Sexual Activity: Yes; Male Contraception: No contraception data on record PAST MEDICAL HISTORY Diagnosis Date Essential hypertension, benign GI bleed H/O degenerative disc disease Hematochezia Peptic ulcer disease Pulmonary embolism (HCC) 07/2009 pt reports 3 emboli Pulmonary embolism (HCC) S/P endometrial ablation PAST SURGICAL HISTORY Procedure Laterality Date ADENOIDECTOMY PRIMARY <AGE 14 Adenoidectomy CARPAL TUNNEL 11/29/2014 CERVICAL/THORACIC ORTHOSIS/O&P 01/25/2014 cervical fusion 4,5,6 EGD 10/21/2017 EXTRACTION, ERUPTED TOOTH OR EXPOSED ROOT (ELEVATION AND/OR FORCEPS REMOVAL) WISDOM TEETH LAPAROSCOPY SURG CHOLECYSTOENETEROSTOMY 2004 POST-CATARACT LASER SURGERY Bilateral TONSILLECTOMY PRIMARY/SECONDARY <AGE 14 Tonsillectomy FAMILY HISTORY Problem Relation Age of Onset Cancer Mother THYROID AND BREAST Hypertension Father Diabetes Father Coronary Artery Disease Maternal Grandfather Stroke Maternal Grandfather SOCIAL HISTORY Social History Tobacco Use Smoking status: Never Passive exposure: Never Smokeless tobacco: Never Vaping Use Vaping Use: Never used Substance Use Topics Alcohol use: Yes Comment: SOCIALLY- once per month Drug use: No REVIEW OF SYSTEMS Abdomen: No abdominal pain, nausea, vomiting, diarrhea, or constipation. No bloating, early satiety, indigestion, or increased flatulence. Bladder: No dysuria, gross hematuria, urinary frequency, urinary urgency, or incontinence. Breast: No breast lumps, nipple d/c, overlying skin changes, redness or skin retraction. Allergies and current medication updated:Yes EXAM: Ht 5' 8 (1.73m) Wt 253 lb 3.2 oz (114.9kg) LMP 04/26/2011 BMI 38.51 kg/(m^2). GENERAL: pleasant, female in no apparent distress HEENT: Normocephalic, atraumatic, mucus membranes moist, and no lesions NECK: Supple, full range of motion, no adenopathy, and thyroid normal DERMATOLOGY: Normal, without lesions, non-icteric, and non-hirsute BREAST: soft, non-tender, symmetric, no dominant mass, normal nipple-areolar complex, no lymphadenopathy, and no nipple discharge CHEST: Normal inspiratory effort ABDOMEN: soft, non-tender, and no masses PELVIC: external genitalia normal, normal Bartholin's glands, urethra, Ester's glands, no vulvar lesions, no cervical lesions, good vaginal support, physiologic discharge present, normal appearing perineal body and perianal region BIMANUAL: uterus normal size, shape and consistency, no adnexal masses, and non-tender RECTOVAGINAL: rectovaginal exam negative for any masses or nodularity. NEURO: alert and oriented x3,exam grossly non-focal EXTREMITIES: normal ASSESSMENT/PLAN: 1) Health maintenance: Pap done with reflex HPV. 2) Contraception: vasectomy. Contraceptive options reviewed and information provided. 3) STD screening: Declined STD check. 4) Follow up one year or sooner as needed 5) Mammogram Pablo Kingsley [facility] Discharge summary Author Carlee Cisse [facility] December 24, 2022 12:17pm Note Date/Time December 24, 2022 12:1 7pm [facility] Physical Therapy Health[address] [place] [address] / REHABILITATION SERVICES DISCHARGE SUMMARY MR#: [id number] Acct: [id number] Name: JAYLEN ELIZALDE Rep #: [id number] : 1970 52 From: Carlee Cisse PT, Cert. MDT Referring Dr.: Dr. Alexey Christina MD Statu s: REG RCR Insurance: [facility] PAY INSURANCE It has been my pleasure to treat JAYLEN ELIZALDE referred by Dr. Alexey Christina MD, with the diagnosis of CERVICAL DDD AND CHRONIC NECK PAIN for a totalof 9 visit(s). Discharge Date: 12/24/22 Please see the following information for a summary of their discharge status. Subjective: THE SHARP PAINS ARE GONE AND I AM BACK TO MY NORMAL ACHE. NO LONGER HAVING UE SX'S. Neck Pain Intensity (Out of 10): 1 % Improvement: 100 Objective/Function: PATIENT WAS SEEN TODAY FOR RE-ASSESSMENT OF PROGRESS TOWARD THE SET PT GOALS AND THE NEED FOR FURTHER PHYSICAL THERAPY VS READINESS FOR DISCHARGE. ALL GOALS HAVE BEEN MET AND PATIENT IS APPROPRIATE FOR DISCHARGE. SHE IS INDEP WITH A HEP AND SHE IS AGREEABLE TO D/C. UPON EXAM TODAY: Motor deficit: ROSE SLEEP TECH STRENGTH ROSE 60 LBS. ROSE UE STRENGTH GROSSLY 5/5 WITH MMT'ING. Dural Signs: NEGATIVE ROSE UES'. Cervical Mvmt Loss: Flex: NIL. Pro: NIL. Ext: MOD. Ret: MOD. RSB: MIN. LSB: MOD. R Rot: MIN. L Rot: MIN. PATIENT DENIES PAIN WITH CERVICAL ROM TESTING ALL PLANES TODAY. Goal 1:: DECREASE C/O NECK PAIN AND R UE SX'S. Goal Progress: Goal Met Goal 2:: IMPROVE LIFTING, READING, SLEEP, WORK, AND RECREATIONAL FUNCTION Goal Progress: Goal Met Goal 3:: INSTRUCT IN PROPHYLAXIS. Goal Progress: Goal Met Plan: D/C If there are questions or concerns regarding this patient's physical therapy, please feel free to call me at [phone]. Thank you for the referral of thispatient. Sincerely, Carlee Cisse, PT, Cert MDT Balance/Gait/Functional tests - Balance/Special Test Scores Oswestry Neck Score: 3 <Electronically signed by Carlee Cisse PT Cert. MDT> 12/24/22 1217 CC: Dr. Alexey Christina MD ~ RUDDY Signed [facility] Work Phone: Evaluation noteNo assessment information available [facility] Work Phone: Evaluation note* Diagnosis Onset Date Resolution Status Screen for colon cancer acut e [facility] Work Phone: Evaluation note* Diagnosis Encounter for gynecological examination (general) (routine) without abnormal findings- Primary Screening for cervical cancer Screening for malignant neoplasm of the cervix Encounter for screening for human papillomavirus (HPV) Special screening examination for human papillomavirus (HPV) Encounter for screening mammogram for breast cancer [facility]* Diagnosis Encounter for screening mammogram for breast cancer [facility]* Diagnosis Encounter for gynecological examination (general) (routine) without abnormal findings- Primary [facility] Diagnosis Encounter for gynecological examination (general) (routine) without abnormal findings [facility] Diagnosis Abnormal mammogram Abnormal mammogram, unspecified [facility]* Diagnosis Abnormal mammogram Abnormal mammogram, unspecified [facility]* Diagnosis Abnormal mammogram- Primary Abnormal mammogram, unspecified Abnormal mammogram Abnormal mammogram, unspecified [facility]* Diagnosis Abnormal mammogram- Primary Abnormal mammogram, unspecified [facility] Author Stanislav Sanders [facility] December 27, 2022 10:58am Note Date/Time December 27, 2022 10:5 8am [facility] Medical Records Department [address] [place] [id number] History & Physical Exam 12/27/22 1056 MR#: [id number] Acct: [id number] Name: JAYLEN ELIZADLE Rep #:[id number] : 1970 52 From: Stanislav Sanders DO PCP: Dr. Alexey Christina MD Status: [facility] Location: [address] HPI - General General Date of Admission: 12/27/22 Date of Service: 01/02/23 Chief Complaint: Screening colonoscopy HPI Narrative JAYLEN ELIZALDE, is a 52 F who presents today for screening colonoscopy. She does not have any abdominal pain. She denies any cramping. She does not have any chest pain or shortness of breath. She does have a pulmonary embolism, peptic ulcer disease, anemia, GI bleed. At this time she denies any problems. [facility] Medical History Alcohol use Anemia Anxiety Arthritis Back pain Chronic headaches Depression Gallstones Gastric reflux History of blood transfusion History of edema History of pulmonary embolism History of stomach ulcers History of stress test History of ulceration Hx of blood clots Hypertension Non-smoker Seasonal allergies Wears contact lenses Home Medications gabapentin 400 mg capsule 400 mg PO TIDCM 08/27/15 [History Last Taken 08/27/15 08:00 400 mg] metoprolol succinate 100 mg tablet,extended release 24 hr 100 mg PO QHS 08/27/15[History Last Taken 12/26/22] bupropion HCl 150 mg 24 hr tablet, extended release 150 mg PO DAILY 05/07/17 [History Last Taken Unknown] escitalopram oxalate 20 mg tablet 20 mg PO DAILY 05/07/17 [History Last Taken Unknown] acetaminophen 500 mg tablet (Tylenol Extra Strength) 500 mg PO Q6H PRN Pain 03/20/21 [History Last Taken Unknown] amlodipine 10 mg tablet 10 mg PO DAILY 03/20/21 [History Last Taken 12/26/22] aspirin 81 mg chewable tablet 81 mg PO DAILY 03/20/21 [History Last Taken 12/25/22] omeprazole 40 mg capsule,delayed release 40 mg PO DAILY #30 caps 05/24/21 [Rx Last Taken Unknown] Allergy/AdvReac Type Severity Reaction Status Date / Time morphine Allergy Severe emesis/hive Verified 12/27/22 10:40 s codeine Allergy Rash Verified 12/27/22 10:40 Surgical History H/O spinal fusion History of cholecystectomy History of esophagogastroduodenoscopy (EGD) History of hysteroscopy Hx of tonsillectomy Social History (Updated 03/20/21 @ 14:20 by Maria G Alarcon) Smoking Status: Never smoker alcohol intake: current alcohol intake frequency: holidays/special occasions only ROS Review of Systems ROS Unobtainable: other Constitutional Constitutional: Denies fatigue, fever(s), poor appetite, weight gain or weight loss ENT HEENT: Denies mouth lesions Cardiovascular Cardiovascular: Denies abdominal bloating, abdominal edema or abdominal pain Respiratory/Chest Respiratory/Chest: Denies change in mental status, change in phlegm color, chestcongestion or chest tightness Gastrointestinal Gastrointestinal: Denies belching, bloating, change in bowel habits, change in stool character, chewing difficulty, coffee ground emesis, constipation, cramping, diarrhea, dyspepsia, dysphagia, early satiety, excessive flatus, fecalincontinence, heartburn, hematemesis, hematochezia, hemorrhoids, loose stools, melena, nausea, odynophagia, rectal bleeding, tenesmus, vomiting or weight changes Genitourinary Genitourinary: Denies abdominal discomfort, burning urination or itching Musculoskeletal Musculoskeletal: Reports as per HPI; Denies muscle weakness or myalgias Integumentary Integumentary: Denies jaundice Neurologic Neurologic: Denies lack of coordination or weakness Psychiatric Psychiatric: Denies confusion, depression, memory loss, mood swings, paranoia orsuicidal ideation Endocrine Endocrinology: Denies systems reviewed and no addt'l complaints, except as documented Hematologic/Lymphatic Hematologic/Lymphatic: Denies anemia, easy bleeding, easy bruising or lymphadenopathy Allergic/Immunologic Allergic/Immunologic: Denies systems reviewed and no addt'l complaints, except as documented Physical Exam Const alert General Appearance: cooperative Orientation / Consciousness: oriented to person HEENT hearing grossly normal bilaterally Head and Scalp: normal to inspection Face and Sinus: face symmetric Nose: external nose normal Mouth: oral and palatal mucosa normal Eyes conjunctivae normal General Eye: normal appearance of both eyes Neck full ROM General: normal visual inspection Lymph Lymphatic: no lymphadenopathy noted Chest inspection of chest normal and palpation of chest normal Chest: symmetrical chest wall rise Resp normal respiratory effort Effort and Inspection: able to speak in complete sentences Cardio regular rate GI non-distended Percussion: normal to percussion Rectal Exam: deferred Neuro Speech: speech normal Gait (Neuro): normal gait Assessment & Plan Assessment/Plan (1) Screen for colon cancer: PLAN: She was explained alternatives, risk, benefits including not withstanding bleeding, infection, sepsis, perforation, need for emergent or . She will have an ASA of 2. 12/27/22 1058 <Electronically signed by Stanislav Sanders DO> Cosigner Signature (if applicable): CC: Dr. Alexey Christina MD; Stanislav Sanders DO~ Signed [facility] Work Phone: Hospital Discharge instructions Additional Instructions Stay well-hydrated, return for any worsening of your symptoms. Follow-[facility] with your PCP.[facility] Work Phone: Hospital Discharge instructions Additional Instructions It was small abrasion in your right ear canal. He may have intermittent bleeding. I would not use Q-tips right now because you want to scab deformed and stop the bleeding. Currently there is no signs of infection. Both the eardrum and ear canal look good. You could develop an ear canal infection if you do you will start having a lot of pain and swelling and we would need to put you on eardrops.[facility] Work Phone: Reason for referral (narrative)* Diagnostic Procedure Only (Routine) - Authorized Specialty Diagnoses / Procedures Referred By Jarod moss Referred To Contact [facility] Diagnoses Encounter for screening mammogram for breast cancer Procedures CHERELLE SCREENING SCREENING MAMMOGRAPHY BI 2-VIEW BREAST INC Pablo Oates MD [address] [place] [address] [facility] [address] [address] Referral ID Status Reason Start Date Expiration Date Visits Requested Visits Authorized [id number] Authorized Auto-Generat ed Referral 12/02/2023 12/31/2024 1 1 [facility] for referral (narrative)No reason for referral information [facility] Work Phone: Reason for visit Narrative* Diagnostic Procedure Only (Routine) - Closed Specialty Diagnoses / Procedures Referred By Jarod moss Referred To Contact [facility] Diagnoses Encounter for screening mammogram for breast cancer Procedures CHERELLE SCREENING SCREENING MAMMOGRAPHY BI 2-VIEW BREAST INC Pablo Oates MD [address] [place] [address] [facility] [address] [address] Referral ID Status Reason Start Date Expiration Date V isits Requested Visits Authorized [id number] Closed Auto-Generate d Referral 12/02/2023 12/31/2024 1 1 [facility] for visit Narrative* Diagnostic Procedure Only (Routine) - Closed Specialty Diagnoses / Procedures Referred By Jarod moss Referred To Contact [facility] Diagnoses Encounter for gynecological examination (general) (routine) without abnormal findings Procedures CHERELLE SCREENING W ESTRELLA SCREENING DIGITAL BREAST TOMOSYNTHESIS BI SCREENING MAMMOGRAPHY BI 2-VIEW BREAST INC CAD Pablo Kingsley MD [address] [place] [address] Phone: tel: fax: [facility] [address] [place] [address] Referral ID Status Reason Start Date Expiration Date V isits Requested Visits Authorized [id number] Closed Auto-Generate d Referral 12/02/2024 01/01/2026 1 1 [facility] for visit Narrative* Diagnostic Procedure Only (Routine) - Closed Specialty Diagnoses / Procedures Referred By Jarod moss Referred To Contact [facility] Diagnoses Abnormal mammogram Procedures CHERELLE DIAGNOSTIC LEFT DIAGNOSTIC MAMMOGRAPHY COMPUTER-AIDED DETCJ UNI Isidro Bojorquez MD [address] [place] [address] Phone: tel: fax: [facility] [address] [place] [address] Referral ID Status Reason Start Date Expiration Date V isits Requested Visits Authorized [id number] Closed Auto-Generate d Referral 12/16/2024 01/15/2026 1 1 [facility] for visit Narrative* Diagnostic Procedure Only (Routine) - Closed Specialty Diagnoses / Procedures Referred By Jarod moss Referred To Contact [facility] Diagnoses Abnormal mammogram Procedures US BREAST LTD LEFT US BREAST UNI REAL TIME WITH IMAGE LIMITED Isidro Bojorquez MD [address] [place] [address] Phone: tel: fax: [facility] [address] [place] [address] Referral ID Status Reason Start Date Expiration Date V isits Requested Visits Authorized [id number] Closed Auto-Generate d Referral 12/16/2024 01/15/2026 1 1 [facility] Summary Purpose Family History Relationship Condition Age at Onset Recorded Date/T azeb Unknown Family History?- Unknown October 19, 2017 10:56am Family History?- Unknown October 19, 2017 10:56am Family History?- Unknown January 3:05pm Relationship Condition Age at Onset Recorded Date/T azeb Unknown Family History?- Unknown October 19, 2017 9:56am Family History?- Unknown October 19, 2017 9:56am Family History?- Unknown January 2:05pm Family Member Condition Mother Alive Mother High blood pressure Mother Diabetes - non-insul in dependent Mother Blood clots Full Sister High blood pressure Father Diabetes Father Alive Mother Cancer Mother Heart disease Father Heart disease Father High blood pressure Father Diabetes - insulin d ependent Father Cancer Family Member Condition Mother Alive Mother High blood pressure Mother Diabetes - non-insul in dependent Mother Blood clots Full Sister High blood pressure Father Diabetes Father Alive Mother Cancer Mother Heart disease Father Heart disease Father High blood pressure Father Diabetes - insulin d ependent Father Cancer Advance Directives Advance Directive Response Recorded Date/ Time Advance Directives Yes February 13, 2021 3:05pm Living Will No March 27, 2021 11:34am Power of Lap Grinder No March 11:34am Advance Directive Response Recorded Date/ Time Advance Directives Yes February 13, 2021 3:05pm Living Will No December 24, 2022 2:24pm Power of Lap Grinder No December 24 2:24pm Advance Directive Response Recorded Date/ Time Advance Directives Yes February 13, 2021 2:05pm Living Will No September 02, 2023 12:48pm Power of Lap Grinder No September 01 12:48pm Advance Directive Response Recorded Date/ Time Living Will No September 06, 2024 2:30pm Power of Lap Grinder No September 06 2:30pm Advance Directives Yes February 13, 2021 3:05pm Advance Directive Response Recorded Date/ Time Living Will No September 06, 2024 2:30pm Do you have a Healthcare Power of Lap Grinder? No September 06, 2024 2:30pm Advance Directives Yes February 13, 2021 3:05pm Advance Directive Response Recorded Date/ Time Advance Directives Yes February 13, 2021 3:05pm Chief Complaint and Reason for Visit Chief Complaint EORDER Chief Complaint NECK PAIN PT HAS RX Chief Complaint NECK PAIN PT HAS RX Reason for Visit Screen for colon can cer Chief Complaint n/v Chief Complaint Admit Date EAR September 06, 2024 2:06 pm Chief Complaint Admit Date RIGHT FOOT February 22, 2025 3: 11pm Additional Source Comments INFORMATION SOURCE (unrecogn ized section and content) DATE CREATED AUTHOR 12/19/2017 [facility] DATE CREATED AUTHOR AUTHOR'S ORGANIZ ATION 12/19/2017 [facility] DATE CREATED AUTHOR AUTHOR'S ORGANIZ ATION 01/17/2025 [facility] DATE CREATED AUTHOR AUTHOR'S ORGANIZ ATION 02/27/2025 [facility] Goals (unrecognized section and content) Goals may be documented in a n alternate sectionGoals may be documented in an alternate sectionGoals may be documented in an alternate sectionGoals may be documented in an alternate sectionGoals may be documented in an alternate sectionGoals may be documented in an alternate sectionGoals may be documented in an alternate section No Information Available No Information Available Care Teams (unrecognized sec tion and content) Team Status: Active Member Role Status Dates Dr. Alexey Christina MD Family Provider Active Dr. Alexey Christina MD Primary Care Provider Activ e Team Status: Inactive Member Role Status Dates Dr. Alexey Christina MD Primary Care Provider, Attending Provider, Referring Provider Active Team Status: Active Member Role Status Dates Dr. Alexey Christina MD Primary Care Provider, Refe rring Provider Active Dr. Stanislav Sanders DO Attending Provider, Other Prov ider Active Team Status: Inactive Member Role Status Dates Dr. Alexey Christina MD Primary Care Provider, Refe rring Provider Active Dr. Stanislav Sanders DO Attending Provider Active Team Status: Inactive Member Role Status Dates Dr. Alexey Christina MD Primary Care Provider Activ e Dr. Hossein Bray DO Emergency Provider Active Research Archaeologist Relationship Specialty Start Date End Date Vilma Christina MD [address] [place] [address] PCP - General 06/12/11 Research Archaeologist Relationship Specialty Start Date End Date Vilma Christina MD [address] [place] [place] [address] PCP - General 06/12/11 Research Archaeologist Relationship Specialty Start Date End Date Vilma Christina MD [address] [facility] [place], [place] [address] PCP - General 06/12/11 Team Status: Active Member Role Status Dates Dr. Vilma Christina MD Primary Care Provider Acti ve Team Status: Inactive Member Role Status Dates Dr. Vilma Christina MD Primary Care Provider Acti ve Start: September 06, 2024 End: September 06, 2024 Dr. Miguel A Jovel MD Emergency Provider Active S tart: September 06, 2024 End: September 06, 2024 Research Archaeologist Relationship Specialty Start Date End Date Vilma Christina MD [address] [facility] [place], [place] [address] PCP - General 06/12/11 Research Archaeologist Relationship Specialty Start Date End Date Vilma Christina MD [address] [facility] [place], [place] [id number] PCP - General 06/12/11 Team Status: Active Member Role/Relationship Status Dates Dr. Vilma Christina MD Primary Care Provider Acti ve Team Status: Inactive Member Role/Relationship Status Dates Dr. Vilma Christina MD Primary Care Provider Acti ve Start: September 06, 2024 End: September 06, 2024 Dr. Miguel A Jovel MD Attending Provider Active S tart: September 06, 2024 End: September 06, 2024 Dr. Miguel A Jovel MD Emergency Provider Active S tart: September 06, 2024 End: September 06, 2024 Team Status: Inactive Member Role/Relationship Status Dates Dr. Vilma Christina MD Primary Care Provider Acti ve Start: December 29, 2024 End: December 29, 2024 Dr. Vilma Christina MD Attending Provider Active Start: December 29, 2024 End: December 29, 2024 Dr. Vilma Christina MD Referring Provider Active Start: December 29, 2024 End: December 29, 2024 Research Archaeologist Relationship Specialty Start Date End Date Vilma Christina MD [address] [place] [address] PCP General 06/12/11 Research Archaeologist Relationship Specialty Start Date End Date Vilma Christina MD [address] [place] [address] PCP General 06/12/11 Team Status: Inactive Member Role/Relationship Status Dates Dr. Vilma Christina MD Primary Care Provider Acti ve Start: December 29, 2024 End: December 29, 2024 Dr. Vilma Christina MD Attending Provider Active Start: December 29, 2024 End: December 29, 2024 Dr. Vilma Christina MD Referring Provider Active Start: December 29, 2024 End: December 29, 2024 Team Status: Inactive Member Role/Relationship Status Dates Dr. Vilma Christina MD Primary Care Provider Acti ve Start: February 22, 2025 End: February 22, 2025 Dr. Vilma Christina MD Attending Provider Active Start: February 22, 2025 End: February 22, 2025 Dr. Vilma Christina MD Referring Provider Active Start: February 22, 2025 End: February 22, 2025 Research Archaeologist Relationship Specialty Start Date End Date Vilma Christina MD [address] [place] [place] [id number] [facility] General 06/12/11 Source Comments (unrecognize d section and content) In the event this informatio n is protected by the Federal Confidentiality of Alcohol and Drug Abuse Patient Records regulations: The Federal rules restrict any use of the information to criminally investigate or prosecute any alcohol or drug abuse patient.[facility] the event this information is protected by the Federal Confidentiality of Alcohol and Drug Abuse Patient Records regulations: The Federal rules restrict any use of the information to criminally investigate or prosecute any alcohol or drug abuse patient.[facility] the event this information is protected by the Federal Confidentiality of Alcohol and Drug Abuse Patient Records regulations: The Federal rules restrict any use of the information to criminally investigate or prosecute any alcohol or drug abuse patient.[facility] the event this information is protected by the Federal Confidentiality of Alcohol and Drug Abuse Patient Records regulations: The Federal rules restrict any use of the information to criminally investigate or prosecute any alcohol or drug abuse patient.[facility] the event this information is protected by the Federal Confidentiality of Alcohol and Drug Abuse Patient Records regulations: The Federal rules restrict any use of the information to criminally investigate or prosecute any alcohol or drug abuse patient.[facility] the event this information is protected by the Federal Confidentiality of Alcohol and Drug Abuse Patient Records regulations: The Federal rules restrict any use of the information to criminally investigate or prosecute any alcohol or drug abuse patient.[facility] the event this information is protected by the Federal Confidentiality of Alcohol and Drug Abuse Patient Records regulations: The Federal rules restrict any use of the information to criminally investigate or prosecute any alcohol or drug abuse patient.[facility] the event this information is protected by the Federal Confidentiality of Alcohol and Drug Abuse Patient Records regulations: The Federal rules restrict any use of the information to criminally investigate or prosecute any alcohol or drug abuse patient.[facility] the event this information is protected by the Federal Confidentiality of Alcohol and Drug Abuse Patient Records regulations: The Federal rules restrict any use of the information to criminally investigate or prosecute any alcohol or drug abuse patient.[facility] the event this information is protected by the Federal Confidentiality of Alcohol and Drug Abuse Patient Records regulations: The Federal rules restrict any use of the information to criminally investigate or prosecute any alcohol or drug abuse patient.[facility] the event this information is protected by the Federal Confidentiality of Alcohol and Drug Abuse Patient Records regulations: The Federal rules restrict any use of the information to criminally investigate or prosecute any alcohol or drug abuse patient.[facility] Reason for Visit (unrecogniz ed section and content) right knee pain, Follow-up b y complaint Reason Comments Yearly Exam Reason Comments Well Woman Reason Comments Mammogram Result Call Back FOR RECORDS PERTAINING TO PATIENTS WHO ARE [...] BE BASED ON THE PRIMARY CLINICAL RECORDS. [facility] [employer] [facility]. provides no warranty or guarantee of the accuracy or completeness of information in this document.
[2025-06-22 00:53] LABS: AST(SGOT) 43 U/L (<=31); Alanine Aminotransfer ALT/SGPT 67 U/L (<=34); Albumin, Serum 4.4 g/dL (3.5-5.0); Alkaline Phosphatase 174 U/L (35-104); Anion Gap 18 (7-18); BUN 17 mg/dL (4-19); Calcium,Total 9.5 mg/dL (7.6-11.0); Carbon Dioxide 19.9 mmol/L (20.0-29.0); Chloride 100 mmol/L (96-106); Globulin 3.5 g/dL (2.2-4.2); Glucose 121 mg/dL (70-99); Potassium 3.8 mmol/L (3.5-5.1)
--- NOTE | 2025-06-22 00:59 | ED.VIS.GI ---
HPI HPI - GI History of Present Illness Chief Complaint: Nausea/Vomiting/Diarrhea Informant: patient Narrative Narrative: Patient is a 54-year-old female with no significant PMHx presenting with nausea, emesis, and diarrhea for the past 4 days. - Reports initial symptoms of diarrhea, with episodes occurring approximately every hour; diarrhea ceased yesterday afternoon. - Currently experiencing severe nausea and occasional emesis. - Denies abdominal pain, hematemesis, or hematochezia. - Possible fever on night but none since. - Denies recent travel, exposure to suspicious foods, recent antibiotic use, or history of C. diff. 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 - PMHx significant for a gastric ulcer and pulmonary embolism; not currently on anticoagulant therapy. [facility] Medical History Cataract (lens) fragments in eye following cataract surgery History of pulmonary embolism Wears contact lenses Alcohol use Back pain History of ulceration Gastric reflux Non-smoker History of edema History of stress test Hypertension Depression Anxiety History of stomach ulcers Chronic headaches Gallstones Hx of blood clots Arthritis History of blood transfusion Anemia Seasonal allergies Home Medications ?Medication ?Instructions ?Recorded ?Last Taken ?Type metoprolol succinate 100 mg 100 mg PO QHS 08/27/15 12/26/22 History tablet,extended release 24 hr escitalopram oxalate 20 mg tablet 20 mg PO DAILY 05/07/17 Unknown History acetaminophen 500 mg tablet 500 mg PO Q6H PRN Pain 03/20/21 Unknown History (Tylenol Extra Strength) amlodipine 10 mg tablet 10 mg PO DAILY 03/20/21 12/26/22 History aspirin 81 mg chewable tablet 81 mg PO DAILY 03/20/21 12/25/22 History omeprazole 40 mg capsule,delayed 40 mg PO DAILY #30 caps 05/24/21 Unknown Rx release diphenoxylate-atropine 2.5 1 tab PO 4X/DAY PRN PRN diarrhea 5 03/17/23 Unknown Rx mg-0.025 mg tablet (Lomotil) days #20 tabs loperamide 2 mg capsule (Imodium 2 mg PO Q6H PRN loose stool 3 days 09/02/23 Unknown Rx A-D) #12 caps gabapentin 600 mg tablet 600 mg PO TID 10/18/23 Unknown History bupropion HCl 300 mg 24 hr tablet, 300 mg PO DAILY 06/22/25 Unknown History extended release ondansetron 8 mg disintegrating 8 mg PO Q8H PRN nausea and 06/22/25 Unknown Rx tablet vomiting #20 tabs Allergy/AdvReac Type Severity Reaction Status Date / Time morphine Allergy Severe emesis/hive Verified 06/21/25 23:40 s codeine Allergy Rash Verified 06/21/25 23:40 Surgical History History of hysteroscopy History of esophagogastroduodenoscopy (EGD) Hx of tonsillectomy History of cholecystectomy H/O spinal fusion Social History Smoking Status: Never smoker alcohol intake: current alcohol intake frequency: holidays/special occasions only substance use type: does not use caffeine: Yes Type: tea Number of servings: 2 ROS ROS ED Constitutional Constitutional ED: Reports other Details: fevers 4d ago, none since ; Denies chills Eyes Eyes: Denies change in vision or diplopia ENT ENT ED: Denies rhinorrhea or sore throat Cardiovascular Cardiovascular: Denies chest pain or palpitations Respiratory/Chest Respiratory/Chest: Denies cough or dyspnea Gastrointestinal Gastrointestinal: Reports diarrhea, nausea and vomiting; Denies abdominal pain, hematemesis, hematochezia or melena Genitourinary Genitourinary ED: Denies dysuria or hematuria Musculoskeletal Musculoskeletal: Denies back pain or neck pain Integumentary Denies abscess or rash Neurologic Neurologic: Denies headache(s), paresthesias or weakness Psychiatric Psychiatric: Denies suicidal thoughts EXAM Physical Exam Const Vital Signs: 06/21/25 23:38 06/22/25 01:05 06/22/25 01:05 Temperature 97.9 F Temperature Source Oral Pulse Rate 93 72 Respiratory Rate 19 H 16 Blood Pressure 196/115 H 160/66 H 160/66 H Blood Pressure Mean 142 97 97 Pulse Ox 100 95 Oxygen Delivery Method Room Air Room Air 06/22/25 02:07 Temperature 97.9 F Temperature Source Pulse Rate 70 Respiratory Rate 16 Blood Pressure 177/86 H Blood Pressure Mean 116 Pulse Ox 98 Oxygen Delivery Method Positive well nourished and well developed General Appearance ED: well developed and NAD HEENT Reports moist mucous membranes normocephalic and atraumatic Eyes PERRL and EOMs intact bilaterally Neck full ROM and supple Resp normal respiratory effort and clear to auscultation bilaterally Cardio regular rate, regular rhythm and no murmurs GI non-tender and non-distended Auscultation: hyperactive bowel sounds Palpation: soft Back/Spine no CVA tenderness General Back: other FROM Extremity normal to inspection General Extremety ED: Negative for edema, pulses abnormal or tenderness General Extremity: Negative for edema or pulses abnormal Neuro oriented x3, CN's II-XII intact bilaterally and no sensory deficits noted Sensorium / Orientation: awake and alert Motor Exam: strength 5/5 throughout Psych mental status grossly normal and thought process normal Skin no rashes or lesions noted and no wounds MDM MDM MDM Narrative Medical decision making narrative: Assessment: The patient is a 54-year-old female with PMH of remote stomach ulcer and prior pulmonary embolism presenting for three days of viral gastroenteritis symptoms, initially profuse watery diarrhea now transitioned to prominent nausea and vomiting without abdominal pain or hematemesis. 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 Labs reveal mild leukocytosis 14.1 without bandemia, normal electrolytes except slightly low bicarbonate consistent with mild dehydration, and mild transaminitis (AST 43, ALT 67, alkaline phosphatase 174) likely reactive. Renal indices show pre-renal pattern. Given absence of red-flag features and exam without tenderness, viral gastroenteritis is the most likely diagnosis; dehydration secondary to poor oral intake is contributory. Plan: - Administered 1 L IV crystalloid for rehydration in ED - Administered IV Zofran for nausea; marked symptomatic improvement - Dispensed prescription for oral Zofran on discharge - Provided return precautions and instructed to follow up with PCP for repeat liver panel once symptoms resolve - Discharged home in stable condition, tolerating plan Diagnostics: - Labs: WBC 14.1 K/?L without bands; bicarbonate mildly low; electrolytes otherwise within normal limits; creatinine mildly elevated consistent with pre-renal pattern - Liver panel: AST 43 U/L, ALT 67 U/L, alkaline phosphatase 174 U/L Reevaluations: - Patient reports significant relief of nausea after IV fluids and Zofran; comfortable, wishes to go home Portions of this note were generated using voice recognition software ([employer]). I have reviewed the contents and every effort has been made to ensure accuracy; however, inadvertent errors in grammar, spelling, punctuation, or word choice may occur, that were not noted before signing the document and should not alter the intended clinical meaning. Lab Data Attestation: I reviewed the patient's lab results. Labs: Laboratory Results - last 24 hr 06/22/25 00:01 WBC 14.1 H RBC 4.80 Hgb 13.3 Hct 41.9 MCV 87.3 MCH 27.7 MCHC 31.7 L RDW Std Deviation 41.6 RDW Coeff of Rivas 13.1 Plt Count 424 MPV 9.6 Immature Gran % (Auto) 0.500 Neut % (Auto) 63.2 Lymph % (Auto) 25.2 [place] % (Auto) 8.7 Eos % (Auto) 2.0 Baso % (Auto) 0.4 Absolute Neuts (auto) 8.9 H Absolute Lymphs (auto) 3.56 Nucleated RBC % 0 Sodium 138 Potassium 3.8 Chloride 100 Carbon Dioxide 19.9 L Anion Gap 18 BUN 17 Creatinine 0.70 Estim Creat Clear Calc 127.52 Est GFR (MDRD) Non-Af 95 BUN/Creatinine Ratio 23.8 H Glucose 121 H Calcium 9.5 Total Bilirubin 0.48 AST 43 H ALT 67 H Alkaline Phosphatase 174 H Total Protein 7.9 Albumin 4.4 Globulin 3.5 Albumin/Globulin Ratio 1.3 Discharge Plan Triage Chief Complaint: Nausea/Vomiting/Diarrhea ED Provider: Anuj Jasso Dx/Rx/DC Orders Clinical Impression: Viral gastroenteritis, Elevated transaminase level, Mild dehydration Instructions: Viral Gastroenteritis Prescriptions: New ondansetron 8 mg tablet,disintegrating 8 mg PO Q8H PRN (Reason: nausea and vomiting) Qty: 20 0RF No Action acetaminophen [Tylenol Extra Strength] 500 mg tablet 500 mg PO Q6H PRN (Reason: Pain) aspirin 81 mg tablet,chewable 81 mg PO DAILY amlodipine 10 mg tablet 10 mg PO DAILY gabapentin 600 mg tablet 600 mg PO TID metoprolol succinate 100 MG tablet 100 mg PO QHS escitalopram oxalate 20 MG tablet 20 mg PO DAILY diphenoxylate-atropine [Lomotil] 2.5-0.025 mg tablet 1 tab PO 4X/DAY PRN PRN (Reason: diarrhea) 5 Days Qty: 20 0RF loperamide [Imodium A-D] 2 mg capsule 2 mg PO Q6H PRN (Reason: loose stool) 3 Days Qty: 12 0RF bupropion HCl 300 mg tablet extended release 24 hr 300 mg PO DAILY omeprazole 40 mg capsule,delayed release(DR/EC) 40 mg PO DAILY Qty: 30 1RF Primary Care Provider: Ike Christina Referrals: Ike Christina MD [Primary Care Provider, [facility]] - 1-2 Weeks Activity Restrictions/Additional Instructions: - Take Zofran as prescribed to help control your nausea. - Sip fluids regularly to stay hydrated; try small, frequent sips if larger amounts make you feel sick. - Schedule a follow-up appointment with your doctor to recheck your liver enzymes after your symptoms improve. - Return to the emergency department or contact your doctor if your symptoms worsen or if you do not feel better within the next couple of days. Print Language: Hungarian Disposition Disposition: Home, Self Care
[2025-06-22 01:05] VITALS: BP 160/66; PULSE 72; RESP 16; O2SAT 95
[2025-06-22 02:02] LABS: BUN/Creat Ratio 23.8 RATIO (10-20); Estimated Creatinine Clearance 127.52 ml/min (50-250)
[2025-06-22 02:07] VITALS: BP 177/86; PULSE 86; RESP 16; TEMP 36.6; O2SAT 95
== END 2025-06-22 02:15 | disposition home or self-care (01) ==
PROVIDERS: Emergency Provider Emergency Medicine; PCP Family Medicine; Visit Provider Emergency Medicine
DX: A08.4 Viral intestinal infection, unspecified (principal); I10 Essential (primary) hypertension; R74.01 Elevation of levels of liver transaminase levels; E86.0 Dehydration; Z79.899 Other long term (current) drug therapy; F32.A Depression, unspecified; F41.9 Anxiety disorder, unspecified; Z79.82 Long term (current) use of aspirin; K21.9 Gastro-esophageal reflux disease without esophagitis; Z90.49 Acquired absence of other specified parts of digestive tract; Z79.01 Long term (current) use of anticoagulants; Z86.711 Personal history of pulmonary embolism
CPT/HCPCS: 80053; 85025; 96361; 96374; 99283; A4216; J2405